=== PATIENT | male | born 1940 | race American Indian/Alaskan Native ===

== ENCOUNTER 2017-12-26 19:03 | Inpatient (IN) | payer MEDICARE, OTHER ==
[2017-12-26] MEDS ORDERED: Sodium Chloride 0.9% 1,000 ML IV STA ×2 (19:18→19:54)
--- NOTE | 2017-12-26 19:32 | ED PDOC ---
Arrival/HPI - General Chief Complaint: GI Problem Time Seen by Provider: 12/26/17 19:09 Historian: Patient - History of Present Illness Narrative History of Present Illness (Text): 12/26/17 19:27 A 77 year old male, whose past medical history includes hypertension, presents to the emergency department for a complaint of rectal bleeding and hematemesis. The patient states that he was diagnosed with a blood clot and was placed on Eliquis. He notes that he has taken it for 30 days, but did not like how it made him feel and made his food taste different. He was recently placed on Xarelto and had his first episode of rectal bleeding yesterday evening and another today at 1 pm. He also experienced 2 episodes of hematemesis today. The patient currently complains of lower abdominal discomfort. The patient denies fevers, chills, headache, dizziness, chest pain, shortness of breath, dyspnea on exertion, cough, abdominal pain, nausea, vomiting, diarrhea, back pain, neck pain, urinary/bowel changes, or any other complaint. PMD: Dr. Schwartz Time/Duration: Other (Yesterday) Symptom Onset: Sudden Symptom Course: Unchanged Activities at Onset: Rest, Light Context: Home Past Medical History - Provider Review Nursing Documentation Reviewed: Yes - Cardiac Hx Cardiac Disorders: Yes Hx Hypertension: Yes Hx Pacemaker: No - Neurological Hx Paralysis: No - Hematological/Oncological Hx Blood Transfusions: No Hx Blood Transfusion Reaction: No - Musculoskeletal/Rheumatological Hx Musculoskeletal Disorders: No - Psychiatric Hx Emotional Abuse: No Hx Physical Abuse: No Hx Substance Use: No - Anesthesia Hx Anesthesia Reactions: No Hx Malignant Hyperthermia: No - Suicidal Assessment Feels Threatened In Home Enviroment: No Family/Social History - Physician Review Nursing Documentation Reviewed: Yes Family/Social History: No Known Family HX Smoking Status: Never Smoked Hx Alcohol Use: Yes (OCCASIONAL) Hx Substance Use: No Allergies/Home Meds Allergies/Adverse Reactions: Allergies shellfish derived Allergy (Verified 12/26/17 18:51) SWELLING Home Medications: Home Meds Medication Instructions Recorded Confirmed Valsartan/Hydrochlorothiazide 320 mg PO QAM 05/12/13 12/26/17 [Valsartan and Hydrochlorothiazide 25 mg-320 M] Verapamil [Verapamil HCl] 240 mg PO QAM 05/12/13 12/26/17 Omeprazole Magnesium [Prilosec Otc] 20 mg PO DAILY 12/26/17 12/26/17 Rivaroxaban [Xarelto] 10 mg PO DAILY 12/26/17 12/26/17 Review of Systems - Physician Review All systems were reviewed & negative as marked: Yes - Review of Systems Constitutional: absent: Fevers, Night Sweats Respiratory: absent: SOB, Cough Cardiovascular: absent: Chest Pain, GREGORIO Gastrointestinal: Hematochezia, Hematemesis. absent: Abdominal Pain, Stool Changes, Diarrhea, Nausea, Vomiting Musculoskeletal: absent: Back Pain, Neck Pain Neurological: absent: Headache, Dizziness Physical Exam Vital Signs Reviewed: Yes Vital Signs Temp Pulse Resp BP Pulse Ox 12/26/17 21:52 97.9 F 102 H 20 84/52 L 12/26/17 21:19 97.9 F 101 H 18 82/36 L 12/26/17 21:02 97.9 F 102 H 20 71/46 L 99 12/26/17 20:45 110 H 19 94/49 L 99 12/26/17 20:22 105 H 20 105/39 L 98 12/26/17 18:49 99.2 F 91 H 20 88/40 L 92 L Temperature: Afebrile Blood Pressure: Hypertensive Pulse: Tachycardic Respiratory Rate: Normal Appearance: Positive for: Well-Appearing, Non-Toxic, Comfortable Pain Distress: None Mental Status: Positive for: Alert and Oriented X 3 - Systems Exam Head: Present: Atraumatic, Normocephalic Pupils: Present: PERRL Extroacular Muscles: Present: EOMI Conjunctiva: Present: Normal Mouth: Present: Moist Mucous Membranes Neck: Present: Normal Range of Motion Respiratory/Chest: Present: Clear to Auscultation, Good Air Exchange. No: Respiratory Distress, Accessory Muscle Use Cardiovascular: Present: Regular Rate and Rhythm, Normal S1, S2. No: Murmurs Abdomen: Present: Tenderness (Tenderness to the bilateral lower quadrants) Back: Present: Normal Inspection Upper Extremity: Present: Normal Inspection. No: Cyanosis, Edema Lower Extremity: Present: Normal Inspection. No: Edema Neurological: Present: GCS=15, CN II-XII Intact, Speech Normal Skin: Present: Warm, Dry, Normal Color. No: Rashes Psychiatric: Present: Alert, Oriented x 3, Normal Insight, Normal Concentration Medical Decision Making ED Course and Treatment: 12/26/17 19:34 Impression: A 77 year old male presents to the emergency department for complaints of hematemesis, hematochezia, and lower abdominal pain. Plan: -- EKG -- Chest X-ray -- Labs -- Urinalysis -- Reassess and disposition Progress Notes: EKG: Ordered, reviewed, and independently interpreted the EKG. Rate : 113 BPM Rhythm : Sinus Tachycardia Interpretation : Non- specific T wave changes CXR Impression: As read by me, no cardiomegaly, no infiltrates 12/26/17 19:54 Case discussed in detail with Dr. Reese and medical insurance coding specialist. Patient will be admitted. - Lab Interpretations Lab Results: 12/26/17 19:03 12/26/17 19:03 Lab Results 12/26/17 19:03: Blood Type O POSITIVE, Antibody Screen Negative, Crossmatch See Detail, BBK History Checked No verified bt 12/26/17 19:03: Sodium 141, Potassium 5.2 H, Chloride 106, Carbon Dioxide 22, Anion Gap 19, BUN 58 H, Creatinine 1.7 H, Est GFR ( Amer) 48, Est GFR ( Non-Af Amer) 39, Random Glucose 126 H, Calcium 8.4, Total Bilirubin 0.4, AST 17 , ALT 11, Alkaline Phosphatase 43, Lactate Dehydrogenase 374, Total Creatine Kinase 39, Troponin I 0.02, NT-Pro-B Natriuret Pep 3310 H, Total Protein 5.3 L, Albumin 2.8 L, Globulin 2.5, Albumin/Globulin Ratio 1.1, Lipase 30 12/26/17 19:03: PT 29.7 H, INR 2.56 H, APTT 35.1 12/26/17 19:03: WBC 8.8, RBC 2.59 L, Hgb 6.6 L*, Hct 20.3 L*, MCV 78.4 L, MCH 25.5, MCHC 32.5, RDW 16.8 H, Plt Count 226, MPV 9.5, Gran % 78.3 H, Lymph % ( Auto) 15.0 L, [place] % (Auto) 6.5 H, Eos % (Auto) 0.0 L, Baso % (Auto) 0.2, Gran # 6.90 H, Lymph # (Auto) 1.3, [place] # (Auto) 0.6, Eos # (Auto) 0.0, Baso # (Auto ) 0.02 I have reviewed the lab results: Yes - RAD Interpretation Radiology Orders: 12/26/17 19:10 CHEST PORTABLE [RAD] Stat - EKG Interpretation Interpreted by ED Physician: Yes Type: 12 lead EKG - Medication Orders Current Medication Orders: Pantoprazole Sodium (Protonix 40mg Ivpb) 40 mg in 100 mls @ 20 mls/hr IVPB .Q5H GRICELDA Sodium Chloride (Sodium Chloride 0.9%) 1,000 mls @ 200 mls/hr IV .Q5H GRICELDA Last Admin: 12/26/17 21:30 Dose: 200 mls/hr eMAR Start Stop Document 12/26/17 21:30 JET (Rec: 12/26/17 21:30 [email or web address] [id number]) Intravenous Solution Start Date 12/26/17 Start Time 21:30 Ondansetron HCl (Zofran Inj) 4 mg IVP Q4H PRN PRN Reason: Nausea/Vomiting Discontinued Medications Sodium Chloride (Sodium Chloride 0.9%) 1,000 mls @ 999 mls/hr IV .Q1H1M STA Stop: 12/26/17 20:18 Last Admin: 12/26/17 19:18 Dose: 999 mls/hr eMAR Start Stop Document 12/26/17 19:18 JET (Rec: 12/26/17 19:56 JET [id number]) Intravenous Solution Start Date 12/26/17 Start Time 19:18 End Date 12/26/17 End time 20:18 Total Infusion Time 60 Sodium Chloride (Sodium Chloride 0.9%) 1,000 mls @ 999 mls/hr IV .Q1H1M STA Stop: 12/26/17 20:40 Last Admin: 12/26/17 19:56 Dose: 999 mls/hr eMAR Start Stop Document 12/26/17 19:56 JET (Rec: 12/26/17 19:56 JET [id number]) Intravenous Solution Start Date 12/26/17 Start Time 19:56 End Date 12/26/17 End time 20:56 Total Infusion Time 60 Ondansetron HCl (Zofran Inj) 8 mg IVP STAT STA Stop: 12/26/17 19:44 Last Admin: 12/26/17 19:50 Dose: 8 mg IVP Administration Document 12/26/17 19:50 JET (Rec: 12/26/17 19:50 JET [id number]) Charges for Administration # of IVP Administrations 1 Pantoprazole Sodium (Protonix Inj) 40 mg IVP STAT STA Stop: 12/26/17 19:44 Last Admin: 12/26/17 19:51 Dose: 40 mg IVP Administration Document 12/26/17 19:51 JET (Rec: 12/26/17 19:51 JET [id number]) Charges for Administration # of IVP Administrations 1 - Scribe Statement The provider has reviewed the documentation as recorded by the Scribe Marilyn Maya Provider Scribe Attestation: All medical record entries made by the Scribe were at my direction and personally dictated by me. I have reviewed the chart and agree that the record accurately reflects my personal performance of the history, physical exam, medical decision making, and the department course for this patient. I have also personally directed, reviewed, and agree with the discharge instructions and disposition. Disposition/Present on Arrival - Present on Arrival Any Indicators Present on Arrival: No History of DVT/PE: No History of Uncontrolled Diabetes: No Urinary Catheter: No History of Decub. Ulcer: No History Surgical Site Infection Following: None - Disposition Have Diagnosis and Disposition been Completed?: Yes Diagnosis: Acute upper GI bleeding, Acute lower GI hemorrhage Disposition: HOSPITALIZED Disposition Time: 19:49 Patient Plan: Discharge Patient Problems: Current Active Problems Problem Status Onset Acute upper GI bleeding Acute Acute lower GI hemorrhage Acute Condition: GOOD
[2017-12-26 19:51] LABS: ALB/GLOB RATIO 1.1 (1.1-1.8); ALBUMIN 2.8 g/dL (3.0-4.8); CALCIUM 8.4 mg/dL (8.4-10.5)
[2017-12-26 19:53] LABS: BASO # 0.02 K/mm3 (0.0-2.0); BASO % 0.2 % (0.0-3.0); GRAN # 6.9 (1.4-6.5); GRAN % 78.3 % (50.0-68.0); LYMPH # 1.3 (1.2-3.4); MEAN CELL VOLUME 78.4 fl (80.0-105.0); MEAN CORPUSCULAR HEMOGLOBIN 25.5 pg (25.0-35.0); MEAN CORPUSCULAR HGB CONC 32.5 g/dl (31.0-37.0); MEAN PLATELET VOLUME 9.5 fl (7.0-11.0); MONO # 0.6 (0.1-0.6); MONO % 6.5 % (1.0-6.0); RBC 2.59 10^6/uL (3.5-6.1); RED CELL DISTRIBUTION WIDTH 16.8 % (11.5-14.5); WHITE BLOOD COUNT 8.8 10^3/ul (4.5-11.0)
[2017-12-26 19:58] LABS: HEMOGLOBIN 6.6 g/dL (14.0-18.0)
[2017-12-26 20:00] LABS: INR 2.56 (0.93-1.08); PARTIAL THROMBOPLASTIN TIME 35.1 Seconds (25.1-36.5); PROTHROMBIN TIME 29.7 SECONDS (9.4-12.5)
[2017-12-26 20:03] LABS: TROPONIN I 0.02 ng/mL
[2017-12-26] MEDS ORDERED: Iohexol 240 (50 ml) ONE (20:35)
--- NOTE | 2017-12-26 21:05 | CP.PCM.HP ---
<Luis Malhotra - Last Filed: 12/26/17 23:06> History of Present Illness - History of Present Illness History of Present Illness: 77 year old male with a past medical history of hypertension, duodenitis, erosive gastritis (diagnosed in 2012), divericulosis, abdominal aortic aneurysm repair in 2011, left lower extremity DVT also in 2011, who presents with two days of melena, multiple episodes of coffee ground hematemesis, and bright red blood per rectum today after starting Xarelto two days ago. Patient reports he was taking Eliquis for a month (or longer) but experienced abdominal discomfort , loss of appetite, and associated weight loss. His PMD, Dr. Schwartz, started him on Xarelto instead (two days prior) in light of these adverse events. In the past two days the patient reports passing dark stool, loss of appetite, coughing up blood, and as of today, palpitations, passing large volume of brightred blood per rectum that he is unable to quantify. His told him he should call 911 after she saw him vomiting a dark substance, presumably blood, and almost fainting. He does admit to drinking alcohol, but denies any history of drinking greater than 8 drinks per week or having any prior history of alcohol abuse. 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 Past Surgical History: abdominal aortic aneurysm angioplasty, upper and lower endoscopies Allergies: Shell-fish and its derivatives Medications: Valsartan-HCTZ 320-25; Xarelto 10 mg (for past two days), Omeprazole 20 mg, Verapamil 240 mg Social: 50 pack year of smoking, drinks alcohol socially, denies illicit drug use Present on Admission - Present on Admission Any Indicators Present on Admission: Yes History of DVT/PE: Yes Review of Systems - Constitutional Constitutional: Anorexia, Headache, Malaise - Cardiovascular Cardiovascular: Dyspnea on Exertion, Lightheadedness, Palpitations - Respiratory Respiratory: Cough - Gastrointestinal Gastrointestinal: Abdominal Pain (lower), Coffee Ground Emesis, Dyspepsia, Hematemesis - Neurological Neurological: Weakness - Hematologic/Lymphatic Hematologic: Easy Bleeding Past Patient History - Past Social History Smoking Status: Never Smoked - CARDIAC Hx Cardiac Disorders: Yes Hx Hypertension: Yes Hx Pacemaker: No - NEUROLOGICAL Hx Paralysis: No - HEMATOLOGICAL/ONCOLOGICAL Hx Blood Transfusions: No Hx Blood Transfusion Reaction: No - MUSCULOSKELETAL/RHEUMATOLOGICAL Hx Musculoskeletal Disorders: No - PSYCHIATRIC Hx Emotional Abuse: No Hx Physical Abuse: No Hx Substance Use: No - SURGICAL HISTORY Hx Surgeries: Yes - ANESTHESIA Hx Anesthesia Reactions: No Hx Malignant Hyperthermia: No Meds Allergies/Adverse Reactions: Allergies Allergy/AdvReac Type Severity Reaction Status Date / Time shellfish derived Allergy SWELLING Verified 12/26/17 18:51 Physical Exam - Constitutional Appears: Toxic - Head Exam Head Exam: ATRAUMATIC, NORMOCEPHALIC - Eye Exam Eye Exam: Conjunctival injection - ENT Exam ENT Exam: Mucous Membranes Dry - Neck Exam Neck exam: Positive for: Normal Inspection - Respiratory Exam Respiratory Exam: Clear to Auscultation Bilateral - Cardiovascular Exam Cardiovascular Exam: Tachycardia, Systolic Murmur - GI/Abdominal Exam GI & Abdominal Exam: absent: Distended, Firm Additional comments: 2 foot midline incision from previous abdominal surgery - Rectal Exam Additional comments: patient refused - Extremities Exam Extremities exam: Positive for: normal inspection. Negative for: calf tenderness - Back Exam Back exam: NORMAL INSPECTION. absent: CVA tenderness (L), CVA tenderness (R) - Neurological Exam Neurological exam: Alert, Oriented x3 - Psychiatric Exam Psychiatric exam: Agitated - Skin Skin Exam: Pallor Results - Vital Signs Recent Vital Signs: Last Vital Signs Temp 99.2 F 12/26/17 18:49 Pulse 91 H 12/26/17 18:49 Resp 20 12/26/17 18:49 BP 88/40 L 12/26/17 18:49 Pulse Ox 92 L 12/26/17 18:49 - Labs Result Diagrams: 12/26/17 19:03 12/26/17 19:03 Labs: Laboratory Results - last 24 hr 12/26/17 20:29 Blood Type Confirm O POSITIVE Assessment & Plan - Assessment and Plan (Free Text) Assessment: 77 year old male with a past medical history of duodenitis, erosive gastritis, history of abdominal aortic aneursym repair, DVT, on Xarelto who presented to [facility] [place] with 2 days of hematemesis, bright red blood per rectum, and symptomatic anemia. Patient was found to hypotensive and tachycardic in the ED with a hemoglobin of 6.6, hematocrit of 20.3, and an INR of 2.56. He was given 2 L of normal saline, started on 200 mls/hr of NS, Protonix ggt, with two , large bore peripheral venous catheters placed . The patient was immediately transferred to ICU. A total of 4 units of blood were prepared with 2 being administered. GI, Dr. Ibrahim was consulted. Plan: 1) Acute GI bleed with hemodynamic instability - NPO - 2 units of PRBCs - Protonix ggt - Prothrombin complex concentrate to be administered - Continue IV crystalloids: 200 mls/ hr of NS - VS q15 minutes - CBC q4h - Troponin q6h x2; initial was negative - PT/PTT ordered for 05:00 12/27/17 - GI consulted Dr. Ibrahim - Surgery Consulted, Dr. Lopez - CT Abdomen and Pelvis ordered - GI bleeding scan Case reviewed and discussed with attending physician, Dr. Reese - Date & Time Date: 12/26/17 Time: 23:02 <Alicia Reese - Last Filed: 12/27/17 04:38> Results - Vital Signs Recent Vital Signs: Last Vital Signs Temp 98 F 12/26/17 23:24 Pulse 116 H 12/27/17 03:40 Resp 19 12/27/17 03:40 BP 110/68 12/27/17 03:30 Pulse Ox 96 12/27/17 03:30 - Labs Result Diagrams: 12/27/17 03:10 12/26/17 19:03 Labs: Laboratory Results - last 24 hr 12/26/17 12/27/17 12/27/17 20:29 03:10 03:10 WBC 14.6 H D RBC 2.56 L Hgb 7.0 L Hct 20.7 L* MCV 80.9 MCH 27.3 MCHC 33.8 RDW 16.3 H Plt Count 134 MPV 9.1 Gran % 85.0 H Lymph % (Auto) 6.6 L [place] % (Auto) 8.4 H Eos % (Auto) 0.0 L Baso % (Auto) 0.0 Gran # 12.42 H Lymph # (Auto) 1.0 L [place] # (Auto) 1.2 H Eos # (Auto) 0.0 Baso # (Auto) 0.00 PT INR APTT Troponin I 0.06 D Blood Type Confirm O POSITIVE 12/27/17 03:10 WBC RBC Hgb Hct MCV MCH MCHC RDW Plt Count MPV Gran % Lymph % (Auto) [place] % (Auto) Eos % (Auto) Baso % (Auto) Gran # Lymph # (Auto) [place] # (Auto) Eos # (Auto) Baso # (Auto) PT 18.6 H INR 1.62 H APTT 35.2 Troponin I Blood Type Confirm Attending/Attestation - Attestation I have personally seen and examined this patient.: Yes I have fully participated in the care of the patient.: Yes I have reviewed all pertinent clinical information: Yes Notes (Text): 12/27/17 04:36 Patient was seen when he was in bed # 3 in the ER. Agree with history,physical examination, assessment and plan. Discussed with , . [facility] 2200 Unit IV was given.
[2017-12-26] MEDS ORDERED: Sodium Chloride 0.9% 1,000 ML IV SCH (21:30)
[2017-12-26] MEDS ORDERED: Hum Prothrombin CPLX(PCC)4FACT 1 Unit Inj IV ONE (22:31)
[2017-12-26] MEDS: Pantoprazole 40mg/100mL NS 40 MG/100 ML BAG IVPB SCH (22:55)
--- NOTE | 2017-12-26 23:45 | CP.PCM.CON ---
History of Present Illness - History of Present Illness History of Present Illness: Surgery: Dr. Lopez Pt is a 77M with PMHx significant for HTN, gastritis/duodenitis, diverticulosis & LLE DVT on AC who presented to [facility] [place] with complaints of black stools & coffee ground emesis. Pt states that he was started on Eliquis a month ago however, had some adverse reactions to the medication & was switched to Xarelto by his PMD 2 days ago. Pt reports having dark, black stools for the past 2 days with loss of appetite. This morning he also started having coffee ground emesis & weakness/palpitations & therefore called 911 & was brought to the ER. Surgery called to evaluate. Currently, pt is resting comfortably in bed. States he is feeling about the same. He denies abdominal pain & denies having any more episodes of bloody emesis. However, he does admit to 2 large melanotic BMs since being in the hospital. Denies F/C, chest pain or SOB. Pt states he has been scoped in the past few years but can't recall exactly when. Denies having a similar episode in the past. PMHx: as per HPI PSHx: AAA repair, Midline laparotomy incision (pt unsure of exact sx) SocialHx: 50 pack year smoking hx, admits social EtOH, denies drugs ALL: shellfish Review of Systems - Review of Systems All systems: reviewed and no additional remarkable complaints except (as per HPI ) Past Patient History - Past Social History Smoking Status: Former Smoker - CARDIAC Hx Cardiac Disorders: Yes Hx Hypertension: Yes Hx Pacemaker: No - NEUROLOGICAL Hx Paralysis: No - HEMATOLOGICAL/ONCOLOGICAL Hx Blood Transfusions: No Hx Blood Transfusion Reaction: No - MUSCULOSKELETAL/RHEUMATOLOGICAL Hx Musculoskeletal Disorders: No - PSYCHIATRIC Hx Emotional Abuse: No Hx Physical Abuse: No Hx Substance Use: No - SURGICAL HISTORY Hx Surgeries: Yes - ANESTHESIA Hx Anesthesia Reactions: No Hx Malignant Hyperthermia: No Meds Allergies/Adverse Reactions: Allergies Allergy/AdvReac Type Severity Reaction Status Date / Time shellfish derived Allergy SWELLING Verified 12/26/17 18:51 - Medications Medications: Current Medications Pantoprazole Sodium (Protonix 40mg Ivpb) 40 mg in 100 mls @ 20 mls/hr IVPB .Q5H GRICELDA Last Admin: 12/26/17 22:55 Dose: 20 mls/hr Sodium Chloride (Sodium Chloride 0.9%) 1,000 mls @ 200 mls/hr IV .Q5H RGICELDA Last Admin: 12/26/17 21:30 Dose: 200 mls/hr Ondansetron HCl (Zofran Inj) 4 mg IVP Q4H PRN PRN Reason: Nausea/Vomiting Physical Exam - Constitutional Appears: No Acute Distress - Head Exam Head Exam: ATRAUMATIC, NORMOCEPHALIC - ENT Exam ENT Exam: Mucous Membranes Moist - Respiratory Exam Respiratory Exam: NORMAL BREATHING PATTERN - Cardiovascular Exam Cardiovascular Exam: Tachycardia - GI/Abdominal Exam GI & Abdominal Exam: Soft. absent: Distended, Guarding, Tenderness - Rectal Exam Additional comments: Pt refused rectal exam, however noted to have melanotic stool - Neurological Exam Neurological exam: Alert, Oriented x3 - Skin Skin Exam: Dry, Warm Results - Vital Signs Recent Vital Signs: Last Vital Signs Temp 98 F 12/26/17 23:24 Pulse 105 H 12/26/17 23:24 Resp 20 12/26/17 23:24 BP 92/38 L 12/26/17 23:24 Pulse Ox 99 12/26/17 22:15 - Labs Result Diagrams: 12/26/17 19:03 12/26/17 19:03 Labs: Laboratory Results - last 24 hr 12/26/17 20:29 Blood Type Confirm O POSITIVE Assessment & Plan - Assessment and Plan (Free Text) Assessment: 77M with GI bleed Plan: - Keep NPO with IVF - Monitor H/H q4H with PRBC transfusions PRN; 2 units ordered - Recommend transfusion of platelets & FFP as well - if pt begins to vomit; rec NGT insertion - IV Protonix - f/u GI recs - No plan for surgical intervention at this time - d/w Dr. John Lehman, PGY-3
[2017-12-27] MEDS ORDERED: Phytonadione 10 MG in Sodium Chloride 0.9% 50 ML IV ONE (00:09)
[2017-12-27] MEDS ORDERED: Sodium Chloride 0.9% 2,000 ML IV STA (01:56)
[2017-12-27] MEDS: Pantoprazole 40mg/100mL NS 40 MG/100 ML BAG IVPB SCH ×2 (02:42→10:56)
[2017-12-27 03:32] LABS: GRAN # 12.42 (1.4-6.5); LYMPH % 6.6 % (22.0-35.0); MEAN CELL VOLUME 80.9 fl (80.0-105.0); MEAN CORPUSCULAR HEMOGLOBIN 27.3 pg (25.0-35.0); MEAN CORPUSCULAR HGB CONC 33.8 g/dl (31.0-37.0); MEAN PLATELET VOLUME 9.1 fl (7.0-11.0); MONO # 1.2 (0.1-0.6); MONO % 8.4 % (1.0-6.0); RBC 2.56 10^6/uL (3.5-6.1); RED CELL DISTRIBUTION WIDTH 16.3 % (11.5-14.5); WHITE BLOOD COUNT 14.6 10^3/ul (4.5-11.0)
[2017-12-27 03:33] LABS: PROTHROMBIN TIME 18.6 SECONDS (9.4-12.5)
[2017-12-27 03:34] LABS: INR 1.62 (0.93-1.08); PARTIAL THROMBOPLASTIN TIME 35.2 Seconds (25.1-36.5)
[2017-12-27 05:52] LABS: BASO # 0.01 K/mm3 (0.0-2.0); BASO % 0.1 % (0.0-3.0); GRAN # 12.67 (1.4-6.5); GRAN % 81.2 % (50.0-68.0); LYMPH # 1.7 (1.2-3.4); LYMPH % 10.8 % (22.0-35.0); MEAN CELL VOLUME 79.8 fl (80.0-105.0); MEAN CORPUSCULAR HEMOGLOBIN 27.5 pg (25.0-35.0); MEAN CORPUSCULAR HGB CONC 34.4 g/dl (31.0-37.0); MEAN PLATELET VOLUME 8.7 fl (7.0-11.0); MONO # 1.2 (0.1-0.6); MONO % 7.9 % (1.0-6.0); RBC 1.93 10^6/uL (3.5-6.1); RED CELL DISTRIBUTION WIDTH 16.2 % (11.5-14.5); WHITE BLOOD COUNT 15.6 10^3/ul (4.5-11.0)
[2017-12-27 06:02] LABS: HEMOGLOBIN 5.3 g/dL (14.0-18.0)
[2017-12-27 06:04] LABS: INR 1.49 (0.93-1.08); PROTHROMBIN TIME 17.3 SECONDS (9.4-12.5)
[2017-12-27 06:17] LABS: TROPONIN I 0.08 ng/mL
[2017-12-27 06:44] LABS: ALBUMIN 2.1 g/dL (3.0-4.8); CALCIUM 7.3 mg/dL (8.4-10.5)
--- NOTE | 2017-12-27 08:28 | RAD ---
HISTORY: Vomiting Blood COMPARISON: 05/13/2013 FINDINGS: LUNGS: Interstitial lung disease, chronic approximately stable. No active pulmonary disease. PLEURA: No significant pleural effusion identified, no pneumothorax apparent. CARDIOVASCULAR: No radiographic findings to suggest acute or significant cardiovascular disease. OSSEOUS STRUCTURES: No significant abnormalities. VISUALIZED UPPER ABDOMEN: Normal. OTHER FINDINGS: None. IMPRESSION: No active disease. No change compared to the prior study.
[2017-12-27 08:44] LABS: BASO # 0.01 K/mm3 (0.0-2.0); BASO % 0.1 % (0.0-3.0); GRAN # 12.05 (1.4-6.5); HEMOGLOBIN 8.1 g/dL (14.0-18.0); LYMPH # 1.6 (1.2-3.4); LYMPH % 11.3 % (22.0-35.0); MEAN CELL VOLUME 82.5 fl (80.0-105.0); MEAN CORPUSCULAR HEMOGLOBIN 28.9 pg (25.0-35.0); MEAN CORPUSCULAR HGB CONC 35.1 g/dl (31.0-37.0); MEAN PLATELET VOLUME 10.1 fl (7.0-11.0); MONO # 0.7 (0.1-0.6); MONO % 4.6 % (1.0-6.0); RBC 2.8 10^6/uL (3.5-6.1); RED CELL DISTRIBUTION WIDTH 15.5 % (11.5-14.5); WHITE BLOOD COUNT 14.3 10^3/ul (4.5-11.0)
[2017-12-27 08:56] LABS: INR 1.4 (0.93-1.08); PARTIAL THROMBOPLASTIN TIME 35.4 Seconds (25.1-36.5); PROTHROMBIN TIME 16.2 SECONDS (9.4-12.5)
[2017-12-27] MEDS ORDERED: Sodium Chloride 0.9% 1,000 ML IV SCH (09:19)
[2017-12-27 10:00] LABS: ARTERIAL BLOOD GAS HCO3 21.7 mmol/L (21-28); ARTERIAL BLOOD GAS O2 SAT 99.7 % (95-98); ARTERIAL BLOOD GAS PCO2 32 mm/Hg (35-45); ARTERIAL BLOOD GAS PH 7.44 (7.35-7.45); ARTERIAL BLOOD GAS TCO2 22.7 mmol.L (22-28)
--- NOTE | 2017-12-27 10:06 | CP.PCM.CON ---
<Mayda Parker - Last Filed: 12/27/17 11:02> History of Present Illness - History of Present Illness History of Present Illness: PGY-[address] Ibrahim's service 77 year old male with PMH of hypertension, duodenitis, erosive gastritis ( diagnosed in 2012), divericulosis, abdominal aortic aneurysm repair in 2011, left lower extremity DVT (2011), who presents with GI bleed. Patient states that over the past 2 days he had multiple episodes of coffee ground hematemesis. He also reports melena, and bright red blood per rectum starting yesetrday. Patient states that he started Xarelto a few days ago. Patient endorses he was taking Eliquis but experienced abdominal discomfort, loss of appetite, and associated weight loss. He was switched to Xarelto instead recently due to these adverse events. He does admit to drinking alcohol, but denies any history of drinking greater than 8 drinks per week or having any prior history of alcohol abuse. Patient states that he takes Aleeve almost daily for the past 5 years. 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 PSH: abdominal aortic aneurysm angioplasty, upper and lower endoscopies Allergies: Shell-fish and its derivatives Medications: Valsartan-HCTZ 320-25; Xarelto 10 mg (for past two days), Omeprazole 20 mg, Verapamil 240 mg Social history: 50 pack year of smoking, drinks alcohol socially, denies illicit drug use 's cell phone number [phone] Review of Systems - Review of Systems All systems: reviewed and no additional remarkable complaints except Past Patient History - Past Social History Smoking Status: Former Smoker - CARDIAC Hx Cardiac Disorders: Yes Hx Hypertension: Yes Hx Pacemaker: No - PULMONARY Hx Respiratory Disorders: No - NEUROLOGICAL Hx Paralysis: No - HEENT Hx HEENT Problems: No - RENAL Hx Chronic Kidney Disease: No - ENDOCRINE/METABOLIC Hx Endocrine Disorders: No - HEMATOLOGICAL/ONCOLOGICAL Hx Blood Transfusions: No Hx Blood Transfusion Reaction: No - INTEGUMENTARY Hx Dermatological Problems: No - MUSCULOSKELETAL/RHEUMATOLOGICAL Hx Musculoskeletal Disorders: No - GASTROINTESTINAL Hx Gastrointestinal Disorders: Yes Other/Comment: gastritis - GENITOURINARY/GYNECOLOGICAL Hx Genitourinary Disorders: No - PSYCHIATRIC Hx Emotional Abuse: No Hx Physical Abuse: No Hx Substance Use: No - SURGICAL HISTORY Hx Surgeries: Yes - ANESTHESIA Hx Anesthesia Reactions: No Hx Malignant Hyperthermia: No Meds Allergies/Adverse Reactions: Allergies Allergy/AdvReac Type Severity Reaction Status Date / Time shellfish derived Allergy SWELLING Verified 12/26/17 18:51 - Medications Medications: Current Medications Pantoprazole Sodium (Protonix 40mg Ivpb) 40 mg in 100 mls @ 20 mls/hr IVPB .Q5H [facility] Last Admin: 12/27/17 02:42 Dose: 20 mls/hr Magnesium 2 gm/50 ml NS (Magnesium Sulfate 2 Gm/50 Ml Ns) 2 gm in 50 mls @ 50 mls/hr IVPB ONCE ONE Stop: 12/27/17 10:45 Ondansetron HCl (Zofran Inj) 4 mg IVP Q4H PRN PRN Reason: Nausea/Vomiting Physical Exam - Head Exam Head Exam: ATRAUMATIC, NORMAL INSPECTION, NORMOCEPHALIC - Eye Exam Eye Exam: Normal appearance - ENT Exam ENT Exam: Mucous Membranes Dry - Respiratory Exam Respiratory Exam: Clear to Auscultation Bilateral, NORMAL BREATHING PATTERN. absent: Rales, Rhonchi, Wheezes, Respiratory Distress Additional comments: on non rebreather - Cardiovascular Exam Cardiovascular Exam: REGULAR RHYTHM, +S1, +S2. absent: Bradycardia, Tachycardia , Diastolic murmur, Irregular Rhythm, Systolic Murmur - GI/Abdominal Exam GI & Abdominal Exam: Normal Bowel Sounds, Soft. absent: Distended, Firm, Guarding, Tenderness - Extremities Exam Extremities exam: Positive for: normal inspection. Negative for: pedal edema, tenderness - Neurological Exam Neurological exam: Alert, Oriented x3 - Skin Skin Exam: Dry, Intact, Warm - Additional Findings Additional findings: bright red blood per rectum Results - Vital Signs Recent Vital Signs: Last Vital Signs Temp 98 F 12/26/17 23:24 Pulse 63 12/27/17 07:53 Resp 16 12/27/17 07:55 BP 129/73 12/27/17 07:30 Pulse Ox 96 12/27/17 03:30 - Labs Result Diagrams: 12/27/17 08:35 12/27/17 05:40 Labs: Laboratory Results - last 24 hr 12/26/17 12/27/17 12/27/17 20:29 03:10 03:10 WBC 14.6 H D RBC 2.56 L Hgb 7.0 L Hct 20.7 L* MCV 80.9 MCH 27.3 MCHC 33.8 RDW 16.3 H Plt Count 134 MPV 9.1 Gran % 85.0 H Lymph % (Auto) 6.6 L Wise % (Auto) 8.4 H Eos % (Auto) 0.0 L Baso % (Auto) 0.0 Gran # 12.42 H Lymph # (Auto) 1.0 L Wise # (Auto) 1.2 H Eos # (Auto) 0.0 Baso # (Auto) 0.00 PT INR APTT Sodium Potassium Chloride Carbon Dioxide Anion Gap BUN Creatinine Est GFR ( Amer) Est GFR (Non-Af Amer) Random Glucose Calcium Phosphorus Magnesium Total Bilirubin AST ALT Alkaline Phosphatase Troponin I 0.06 D Total Protein Albumin Globulin Albumin/Globulin Ratio Blood Type Confirm O POSITIVE 12/27/17 12/27/17 12/27/17 03:10 05:30 05:40 WBC RBC Hgb Hct MCV MCH MCHC RDW Plt Count MPV Gran % Lymph % (Auto) Wise % (Auto) Eos % (Auto) Baso % (Auto) Gran # Lymph # (Auto) Wise # (Auto) Eos # (Auto) Baso # (Auto) PT 18.6 H INR 1.62 H APTT 35.2 Sodium 143 Potassium 4.7 Chloride 113 H Carbon Dioxide 20 L Anion Gap 15 BUN 72 H Creatinine 1.7 H Est GFR ( Amer) 48 Est GFR (Non-Af Amer) 39 Random Glucose 114 H Calcium 7.3 L Phosphorus 3.4 Magnesium 1.5 L Total Bilirubin 0.5 AST 17 ALT 23 Alkaline Phosphatase 34 L D Troponin I 0.08 D Total Protein 4.1 L Albumin 2.1 L Globulin 2.0 Albumin/Globulin Ratio 1.0 L Blood Type Confirm 12/27/17 12/27/17 12/27/17 05:40 05:40 08:35 WBC 15.6 H 14.3 H RBC 1.93 L 2.80 L Hgb 5.3 L* 8.1 L D Hct 15.4 L* 23.1 L MCV 79.8 L 82.5 MCH 27.5 28.9 MCHC 34.4 35.1 RDW 16.2 H 15.5 H Plt Count 116 L 90 L MPV 8.7 10.1 Gran % 81.2 H 84.0 H Lymph % (Auto) 10.8 L 11.3 L Wise % (Auto) 7.9 H 4.6 Eos % (Auto) 0.0 L 0.0 L Baso % (Auto) 0.1 0.1 Gran # 12.67 H 12.05 H Lymph # (Auto) 1.7 1.6 Wise # (Auto) 1.2 H 0.7 H Eos # (Auto) 0.0 0.0 Baso # (Auto) 0.01 0.01 PT 17.3 H INR 1.49 H APTT 34.0 Sodium Potassium Chloride Carbon Dioxide Anion Gap BUN Creatinine Est GFR ( Amer) Est GFR (Non-Af Amer) Random Glucose Calcium Phosphorus Magnesium Total Bilirubin AST ALT Alkaline Phosphatase Troponin I Total Protein Albumin Globulin Albumin/Globulin Ratio Blood Type Confirm 12/27/17 08:35 WBC RBC Hgb Hct MCV MCH MCHC RDW Plt Count MPV Gran % Lymph % (Auto) Wise % (Auto) Eos % (Auto) Baso % (Auto) Gran # Lymph # (Auto) Wise # (Auto) Eos # (Auto) Baso # (Auto) PT 16.2 H INR 1.40 H APTT 35.4 Sodium Potassium Chloride Carbon Dioxide Anion Gap BUN Creatinine Est GFR ( Amer) Est GFR (Non-Af Amer) Random Glucose Calcium Phosphorus Magnesium Total Bilirubin AST ALT Alkaline Phosphatase Troponin I Total Protein Albumin Globulin Albumin/Globulin Ratio Blood Type Confirm Assessment & Plan - Assessment and Plan (Free Text) Assessment: 77 year old male with PMH of hypertension, duodenitis, erosive gastritis, divericulosis, abdominal aortic aneurysm repair in 2011, left lower extremity DVT (2011), who presents with GI bleed s/p 3 u pRBC and 2 units FFP. Plan: s/p 5 units pRBC, 2 units FFP endoscopy today hgb 8.1 after transfusion, continue to monitor H&H, transfuse as needed continue protonix drip consider bleeding scan NPO case seen and discussed with Dr. Ibrahim <Jarred Ibrahim V - Last Filed: 12/27/17 23:33> Meds - Medications Medications: Current Medications Pantoprazole Sodium (Protonix 40mg Ivpb) 40 mg in 100 mls @ 20 mls/hr IVPB .Q5H [facility] Last Admin: 12/27/17 10:56 Dose: 20 mls/hr Midazolam 100 mg/100ml in NS (Midazolam 100 Mg/100ml In Ns) 100 mg in 100 mls @ 1 mls/hr IV .Q24H PRN; Protocol; 1 MG/HR PRN Reason: Agitation Last Admin: 12/27/17 19:11 Dose: 1 mg/hr, 1 mls/hr Propofol (Diprivan) 1,000 mg in 100 mls @ 2.557 mls/hr IV .Q24H PRN; Protocol; 5 MCG/KG/MIN PRN Reason: TITRATE PER MD ORDER Last Admin: 12/27/17 20:09 Dose: 10 mcg/kg/min, 5.114 mls/hr Ondansetron HCl (Zofran Inj) 4 mg IVP Q4H PRN PRN Reason: Nausea/Vomiting Results - Vital Signs Recent Vital Signs: Last Vital Signs Temp 98.6 F 12/27/17 22:30 Pulse 98 H 12/27/17 22:30 Resp 23 12/27/17 18:55 BP 141/74 12/27/17 22:30 Pulse Ox 64 L 12/27/17 22:30 - Labs Result Diagrams: 12/27/17 19:26 12/27/17 17:20 Labs: Laboratory Results - last 24 hr 12/27/17 12/27/17 12/27/17 03:10 03:10 03:10 WBC 14.6 H D RBC 2.56 L Hgb 7.0 L Hct 20.7 L* MCV 80.9 MCH 27.3 MCHC 33.8 RDW 16.3 H Plt Count 134 MPV 9.1 Gran % 85.0 H Lymph % (Auto) 6.6 L Wise % (Auto) 8.4 H Eos % (Auto) 0.0 L Baso % (Auto) 0.0 Gran # 12.42 H Lymph # (Auto) 1.0 L Wise # (Auto) 1.2 H Eos # (Auto) 0.0 Baso # (Auto) 0.00 PT 18.6 H INR 1.62 H APTT 35.2 pCO2 pO2 HCO3 ABG pH ABG Total CO2 ABG O2 Saturation ABG Base Excess ABG Potassium Glucose Lactate FiO2 Sodium Potassium Chloride Carbon Dioxide Anion Gap BUN Creatinine Est GFR ( Amer) Est GFR (Non-Af Amer) Random Glucose Calcium Phosphorus Magnesium Total Bilirubin AST ALT Alkaline Phosphatase Troponin I 0.06 D Total Protein Albumin Globulin Albumin/Globulin Ratio Arterial Blood Potassium 12/27/17 12/27/17 12/27/17 05:30 05:40 05:40 WBC RBC Hgb Hct MCV MCH MCHC RDW Plt Count MPV Gran % Lymph % (Auto) Wise % (Auto) Eos % (Auto) Baso % (Auto) Gran # Lymph # (Auto) Wise # (Auto) Eos # (Auto) Baso # (Auto) PT 17.3 H INR 1.49 H APTT 34.0 pCO2 pO2 HCO3 ABG pH ABG Total CO2 ABG O2 Saturation ABG Base Excess ABG Potassium Glucose Lactate FiO2 Sodium 143 Potassium 4.7 Chloride 113 H Carbon Dioxide 20 L Anion Gap 15 BUN 72 H Creatinine 1.7 H Est GFR ( Amer) 48 Est GFR (Non-Af Amer) 39 Random Glucose 114 H Calcium 7.3 L Phosphorus 3.4 Magnesium 1.5 L Total Bilirubin 0.5 AST 17 ALT 23 Alkaline Phosphatase 34 L D Troponin I 0.08 D Total Protein 4.1 L Albumin 2.1 L Globulin 2.0 Albumin/Globulin Ratio 1.0 L Arterial Blood Potassium 12/27/17 12/27/17 12/27/17 05:40 08:35 08:35 WBC 15.6 H 14.3 H RBC 1.93 L 2.80 L Hgb 5.3 L* 8.1 L D Hct 15.4 L* 23.1 L MCV 79.8 L 82.5 MCH 27.5 28.9 MCHC 34.4 35.1 RDW 16.2 H 15.5 H Plt Count 116 L 90 L MPV 8.7 10.1 Gran % 81.2 H 84.0 H Lymph % (Auto) 10.8 L 11.3 L Wise % (Auto) 7.9 H 4.6 Eos % (Auto) 0.0 L 0.0 L Baso % (Auto) 0.1 0.1 Gran # 12.67 H 12.05 H Lymph # (Auto) 1.7 1.6 Wise # (Auto) 1.2 H 0.7 H Eos # (Auto) 0.0 0.0 Baso # (Auto) 0.01 0.01 PT 16.2 H INR 1.40 H APTT 35.4 pCO2 pO2 HCO3 ABG pH ABG Total CO2 ABG O2 Saturation ABG Base Excess ABG Potassium Glucose Lactate FiO2 Sodium Potassium Chloride Carbon Dioxide Anion Gap BUN Creatinine Est GFR ( Amer) Est GFR (Non-Af Amer) Random Glucose Calcium Phosphorus Magnesium Total Bilirubin AST ALT Alkaline Phosphatase Troponin I Total Protein Albumin Globulin Albumin/Globulin Ratio Arterial Blood Potassium 12/27/17 12/27/17 12/27/17 09:50 13:41 17:20 WBC 15.6 H 13.9 H RBC 2.33 L 1.98 L Hgb 6.7 L* 5.8 L* Hct 18.9 L* 16.5 L* MCV 81.1 83.3 MCH 28.8 29.3 MCHC 35.4 35.2 RDW 15.6 H 15.8 H Plt Count 85 L 135 MPV 9.8 9.2 Gran % 78.6 H Lymph % (Auto) 13.8 L Wise % (Auto) 7.5 H Eos % (Auto) 0.0 L Baso % (Auto) 0.1 Gran # 12.28 H Lymph # (Auto) 2.2 Wise # (Auto) 1.2 H Eos # (Auto) 0.0 Baso # (Auto) 0.02 PT INR APTT pCO2 32 L pO2 322.0 H HCO3 21.7 ABG pH 7.44 ABG Total CO2 22.7 ABG O2 Saturation 99.7 H ABG Base Excess -1.6 ABG Potassium 4.1 Glucose 125 H Lactate 0.6 L FiO2 100.0 Sodium 140.0 Potassium Chloride 118.0 H Carbon Dioxide Anion Gap BUN Creatinine Est GFR ( Amer) Est GFR (Non-Af Amer) Random Glucose Calcium Phosphorus Magnesium Total Bilirubin AST ALT Alkaline Phosphatase Troponin I Total Protein Albumin Globulin Albumin/Globulin Ratio Arterial Blood Potassium 4.1 12/27/17 12/27/17 12/27/17 17:20 17:20 19:26 WBC RBC Hgb Hct MCV MCH MCHC RDW Plt Count MPV Gran % Lymph % (Auto) Wise % (Auto) Eos % (Auto) Baso % (Auto) Gran # Lymph # (Auto) Wise # (Auto) Eos # (Auto) Baso # (Auto) PT 13.7 H 13.5 H INR 1.20 H 1.18 H APTT 24.0 L 28.7 pCO2 pO2 HCO3 ABG pH ABG Total CO2 ABG O2 Saturation ABG Base Excess ABG Potassium Glucose Lactate FiO2 Sodium 144 Potassium 4.3 Chloride 115 H Carbon Dioxide 23 Anion Gap 10 BUN 74 H Creatinine 2.0 H Est GFR ( Amer) 40 Est GFR (Non-Af Amer) 33 Random Glucose 139 H Calcium 6.7 L* Phosphorus Magnesium Total Bilirubin 0.3 AST 15 L ALT 23 Alkaline Phosphatase 31 L Troponin I Total Protein 3.8 L Albumin 1.9 L Globulin 1.9 Albumin/Globulin Ratio 1.0 L Arterial Blood Potassium 12/27/17 12/27/17 12/27/17 19:26 19:26 20:05 WBC 10.3 D RBC 2.23 L Hgb 6.5 L* Hct 18.8 L* MCV 84.3 MCH 29.1 MCHC 34.6 RDW 15.6 H Plt Count 109 L MPV 9.7 Gran % 82.5 H Lymph % (Auto) 10.1 L Wise % (Auto) 7.4 H Eos % (Auto) 0.0 L Baso % (Auto) 0.0 Gran # 8.53 H Lymph # (Auto) 1.0 L Wise # (Auto) 0.8 H Eos # (Auto) 0.0 Baso # (Auto) 0.00 PT INR APTT pCO2 47 H pO2 52.0 L HCO3 20.6 L ABG pH 7.25 L ABG Total CO2 22.0 ABG O2 Saturation 93.4 L ABG Base Excess -6.7 L ABG Potassium 3.4 L Glucose 114 H Lactate 0.7 FiO2 60.0 Sodium 145.0 Potassium Chloride 121.0 H Carbon Dioxide Anion Gap BUN Creatinine Est GFR ( Amer) Est GFR (Non-Af Amer) Random Glucose Calcium Phosphorus 5.1 H Magnesium 1.8 Total Bilirubin AST ALT Alkaline Phosphatase Troponin I 0.05 D Total Protein Albumin Globulin Albumin/Globulin Ratio Arterial Blood Potassium 3.4 L Attending/Attestation - Attestation I have personally seen and examined this patient.: Yes I have fully participated in the care of the patient.: Yes I have reviewed all pertinent clinical information: Yes Notes (Text): This is an addendum to GI consult report dictated by the Fire Protection Inspector.The patient was seen and examined earlier. Medical records, lab studies, imagings were reviewed. Last 24 hours events reviewed. Agreed with the above treatment plan as outlined in Fire Protection Inspector 's notes the with the addition of the following 12/27/17 23:26
[2017-12-27] MEDS: Magnesium 2 gm/50 ml NS 2 GM/50 ML BAG IVPB ONE ×2 (10:55→18:54)
--- NOTE | 2017-12-27 11:10 | CP.CCUPN ---
<Chuck Haley - Last Filed: 12/27/17 11:07> CCU Subjective - Physician Review Subjective (Free Text): ICU Progress Note Pt seen and examined at bedside. Patient transfused with pRBC and FFP overnight , vitals signs are currently stable. Pt is awake and alert, but refusing to answer questions. ROS unobtainable due to patient compliance. CCU Objective - Vital Signs / Intake & Output Vital Signs (Last 4 hours): Vital Signs Pulse Resp BP 12/27/17 10:54 126/64 12/27/17 07:55 16 12/27/17 07:54 16 12/27/17 07:53 63 19 12/27/17 07:52 17 12/27/17 07:50 91 H 34 H 12/27/17 07:49 95 H 10 L 12/27/17 07:48 97 H 31 H 12/27/17 07:47 92 H 18 12/27/17 07:46 115 H 18 12/27/17 07:45 95 H 20 12/27/17 07:44 97 H 17 12/27/17 07:43 87 68 H 12/27/17 07:42 109 H 20 12/27/17 07:41 104 H 15 12/27/17 07:40 106 H 20 12/27/17 07:39 99 H 21 12/27/17 07:38 102 H 12/27/17 07:37 99 H 28 H 12/27/17 07:36 95 H 17 12/27/17 07:35 97 H 17 12/27/17 07:34 97 H 15 12/27/17 07:33 97 H 20 12/27/17 07:32 97 H 16 12/27/17 07:31 97 H 23 12/27/17 07:30 129/73 12/27/17 07:29 96 H 18 12/27/17 07:28 97 H 16 12/27/17 07:27 98 H 17 12/27/17 07:26 98 H 17 12/27/17 07:25 100 H 17 12/27/17 07:24 98 H 18 12/27/17 07:23 100 H 20 12/27/17 07:22 104 H 19 12/27/17 07:21 104 H 21 12/27/17 07:20 84 65 H 06/01/18 07:19 101 H 35 H 12/27/17 07:18 96 H 31 H 12/27/17 07:17 99 H 28 H 12/27/17 07:16 96 H 33 H 12/27/17 07:15 91 H 19 12/27/17 07:14 102 H 17 12/27/17 07:13 96 H 29 H 12/27/17 07:12 99 H 25 H 12/27/17 07:11 100 H 28 H 12/27/17 07:10 100 H 23 12/27/17 07:09 97 H 33 H 12/27/17 07:08 92 H 44 H Intake and Output (Last 8hrs): Intake & Output 12/26/17 12/27/17 12/27/17 22:59 06:59 14:59 Intake Total 0 4730 Balance 0 4730 Weight 85.23 kg Intake: IV 4405 0.9 ns 1800 ffp 800 prbc 1625 protonix 180 Blood Product 0 325 Red Blood Cells Cpd As1 0 325 Lr Unit [id number] Other: Voiding Method Urinal # Bowel Movements 11 - Physical Exam Head: Positive for: Atraumatic, Normocephalic Pupils: Positive for: PERRL Extroacular Muscles: Positive for: EOMI Conjunctiva: Positive for: Normal Mouth: Positive for: Moist Mucous Membranes Neck: Positive for: Normal Range of Motion Respiratory/Chest: Positive for: Clear to Auscultation, Good Air Exchange. Negative for: Respiratory Distress, Accessory Muscle Use Cardiovascular: Positive for: Regular Rate and Rhythm, Normal S1, S2. Negative for: Murmurs Abdomen: Positive for: Tenderness (Tenderness to the bilateral lower quadrants) . Negative for: Distention, Rebound, Guarding Rectal: Positive for: Gross Blood, Melena Back: Positive for: Normal Inspection Upper Extremity: Positive for: Normal Inspection. Negative for: Cyanosis, Edema Lower Extremity: Positive for: Normal Inspection. Negative for: Edema Neurological: Positive for: GCS=15, CN II-XII Intact, Speech Normal Skin: Positive for: Warm, Dry, Normal Color. Negative for: Rashes Psychiatric: Positive for: Alert, Oriented x 3, Normal Insight, Normal Concentration - Medications Active Medications: Active Medications Generic Name Dose Route Start Last Admin Trade Name Freq PRN Reason Stop Dose Admin Pantoprazole Sodium 40 mg in 100 mls @ 20 mls/hr 12/26/17 20:30 12/27/17 10: 56 Protonix 40mg Ivpb IVPB 20 mls/hr .Q5H GRICELDA Administration Ondansetron HCl 4 mg 12/26/17 21:15 Zofran Inj IVP Q4H PRN Nausea/Vomiting - Patient Studies Lab Studies: Lab Studies 12/27/17 12/27/17 12/27/17 Range/Units 09:50 08:35 08:35 WBC 14.3 H (4.5-11.0) 10^3/ul RBC 2.80 L (3.5-6.1) 10^6/uL Hgb 8.1 L D (14.0-18.0) g/dL Hct 23.1 L (42.0-52.0) % MCV 82.5 (80.0-105.0) fl MCH 28.9 (25.0-35.0) pg MCHC 35.1 (31.0-37.0) g/dl RDW 15.5 H (11.5-14.5) % Plt Count 90 L (120.0-450.0) 10^3/uL MPV 10.1 (7.0-11.0) fl Gran % 84.0 H (50.0-68.0) % Lymph % (Auto) 11.3 L (22.0-35.0) % [place] % (Auto) 4.6 (1.0-6.0) % Eos % (Auto) 0.0 L (1.5-5.0) % Baso % (Auto) 0.1 (0.0-3.0) % Gran # 12.05 H (1.4-6.5) Lymph # (Auto) 1.6 (1.2-3.4) [place] # (Auto) 0.7 H (0.1-0.6) Eos # (Auto) 0.0 (0.0-0.7) Baso # (Auto) 0.01 (0.0-2.0) K/mm3 PT 16.2 H (9.4-12.5) SECONDS INR 1.40 H (0.93-1.08) APTT 35.4 (25.1-36.5) Seconds pCO2 32 L (35-45) mm/Hg pO2 322.0 H (80-100) mm/Hg HCO3 21.7 (21-28) mmol/L ABG pH 7.44 (7.35-7.45) ABG Total CO2 22.7 (22-28) mmol.L ABG O2 Saturation 99.7 H (95-98) % ABG Base Excess -1.6 (-2.0-3.0) mmol/L ABG Potassium 4.1 (3.6-5.2) mmol/L Glucose 125 H (75-110) mg/dl Lactate 0.6 L (0.7-2.1) mmol/L FiO2 100.0 % Sodium 140.0 (132-148) mmol/L Potassium (3.6-5.0) mmol/L Chloride 118.0 H (98-107) mmol/L Carbon Dioxide (21-33) mmol/L Anion Gap (10-20) BUN (7-21) mg/dL Creatinine (0.8-1.5) mg/dl Est GFR ( Amer) Est GFR (Non-Af Amer) Random Glucose (70-110) mg/dL Calcium (8.4-10.5) mg/dL Phosphorus (2.5-4.5) mg/dL Magnesium (1.7-2.2) mg/dL Total Bilirubin (0.2-1.3) mg/dL AST (17-59) U/L ALT (7-56) U/L Alkaline Phosphatase (38-126) U/L Troponin I ng/mL Total Protein (5.8-8.3) g/dL Albumin (3.0-4.8) g/dL Globulin gm/dL Albumin/Globulin Ratio (1.1-1.8) Arterial Blood Potassium 4.1 (3.6-5.2) mmol/L Blood Type Confirm 12/27/17 12/27/17 12/27/17 Range/Units 05:40 05:40 05:40 WBC 15.6 H (4.5-11.0) 10^3/ul RBC 1.93 L (3.5-6.1) 10^6/uL Hgb 5.3 L* (14.0-18.0) g/dL Hct 15.4 L* (42.0-52.0) % MCV 79.8 L (80.0-105.0) fl MCH 27.5 (25.0-35.0) pg MCHC 34.4 (31.0-37.0) g/dl RDW 16.2 H (11.5-14.5) % Plt Count 116 L (120.0-450.0) 10^3/uL MPV 8.7 (7.0-11.0) fl Gran % 81.2 H (50.0-68.0) % Lymph % (Auto) 10.8 L (22.0-35.0) % [place] % (Auto) 7.9 H (1.0-6.0) % Eos % (Auto) 0.0 L (1.5-5.0) % Baso % (Auto) 0.1 (0.0-3.0) % Gran # 12.67 H (1.4-6.5) Lymph # (Auto) 1.7 (1.2-3.4) [place] # (Auto) 1.2 H (0.1-0.6) Eos # (Auto) 0.0 (0.0-0.7) Baso # (Auto) 0.01 (0.0-2.0) K/mm3 PT 17.3 H (9.4-12.5) SECONDS INR 1.49 H (0.93-1.08) APTT 34.0 (25.1-36.5) Seconds pCO2 (35-45) mm/Hg pO2 (80-100) mm/Hg HCO3 (21-28) mmol/L ABG pH (7.35-7.45) ABG Total CO2 (22-28) mmol.L ABG O2 Saturation (95-98) % ABG Base Excess (-2.0-3.0) mmol/L ABG Potassium (3.6-5.2) mmol/L Glucose (75-110) mg/dl Lactate (0.7-2.1) mmol/L FiO2 % Sodium 143 (132-148) mmol/L Potassium 4.7 (3.6-5.0) mmol/L Chloride 113 H (98-107) mmol/L Carbon Dioxide 20 L (21-33) mmol/L Anion Gap 15 (10-20) BUN 72 H (7-21) mg/dL Creatinine 1.7 H (0.8-1.5) mg/dl Est GFR ( Amer) 48 Est GFR (Non-Af Amer) 39 Random Glucose 114 H (70-110) mg/dL Calcium 7.3 L (8.4-10.5) mg/dL Phosphorus (2.5-4.5) mg/dL Magnesium (1.7-2.2) mg/dL Total Bilirubin 0.5 (0.2-1.3) mg/dL AST 17 (17-59) U/L ALT 23 (7-56) U/L Alkaline Phosphatase 34 L D (38-126) U/L Troponin I 0.08 D ng/mL Total Protein 4.1 L (5.8-8.3) g/dL Albumin 2.1 L (3.0-4.8) g/dL Globulin 2.0 gm/dL Albumin/Globulin Ratio 1.0 L (1.1-1.8) Arterial Blood Potassium (3.6-5.2) mmol/L Blood Type Confirm 12/27/17 12/27/17 12/27/17 Range/Units 05:30 03:10 03:10 WBC (4.5-11.0) 10^3/ul RBC (3.5-6.1) 10^6/uL Hgb (14.0-18.0) g/dL Hct (42.0-52.0) % MCV (80.0-105.0) fl MCH (25.0-35.0) pg MCHC (31.0-37.0) g/dl RDW (11.5-14.5) % Plt Count (120.0-450.0) 10^3/uL MPV (7.0-11.0) fl Gran % (50.0-68.0) % Lymph % (Auto) (22.0-35.0) % [place] % (Auto) (1.0-6.0) % Eos % (Auto) (1.5-5.0) % Baso % (Auto) (0.0-3.0) % Gran # (1.4-6.5) Lymph # (Auto) (1.2-3.4) [place] # (Auto) (0.1-0.6) Eos # (Auto) (0.0-0.7) Baso # (Auto) (0.0-2.0) K/mm3 PT 18.6 H (9.4-12.5) SECONDS INR 1.62 H (0.93-1.08) APTT 35.2 (25.1-36.5) Seconds pCO2 (35-45) mm/Hg pO2 (80-100) mm/Hg HCO3 (21-28) mmol/L ABG pH (7.35-7.45) ABG Total CO2 (22-28) mmol.L ABG O2 Saturation (95-98) % ABG Base Excess (-2.0-3.0) mmol/L ABG Potassium (3.6-5.2) mmol/L Glucose (75-110) mg/dl Lactate (0.7-2.1) mmol/L FiO2 % Sodium (132-148) mmol/L Potassium (3.6-5.0) mmol/L Chloride (98-107) mmol/L Carbon Dioxide (21-33) mmol/L Anion Gap (10-20) BUN (7-21) mg/dL Creatinine (0.8-1.5) mg/dl Est GFR ( Amer) Est GFR (Non-Af Amer) Random Glucose (70-110) mg/dL Calcium (8.4-10.5) mg/dL Phosphorus 3.4 (2.5-4.5) mg/dL Magnesium 1.5 L (1.7-2.2) mg/dL Total Bilirubin (0.2-1.3) mg/dL AST (17-59) U/L ALT (7-56) U/L Alkaline Phosphatase (38-126) U/L Troponin I 0.06 D ng/mL Total Protein (5.8-8.3) g/dL Albumin (3.0-4.8) g/dL Globulin gm/dL Albumin/Globulin Ratio (1.1-1.8) Arterial Blood Potassium (3.6-5.2) mmol/L Blood Type Confirm 12/27/17 12/26/17 Range/Units 03:10 20:29 WBC 14.6 H D (4.5-11.0) 10^3/ul RBC 2.56 L (3.5-6.1) 10^6/uL Hgb 7.0 L (14.0-18.0) g/dL Hct 20.7 L* (42.0-52.0) % MCV 80.9 (80.0-105.0) fl MCH 27.3 (25.0-35.0) pg MCHC 33.8 (31.0-37.0) g/dl RDW 16.3 H (11.5-14.5) % Plt Count 134 (120.0-450.0) 10^3/uL MPV 9.1 (7.0-11.0) fl Gran % 85.0 H (50.0-68.0) % Lymph % (Auto) 6.6 L (22.0-35.0) % [place] % (Auto) 8.4 H (1.0-6.0) % Eos % (Auto) 0.0 L (1.5-5.0) % Baso % (Auto) 0.0 (0.0-3.0) % Gran # 12.42 H (1.4-6.5) Lymph # (Auto) 1.0 L (1.2-3.4) [place] # (Auto) 1.2 H (0.1-0.6) Eos # (Auto) 0.0 (0.0-0.7) Baso # (Auto) 0.00 (0.0-2.0) K/mm3 PT (9.4-12.5) SECONDS INR (0.93-1.08) APTT (25.1-36.5) Seconds pCO2 (35-45) mm/Hg pO2 (80-100) mm/Hg HCO3 (21-28) mmol/L ABG pH (7.35-7.45) ABG Total CO2 (22-28) mmol.L ABG O2 Saturation (95-98) % ABG Base Excess (-2.0-3.0) mmol/L ABG Potassium (3.6-5.2) mmol/L Glucose (75-110) mg/dl Lactate (0.7-2.1) mmol/L FiO2 % Sodium (132-148) mmol/L Potassium (3.6-5.0) mmol/L Chloride (98-107) mmol/L Carbon Dioxide (21-33) mmol/L Anion Gap (10-20) BUN (7-21) mg/dL Creatinine (0.8-1.5) mg/dl Est GFR ( Amer) Est GFR (Non-Af Amer) Random Glucose (70-110) mg/dL Calcium (8.4-10.5) mg/dL Phosphorus (2.5-4.5) mg/dL Magnesium (1.7-2.2) mg/dL Total Bilirubin (0.2-1.3) mg/dL AST (17-59) U/L ALT (7-56) U/L Alkaline Phosphatase (38-126) U/L Troponin I ng/mL Total Protein (5.8-8.3) g/dL Albumin (3.0-4.8) g/dL Globulin gm/dL Albumin/Globulin Ratio (1.1-1.8) Arterial Blood Potassium (3.6-5.2) mmol/L Blood Type Confirm O POSITIVE Laboratory Results - last 24 hr 12/26/17 12/27/17 12/27/17 20:29 03:10 03:10 WBC 14.6 H D RBC 2.56 L Hgb 7.0 L Hct 20.7 L* MCV 80.9 MCH 27.3 MCHC 33.8 RDW 16.3 H Plt Count 134 MPV 9.1 Gran % 85.0 H Lymph % (Auto) 6.6 L [place] % (Auto) 8.4 H Eos % (Auto) 0.0 L Baso % (Auto) 0.0 Gran # 12.42 H Lymph # (Auto) 1.0 L [place] # (Auto) 1.2 H Eos # (Auto) 0.0 Baso # (Auto) 0.00 PT INR APTT pCO2 pO2 HCO3 ABG pH ABG Total CO2 ABG O2 Saturation ABG Base Excess ABG Potassium Glucose Lactate FiO2 Sodium Potassium Chloride Carbon Dioxide Anion Gap BUN Creatinine Est GFR ( Amer) Est GFR (Non-Af Amer) Random Glucose Calcium Phosphorus Magnesium Total Bilirubin AST ALT Alkaline Phosphatase Troponin I 0.06 D Total Protein Albumin Globulin Albumin/Globulin Ratio Arterial Blood Potassium Blood Type Confirm O POSITIVE 12/27/17 12/27/17 12/27/17 03:10 05:30 05:40 WBC RBC Hgb Hct MCV MCH MCHC RDW Plt Count MPV Gran % Lymph % (Auto) [place] % (Auto) Eos % (Auto) Baso % (Auto) Gran # Lymph # (Auto) [place] # (Auto) Eos # (Auto) Baso # (Auto) PT 18.6 H INR 1.62 H APTT 35.2 pCO2 pO2 HCO3 ABG pH ABG Total CO2 ABG O2 Saturation ABG Base Excess ABG Potassium Glucose Lactate FiO2 Sodium 143 Potassium 4.7 Chloride 113 H Carbon Dioxide 20 L Anion Gap 15 BUN 72 H Creatinine 1.7 H Est GFR ( Amer) 48 Est GFR (Non-Af Amer) 39 Random Glucose 114 H Calcium 7.3 L Phosphorus 3.4 Magnesium 1.5 L Total Bilirubin 0.5 AST 17 ALT 23 Alkaline Phosphatase 34 L D Troponin I 0.08 D Total Protein 4.1 L Albumin 2.1 L Globulin 2.0 Albumin/Globulin Ratio 1.0 L Arterial Blood Potassium Blood Type Confirm 12/27/17 12/27/17 12/27/17 05:40 05:40 08:35 WBC 15.6 H 14.3 H RBC 1.93 L 2.80 L Hgb 5.3 L* 8.1 L D Hct 15.4 L* 23.1 L MCV 79.8 L 82.5 MCH 27.5 28.9 MCHC 34.4 35.1 RDW 16.2 H 15.5 H Plt Count 116 L 90 L MPV 8.7 10.1 Gran % 81.2 H 84.0 H Lymph % (Auto) 10.8 L 11.3 L [place] % (Auto) 7.9 H 4.6 Eos % (Auto) 0.0 L 0.0 L Baso % (Auto) 0.1 0.1 Gran # 12.67 H 12.05 H Lymph # (Auto) 1.7 1.6 [place] # (Auto) 1.2 H 0.7 H Eos # (Auto) 0.0 0.0 Baso # (Auto) 0.01 0.01 PT 17.3 H INR 1.49 H APTT 34.0 pCO2 pO2 HCO3 ABG pH ABG Total CO2 ABG O2 Saturation ABG Base Excess ABG Potassium Glucose Lactate FiO2 Sodium Potassium Chloride Carbon Dioxide Anion Gap BUN Creatinine Est GFR ( Amer) Est GFR (Non-Af Amer) Random Glucose Calcium Phosphorus Magnesium Total Bilirubin AST ALT Alkaline Phosphatase Troponin I Total Protein Albumin Globulin Albumin/Globulin Ratio Arterial Blood Potassium Blood Type Confirm 12/27/17 12/27/17 08:35 09:50 WBC RBC Hgb Hct MCV MCH MCHC RDW Plt Count MPV Gran % Lymph % (Auto) [place] % (Auto) Eos % (Auto) Baso % (Auto) Gran # Lymph # (Auto) [place] # (Auto) Eos # (Auto) Baso # (Auto) PT 16.2 H INR 1.40 H APTT 35.4 pCO2 32 L pO2 322.0 H HCO3 21.7 ABG pH 7.44 ABG Total CO2 22.7 ABG O2 Saturation 99.7 H ABG Base Excess -1.6 ABG Potassium 4.1 Glucose 125 H Lactate 0.6 L FiO2 100.0 Sodium 140.0 Potassium Chloride 118.0 H Carbon Dioxide Anion Gap BUN Creatinine Est GFR ( Amer) Est GFR (Non-Af Amer) Random Glucose Calcium Phosphorus Magnesium Total Bilirubin AST ALT Alkaline Phosphatase Troponin I Total Protein Albumin Globulin Albumin/Globulin Ratio Arterial Blood Potassium 4.1 Blood Type Confirm EKG/Cardiology Studies: Cardiology / EKG Studies 12/26/17 19:05 EKG [ELECTROCARDIOGRAM] Stat Comment: Reason For Exam: MEDICAL CLEARENCE Critical Care Progress Note - Nutrition Nutrition: Nutrition Category Date Time Status NPO Diet [DIET] Diets 12/26/17 Breakfast Ordered Assessment/Plan - Assessment and Plan (Free Text) Assessment: Pt is a 77 yo M with PMH of HTN, duodenitis, errosive gastritis, diverticulosis , left LE DVT on AC presented to [facility] due to melena and hematochezia. Pt admitted to ICU due to hemorrhagic shock 2/2 GI bleed, likely upper. Endoscopy is pending. Plan: Neuro: - AAOx3 - Maintain normothermia CV: - EKG showed sinus tachycardia - Troponin indeterminate, likely due to demand ischemia - Lasix 20 mg IVP x1 given due to pulmonary congestion 2/2 blood transfusion - Maintain MAP > 65 Pulm: - CXR negative - Maintain O2 > 90% - O2 via NC 3L GI: - Endoscopy today, f/u results - Hgb 8.1 after 6 pRBC, 4 FFP, 1 platelets given overall - Kcentra given overnight due to Xarelto use - Protonix gtt - CBC q4h - NPO - Zofran prn - GI consulted - Surgery consulted Renal: - Hypomagnesmic, repleted IVPB - Hypocalcemic, repleted IVPB - Monitor electrolytes and replete as needed - Maintain euvolemia Heme: - Monitor H/H q4h - Hold AC due to GI bleed Endo: - Maintain euglycemia Pt seen and discussed in detail with Dr. Vasquez. Theodore Haley, PGY1 <Yohan Vasquez - Last Filed: 12/27/17 15:36> CCU Objective - Vital Signs / Intake & Output Intake and Output (Last 8hrs): Intake & Output 12/27/17 12/27/17 12/27/17 06:59 14:59 22:59 Intake Total 4730 Balance 4730 Intake: IV 4405 0.9 ns 1800 ffp 800 prbc 1625 protonix 180 Blood Product 325 Red Blood Cells Cpd As1 325 Lr Unit [id number] Other: # Bowel Movements 11 - Medications Active Medications: Active Medications Generic Name Dose Route Start Last Admin Trade Name Freq PRN Reason Stop Dose Admin Pantoprazole Sodium 40 mg in 100 mls @ 20 mls/hr 12/26/17 20:30 12/27/17 10: 56 Protonix 40mg Ivpb IVPB 20 mls/hr .Q5H GRICELDA Administration Ondansetron HCl 4 mg 12/26/17 21:15 Zofran Inj IVP Q4H PRN Nausea/Vomiting - Patient Studies Lab Studies: Lab Studies 12/27/17 12/27/17 12/27/17 Range/Units 13:41 09:50 08:35 WBC 15.6 H (4.5-11.0) 10^3/ul RBC 2.33 L (3.5-6.1) 10^6/uL Hgb 6.7 L* (14.0-18.0) g/dL Hct 18.9 L* (42.0-52.0) % MCV 81.1 (80.0-105.0) fl MCH 28.8 (25.0-35.0) pg MCHC 35.4 (31.0-37.0) g/dl RDW 15.6 H (11.5-14.5) % Plt Count 85 L (120.0-450.0) 10^3/uL MPV 9.8 (7.0-11.0) fl Gran % 78.6 H (50.0-68.0) % Lymph % (Auto) 13.8 L (22.0-35.0) % [place] % (Auto) 7.5 H (1.0-6.0) % Eos % (Auto) 0.0 L (1.5-5.0) % Baso % (Auto) 0.1 (0.0-3.0) % Gran # 12.28 H (1.4-6.5) Lymph # (Auto) 2.2 (1.2-3.4) [place] # (Auto) 1.2 H (0.1-0.6) Eos # (Auto) 0.0 (0.0-0.7) Baso # (Auto) 0.02 (0.0-2.0) K/mm3 PT 16.2 H (9.4-12.5) SECONDS INR 1.40 H (0.93-1.08) APTT 35.4 (25.1-36.5) Seconds pCO2 32 L (35-45) mm/Hg pO2 322.0 H (80-100) mm/Hg HCO3 21.7 (21-28) mmol/L ABG pH 7.44 (7.35-7.45) ABG Total CO2 22.7 (22-28) mmol.L ABG O2 Saturation 99.7 H (95-98) % ABG Base Excess -1.6 (-2.0-3.0) mmol/L ABG Potassium 4.1 (3.6-5.2) mmol/L Glucose 125 H (75-110) mg/dl Lactate 0.6 L (0.7-2.1) mmol/L FiO2 100.0 % Sodium 140.0 (132-148) mmol/L Potassium (3.6-5.0) mmol/L Chloride 118.0 H (98-107) mmol/L Carbon Dioxide (21-33) mmol/L Anion Gap (10-20) BUN (7-21) mg/dL Creatinine (0.8-1.5) mg/dl Est GFR ( Amer) Est GFR (Non-Af Amer) Random Glucose (70-110) mg/dL Calcium (8.4-10.5) mg/dL Phosphorus (2.5-4.5) mg/dL Magnesium (1.7-2.2) mg/dL Total Bilirubin (0.2-1.3) mg/dL AST (17-59) U/L ALT (7-56) U/L Alkaline Phosphatase (38-126) U/L Troponin I ng/mL Total Protein (5.8-8.3) g/dL Albumin (3.0-4.8) g/dL Globulin gm/dL Albumin/Globulin Ratio (1.1-1.8) Arterial Blood Potassium 4.1 (3.6-5.2) mmol/L Blood Type Confirm 12/27/17 12/27/17 12/27/17 Range/Units 08:35 05:40 05:40 WBC 14.3 H 15.6 H (4.5-11.0) 10^3/ul RBC 2.80 L 1.93 L (3.5-6.1) 10^6/uL Hgb 8.1 L D 5.3 L* (14.0-18.0) g/dL Hct 23.1 L 15.4 L* (42.0-52.0) % MCV 82.5 79.8 L (80.0-105.0) fl MCH 28.9 27.5 (25.0-35.0) pg MCHC 35.1 34.4 (31.0-37.0) g/dl RDW 15.5 H 16.2 H (11.5-14.5) % Plt Count 90 L 116 L (120.0-450.0) 10^3/uL MPV 10.1 8.7 (7.0-11.0) fl Gran % 84.0 H 81.2 H (50.0-68.0) % Lymph % (Auto) 11.3 L 10.8 L (22.0-35.0) % [place] % (Auto) 4.6 7.9 H (1.0-6.0) % Eos % (Auto) 0.0 L 0.0 L (1.5-5.0) % Baso % (Auto) 0.1 0.1 (0.0-3.0) % Gran # 12.05 H 12.67 H (1.4-6.5) Lymph # (Auto) 1.6 1.7 (1.2-3.4) [place] # (Auto) 0.7 H 1.2 H (0.1-0.6) Eos # (Auto) 0.0 0.0 (0.0-0.7) Baso # (Auto) 0.01 0.01 (0.0-2.0) K/mm3 PT 17.3 H (9.4-12.5) SECONDS INR 1.49 H (0.93-1.08) APTT 34.0 (25.1-36.5) Seconds pCO2 (35-45) mm/Hg pO2 (80-100) mm/Hg HCO3 (21-28) mmol/L ABG pH (7.35-7.45) ABG Total CO2 (22-28) mmol.L ABG O2 Saturation (95-98) % ABG Base Excess (-2.0-3.0) mmol/L ABG Potassium (3.6-5.2) mmol/L Glucose (75-110) mg/dl Lactate (0.7-2.1) mmol/L FiO2 % Sodium (132-148) mmol/L Potassium (3.6-5.0) mmol/L Chloride (98-107) mmol/L Carbon Dioxide (21-33) mmol/L Anion Gap (10-20) BUN (7-21) mg/dL Creatinine (0.8-1.5) mg/dl Est GFR ( Amer) Est GFR (Non-Af Amer) Random Glucose (70-110) mg/dL Calcium (8.4-10.5) mg/dL Phosphorus (2.5-4.5) mg/dL Magnesium (1.7-2.2) mg/dL Total Bilirubin (0.2-1.3) mg/dL AST (17-59) U/L ALT (7-56) U/L Alkaline Phosphatase (38-126) U/L Troponin I ng/mL Total Protein (5.8-8.3) g/dL Albumin (3.0-4.8) g/dL Globulin gm/dL Albumin/Globulin Ratio (1.1-1.8) Arterial Blood Potassium (3.6-5.2) mmol/L Blood Type Confirm 12/27/17 12/27/17 12/27/17 Range/Units 05:40 05:30 03:10 WBC (4.5-11.0) 10^3/ul RBC (3.5-6.1) 10^6/uL Hgb (14.0-18.0) g/dL Hct (42.0-52.0) % MCV (80.0-105.0) fl MCH (25.0-35.0) pg MCHC (31.0-37.0) g/dl RDW (11.5-14.5) % Plt Count (120.0-450.0) 10^3/uL MPV (7.0-11.0) fl Gran % (50.0-68.0) % Lymph % (Auto) (22.0-35.0) % [place] % (Auto) (1.0-6.0) % Eos % (Auto) (1.5-5.0) % Baso % (Auto) (0.0-3.0) % Gran # (1.4-6.5) Lymph # (Auto) (1.2-3.4) [place] # (Auto) (0.1-0.6) Eos # (Auto) (0.0-0.7) Baso # (Auto) (0.0-2.0) K/mm3 PT 18.6 H (9.4-12.5) SECONDS INR 1.62 H (0.93-1.08) APTT 35.2 (25.1-36.5) Seconds pCO2 (35-45) mm/Hg pO2 (80-100) mm/Hg HCO3 (21-28) mmol/L ABG pH (7.35-7.45) ABG Total CO2 (22-28) mmol.L ABG O2 Saturation (95-98) % ABG Base Excess (-2.0-3.0) mmol/L ABG Potassium (3.6-5.2) mmol/L Glucose (75-110) mg/dl Lactate (0.7-2.1) mmol/L FiO2 % Sodium 143 (132-148) mmol/L Potassium 4.7 (3.6-5.0) mmol/L Chloride 113 H (98-107) mmol/L Carbon Dioxide 20 L (21-33) mmol/L Anion Gap 15 (10-20) BUN 72 H (7-21) mg/dL Creatinine 1.7 H (0.8-1.5) mg/dl Est GFR ( Amer) 48 Est GFR (Non-Af Amer) 39 Random Glucose 114 H (70-110) mg/dL Calcium 7.3 L (8.4-10.5) mg/dL Phosphorus 3.4 (2.5-4.5) mg/dL Magnesium 1.5 L (1.7-2.2) mg/dL Total Bilirubin 0.5 (0.2-1.3) mg/dL AST 17 (17-59) U/L ALT 23 (7-56) U/L Alkaline Phosphatase 34 L D (38-126) U/L Troponin I 0.08 D ng/mL Total Protein 4.1 L (5.8-8.3) g/dL Albumin 2.1 L (3.0-4.8) g/dL Globulin 2.0 gm/dL Albumin/Globulin Ratio 1.0 L (1.1-1.8) Arterial Blood Potassium (3.6-5.2) mmol/L Blood Type Confirm 12/27/17 12/27/17 12/26/17 Range/Units 03:10 03:10 20:29 WBC 14.6 H D (4.5-11.0) 10^3/ul RBC 2.56 L (3.5-6.1) 10^6/uL Hgb 7.0 L (14.0-18.0) g/dL Hct 20.7 L* (42.0-52.0) % MCV 80.9 (80.0-105.0) fl MCH 27.3 (25.0-35.0) pg MCHC 33.8 (31.0-37.0) g/dl RDW 16.3 H (11.5-14.5) % Plt Count 134 (120.0-450.0) 10^3/uL MPV 9.1 (7.0-11.0) fl Gran % 85.0 H (50.0-68.0) % Lymph % (Auto) 6.6 L (22.0-35.0) % [place] % (Auto) 8.4 H (1.0-6.0) % Eos % (Auto) 0.0 L (1.5-5.0) % Baso % (Auto) 0.0 (0.0-3.0) % Gran # 12.42 H (1.4-6.5) Lymph # (Auto) 1.0 L (1.2-3.4) [place] # (Auto) 1.2 H (0.1-0.6) Eos # (Auto) 0.0 (0.0-0.7) Baso # (Auto) 0.00 (0.0-2.0) K/mm3 PT (9.4-12.5) SECONDS INR (0.93-1.08) APTT (25.1-36.5) Seconds pCO2 (35-45) mm/Hg pO2 (80-100) mm/Hg HCO3 (21-28) mmol/L ABG pH (7.35-7.45) ABG Total CO2 (22-28) mmol.L ABG O2 Saturation (95-98) % ABG Base Excess (-2.0-3.0) mmol/L ABG Potassium (3.6-5.2) mmol/L Glucose (75-110) mg/dl Lactate (0.7-2.1) mmol/L FiO2 % Sodium (132-148) mmol/L Potassium (3.6-5.0) mmol/L Chloride (98-107) mmol/L Carbon Dioxide (21-33) mmol/L Anion Gap (10-20) BUN (7-21) mg/dL Creatinine (0.8-1.5) mg/dl Est GFR ( Amer) Est GFR (Non-Af Amer) Random Glucose (70-110) mg/dL Calcium (8.4-10.5) mg/dL Phosphorus (2.5-4.5) mg/dL Magnesium (1.7-2.2) mg/dL Total Bilirubin (0.2-1.3) mg/dL AST (17-59) U/L ALT (7-56) U/L Alkaline Phosphatase (38-126) U/L Troponin I 0.06 D ng/mL Total Protein (5.8-8.3) g/dL Albumin (3.0-4.8) g/dL Globulin gm/dL Albumin/Globulin Ratio (1.1-1.8) Arterial Blood Potassium (3.6-5.2) mmol/L Blood Type Confirm O POSITIVE Laboratory Results - last 24 hr 12/26/17 12/27/17 12/27/17 20:29 03:10 03:10 WBC 14.6 H D RBC 2.56 L Hgb 7.0 L Hct 20.7 L* MCV 80.9 MCH 27.3 MCHC 33.8 RDW 16.3 H Plt Count 134 MPV 9.1 Gran % 85.0 H Lymph % (Auto) 6.6 L [place] % (Auto) 8.4 H Eos % (Auto) 0.0 L Baso % (Auto) 0.0 Gran # 12.42 H Lymph # (Auto) 1.0 L [place] # (Auto) 1.2 H Eos # (Auto) 0.0 Baso # (Auto) 0.00 PT INR APTT pCO2 pO2 HCO3 ABG pH ABG Total CO2 ABG O2 Saturation ABG Base Excess ABG Potassium Glucose Lactate FiO2 Sodium Potassium Chloride Carbon Dioxide Anion Gap BUN Creatinine Est GFR ( Amer) Est GFR (Non-Af Amer) Random Glucose Calcium Phosphorus Magnesium Total Bilirubin AST ALT Alkaline Phosphatase Troponin I 0.06 D Total Protein Albumin Globulin Albumin/Globulin Ratio Arterial Blood Potassium Blood Type Confirm O POSITIVE 12/27/17 12/27/17 12/27/17 03:10 05:30 05:40 WBC RBC Hgb Hct MCV MCH MCHC RDW Plt Count MPV Gran % Lymph % (Auto) [place] % (Auto) Eos % (Auto) Baso % (Auto) Gran # Lymph # (Auto) [place] # (Auto) Eos # (Auto) Baso # (Auto) PT 18.6 H INR 1.62 H APTT 35.2 pCO2 pO2 HCO3 ABG pH ABG Total CO2 ABG O2 Saturation ABG Base Excess ABG Potassium Glucose Lactate FiO2 Sodium 143 Potassium 4.7 Chloride 113 H Carbon Dioxide 20 L Anion Gap 15 BUN 72 H Creatinine 1.7 H Est GFR ( Amer) 48 Est GFR (Non-Af Amer) 39 Random Glucose 114 H Calcium 7.3 L Phosphorus 3.4 Magnesium 1.5 L Total Bilirubin 0.5 AST 17 ALT 23 Alkaline Phosphatase 34 L D Troponin I 0.08 D Total Protein 4.1 L Albumin 2.1 L Globulin 2.0 Albumin/Globulin Ratio 1.0 L Arterial Blood Potassium Blood Type Confirm 12/27/17 12/27/1712/27/18 05:40 05:40 08:35 WBC 15.6 H 14.3 H RBC 1.93 L 2.80 L Hgb 5.3 L* 8.1 L D Hct 15.4 L* 23.1 L MCV 79.8 L 82.5 MCH 27.5 28.9 MCHC 34.4 35.1 RDW 16.2 H 15.5 H Plt Count 116 L 90 L MPV 8.7 10.1 Gran % 81.2 H 84.0 H Lymph % (Auto) 10.8 L 11.3 L [place] % (Auto) 7.9 H 4.6 Eos % (Auto) 0.0 L 0.0 L Baso % (Auto) 0.1 0.1 Gran # 12.67 H 12.05 H Lymph # (Auto) 1.7 1.6 [place] # (Auto) 1.2 H 0.7 H Eos # (Auto) 0.0 0.0 Baso # (Auto) 0.01 0.01 PT 17.3 H INR 1.49 H APTT 34.0 pCO2 pO2 HCO3 ABG pH ABG Total CO2 ABG O2 Saturation ABG Base Excess ABG Potassium Glucose Lactate FiO2 Sodium Potassium Chloride Carbon Dioxide Anion Gap BUN Creatinine Est GFR ( Amer) Est GFR (Non-Af Amer) Random Glucose Calcium Phosphorus Magnesium Total Bilirubin AST ALT Alkaline Phosphatase Troponin I Total Protein Albumin Globulin Albumin/Globulin Ratio Arterial Blood Potassium Blood Type Confirm 12/27/17 12/27/17 12/27/17 08:35 09:50 13:41 WBC 15.6 H RBC 2.33 L Hgb 6.7 L* Hct 18.9 L* MCV 81.1 MCH 28.8 MCHC 35.4 RDW 15.6 H Plt Count 85 L MPV 9.8 Gran % 78.6 H Lymph % (Auto) 13.8 L [place] % (Auto) 7.5 H Eos % (Auto) 0.0 L Baso % (Auto) 0.1 Gran # 12.28 H Lymph # (Auto) 2.2 [place] # (Auto) 1.2 H Eos # (Auto) 0.0 Baso # (Auto) 0.02 PT 16.2 H INR 1.40 H APTT 35.4 pCO2 32 L pO2 322.0 H HCO3 21.7 ABG pH 7.44 ABG Total CO2 22.7 ABG O2 Saturation 99.7 H ABG Base Excess -1.6 ABG Potassium 4.1 Glucose 125 H Lactate 0.6 L FiO2 100.0 Sodium 140.0 Potassium Chloride 118.0 H Carbon Dioxide Anion Gap BUN Creatinine Est GFR ( Amer) Est GFR (Non-Af Amer) Random Glucose Calcium Phosphorus Magnesium Total Bilirubin AST ALT Alkaline Phosphatase Troponin I Total Protein Albumin Globulin Albumin/Globulin Ratio Arterial Blood Potassium 4.1 Blood Type Confirm EKG/Cardiology Studies: Cardiology / EKG Studies 12/26/17 19:05 EKG [ELECTROCARDIOGRAM] Stat Comment: Reason For Exam: MEDICAL CLEARENCE Critical Care Progress Note - Nutrition Nutrition: Nutrition Category Date Time Status NPO Diet [DIET] Diets 12/26/17 Breakfast Ordered Attending/Attestation - Attestation I have personally seen and examined this patient.: Yes I have fully participated in the care of the patient.: Yes I have reviewed all pertinent clinical information: Yes Notes (Text): 12/27/17 15:27 77 yo male with massive GI bleed of upper and low sources. Tachycardic but maintain BP relatively well. Intubated for endoscopy, 3 large bore PIV, Fluid resuscitation initiated, but patient became congested and required some lasix with maintaining steady renal function, low lactic acid level. Meanwhile 4F-PCC was given, 8 units overall PRBC given, 1 bag of plats given (10 unit), 7 FFP were given. ph 7.44, warming blanket is on, haley is in-->0.5 cc/kg hr. EGD showed active bleed in the stomach-->unable to control by GI-->Drs. Lopez and Sy were involved from the beginning of case and presently patient will likely go for IR/embolization attempt. Surgery/Dr. Lopez is on stand by. Protective lung ventilation, HOB>35, oral hygiene, avoid hypercholremia, maintain MAP>65, serial CBC, protonix drip, npo. Maintain euglycemia, mechanical dvt prophylaxis ccm time 40 min
--- NOTE | 2017-12-27 11:57 | CP.PCM.PN ---
<Carl Mejia - Last Filed: 12/27/17 14:41> Subjective - Date & Time of Evaluation Date of Evaluation: 12/27/17 Time of Evaluation: 06:00 - Subjective Subjective: Patient seen and evaluated bedside in the ICU. Patient says he does not feel well. Other than that unable to obtain full ROS because patient refuses to answer questions. Objective - Vital Signs/Intake and Output Vital Signs (last 24 hours): Temp Pulse Resp BP Pulse Ox 98 F 63 16 126/64 96 12/26/17 23:24 12/27/17 07:53 12/27/17 07:55 12/27/17 10:54 12/27/17 03:30 Intake and Output: 12/27/17 12/27/17 06:59 18:59 Intake Total 4730 Balance 4730 - Medications Medications: Current Medications Pantoprazole Sodium (Protonix 40mg Ivpb) 40 mg in 100 mls @ 20 mls/hr IVPB .Q5H [facility] Last Admin: 12/27/17 10:56 Dose: 20 mls/hr Ondansetron HCl (Zofran Inj) 4 mg IVP Q4H PRN PRN Reason: Nausea/Vomiting - Labs Labs: 12/27/17 08:35 12/27/17 05:40 PT 16.2 SECONDS (9.4-12.5) H 12/27/17 08:35 INR 1.40 (0.93-1.08) H 12/27/17 08:35 APTT 35.4 Seconds (25.1-36.5) 12/27/17 08:35 - Constitutional Appears: In Acute Distress - Head Exam Head Exam: ATRAUMATIC, NORMAL INSPECTION, NORMOCEPHALIC - Eye Exam Eye Exam: Normal appearance - ENT Exam ENT Exam: Mucous Membranes Moist - Respiratory Exam Respiratory Exam: Rales, NORMAL BREATHING PATTERN - Cardiovascular Exam Cardiovascular Exam: Tachycardia - GI/Abdominal Exam GI & Abdominal Exam: Soft, Tenderness - Rectal Exam Additional comments: BRBPR - Extremities Exam Extremities Exam: absent: Pedal Edema, Tenderness - Neurological Exam Neurological Exam: Alert, Awake, Oriented x3 Assessment and Plan - Assessment and Plan (Free Text) Assessment: 77 year old male with a past medical history of duodenitis, erosive gastritis, history of abdominal aortic aneursym repair, DVT, on Xarelto who presented to [facility] with 2 days of hematemesis, bright red blood per rectum, and symptomatic anemia. Patient was found to hypotensive and tachycardic in the ED with a hemoglobin of 6.6, hematocrit of 20.3, and an INR of 2.56. Patient was transfused blood will undergo endoscopy. Plan: 1) Acute GI bleed with hemodynamic instability - Hgb: 6.7 - NPO - 6 units of PRBCs - 4 FFP - Protonix ggt - Prothrombin complex concentrate administered - VS q15 minutes - CBC q4h - Troponin .02, .06, .08 - PT/PTT monitoring - INR 1.40 - GI consulted Dr. Ibrahim, follow recs - Bleeding scan showing bleeding in transverse colon - EGD pending - Surgery Consulted, Dr. Lopez, no surgery at this time <Abdirahman Lugo - Last Filed: 12/27/17 16:17> Objective - Vital Signs/Intake and Output Vital Signs (last 24 hours): Temp Pulse Resp BP Pulse Ox 98 F 100 H 16 126/64 96 12/26/17 23:24 12/27/17 14:00 12/27/17 07:55 12/27/17 10:54 12/27/17 14:19 Intake and Output: 12/27/17 12/27/17 06:59 18:59 Intake Total 4730 Balance 4730 - Medications Medications: Current Medications Pantoprazole Sodium (Protonix 40mg Ivpb) 40 mg in 100 mls @ 20 mls/hr IVPB .Q5H [facility] Last Admin: 12/27/17 10:56 Dose: 20 mls/hr Ondansetron HCl (Zofran Inj) 4 mg IVP Q4H PRN PRN Reason: Nausea/Vomiting - Labs Labs: 12/27/17 13:41 12/27/17 05:40 PT 16.2 SECONDS (9.4-12.5) H 12/27/17 08:35 INR 1.40 (0.93-1.08) H 12/27/17 08:35 APTT 35.4 Seconds (25.1-36.5) 12/27/17 08:35 Attending/Attestation - Attestation I have personally seen and examined this patient.: Yes I have fully participated in the care of the patient.: Yes I have reviewed all pertinent clinical information, including history, physical exam and plan: Yes Notes (Text): 12/27/17 16:13 Patient was seen and examined with medical legal investigator. 77 year old male with PMH of hypertension, duodenitis, erosive gastritis ( diagnosed in 2012), divericulosis, abdominal aortic aneurysm repair in 2011, left lower extremity DVT on Xarelto massive GI bleed of upper and low sources.Patient is SP PCC4 ,FFP and PRBC transfusion , Patient is intubated for EGD,.Bleeding scan is also positive from transverse Colon. EGD showed active bleed in the stomach-->unable to control by GI-->Drs. Lopez and Sy were involved from the beginning of case and presently patient will likely go for IR/embolization attempt. 12/27/17 16:17
--- NOTE | 2017-12-27 13:43 | NM ---
PROCEDURE: Nuclear medicine gastrointestinal bleeding scan. HISTORY: bleeding COMPARISON: 10/23/2017 CT chest abdomen and pelvis TECHNIQUE: 4 cc of patient blood was withdrawn and mixed with 21 mCi of technetium ultra tagged. Images of the abdomen and pelvis were obtained in the anterior and posterior projection at 1 min intervals over a period of 45 min. FINDINGS: Abnormal uptake identified in the transverse colon with both antegrade transit and retrograde reflux. Physiologic activity was seen in the heart, liver, spleen and blood vessels. IMPRESSION: Positive examination for acute gastrointestinal hemorrhage originating from the transverse colon
[2017-12-27 13:45] LABS: BASO # 0.02 K/mm3 (0.0-2.0); BASO % 0.1 % (0.0-3.0); GRAN # 12.28 (1.4-6.5); GRAN % 78.6 % (50.0-68.0); LYMPH # 2.2 (1.2-3.4); LYMPH % 13.8 % (22.0-35.0); MEAN CELL VOLUME 81.1 fl (80.0-105.0); MEAN CORPUSCULAR HEMOGLOBIN 28.8 pg (25.0-35.0); MEAN CORPUSCULAR HGB CONC 35.4 g/dl (31.0-37.0); MEAN PLATELET VOLUME 9.8 fl (7.0-11.0); MONO # 1.2 (0.1-0.6); MONO % 7.5 % (1.0-6.0); RBC 2.33 10^6/uL (3.5-6.1); RED CELL DISTRIBUTION WIDTH 15.6 % (11.5-14.5); WHITE BLOOD COUNT 15.6 10^3/ul (4.5-11.0)
[2017-12-27 13:47] LABS: HEMOGLOBIN 6.7 g/dL (14.0-18.0)
[2017-12-27] MEDS ORDERED: Succinylcholine 200 mg/10 ml Inj IV ONE (14:17)
[2017-12-27] MEDS ORDERED: Etomidate 20 mg/10ml Inj IV ONE (14:17)
[2017-12-27] MEDS ORDERED: Lidocaine 2% Jelly (30 ml) ONE (14:24)
[2017-12-27] MEDS ORDERED: Midazolam 2 MG/2 ML VIAL ONE ×4 (15:09→17:00)
[2017-12-27 15:42] VITALS: BMI 26.4
--- NOTE | 2017-12-27 16:04 | CON ---
DATE: 12/27/2017 REASON FOR CONSULT: GI bleed and recent use of DOACs including Eliquis and last 3 days, use of Xarelto. HISTORY OF PRESENT ILLNESS: The patient is a 77-year-old male with past medical history significant for hypertension, duodenitis, erosive gastritis diagnosed in 2012, diverticulosis, abdominal aortic aneurysm repair in 2011. He also has a history of left lower extremity DVT in 2011. Now, presented to the emergency room with complaints of GI bleed. The patient has been having multiple episodes of coffee-ground emesis as well as melena for several days. He was initially on Eliquis for his DVT, but recently switched to Xarelto, subsequent to which when he developed his melanotic stools. He does admit to alcohol abuse, but denies drinking over 8 drinks per week. He denies any recent NSAID use and has no prior history of bleeding. Has been on Eliquis for at least 5-6 years. 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 PAST MEDICAL HISTORY: As above. Hypertension, abdominal aortic aneurysm in 2012, left leg DVT. MEDICATIONS: Currently include valsartan, omeprazole and verapamil. ALLERGIES: KNOWN ALLERGIES TO SHELLFISH AND ITS DERIVATIVES, BUT NO OTHER MEDICATION ALLERGIES. SOCIAL HISTORY: Positive for smoking for over 50 years. Drinks socially. Denies illicit drug use. FAMILY HISTORY: Otherwise, noncontributory. REVIEW OF SYSTEMS: As per the HPI. PHYSICAL EXAMINATION: VITAL SIGNS: Reveal a temperature of 98, pulse of 91, respiratory rate of 16 and a blood pressure of 126/64. On admission, the patient was hypertensive, but those symptoms have now resolved. GENERAL: The patient is an elderly male, lying in bed, somnolent, but arousable to verbal command. HEENT: Head and neck normocephalic, atraumatic. Eyes: Pupils equal, round and reactive to light and accommodation. Extraocular muscles are intact. There is pallor. No icterus is noted. NECK: Supple with no adenopathy. No JVD. No thyromegaly. LUNGS: Decreased breath sounds bilaterally secondary to poor effort. CARDIOVASCULAR: S1 and S2 are heard. ABDOMEN: Positive bowel sounds. Soft, nontender and nondistended. No organomegaly is palpated. EXTREMITIES: There is no edema. No clubbing. No cyanosis. LABORATORY DATA: His labs currently reveal a white count of 14.3, hemoglobin 8.1 post 5 units of PRBC, hematocrit of 23.4 and MCV of 82.5 and a platelet count of 90,000. Coag studies reveal a PT/INR of 16.2 and 1.4. His INR on admission was 2.5, but he has had a dose of vitamin K since admission. Chemistries reveal a BUN and creatinine of 72 and 1.7. Electrolytes are otherwise within normal limits except for a chloride of 113. Iron studies are pending. He also had a bleeding scan, but the patient has active melena that has been noted since admission. ASSESSMENT: Elderly male with gastrointestinal bleed, which is likely multifactorial in addition to the patient being on direct oral anticoagulants. He has also been abusing alcohol on an ongoing basis and he also has history of erosive gastritis in the past. Currently having active melena and has required multiple packed red blood cells transfusions as well as fresh frozen plasma. He also had reversal of Xarelto last night, but his bleeding has not subsided. He needs a GI intervention including an endoscopy and possible direct cauterization of the bleeding vessel. In the meantime, the patient will be continued with supportive transfusions. Overall prognosis is poor unless there is a visualized blood vessel that can be cauterized. Thank you for the consult. We will follow. Florian Miranda MD
[2017-12-27] MEDS ORDERED: Lidocaine 2% Inj (20ml) ONE (16:10)
[2017-12-27] MEDS ORDERED: Iodixanol 320 MG/ML 200 ML BOTTLE IV ONE (16:13)
[2017-12-27] MEDS ORDERED: Nitroglycerin 50mg in D5W 50 MG/250 ML BOTTLE IV ONE (16:13)
[2017-12-27] MEDS ORDERED: Iodixanol 320 MG/ML 100 ML BOTTLE IV ONE (16:13)
[2017-12-27] MEDS ORDERED: Heparin 2,000 ML IV ONE (16:13)
[2017-12-27] MEDS ORDERED: Phenylephrine 10 mg/ml Inj ONE (16:15)
[2017-12-27] MEDS ORDERED: Rocuronium 10 mg/ml (5 ml) ONE (17:18)
[2017-12-27 17:33] LABS: MEAN CELL VOLUME 83.3 fl (80.0-105.0); MEAN CORPUSCULAR HEMOGLOBIN 29.3 pg (25.0-35.0); MEAN CORPUSCULAR HGB CONC 35.2 g/dl (31.0-37.0); MEAN PLATELET VOLUME 9.2 fl (7.0-11.0); RBC 1.98 10^6/uL (3.5-6.1); RED CELL DISTRIBUTION WIDTH 15.8 % (11.5-14.5); WHITE BLOOD COUNT 13.9 10^3/ul (4.5-11.0)
[2017-12-27 17:37] LABS: HEMOGLOBIN 5.8 g/dL (14.0-18.0)
[2017-12-27 17:48] LABS: ALBUMIN 1.9 g/dL (3.0-4.8); CALCIUM 6.7 mg/dL (8.4-10.5)
[2017-12-27 17:50] LABS: INR 1.2 (0.93-1.08); PROTHROMBIN TIME 13.7 SECONDS (9.4-12.5)
[2017-12-27] MEDS ORDERED: Magnesium 2 gm/50 ml NS 2 GM/50 ML BAG IVPB ONE (18:30)
--- NOTE | 2017-12-27 18:38 | PCM.PROC ---
Procedures Attestation:: I certify that I have explained the specified Operation(s) or Procedure(s), risks, benefits and reasonable alternatives to the Patient and/or other person responsible. The opportunity was given to ask questions and all questions answered - Central Line Placement Right Internal Jugular Aseptic technique was employed throughout the procedure: Hand Hygiene done prior to procedure, Full sterile barriers (mask, hair cover, sterile gown, sterile gloves), Full body sterile drape, Chloraprep Antiseptic: 30 second prep for IJ or SC sites CVP Time Out Performed: Yes Pt. Placed on Pulse Ox Monitor: Yes Central Line Prep: Chlorhexidine-Alcohol Combination Local Anesthesia Used: Lidocaine 1% Amount of Anesthesia Used (mls): 2 Ultrasound Used for Placement: Yes Central Line Lumen Inserted: single Post Procedure: Sutured in Place, Good Blood Return, All Ports Aspirated, Flushed, Capped, Sterile Dressing Applied Secured by: Suture Post procedure dressing: Clear vapor permeable, Chlorhexidine disc (Biopatch) Post Procedure X-Ray: Yes Patient Tolerated Procedure: Well, No Complications Additional Comments: 5 fr Cordis catheter was placed in the right IJ
[2017-12-27] MEDS ORDERED: Midazolam 2 MG/2 ML VIAL IVP ONE (18:58)
--- NOTE | 2017-12-27 19:04 | CARD ---
APPROVED REPORT EKG Measurement Heart [id number] <Conclusion> Sinus tachycardia Nonspecific T wave abnormality Abnormal ECG
[2017-12-27] MEDS: Midazolam 100 mg/100ml in NS 100 MG/100 ML SOL IV PRN (19:11)
[2017-12-27] MEDS ORDERED: Propofol 10 mg/ml 500 MG/50 ML VIAL IV PRN (19:38)
[2017-12-27 19:48] LABS: GRAN # 8.53 (1.4-6.5); GRAN % 82.5 % (50.0-68.0); LYMPH % 10.1 % (22.0-35.0); MEAN CELL VOLUME 84.3 fl (80.0-105.0); MEAN CORPUSCULAR HEMOGLOBIN 29.1 pg (25.0-35.0); MEAN CORPUSCULAR HGB CONC 34.6 g/dl (31.0-37.0); MEAN PLATELET VOLUME 9.7 fl (7.0-11.0); MONO # 0.8 (0.1-0.6); MONO % 7.4 % (1.0-6.0); RBC 2.23 10^6/uL (3.5-6.1); RED CELL DISTRIBUTION WIDTH 15.6 % (11.5-14.5); WHITE BLOOD COUNT 10.3 10^3/ul (4.5-11.0)
[2017-12-27 19:50] LABS: HEMOGLOBIN 6.5 g/dL (14.0-18.0)
[2017-12-27 19:55] LABS: INR 1.18 (0.93-1.08); PARTIAL THROMBOPLASTIN TIME 28.7 Seconds (25.1-36.5); PROTHROMBIN TIME 13.5 SECONDS (9.4-12.5)
[2017-12-27 20:01] LABS: TROPONIN I 0.05 ng/mL
[2017-12-27 20:07] LABS: ARTERIAL BLOOD GAS HCO3 20.6 mmol/L (21-28); ARTERIAL BLOOD GAS O2 SAT 93.4 % (95-98); ARTERIAL BLOOD GAS PCO2 47 mm/Hg (35-45); ARTERIAL BLOOD GAS PH 7.25 (7.35-7.45)
[2017-12-27] MEDS: Propofol 10 mg/ml 1,000 MG/100 ML VIAL IV PRN (20:09)
--- NOTE | 2017-12-27 20:28 | VASCULAR ---
PROCEDURE: 1. Celiac and SMA arteriogram 2. Selective left gastric artery embolization HISTORY: Massive upper GI bleed. Adherent clot noted in the fundus of the stomach. A.m.. Left gastric embolization. Poor surgical candidate PHYSICIAN(S): Andrew Dan M.D. TECHNIQUE: The relative risks and indications of the procedure were explained to the patient's and consent obtained. The patient was placed supine on the arteriogram table and the right groin prepped and draped in the usual sterile fashion. Conscious sedation and monitoring were provided throughout the procedure by a nurse. Via a right common femoral artery approach, a 5 Brazilian sheath was placed in the right groin. Through the sheath and over a guidewire, a C2 catheter was placed in the proximal SMA and a DSA SMA arteriogram performed. With some difficulty, the origin the celiac axis was engaged with C2 catheter. A DSA celiac axis arteriogram was performed. Using coaxial technique, 3 Brazilian micro catheter was advanced into the eft gastric artery and its position confirmed with injection of contrast. The left gastric artery was embolized to stasis with 700-900 micron particles The patient was transferred back to the ICU. FINDINGS: There is diffuse atherosclerotic disease of the abdominal aorta. The SMA is patent. History placed right hepatic off the proximal SMA. No obvious extravasation is appreciated. The exam is limited by motion. The left gastric artery arises from the left hepatic. No obvious extravasation is appreciated. Empiric embolization of left gastric artery was performed. IMPRESSION: 1.Sub selective embolization of the left gastric artery. 2. No obvious bleeding site was identified on the celiac and SMA injections. 3. The angiogram is limited by motion.
--- NOTE | 2017-12-27 22:35 | PN ---
DATE: 12/27/2017 SUBJECTIVE: This patient had the bleeding scan done, which was reviewed, showed active bleeding from the transverse colon. However, the patient did have a history of vomiting coffee-ground material in the ER, and also as per the patient, patient did have some vomiting. The patient has a history of taking nonsteroidal antiinflammatory drugs. The decision was made to do an upper GI endoscopy. The patient was intubated and the procedure was performed in the OR. The patient did receive multiple blood products to keep the count up. The upper GI endoscopy showed a large amount of blood in the stomach, mainly in the fundus and the upper body area. Antrum and the duodenum appears clear except small amount of blood. It appears the blood trickling from the upper stomach area. The scope was withdrawn, then lavage tube was used to lavage out the clot. A large amount of clots were removed, but there are significant thick clots which were blocking the lavage tube, could not completely clean it out. Repeat endoscopy showed more clearance, showing the esophagus is clear and cardia also appeared clear, but the view of the fundus and the upper body was limited. The case was discussed with Dr. Andrew Dan, who was also in the room, and also with Dr. Lopez, surgeon, who was also in the room. The decision was made to proceed with the IR intervention especially for the possible bleeding in the fundus and the upper body area. Postprocedure, we are also trying to reach out to the patient's and left messages to give the update. We will continue to follow up. Jarred Ibrahim MD
[2017-12-28] MEDS: Pantoprazole 40mg/100mL NS 40 MG/100 ML BAG IVPB SCH ×6 (00:09→22:30)
[2017-12-28 00:10] LABS: BASO # 0.01 K/mm3 (0.0-2.0); BASO % 0.1 % (0.0-3.0); GRAN # 8.55 (1.4-6.5); GRAN % 81.8 % (50.0-68.0); LYMPH # 1.3 (1.2-3.4); LYMPH % 12.1 % (22.0-35.0); MEAN CELL VOLUME 82.9 fl (80.0-105.0); MEAN CORPUSCULAR HEMOGLOBIN 29.3 pg (25.0-35.0); MEAN CORPUSCULAR HGB CONC 35.3 g/dl (31.0-37.0); MEAN PLATELET VOLUME 9.1 fl (7.0-11.0); MONO # 0.6 (0.1-0.6); RBC 2.05 10^6/uL (3.5-6.1); RED CELL DISTRIBUTION WIDTH 15.4 % (11.5-14.5); WHITE BLOOD COUNT 10.5 10^3/ul (4.5-11.0)
[2017-12-28 00:50] LABS: ARTERIAL BLOOD GAS HCO3 21.4 mmol/L (21-28); ARTERIAL BLOOD GAS PCO2 37 mm/Hg (35-45); ARTERIAL BLOOD GAS PH 7.37 (7.35-7.45); ARTERIAL BLOOD GAS TCO2 22.5 mmol.L (22-28)
[2017-12-28 06:01] LABS: GRAN # 8.28 (1.4-6.5); GRAN % 85.1 % (50.0-68.0); HEMOGLOBIN 7.8 g/dL (14.0-18.0); LYMPH # 0.7 (1.2-3.4); LYMPH % 7.1 % (22.0-35.0); MEAN CELL VOLUME 83.8 fl (80.0-105.0); MEAN CORPUSCULAR HEMOGLOBIN 29.4 pg (25.0-35.0); MEAN CORPUSCULAR HGB CONC 35.1 g/dl (31.0-37.0); MEAN PLATELET VOLUME 9.7 fl (7.0-11.0); MONO # 0.8 (0.1-0.6); MONO % 7.8 % (1.0-6.0); RBC 2.65 10^6/uL (3.5-6.1); RED CELL DISTRIBUTION WIDTH 15.2 % (11.5-14.5); WHITE BLOOD COUNT 9.7 10^3/ul (4.5-11.0)
[2017-12-28 06:08] LABS: ALB/GLOB RATIO 1.1 (1.1-1.8); ALBUMIN 2.5 g/dL (3.0-4.8); CALCIUM 7.1 mg/dL (8.4-10.5)
[2017-12-28 06:12] LABS: INR 1.08 (0.93-1.08); PARTIAL THROMBOPLASTIN TIME 27.2 Seconds (25.1-36.5); PROTHROMBIN TIME 12.4 SECONDS (9.4-12.5)
[2017-12-28] MEDS: Propofol 10 mg/ml 1,000 MG/100 ML VIAL IV PRN ×4 (06:12→18:10)
[2017-12-28 07:38] LABS: ARTERIAL BLOOD GAS HCO3 25.4 mmol/L (21-28); ARTERIAL BLOOD GAS O2 SAT 97.6 % (95-98); ARTERIAL BLOOD GAS PCO2 47 mm/Hg (35-45); ARTERIAL BLOOD GAS PH 7.34 (7.35-7.45); ARTERIAL BLOOD GAS TCO2 26.8 mmol.L (22-28)
--- NOTE | 2017-12-28 07:45 | CP.PCM.PN ---
Subjective - Date & Time of Evaluation Date of Evaluation: 12/28/17 Time of Evaluation: 07:45 - Subjective Subjective: General Surgery Note for Dr. Lopez Patient seen and examine at bedside in the ICU. Patient had 3 bouts of melena overnight. Patient is intubated and sedated. He is s/p IR angiography with embolization of left gastric artery POD #1. ROS unobtainable due to clinical condition. Objective - Vital Signs/Intake and Output Vital Signs (last 24 hours): Temp Pulse Resp BP Pulse Ox 99.5 F 106 H 39 H 142/71 94 L 12/28/17 06:28 12/28/17 06:28 12/28/17 06:28 12/28/17 06:00 12/28/17 06:28 Intake and Output: 12/28/17 12/28/17 06:59 18:59 Intake Total 6320 Output Total 5000 Balance 1320 - Medications Medications: Current Medications Pantoprazole Sodium (Protonix 40mg Ivpb) 40 mg in 100 mls @ 20 mls/hr IVPB .Q5H [facility] Last Admin: 12/28/17 05:35 Dose: 20 mls/hr Midazolam 100 mg/100ml in NS (Midazolam 100 Mg/100ml In Ns) 100 mg in 100 mls @ 1 mls/hr IV .Q24H PRN; Protocol; 1 MG/HR PRN Reason: Agitation Last Titration: 12/28/17 02:14 Dose: 3 mg/hr, 3 mls/hr Propofol (Diprivan) 1,000 mg in 100 mls @ 2.557 mls/hr IV .Q24H PRN; Protocol; 5 MCG/KG/MIN PRN Reason: TITRATE PER MD ORDER Last Admin: 12/28/17 06:12 Dose: 40 mcg/kg/min, 20.455 mls/hr Ondansetron HCl (Zofran Inj) 4 mg IVP Q4H PRN PRN Reason: Nausea/Vomiting - Labs Labs: 12/28/17 05:00 12/28/17 05:00 PT 12.4 SECONDS (9.4-12.5) 12/28/17 05:00 INR 1.08 (0.93-1.08) 12/28/17 05:00 APTT 27.2 Seconds (25.1-36.5) 12/28/17 05:00 - Constitutional Appears: No Acute Distress - Head Exam Head Exam: ATRAUMATIC, NORMOCEPHALIC - Eye Exam Eye Exam: Normal appearance - ENT Exam ENT Exam: Mucous Membranes Moist - Respiratory Exam Additional comments: intubated and on mechanical ventilation 560/5/18/70% - Cardiovascular Exam Cardiovascular Exam: Tachycardia - GI/Abdominal Exam GI & Abdominal Exam: Soft, Normal Bowel Sounds. absent: Tenderness - Extremities Exam Extremities Exam: Normal Capillary Refill. absent: Pedal Edema - Neurological Exam Neurological Exam: Altered - Psychiatric Exam Psychiatric exam: Flat Affect - Skin Skin Exam: Dry, Warm Assessment and Plan - Assessment and Plan (Free Text) Assessment: 77M with Upper GI bleed, s/p IR angiography with embolization of Left Gastric Artery POD#1 who is now intubated and on mechanical ventilation Plan: - NPO - IV fluids - Monitor H/H, Transfuse PRN - Continue Sedation - Titrate FiO2 and Attempt to Wean from vent - Protonix - Strict I's & O's - Monitor bowel function for anymore melena/hematochezia - No plan for surgical intervention at this time - Further recommendations as per Dr. John Villalba PGY1
--- NOTE | 2017-12-28 10:49 | RAD ---
HISTORY: Intubated COMPARISON: Comparison chest 12/26/2017 FINDINGS: In situ ETT, the tip of which appears to lie approximately 8.4 cm above alycia LUNGS: Significant centrilobular panlobular emphysematous changes upper lobe predominance again noted. . Scarring and fibrosis. . Left hemidiaphragm is not well delineated on this study possibly due to patient positioning however possibility of atelectasis and or infiltrate with effusion not excluded. PLEURA: As above. No pneumothorax apparent. CARDIOVASCULAR: Cardiomegaly. OSSEOUS STRUCTURES: No significant abnormalities. VISUALIZED UPPER ABDOMEN: Normal. OTHER FINDINGS: None. IMPRESSION: In situ ETT as above. Significant centrilobular panlobular emphysematous changes upper lobe predominance again noted. . Scarring and fibrosis. . Left hemidiaphragm is not well delineated on this study possibly due to patient positioning however possibility of atelectasis and or infiltrate with effusion not excluded.
--- NOTE | 2017-12-28 11:05 | CP.PCM.PN ---
<Carl Mejia - Last Filed: 12/28/17 11:02> Subjective - Date & Time of Evaluation Date of Evaluation: 12/28/17 Time of Evaluation: 06:00 - Subjective Subjective: Patient seen and evaluated in the ICU. No acute issues overnight. Patient intubated and sedated, unable to obtain full ROS. Objective - Vital Signs/Intake and Output Vital Signs (last 24 hours): Temp Pulse Resp BP Pulse Ox 99.9 F H 102 H 21 116/64 96 12/28/17 09:23 12/28/17 09:23 12/28/17 09:23 12/28/17 09:00 12/28/17 09:23 Intake and Output: 12/28/17 12/28/17 06:59 18:59 Intake Total 6320 100 Output Total 5000 Balance 1320 100 - Medications Medications: Current Medications Pantoprazole Sodium (Protonix 40mg Ivpb) 40 mg in 100 mls @ 20 mls/hr IVPB .Q5H GRICELDA Last Admin: 12/28/17 05:35 Dose: 20 mls/hr Midazolam 100 mg/100ml in NS (Midazolam 100 Mg/100ml In Ns) 100 mg in 100 mls @ 1 mls/hr IV .Q24H PRN; Protocol; 1 MG/HR PRN Reason: Agitation Last Titration: 12/28/17 02:14 Dose: 3 mg/hr, 3 mls/hr Propofol (Diprivan) 1,000 mg in 100 mls @ 2.557 mls/hr IV .Q24H PRN; Protocol; 5 MCG/KG/MIN PRN Reason: TITRATE PER MD ORDER Last Admin: 12/28/17 08:25 Dose: 40 mcg/kg/min, 20.455 mls/hr Ondansetron HCl (Zofran Inj) 4 mg IVP Q4H PRN PRN Reason: Nausea/Vomiting - Labs Labs: 12/28/17 05:00 12/28/17 05:00 PT 12.4 SECONDS (9.4-12.5) 12/28/17 05:00 INR 1.08 (0.93-1.08) 12/28/17 05:00 APTT 27.2 Seconds (25.1-36.5) 12/28/17 05:00 - Constitutional Appears: Non-toxic, No Acute Distress - Head Exam Head Exam: ATRAUMATIC, NORMAL INSPECTION, NORMOCEPHALIC - Eye Exam Eye Exam: PERRL - ENT Exam ENT Exam: Mucous Membranes Moist - Respiratory Exam Additional comments: vent - Cardiovascular Exam Cardiovascular Exam: Tachycardia, +S1, +S2 - GI/Abdominal Exam GI & Abdominal Exam: Soft - Extremities Exam Extremities Exam: absent: Pedal Edema - Neurological Exam Neurological Exam: absent: Alert, Awake, Oriented x3 Assessment and Plan - Assessment and Plan (Free Text) Assessment: 77 year old male with a past medical history of duodenitis, erosive gastritis, history of abdominal aortic aneursym repair, DVT, on Xarelto who [place] [facility] [place] 2 days of hematemesis, bright red blood per rectum, and symptomatic anemia. Patient was found to hypotensive and tachycardic in the ED with a hemoglobin of 6.6, hematocrit of 20.3, and an INR of 2.56. Patient was transfused 13 units PRBC, 8FFP and went gastric artery embolism by IR. Plan: 1) Acute GI bleed status post Gastric Artery embolization - intubated, vented - propofol and midazolam drip - Hgb: 7.8 - NPO - 13 units of PRBCs - 8 FFP - Protonix ggt - VS q15 minutes - CBC q6h - PT/PTT monitoring - INR 1.08 - GI consulted Dr. Ibrahim, follow recs - Bleeding scan showed bleeding in transverse colon - EGD showed blood in stomach/antrum - Surgery Consulted, Dr. Lopez, follow recs - patient underwent gastric artery embolization by IR yesterday 2) History of DVT/ Cancer - currently holding anticoagulation - will resume once stable and cleared by Heme 3) EKTA - likely secondary to GI bleed - continue to monitor - hold nephrotoxic drugs Prophylaxis GI: Protonix GTT DVT: SCD <Alberto Orourke - Last Filed: 12/28/17 12:01> Objective - Vital Signs/Intake and Output Vital Signs (last 24 hours): Temp Pulse Resp BP Pulse Ox 99.9 F H 102 H 21 116/64 96 12/28/17 09:23 12/28/17 09:23 12/28/17 09:23 12/28/17 09:00 12/28/17 09:23 Intake and Output: 12/28/17 12/28/17 06:59 18:59 Intake Total 6320 100 Output Total 5000 Balance 1320 100 - Medications Medications: Current Medications Pantoprazole Sodium (Protonix 40mg Ivpb) 40 mg in 100 mls @ 20 mls/hr IVPB .Q5H GRICELDA Last Admin: 12/28/17 11:19 Dose: 20 mls/hr Midazolam 100 mg/100ml in NS (Midazolam 100 Mg/100ml In Ns) 100 mg in 100 mls @ 1 mls/hr IV .Q24H PRN; Protocol; 1 MG/HR PRN Reason: Agitation Last Titration: 12/28/17 02:14 Dose: 3 mg/hr, 3 mls/hr Propofol (Diprivan) 1,000 mg in 100 mls @ 2.557 mls/hr IV .Q24H PRN; Protocol; 5 MCG/KG/MIN PRN Reason: TITRATE PER MD ORDER Last Admin: 12/28/17 08:25 Dose: 40 mcg/kg/min, 20.455 mls/hr Ondansetron HCl (Zofran Inj) 4 mg IVP Q4H PRN PRN Reason: Nausea/Vomiting - Labs Labs: 12/28/17 10:41 12/28/17 05:00 PT 12.4 SECONDS (9.4-12.5) 12/28/17 05:00 INR 1.08 (0.93-1.08) 12/28/17 05:00 APTT 27.2 Seconds (25.1-36.5) 12/28/17 05:00 Attending/Attestation - Attestation I have personally seen and examined this patient.: Yes I have fully participated in the care of the patient.: Yes I have reviewed all pertinent clinical information, including history, physical exam and plan: Yes Notes (Text): 12/28/17 11:57 77 year old male with past medical history of hypertension, duodenitis, erosive gastritis, abdominal aortic aneurysm repair (2011), LLE DVT on xarelto who presented with GIB. He is s/p multiple PRBC / FFP transfusions. He was seen by GI and is s/p EGD as above. Bleeding scan was positive from transverse colon. He was seen by IR and is s/p embolization of left gastric artery. H/H is stable. Will continue to monitor. His xarelto is on hold for now secondary to above. Monitor renal function and H/H closely. Alberto Orourke MD Hospitalist.
[2017-12-28 11:40] LABS: HEMOGLOBIN 7.8 g/dL (14.0-18.0); MEAN CELL VOLUME 84.4 fl (80.0-105.0); MEAN CORPUSCULAR HGB CONC 34.4 g/dl (31.0-37.0); MEAN PLATELET VOLUME 9.7 fl (7.0-11.0); RBC 2.69 10^6/uL (3.5-6.1); RED CELL DISTRIBUTION WIDTH 15.4 % (11.5-14.5); WHITE BLOOD COUNT 10.6 10^3/ul (4.5-11.0)
--- NOTE | 2017-12-28 13:52 | PN ---
DATE: 12/28/2017 SOFTWARE QUALITY TEST ENGINEER NOTE SUBJECTIVE: The patient is sedated on the ventilator with a FiO2 of 70%. The patient has had multiple, approximately 13 units of packed red blood cells and other blood products for GI bleed. At this time, he is hemodynamically stable, not on any pressors and he is on Diprivan as well as Versed for sedation. The patient has no active GI bleeding now and latest hemoglobin is 7.8. He is on Protonix drip as well. PHYSICAL EXAMINATION: VITAL SIGNS: Note that his temperature is 99.5, his pulse is 106, respirations are 25 and BP is 142/71. SKIN: Warm and dry. HEENT: Head is atraumatic, normocephalic. Eyes reactive to light. Ears, nose and throat seemed to be within normal limits. NECK: Supple. No JVD. No thyroid enlargement or lymph nodes. HEART: Has regular rate and rhythm. Normal S1, S2, but tachycardic. LUNGS: Reveal rare rhonchi at the bases. ABDOMEN: Soft. Decreased bowel sounds. GENITALIA: Deferred. RECTAL: Deferred. MUSCULOSKELETAL: No joint deformities. EXTREMITIES: Reveal positive upper and lower extremity edema. NEUROLOGICAL: He is sedated on the ventilator. DATA: As far as his laboratories are concerned, his white count is 9.7, hemoglobin is 7.8, hematocrit 22.2 with platelets of of 147,000. Arterial blood gas reveals a pH of 7.34, pCO2 of 47, pO2 of 69. As far as sodium, it is 146; potassium 3.8; chloride 113; CO2 of 25; BUN of 76 with a creatinine of 2.1 and a glucose of 114. IMPRESSION: As far as my impression, this patient has upper and lower gastrointestinal bleed. Bleeding scan was positive for gastric as well as transverse colon bleeding. The patient is status post embolization of the left gastric artery. He has anemia as well as respiratory failure, requiring ventilator support; hypertension; acute renal failure as well as deep venous thrombosis. PLAN: As far as plan, we will continue with ventilator support and decrease the FiO2 as tolerated. The patient will continue with the Diprivan, Versed and Protonix drip. He is being followed by Surgery and GI and we will continue Lasix p.r.n. for appropriate diuresis and Zofran p.r.n. We will follow the patient closely with chest x-ray and arterial blood gases as well as following his hemoglobin closely as well. We will continue to treat along with the other consultants and the primary care doctor. Hansel Pulido MD
[2017-12-28 17:43] LABS: HEMOGLOBIN 7.9 g/dL (14.0-18.0); MEAN CELL VOLUME 85.1 fl (80.0-105.0); MEAN CORPUSCULAR HEMOGLOBIN 29.4 pg (25.0-35.0); MEAN CORPUSCULAR HGB CONC 34.5 g/dl (31.0-37.0); MEAN PLATELET VOLUME 9.9 fl (7.0-11.0); RBC 2.69 10^6/uL (3.5-6.1); RED CELL DISTRIBUTION WIDTH 15.6 % (11.5-14.5); WHITE BLOOD COUNT 11.5 10^3/ul (4.5-11.0)
[2017-12-28 19:17] LABS: ALBUMIN 2.4 g/dL (3.0-4.8); CALCIUM 7.2 mg/dL (8.4-10.5)
[2017-12-29] MEDS: Propofol 10 mg/ml 1,000 MG/100 ML VIAL IV PRN ×2 (00:05→13:42)
[2017-12-29] MEDS: Pantoprazole 40mg/100mL NS 40 MG/100 ML BAG IVPB SCH ×4 (03:30→21:23)
[2017-12-29 03:35] LABS: HEMOGLOBIN 7.8 g/dL (14.0-18.0); MEAN CELL VOLUME 86.6 fl (80.0-105.0); MEAN CORPUSCULAR HEMOGLOBIN 29.9 pg (25.0-35.0); MEAN CORPUSCULAR HGB CONC 34.5 g/dl (31.0-37.0); MEAN PLATELET VOLUME 10.1 fl (7.0-11.0); RBC 2.61 10^6/uL (3.5-6.1); RED CELL DISTRIBUTION WIDTH 15.8 % (11.5-14.5); WHITE BLOOD COUNT 11.6 10^3/ul (4.5-11.0)
[2017-12-29] MEDS: Midazolam 100 mg/100ml in NS 100 MG/100 ML SOL IV PRN (04:28)
[2017-12-29 05:27] LABS: ARTERIAL BLOOD GAS HCO3 24.9 mmol/L (21-28); ARTERIAL BLOOD GAS HEMOGLOBIN 5.3 g/dL (11.7-17.4); ARTERIAL BLOOD GAS O2 CAPACITY 7.4 mL/dl (16-24); ARTERIAL BLOOD GAS O2 CONTENT 6.8 ML/dl (15-23); ARTERIAL BLOOD GAS O2 SAT 92.2 % (95-98); ARTERIAL BLOOD GAS PCO2 43 mm/Hg (35-45); ARTERIAL BLOOD GAS PH 7.37 (7.35-7.45); ARTERIAL BLOOD GAS TCO2 26.2 mmol.L (22-28)
[2017-12-29 06:20] LABS: VENOUS BLOOD GAS BASE EXCESS -1.4 mmol/L (0.0-2.0); VENOUS BLOOD GAS PO2 28 mm/Hg (30-55); VENOUS BLOOD PH 7.32 (7.32-7.43)
[2017-12-29 07:03] LABS: HEMOGLOBIN 7.9 g/dL (14.0-18.0); MEAN CELL VOLUME 87.4 fl (80.0-105.0); MEAN CORPUSCULAR HEMOGLOBIN 29.4 pg (25.0-35.0); MEAN CORPUSCULAR HGB CONC 33.6 g/dl (31.0-37.0); RBC 2.69 10^6/uL (3.5-6.1); RED CELL DISTRIBUTION WIDTH 16.1 % (11.5-14.5); WHITE BLOOD COUNT 11.3 10^3/ul (4.5-11.0)
[2017-12-29] MEDS: Piperacillin/Tazobact 2.25gm 2.25 GM/100 ML BAG IVPB SCH ×2 (07:13→12:42)
[2017-12-29 07:15] LABS: ALBUMIN 2.6 g/dL (3.0-4.8); CALCIUM 7.7 mg/dL (8.4-10.5)
[2017-12-29] MEDS ORDERED: Piperacillin/Tazobact 2.25gm 2.25 GM/100 ML BAG IVPB SCH (07:15)
[2017-12-29] MEDS ORDERED: Piperacillin/Tazobact 3.375 gm 100 ML IVPB SCH (07:15)
[2017-12-29] MEDS ORDERED: Vancomycin 1gm in NS 250ml 1 GM/250 ML BAG IVPB SCH (07:15)
[2017-12-29 07:27] LABS: INR 1.04 (0.93-1.08); PARTIAL THROMBOPLASTIN TIME 23.8 Seconds (25.1-36.5)
[2017-12-29] MEDS ORDERED: Sodium Chloride 0.45% 1,000 ML IV SCH (07:45)
--- NOTE | 2017-12-29 07:58 | CP.PCM.PN ---
Subjective - Date & Time of Evaluation Date of Evaluation: 12/29/17 Time of Evaluation: 07:55 - Subjective Subjective: General surgrey progress note for Dr. Db Manrique, PGY-1 Pt S & E at bedside at 0710 Pt intubated, sedated, arousable to noxious stimuli. Pt on PRVC 70%, PEEP 5, RR 16, TV 560. ABG done pO2 was 49% on 70%. Pt saturating 77-84% on 70-100%. POD#2 s/p IR angiography w/embolization of Left gastric artery. ROS unobtainable due to intubation/sedation. Objective - Vital Signs/Intake and Output Vital Signs (last 24 hours): Temp Pulse Resp BP Pulse Ox 101.7 F H 118 H 19 120/60 90 L 12/29/17 06:20 12/29/17 06:20 12/28/17 20:47 12/29/17 07:18 12/29/17 06:20 Intake and Output: 12/29/17 12/29/17 06:59 18:59 Intake Total 584 Output Total 1700 Balance -1116 - Medications Medications: Current Medications Pantoprazole Sodium (Protonix 40mg Ivpb) 40 mg in 100 mls @ 20 mls/hr IVPB .Q5H GRICELDA Last Admin: 12/29/17 03:30 Dose: 20 mls/hr Midazolam 100 mg/100ml in NS (Midazolam 100 Mg/100ml In Ns) 100 mg in 100 mls @ 1 mls/hr IV .Q24H PRN; Protocol; 1 MG/HR PRN Reason: Agitation Last Admin: 12/29/17 04:28 Dose: 2 mg/hr, 2 mls/hr Propofol (Diprivan) 1,000 mg in 100 mls @ 2.557 mls/hr IV .Q24H PRN; Protocol; 5 MCG/KG/MIN PRN Reason: TITRATE PER MD ORDER Last Admin: 12/29/17 00:05 Dose: 30 mcg/kg/min, 15.341 mls/hr Acetaminophen (Ofirmev) 1,000 mg in 100 mls @ 400 mls/hr IVPB Q6H PRN PRN Reason: Temperature Stop: 12/30/17 16:35 Last Admin: 12/29/17 05:56 Dose: 400 mls/hr Vancomycin HCl (Vancomycin 1gm) 1 gm in 250 mls @ 167 mls/hr IVPB DAILY GRICELDA PRN Reason: Protocol Piperacillin Sod/Tazobactam Sod (Zosyn 2.25 Gm In 0.9% 100 Ml) 2.25 gm in 100 mls @ 100 mls/hr IVPB Q6H GRICELDA PRN Reason: Protocol Stop: 12/29/17 14:14 Last Admin: 12/29/17 07:13 Dose: 100 mls/hr Sodium Chloride (Sodium Chloride 0.45%) 1,000 mls @ 75 mls/hr IV .[id number] GRIECLDA Ondansetron HCl (Zofran Inj) 4 mg IVP Q4H PRN PRN Reason: Nausea/Vomiting - Labs Labs: 12/29/17 06:30 12/29/17 06:30 PT 12.0 SECONDS (9.4-12.5) 12/29/17 06:30 INR 1.04 (0.93-1.08) 12/29/17 06:30 APTT 23.8 Seconds (25.1-36.5) L 12/29/17 06:30 - Constitutional Appears: Non-toxic, No Acute Distress - Head Exam Head Exam: ATRAUMATIC, NORMAL INSPECTION - Eye Exam Eye Exam: EOMI, Normal appearance - ENT Exam ENT Exam: Mucous Membranes Dry (ET tube in place) - Respiratory Exam Respiratory Exam: absent: Clear to Ausculation Bilateral (coarse breath sounds over left lung david, on mechanical vent) - Cardiovascular Exam Cardiovascular Exam: Tachycardia - GI/Abdominal Exam GI & Abdominal Exam: Soft. absent: Distended, Firm, Guarding - Extremities Exam Extremities Exam: Pedal Edema (bilateral) Additional comments: Right groin with pressure dressing in place, no hematoma palpable - Neurological Exam Neurological Exam: absent: Alert, Awake, Oriented x3 Additional comments: intubated, sedated - Psychiatric Exam Additional comments: unable to assess due to intubation/sedation - Skin Skin Exam: Dry, Intact, Normal Color, Warm Assessment and Plan - Assessment and Plan (Free Text) Assessment: 77M with Upper GI bleed, s/p IR angiography with embolization of Left Gastric Artery POD#2 who is now intubated and on mechanical ventilation, tachycardic overnight with new hypoxia, likely due to PE Plan: NPO IVF Monitor H/H- transfuse PRN Titrate FiO2 wean from vent when meets criteria Protonix Strict I/O's Monitor bowel function for bleeding Recommend possible IVC filter Unable to anticoagulate due to recent GI bleed Started empiric Abx for possible pulmonary infiltrates No plans for surgical intervention at this time Further mgmt as per primary & ICU teams Further recs as per Dr. Lopez Will DW attending Hilaria, PGY-1
[2017-12-29] MEDS: Vancomycin 1gm in NS 250ml 1 GM/250 ML BAG IVPB SCH (09:05)
[2017-12-29 09:11] LABS: URINE BILIRUBIN NEGATIVE (NEGATIVE); URINE BLOOD NEGATIVE (NEGATIVE); URINE GLUCOSE (UA) NEGATIVE (NEGATIVE); URINE LEUKOCYTE ESTERASE NEGATIVE Leu/uL (NEGATIVE); URINE PROTEIN TRACE mg/dL (<30 mg/dL); URINE UROBILINOGEN 0.2 E.U./dL (<1 E.U./dL)
[2017-12-29 09:14] LABS: URINE APPEARANCE CLEAR (CLEAR); URINE COLOR YELLOW (YELLOW)
[2017-12-29 09:27] LABS: URINE AMORPHOUS SEDIMENT TRACE; URINE BACTERIA NEG (NEG); URINE EPITHELIAL CELLS 0 - 2 /hpf (0-5); URINE RBC 0 - 2 /hpf (0-2)
--- NOTE | 2017-12-29 09:42 | RAD ---
HISTORY: desaturation COMPARISON: No prior. FINDINGS: In situ ETT, tip which lies approximately 4.4 cm above alycia LUNGS: Patchy somewhat confluent opacity seen throughout left lung with an area of patchy infiltrate in the right mid to lower lung zone. Findings may represent pulmonary pneumonia or asymmetric pulmonary edema. Clinical correlation recommended. PLEURA: No significant pleural effusion identified, no pneumothorax apparent. CARDIOVASCULAR: Normal. OSSEOUS STRUCTURES: No significant abnormalities. VISUALIZED UPPER ABDOMEN: Normal. OTHER FINDINGS: None. IMPRESSION: ETT as above. Patchy somewhat confluent opacity seen throughout left lung with an area of patchy infiltrate in the right mid to lower lung zone. Findings may represent pulmonary pneumonia or asymmetric pulmonary edema. Clinical correlation recommended.
--- NOTE | 2017-12-29 09:43 | RAD ---
HISTORY: Intubated COMPARISON: Comparison chest 12/28/2017 FINDINGS: In situ ETT the tip of which lies approximately 8.0 cm above alycia. LUNGS: Significant centrilobular emphysematous changes upper lobe predominance again noted. Scarring and fibrosis. More confluent opacity left lower lobe could represent diffuse infiltrate with left effusion. Questionable right basilar atelectasis and/or developing PLEURA: As above. No pneumothorax apparent. CARDIOVASCULAR: Cardiomegaly. OSSEOUS STRUCTURES: No significant abnormalities. VISUALIZED UPPER ABDOMEN: Normal. OTHER FINDINGS: None. IMPRESSION: In situ ETT as above. Significant centrilobular emphysematous changes upper lobe predominance again noted. Scarring and fibrosis. More confluent opacity left lower lobe could represent diffuse infiltrate with left effusion. Questionable right basilar atelectasis or developing infiltrate
--- NOTE | 2017-12-29 12:14 | PN ---
DATE: 12/29/2017 DIRECTOR OF FINANCIAL AID NOTE SUBJECTIVE: The patient is ventilator dependent and on Diprivan for sedation. The patient had an episode of hypoxia on the ventilator, this morning needed to be bagged aggressively, possible mucus plugging. FIO2 was increased to 100%. At this time, O2 sats are good in the 95-97% range. The patient also continues to have vigorous diuresis, but blood pressure decreased slightly this morning. We are watching the mean arterial blood pressure and if necessary, will start Levophed. There is no active bleeding at this time. PHYSICAL EXAMINATION: VITAL SIGNS: Physical exam note that his temperature is 101.7, his pulse is 118, BP is 120/60 and his respirations are 18. The patient's O2 saturation at this time is 100% noted. HEENT: Head is atraumatic, normocephalic. Eyes reactive to light. Ear, nose and throat seemed to be within normal limits. NECK: Supple. No JVD. No thyroid enlargement. No lymph nodes. HEART: Has regular rate and rhythm. Normal S1, S2, but tachycardic. His lungs reveal bilateral rhonchi. ABDOMEN: Soft. Decreased bowel sounds. GENITALIA AND RECTAL: Deferred. MUSCULOSKELETAL: No joint deformities. EXTREMITIES: Reveal 1+ lower extremity edema. NEUROLOGICAL: The patient is sedated on the ventilator. LABORATORY DATA: As far as his laboratories are concerned, his white count is 11.3, hemoglobin is 7.9, hematocrit 23.5 with platelets of 151,000. The patient's PT is 12, INR is 1.04 and PTT is 23.8. His arterial blood gas reveals a pH of 7.37, pCO2 of 43 and pO2 of 49. The sodium is 151 with potassium of 3.6, chloride 117, CO2 of 25 with a BUN of 86, creatinine of 2.3 and a glucose of 102. Chest x-ray unofficial reveals bilateral infiltrates. IMPRESSION: As far as my impression, the patient has upper and lower gastrointestinal bleeding in the gastric region as well as the transverse colon. The patient is post embolization in the left gastric artery. He has anemia as well as respiratory failure. Noted that the patient has bilateral infiltrates, possible pneumonia. The patient had an episode of hypoxia this morning, rule out mucus plugging, but the patient does have a history of deep venous thrombosis and has a past history of lung cancer, so the chance of hypercoagulopathy and pulmonary embolus must be considered. The patient is hypernatremic as well as having acute renal failure as well. PLAN: As far as our plan, we will continue with ventilator support and decrease the FIO2 as needed. We will continue with aggressive pulmonary toilet. The patient is getting Lasix b.i.d. and with episodes of hypotension, we will monitor closely and if we have to, we will start the Levophed. We will continue Diprivan as well as the Versed and the Protonix drip. We will follow his hemoglobin closely and transfuse as needed. We will follow with Surgery and GI. Hansel Pulido MD
--- NOTE | 2017-12-29 16:03 | CP.PCM.PN ---
<Kirby Schuler Darion - Last Filed: 12/29/17 16:44> Subjective - Date & Time of Evaluation Date of Evaluation: 12/29/17 Time of Evaluation: 09:00 - Subjective Subjective: Medicine progress note: Dr. Orourke Patient seen and examined at bedside. Patient spiked fever overnight, otherwise no acute events overnight. Patient sedated and intubated, history limited. Objective - Vital Signs/Intake and Output Vital Signs (last 24 hours): Temp Pulse Resp BP Pulse Ox 101 F H 118 H 19 120/60 90 L 12/29/17 08:00 12/29/17 06:20 12/28/17 20:47 12/29/17 07:18 12/29/17 06:20 Intake and Output: 12/29/17 12/29/17 06:59 18:59 Intake Total 584 106 Output Total 1700 Balance -1116 106 - Medications Medications: Current Medications Albuterol/Ipratropium (Duoneb 3 Mg/0.5 Mg (3 Ml) Ud) 3 ml IH TIDRESP [facility] Pantoprazole Sodium (Protonix 40mg Ivpb) 40 mg in 100 mls @ 20 mls/hr IVPB .Q5H [facility] Last Admin: 12/29/17 15:51 Dose: 20 mls/hr Midazolam 100 mg/100ml in NS (Midazolam 100 Mg/100ml In Ns) 100 mg in 100 mls @ 1 mls/hr IV .Q24H PRN; Protocol; 1 MG/HR PRN Reason: Agitation Last Titration: 12/29/17 07:30 Dose: 2 mg/hr, 2 mls/hr Propofol (Diprivan) 1,000 mg in 100 mls @ 2.557 mls/hr IV .Q24H PRN; Protocol; 5 MCG/KG/MIN PRN Reason: TITRATE PER MD ORDER Last Admin: 12/29/17 13:42 Dose: 30 mcg/kg/min, 15.341 mls/hr Acetaminophen (Ofirmev) 1,000 mg in 100 mls @ 400 mls/hr IVPB Q6H PRN PRN Reason: Temperature Stop: 12/30/17 16:35 Last Admin: 12/29/17 15:50 Dose: 400 mls/hr Vancomycin HCl (Vancomycin 1gm) 1 gm in 250 mls @ 167 mls/hr IVPB DAILY [facility] PRN Reason: Protocol Last Admin: 12/29/17 09:05 Dose: 167 mls/hr Sodium Chloride (Sodium Chloride 0.45%) 1,000 mls @ 75 mls/hr IV .[id number] [facility] Last Admin: 12/29/17 12:40 Dose: Not Given Ondansetron HCl (Zofran Inj) 4 mg IVP Q4H PRN PRN Reason: Nausea/Vomiting - Labs Labs: 12/29/17 06:30 12/29/17 06:30 PT 12.0 SECONDS (9.4-12.5) 12/29/17 06:30 INR 1.04 (0.93-1.08) 12/29/17 06:30 APTT 23.8 Seconds (25.1-36.5) L 12/29/17 06:30 - Constitutional Appears: Chronically Ill - Head Exam Head Exam: ATRAUMATIC, NORMAL INSPECTION, NORMOCEPHALIC - Eye Exam Eye Exam: EOMI, Normal appearance, PERRL Pupil Exam: NORMAL ACCOMODATION, PERRL - ENT Exam ENT Exam: Mucous Membranes Moist, Normal Exam - Neck Exam Neck Exam: Full ROM, Normal Inspection. absent: Lymphadenopathy - Respiratory Exam Respiratory Exam: Rales (More on R side than L). absent: NORMAL BREATHING PATTERN (Ventilator) Additional comments: Intubated - Cardiovascular Exam Cardiovascular Exam: REGULAR RHYTHM, +S1, +S2. absent: Murmur - GI/Abdominal Exam GI & Abdominal Exam: Soft, Normal Bowel Sounds. absent: Tenderness - Extremities Exam Extremities Exam: Normal Capillary Refill, Normal Inspection. absent: Joint Swelling, Pedal Edema - Back Exam Back Exam: NORMAL INSPECTION - Neurological Exam Neurological Exam: CN II-XII Intact. absent: Alert, Awake, Oriented x3 ( Patient sedated and intubated) - Psychiatric Exam Psychiatric exam: absent: Normal Affect (unobtainable), Normal Mood ( unobtainable) - Skin Skin Exam: Dry, Intact, Normal Color, Warm Additional comments: tenting of skin Assessment and Plan - Assessment and Plan (Free Text) Assessment: 77 year old male with a past medical history of duodenitis, erosive gastritis, history of abdominal aortic aneursym repair, DVT on Xarelto presenting on 12/26 with acute GI bleed - bleeding scan showed transverse colon bleed and patient was found to be hypotensive and tachycardic in the ED with a hemoglobin of 6.6, hematocrit of 20.3, and an INR of 2.56. EGD performed showed blood in stomach/ antrum. Patient's Hgb today 12/29 is 7.9 (stable with yesterday); INR 1.04. However, patient has been getting hypoxemic (O2 upper 70s earlier this AM). In light of patient's recent halt of anticoagulation, this is worrisome for PE. However, given recent multiple transfusions, this could also be a picture of TRALI, and supporting this is that increasing the vent settings for FiO2 have been favorable. In any case, cannot heparinize patient 2/2 recent GIB and cannot obtain CTA Chest 2/2 EKTA. RE: EKTA, cannot give fluid 2/2 fluid overload caused by recent transfusions; the same holds for patient's hypernatremia, thus not giving 1/2 NS nor free water (2/2 patient's intubation). Finally, patient spiked a fever overnight of 101; need to rule out infectious etiologies vs reaction to blood. Patient technically has two SIRS criteria ( tachycardia) as well as borderline SIRS WBC count (11.3). Plan: SIRS Criteria (Tachycardia and Fever) - Septic workup pending - ID Consult: Dr. Vyas - Macrina/Jocelyne (Vanc needs to be renally dosed) Hypoxemia, likely 2/2 TRALI VS PE - Cannot obtain CTA Chest 2/2 patient's EKTA; cannot heparinize 2/2 GiB - Steroids in case of TRALI; DO NOT DIURESE Acute GI bleed status post Gastric Artery embolization (12/27) and 13 U PRBC, 8U FFP - Intubated, with propofol and midazolam drip - NPO, VS q15m, H/H q12h, PT/PTT monitoring - Protonix ggt - GI consult: Dr. Ibrahim, follow recs - Surgery Consulted, Dr. Lopez, follow recs EKTA, likely secondary to GI bleed - Hold nephrotoxic drugs; Monitor - Nephro Consult: Dr. Santos Hypernatremia likely 2/2 Dehydration - Monitor History DVT - Will resume anticoagulation once stable and cleared by Heme History HTN - Hold Valsartan History Squamous Cell CA - No acute intervention History Abdominal Aortic Aneurysm s/p Repair - Hold Verapamil Prophylaxis - GI: Protonix GTT - DVT: SCD <Alberto Orourke A - Last Filed: 12/29/17 17:07> Objective - Vital Signs/Intake and Output Vital Signs (last 24 hours): Temp Pulse Resp BP Pulse Ox 101 F H 118 H 19 120/60 90 L 12/29/17 08:00 12/29/17 06:20 12/28/17 20:47 12/29/17 07:18 12/29/17 06:20 Intake and Output: 12/29/17 12/29/17 06:59 18:59 Intake Total 584 106 Output Total 1700 Balance -1116 106 - Medications Medications: Current Medications Albuterol/Ipratropium (Duoneb 3 Mg/0.5 Mg (3 Ml) Ud) 3 ml IH TIDRESP [facility] Pantoprazole Sodium (Protonix 40mg Ivpb) 40 mg in 100 mls @ 20 mls/hr IVPB .Q5H [facility] Last Admin: 12/29/17 15:51 Dose: 20 mls/hr Midazolam 100 mg/100ml in NS (Midazolam 100 Mg/100ml In Ns) 100 mg in 100 mls @ 1 mls/hr IV .Q24H PRN; Protocol; 1 MG/HR PRN Reason: Agitation Last Titration: 12/29/17 07:30 Dose: 2 mg/hr, 2 mls/hr Propofol (Diprivan) 1,000 mg in 100 mls @ 2.557 mls/hr IV .Q24H PRN; Protocol; 5 MCG/KG/MIN PRN Reason: TITRATE PER MD ORDER Last Admin: 12/29/17 13:42 Dose: 30 mcg/kg/min, 15.341 mls/hr Acetaminophen (Ofirmev) 1,000 mg in 100 mls @ 400 mls/hr IVPB Q6H PRN PRN Reason: Temperature Stop: 12/30/17 16:35 Last Admin: 12/29/17 15:50 Dose: 400 mls/hr Vancomycin HCl (Vancomycin 1gm) 1 gm in 250 mls @ 167 mls/hr IVPB DAILY [facility] PRN Reason: Protocol Last Admin: 12/29/17 09:05 Dose: 167 mls/hr Sodium Chloride (Sodium Chloride 0.45%) 1,000 mls @ 75 mls/hr IV .[id number] [facility] Last Admin: 12/29/17 12:40 Dose: Not Given Ondansetron HCl (Zofran Inj) 4 mg IVP Q4H PRN PRN Reason: Nausea/Vomiting - Labs Labs: 12/29/17 06:30 12/29/17 06:30 PT 12.0 SECONDS (9.4-12.5) 12/29/17 06:30 INR 1.04 (0.93-1.08) 12/29/17 06:30 APTT 23.8 Seconds (25.1-36.5) L 12/29/17 06:30 Attending/Attestation - Attestation I have personally seen and examined this patient.: Yes I have fully participated in the care of the patient.: Yes I have reviewed all pertinent clinical information, including history, physical exam and plan: Yes Notes (Text): 12/29/17 16:58 77 year old male with past medical history of hypertension, duodenitis, erosive gastritis, abdominal aortic aneurysm repair (2011), LLE DVT on xarelto who presented with GIB. He is s/p multiple PRBC / FFP transfusions. He was seen by GI and is s/p EGD as above. Bleeding scan was positive from transverse colon. He was seen by IR and is s/p embolization of left gastric artery. H/H is stable. Will continue to monitor. His xarelto is on hold for now secondary to above. This morning patient was tachycardic, febrile and hypoxic. CXR shows infiltrates vs pulmonary edema. He received lasix and is started on antibiotics. Probnp, procalcitonin, and echocardiogram are ordered. He also has worsening renal function and hypernatremia today. Nephrology evaluation is requested. Case was discussed with pmd, Dr. Schwartz and GI, Dr. Ibrahim today. Alberto Orourke MD Hospitalist.
--- NOTE | 2017-12-29 18:32 | CP.PCM.CON ---
History of Present Illness - History of Present Illness History of Present Illness: Infectious Disease Consultation: December 29, 2017 77 year old male with PMH of hypertension, duodenitis, erosive gastritis ( diagnosed in 2012), divericulosis, abdominal aortic aneurysm repair in 2011, left lower extremity DVT (2011), who presents with GI bleed. Patient states that over the past 2 days he had multiple episodes of coffee ground hematemesis. He also reports melena, and bright red blood per rectum starting yesetrday. Patient states that he started Xarelto a few days ago. Patient endorses he was taking Eliquis but experienced abdominal discomfort, loss of appetite, and associated weight loss. He was switched to Xarelto instead recently due to these adverse events. He does admit to drinking alcohol, but denies any history of drinking greater than 8 drinks per week or having any prior history of alcohol abuse. Patient states that he takes Aleeve almost daily for the past 5 years. Currently in ICU for monitoring. TLC placed. Had several melena episodes during hospitalization. S/P IR angiography with embolization of left gastric artery POD#2. Intubated and Ventilated. On Vancomycin and Zosyn for antibiotic treatment. Patient with history of frequent hospitalizations. History obtained from the chart as the patient has been intubated and ventilated since I was consulted. PMHx: HTN, Abdominal aortic aneurysm angioplasty 2011, left leg DVT, left upper lobe squamous cell carcinoma PSHx: Abdominal aortic aneurysm angioplasty, endoscopy Allergies: Shellfish and derivates Social Hx: 50 pack year tobacco history, social EtOH, no illicit drugs Active Medications Albuterol/Ipratropium (Duoneb 3 Mg/0.5 Mg (3 Ml) Ud) 3 ml IH TIDRESP [facility] Pantoprazole Sodium (Protonix 40mg Ivpb) 40 mg in 100 mls @ 20 mls/hr IVPB .Q5H [facility] Last Admin: 12/29/17 15:51 Dose: 20 mls/hr Midazolam 100 mg/100ml in NS (Midazolam 100 Mg/100ml In Ns) 100 mg in 100 mls @ 1 mls/hr IV .Q24H PRN; Protocol; 1 MG/HR PRN Reason: Agitation Last Titration: 12/29/17 07:30 Dose: 2 mg/hr, 2 mls/hr Propofol (Diprivan) 1,000 mg in 100 mls @ 2.557 mls/hr IV .Q24H PRN; Protocol; 5 MCG/KG/MIN PRN Reason: TITRATE PER MD ORDER Last Admin: 12/29/17 13:42 Dose: 30 mcg/kg/min, 15.341 mls/hr Acetaminophen (Ofirmev) 1,000 mg in 100 mls @ 400 mls/hr IVPB Q6H PRN PRN Reason: Temperature Stop: 12/30/17 16:35 Last Admin: 12/29/17 15:50 Dose: 400 mls/hr Vancomycin HCl (Vancomycin 1gm) 1 gm in 250 mls @ 167 mls/hr IVPB DAILY [facility] PRN Reason: Protocol Last Admin: 12/29/17 09:05 Dose: 167 mls/hr Sodium Chloride (Sodium Chloride 0.45%) 1,000 mls @ 75 mls/hr IV .[id number] [facility] Last Admin: 12/29/17 12:40 Dose: Not Given Ondansetron HCl (Zofran Inj) 4 mg IVP Q4H PRN PRN Reason: Nausea/Vomiting Family Hx: none given ROS: Unable to obtain at this time. Past Patient History - Past Social History Smoking Status: Former Smoker - CARDIAC Hx Cardiac Disorders: Yes Hx Hypertension: Yes Hx Pacemaker: No - PULMONARY Hx Respiratory Disorders: No - NEUROLOGICAL Hx Paralysis: No - HEENT Hx HEENT Problems: No - RENAL Hx Chronic Kidney Disease: No - ENDOCRINE/METABOLIC Hx Endocrine Disorders: No - HEMATOLOGICAL/ONCOLOGICAL Hx Blood Transfusions: No Hx Blood Transfusion Reaction: No - INTEGUMENTARY Hx Dermatological Problems: No - MUSCULOSKELETAL/RHEUMATOLOGICAL Hx Musculoskeletal Disorders: No - GASTROINTESTINAL Hx Gastrointestinal Disorders: Yes Other/Comment: gastritis - GENITOURINARY/GYNECOLOGICAL Hx Genitourinary Disorders: No - PSYCHIATRIC Hx Emotional Abuse: No Hx Physical Abuse: No Hx Substance Use: No - SURGICAL HISTORY Hx Surgeries: Yes - ANESTHESIA Hx Anesthesia Reactions: No Hx Malignant Hyperthermia: No Meds Allergies/Adverse Reactions: Allergies Allergy/AdvReac Type Severity Reaction Status Date / Time shellfish derived Allergy SWELLING Verified 12/26/17 18:51 - Medications Medications: Current Medications Albuterol/Ipratropium (Duoneb 3 Mg/0.5 Mg (3 Ml) Ud) 3 ml IH TIDRESP [facility] Pantoprazole Sodium (Protonix 40mg Ivpb) 40 mg in 100 mls @ 20 mls/hr IVPB .Q5H [facility] Last Admin: 12/29/17 15:51 Dose: 20 mls/hr Midazolam 100 mg/100ml in NS (Midazolam 100 Mg/100ml In Ns) 100 mg in 100 mls @ 1 mls/hr IV .Q24H PRN; Protocol; 1 MG/HR PRN Reason: Agitation Last Titration: 12/29/17 07:30 Dose: 2 mg/hr, 2 mls/hr Propofol (Diprivan) 1,000 mg in 100 mls @ 2.557 mls/hr IV .Q24H PRN; Protocol; 5 MCG/KG/MIN PRN Reason: TITRATE PER MD ORDER Last Admin: 12/29/17 13:42 Dose: 30 mcg/kg/min, 15.341 mls/hr Acetaminophen (Ofirmev) 1,000 mg in 100 mls @ 400 mls/hr IVPB Q6H PRN PRN Reason: Temperature Stop: 12/30/17 16:35 Last Admin: 12/29/17 15:50 Dose: 400 mls/hr Vancomycin HCl (Vancomycin 1gm) 1 gm in 250 mls @ 167 mls/hr IVPB DAILY GR[facility]EL[facility] PRN Reason: Protocol Last Admin: 12/29/17 09:05 Dose: 167 mls/hr Sodium Chloride (Sodium Chloride 0.45%) 1,000 mls @ 75 mls/hr IV .[id number] [facility] Last Admin: 12/29/17 12:40 Dose: Not Given Ondansetron HCl (Zofran Inj) 4 mg IVP Q4H PRN PRN Reason: Nausea/Vomiting Physical Exam - Constitutional Appears: Chronically Ill Additional comments: Intubated and Ventilated - Head Exam Additional comments: Intubated and Ventilated. - Eye Exam Eye Exam: EOMI, PERRL Pupil Exam: NORMAL ACCOMODATION, PERRL - ENT Exam ENT Exam: Mucous Membranes Moist, Normal External Ear Exam, TM's Normal Bilaterally - Neck Exam Neck exam: Positive for: Full Rom, Normal Inspection - Respiratory Exam Respiratory Exam: absent: Rales, Rhonchi, Wheezes Additional comments: Intubated and Ventilated. - Cardiovascular Exam Cardiovascular Exam: REGULAR RHYTHM, RRR, +S1, +S2 - GI/Abdominal Exam GI & Abdominal Exam: Distended, Soft. absent: Tenderness Additional comments: pulsating in abdomen. - Extremities Exam Extremities exam: Positive for: pedal pulses present. Negative for: joint swelling, pedal edema - Neurological Exam Neurological exam: Alert, CN II-XII Intact Additional comments: intubated and ventilated. - Psychiatric Exam Psychiatric exam: Normal Affect, Normal Mood - Skin Skin Exam: Intact, Normal Color, Warm Additional comments: tenting of skin. Results - Vital Signs Recent Vital Signs: Last Vital Signs Temp 101 F H 12/29/17 08:00 Pulse 118 H 12/29/17 06:20 Resp 19 12/28/17 20:47 BP 120/60 12/29/17 07:18 Pulse Ox 90 L 12/29/17 06:20 - Labs Result Diagrams: 12/29/17 06:30 12/29/17 06:30 Labs: Laboratory Results - last 24 hr 12/28/17 12/29/17 12/29/17 18:28 00:40 05:15 WBC 11.6 H RBC 2.61 L Hgb 7.8 L Hct 22.6 L MCV 86.6 MCH 29.9 MCHC 34.5 RDW 15.8 H Plt Count 147 MPV 10.1 PT INR APTT pCO2 43 pO2 49.0 L HCO3 24.9 ABG pH 7.37 ABG Total CO2 26.2 ABG O2 Saturation 92.2 L ABG O2 Content 6.8 L ABG Base Excess -0.3 ABG Hemoglobin 5.3 L ABG Carboxyhemoglobin 1.8 H POC ABG HHb (Measured) 7.6 H ABG Methemoglobin 0.4 ABG O2 Capacity 7.4 L VBG pH VBG pCO2 VBG HCO3 VBG Total CO2 VBG O2 Sat (Calc) VBG Base Excess VBG Potassium Hgb O2 Saturation 90.3 L Glucose Lactate FiO2 70.0 Sodium 147 Potassium 3.7 Chloride 113 H Carbon Dioxide 26 Anion Gap 12 BUN 80 H Creatinine 2.2 H Est GFR ( Amer) 35 Est GFR (Non-Af Amer) 29 Random Glucose 108 Calcium 7.2 L Phosphorus Magnesium Total Bilirubin 0.1 L AST 17 D ALT 21 Alkaline Phosphatase 43 NT-Pro-B Natriuret Pep Total Protein 4.8 L Albumin 2.4 L Globulin 2.3 Albumin/Globulin Ratio 1.0 L Procalcitonin Venous Blood Potassium Urine Color Urine Appearance Urine pH Ur Specific [place] Urine Protein Urine Glucose (UA) Urine Ketones Urine Blood Urine Nitrate Urine Bilirubin Urine Urobilinogen Ur Leukocyte Esterase Urine RBC Urine WBC Ur Epithelial Cells Amorphous Sediment Urine Bacteria 12/29/17 12/29/17 12/29/17 05:30 05:30 06:30 WBC RBC Hgb Hct MCV MCH MCHC RDW Plt Count MPV PT INR APTT pCO2 pO2 28 L HCO3 ABG pH ABG Total CO2 ABG O2 Saturation ABG O2 Content ABG Base Excess ABG Hemoglobin ABG Carboxyhemoglobin POC ABG HHb (Measured) ABG Methemoglobin ABG O2 Capacity VBG pH 7.32 VBG pCO2 49.0 VBG HCO3 25.2 VBG Total CO2 26.7 VBG O2 Sat (Calc) 64.8 VBG Base Excess -1.4 L VBG Potassium 3.6 Hgb O2 Saturation Glucose 105 Lactate 1.4 FiO2 21.0 Sodium 147.0 151 H Potassium 3.6 Chloride 120.0 H 117 H Carbon Dioxide 25 Anion Gap 12 BUN 86 H Creatinine 2.3 H Est GFR ( Amer) 34 Est GFR (Non-Af Amer) 28 Random Glucose 102 Calcium 7.7 L Phosphorus 4.0 Magnesium 1.9 Total Bilirubin 0.2 AST 18 ALT 22 Alkaline Phosphatase 49 NT-Pro-B Natriuret Pep Total Protein 5.1 L Albumin 2.6 L Globulin 2.5 Albumin/Globulin Ratio 1.0 L Procalcitonin 1.52 H Venous Blood Potassium 3.6 Urine Color Urine Appearance Urine pH Ur Specific [place] Urine Protein Urine Glucose (UA) Urine Ketones Urine Blood Urine Nitrate Urine Bilirubin Urine Urobilinogen Ur Leukocyte Esterase Urine RBC Urine WBC Ur Epithelial Cells Amorphous Sediment Urine Bacteria 12/29/17 12/29/17 12/29/17 06:30 06:30 06:30 WBC 11.3 H RBC 2.69 L Hgb 7.9 L Hct 23.5 L MCV 87.4 MCH 29.4 MCHC 33.6 RDW 16.1 H Plt Count 151 MPV 10.0 PT 12.0 INR 1.04 APTT 23.8 L pCO2 pO2 HCO3 ABG pH ABG Total CO2 ABG O2 Saturation ABG O2 Content ABG Base Excess ABG Hemoglobin ABG Carboxyhemoglobin POC ABG HHb (Measured) ABG Methemoglobin ABG O2 Capacity VBG pH VBG pCO2 VBG HCO3 VBG Total CO2 VBG O2 Sat (Calc) VBG Base Excess VBG Potassium Hgb O2 Saturation Glucose Lactate FiO2 Sodium Potassium Chloride Carbon Dioxide Anion Gap BUN Creatinine Est GFR ( Amer) Est GFR (Non-Af Amer) Random Glucose Calcium Phosphorus Magnesium Total Bilirubin AST ALT Alkaline Phosphatase NT-Pro-B Natriuret Pep 7590 H Total Protein Albumin Globulin Albumin/Globulin Ratio Procalcitonin Venous Blood Potassium Urine Color Urine Appearance Urine pH Ur Specific [place] Urine Protein Urine Glucose (UA) Urine Ketones Urine Blood Urine Nitrate Urine Bilirubin Urine Urobilinogen Ur Leukocyte Esterase Urine RBC Urine WBC Ur Epithelial Cells Amorphous Sediment Urine Bacteria 12/29/17 08:45 WBC RBC Hgb Hct MCV MCH MCHC RDW Plt Count MPV PT INR APTT pCO2 pO2 HCO3 ABG pH ABG Total CO2 ABG O2 Saturation ABG O2 Content ABG Base Excess ABG Hemoglobin ABG Carboxyhemoglobin POC ABG HHb (Measured) ABG Methemoglobin ABG O2 Capacity VBG pH VBG pCO2 VBG HCO3 VBG Total CO2 VBG O2 Sat (Calc) VBG Base Excess VBG Potassium Hgb O2 Saturation Glucose Lactate FiO2 Sodium Potassium Chloride Carbon Dioxide Anion Gap BUN Creatinine Est GFR ( Amer) Est GFR (Non-Af Amer) Random Glucose Calcium Phosphorus Magnesium Total Bilirubin AST ALT Alkaline Phosphatase NT-Pro-B Natriuret Pep Total Protein Albumin Globulin Albumin/Globulin Ratio Procalcitonin Venous Blood Potassium Urine Color Yellow Urine Appearance Clear Urine pH 6.0 Ur Specific [place] 1.010 Urine Protein Trace H Urine Glucose (UA) Negative Urine Ketones Negative Urine Blood Negative Urine Nitrate Negative Urine Bilirubin Negative Urine Urobilinogen 0.2 Ur Leukocyte Esterase Negative Urine RBC 0 - 2 Urine WBC 1 - 3 Ur Epithelial Cells 0 - 2 Amorphous Sediment Trace Urine Bacteria Neg Assessment & Plan - Assessment and Plan (Free Text) Assessment: 77 yo AA male known to me from prior hospitalizations presenting with acute GI bleed. The patient has been anemic and hypoxic. The patient has been having persistent fevers with mild leukocytosis. Supportive care. Start Vancomycin and Meropenem for treatment. Sepsis workup. Hypoxemia. Patient being evaluted for TRALI and PE at this time. The patient has left gastric artery embolization on 12/27/2017. The patient was given 13 U PRBCs and 8 U FFP. Patient with EKTA. Thank you for allowing me to participate in the care of the patient, we will follow with you.
[2017-12-29] MEDS: Albuterol-Ipratrop 3 mg / 0.5 (3 ml) UD IH SCH (20:15)
[2017-12-29 20:26] LABS: HEMOGLOBIN 7.3 g/dL (14.0-18.0)
[2017-12-29] MEDS: Meropenem 500 MG in Sodium Chloride 0.9% 50 ML IVPB SCH (21:16)
--- NOTE | 2017-12-29 21:37 | CP.PCM.PN ---
Objective - Vital Signs/Intake and Output Vital Signs (last 24 hours): Temp Pulse Resp BP Pulse Ox 100.0 F H 110 H 19 111/62 100 12/29/17 20:20 12/29/17 20:20 12/28/17 20:47 12/29/17 20:00 12/29/17 20:20 Intake and Output: 12/29/17 12/30/17 18:59 06:59 Intake Total 984 Output Total 2550 Balance -1566 - Medications Medications: Current Medications Albuterol/Ipratropium (Duoneb 3 Mg/0.5 Mg (3 Ml) Ud) 3 ml IH TIDRESP [facility] Pantoprazole Sodium (Protonix 40mg Ivpb) 40 mg in 100 mls @ 20 mls/hr IVPB .Q5H [facility] Last Admin: 12/29/17 21:23 Dose: 20 mls/hr Midazolam 100 mg/100ml in NS (Midazolam 100 Mg/100ml In Ns) 100 mg in 100 mls @ 1 mls/hr IV .Q24H PRN; Protocol; 1 MG/HR PRN Reason: Agitation Last Titration: 12/29/17 07:30 Dose: 2 mg/hr, 2 mls/hr Propofol (Diprivan) 1,000 mg in 100 mls @ 2.557 mls/hr IV .Q24H PRN; Protocol; 5 MCG/KG/MIN PRN Reason: TITRATE PER MD ORDER Last Admin: 12/29/17 13:42 Dose: 30 mcg/kg/min, 15.341 mls/hr Acetaminophen (Ofirmev) 1,000 mg in 100 mls @ 400 mls/hr IVPB Q6H PRN PRN Reason: Temperature Stop: 12/30/17 16:35 Last Admin: 12/29/17 15:50 Dose: 400 mls/hr Vancomycin HCl (Vancomycin 1gm) 1 gm in 250 mls @ 167 mls/hr IVPB DAILY [facility] PRN Reason: Protocol Last Admin: 12/29/17 09:05 Dose: 167 mls/hr Sodium Chloride (Sodium Chloride 0.45%) 1,000 mls @ 75 mls/hr IV .[id number] [facility] Last Admin: 12/29/17 12:40 Dose: Not Given Meropenem 500 mg/ Sodium (Chloride) 50 mls @ 100 mls/hr IVPB Q12 [facility] PRN Reason: Protocol Last Admin: 12/29/17 21:16 Dose: 100 mls/hr Ondansetron HCl (Zofran Inj) 4 mg IVP Q4H PRN PRN Reason: Nausea/Vomiting - Labs Labs: 12/29/17 19:35 12/29/17 06:30 PT 12.0 SECONDS (9.4-12.5) 12/29/17 06:30 INR 1.04 (0.93-1.08) 12/29/17 06:30 APTT 23.8 Seconds (25.1-36.5) L 12/29/17 06:30
--- NOTE | 2017-12-29 21:37 | CP.PCM.CON ---
History of Present Illness - History of Present Illness History of Present Illness: History taken from medical record and discussion with staff as patient is intubated: 77 year old male with a past medical history of hypertension, duodenitis, erosive gastritis (diagnosed in 2012), divericulosis, abdominal aortic aneurysm repair in 2011, left lower extremity DVT also in 2011, presented on 12/25/17 with GI bleed; nephrology being consulted for acute renal failure; Patient reported two days of melena, multiple episodes of coffee ground hematemesis, and bright red blood per rectum after starting Xarelto two days prior to presentation; he had previously been on eliquis but switched due to reported loss of appetite, weight loss and abdominal discomfort; During admission, patient continued to have ongoing melena and required multiple units prbc transfusion; patient was also given reversal agent for xarelto and transfused platelets and FFP; bleeding scan was done which showed ongoing bleeding in area of transverse colon; EGD was performed 2 days ago with finding of blood and large clots; decision was then made to undergo angiographic embolization which was done on 12/27; 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; Patient remains intubated but on very high FIO2 requirement, increased to 100% this morning; he has been spiking fever and has been started on empiric antibiotics with vanco and meropenem; Review of Systems - Review of Systems Systems not reviewed;Unavailable: Intubated Review of Systems: Unable to obtain as patient intubated/sedated; Past Patient History - Past Medical History & Family History Pertinent Family History: Unable to obtain as patient intubated/sedated - Past Social History Smoking Status: Former Smoker - CARDIAC Hx Cardiac Disorders: Yes Hx Hypertension: Yes Hx Pacemaker: No - PULMONARY Hx Respiratory Disorders: No 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) - NEUROLOGICAL Hx Paralysis: No - HEENT Hx HEENT Problems: No - RENAL Hx Chronic Kidney Disease: No - ENDOCRINE/METABOLIC Hx Endocrine Disorders: No - HEMATOLOGICAL/ONCOLOGICAL Hx Blood Transfusions: No Hx Blood Transfusion Reaction: No Hx Cancer: Yes (R lung sq cell CA) - INTEGUMENTARY Hx Dermatological Problems: No - MUSCULOSKELETAL/RHEUMATOLOGICAL Hx Musculoskeletal Disorders: No - GASTROINTESTINAL Hx Gastrointestinal Disorders: Yes Other/Comment: gastritis - GENITOURINARY/GYNECOLOGICAL Hx Genitourinary Disorders: No - PSYCHIATRIC Hx Emotional Abuse: No Hx Physical Abuse: No Hx Substance Use: No - SURGICAL HISTORY Hx Surgeries: Yes - ANESTHESIA Hx Anesthesia Reactions: No Hx Malignant Hyperthermia: No Meds Allergies/Adverse Reactions: Allergies Allergy/AdvReac Type Severity Reaction Status Date / Time shellfish derived Allergy SWELLING Verified 12/26/17 18:51 - Medications Medications: Current Medications Albuterol/Ipratropium (Duoneb 3 Mg/0.5 Mg (3 Ml) Ud) 3 ml IH TIDRESP GRICELDA Pantoprazole Sodium (Protonix 40mg Ivpb) 40 mg in 100 mls @ 20 mls/hr IVPB .Q5H GRICELDA Last Admin: 12/29/17 21:23 Dose: 20 mls/hr Midazolam 100 mg/100ml in NS (Midazolam 100 Mg/100ml In Ns) 100 mg in 100 mls @ 1 mls/hr IV .Q24H PRN; Protocol; 1 MG/HR PRN Reason: Agitation Last Titration: 12/29/17 07:30 Dose: 2 mg/hr, 2 mls/hr Propofol (Diprivan) 1,000 mg in 100 mls @ 2.557 mls/hr IV .Q24H PRN; Protocol; 5 MCG/KG/MIN PRN Reason: TITRATE PER MD ORDER Last Admin: 12/29/17 13:42 Dose: 30 mcg/kg/min, 15.341 mls/hr Acetaminophen (Ofirmev) 1,000 mg in 100 mls @ 400 mls/hr IVPB Q6H PRN PRN Reason: Temperature Stop: 12/30/17 16:35 Last Admin: 12/29/17 15:50 Dose: 400 mls/hr Vancomycin HCl (Vancomycin 1gm) 1 gm in 250 mls @ 167 mls/hr IVPB DAILY GRICELDA PRN Reason: Protocol Last Admin: 12/29/17 09:05 Dose: 167 mls/hr Sodium Chloride (Sodium Chloride 0.45%) 1,000 mls @ 75 mls/hr IV .[id number] [facility] Last Admin: 12/29/17 12:40 Dose: Not Given Meropenem 500 mg/ Sodium (Chloride) 50 mls @ 100 mls/hr IVPB Q12 GRICELDA PRN Reason: Protocol Last Admin: 12/29/17 21:16 Dose: 100 mls/hr Dextrose (Dextrose 5% In Water 1000 Ml) 1,000 mls @ 75 mls/hr IV .[id number] [facility] Ondansetron HCl (Zofran Inj) 4 mg IVP Q4H PRN PRN Reason: Nausea/Vomiting Physical Exam - Constitutional Appears: Non-toxic, No Acute Distress - Eye Exam Eye Exam: absent: Scleral icterus - ENT Exam ENT Exam: Mucous Membranes Moist - Respiratory Exam Respiratory Exam: Clear to Auscultation Bilateral. absent: Respiratory Distress - Cardiovascular Exam Cardiovascular Exam: Tachycardia, REGULAR RHYTHM, +S1, +S2 - GI/Abdominal Exam GI & Abdominal Exam: Soft. absent: Distended, Tenderness - Exam Exam: absent: Bladder Distension - Extremities Exam Additional comments: no leg edema; - Neurological Exam Additional comments: sedated but arousable to verbal stimuli; - Skin Skin Exam: Normal Color, Warm Results - Vital Signs Recent Vital Signs: Last Vital Signs Temp 100.0 F H 12/29/17 20:20 Pulse 110 H 12/29/17 20:20 Resp 19 12/28/17 20:47 BP 111/62 12/29/17 20:00 Pulse Ox 100 12/29/17 20:20 - Labs Result Diagrams: 12/30/17 06:00 12/29/17 06:30 Labs: Laboratory Results - last 24 hr 12/29/17 12/29/17 12/29/17 00:40 05:15 05:30 WBC 11.6 H RBC 2.61 L Hgb 7.8 L Hct 22.6 L MCV 86.6 MCH 29.9 MCHC 34.5 RDW 15.8 H Plt Count 147 MPV 10.1 PT INR APTT pCO2 43 pO2 49.0 L HCO3 24.9 ABG pH 7.37 ABG Total CO2 26.2 ABG O2 Saturation 92.2 L ABG O2 Content 6.8 L ABG Base Excess -0.3 ABG Hemoglobin 5.3 L ABG Carboxyhemoglobin 1.8 H POC ABG HHb (Measured) 7.6 H ABG Methemoglobin 0.4 ABG O2 Capacity 7.4 L VBG pH VBG pCO2 VBG HCO3 VBG Total CO2 VBG O2 Sat (Calc) VBG Base Excess VBG Potassium Hgb O2 Saturation 90.3 L Sodium Chloride Glucose Lactate FiO2 70.0 Potassium Carbon Dioxide Anion Gap BUN Creatinine Est GFR ( Amer) Est GFR (Non-Af Amer) Random Glucose Calcium Phosphorus Magnesium Total Bilirubin AST ALT Alkaline Phosphatase NT-Pro-B Natriuret Pep Total Protein Albumin Globulin Albumin/Globulin Ratio Procalcitonin 1.52 H Venous Blood Potassium Urine Color Urine Appearance Urine pH Ur Specific Halliday Urine Protein Urine Glucose (UA) Urine Ketones Urine Blood Urine Nitrate Urine Bilirubin Urine Urobilinogen Ur Leukocyte Esterase Urine RBC Urine WBC Ur Epithelial Cells Amorphous Sediment Urine Bacteria 12/29/17 12/29/17 12/29/17 05:30 06:30 06:30 WBC 11.3 H RBC 2.69 L Hgb 7.9 L Hct 23.5 L MCV 87.4 MCH 29.4 MCHC 33.6 RDW 16.1 H Plt Count 151 MPV 10.0 PT INR APTT pCO2 pO2 28 L HCO3 ABG pH ABG Total CO2 ABG O2 Saturation ABG O2 Content ABG Base Excess ABG Hemoglobin ABG Carboxyhemoglobin POC ABG HHb (Measured) ABG Methemoglobin ABG O2 Capacity VBG pH 7.32 VBG pCO2 49.0 VBG HCO3 25.2 VBG Total CO2 26.7 VBG O2 Sat (Calc) 64.8 VBG Base Excess -1.4 L VBG Potassium 3.6 Hgb O2 Saturation Sodium 147.0 151 H Chloride 120.0 H 117 H Glucose 105 Lactate 1.4 FiO2 21.0 Potassium 3.6 Carbon Dioxide 25 Anion Gap 12 BUN 86 H Creatinine 2.3 H Est GFR ( Amer) 34 Est GFR (Non-Af Amer) 28 Random Glucose 102 Calcium 7.7 L Phosphorus 4.0 Magnesium 1.9 Total Bilirubin 0.2 AST 18 ALT 22 Alkaline Phosphatase 49 NT-Pro-B Natriuret Pep Total Protein 5.1 L Albumin 2.6 L Globulin 2.5 Albumin/Globulin Ratio 1.0 L Procalcitonin Venous Blood Potassium 3.6 Urine Color Urine Appearance Urine pH Ur Specific Halliday Urine Protein Urine Glucose (UA) Urine Ketones Urine Blood Urine Nitrate Urine Bilirubin Urine Urobilinogen Ur Leukocyte Esterase Urine RBC Urine WBC Ur Epithelial Cells Amorphous Sediment Urine Bacteria 12/29/17 12/29/17 12/29/17 06:30 06:30 08:45 WBC RBC Hgb Hct MCV MCH MCHC RDW Plt Count MPV PT 12.0 INR 1.04 APTT 23.8 L pCO2 pO2 HCO3 ABG pH ABG Total CO2 ABG O2 Saturation ABG O2 Content ABG Base Excess ABG Hemoglobin ABG Carboxyhemoglobin POC ABG HHb (Measured) ABG Methemoglobin ABG O2 Capacity VBG pH VBG pCO2 VBG HCO3 VBG Total CO2 VBG O2 Sat (Calc) VBG Base Excess VBG Potassium Hgb O2 Saturation Sodium Chloride Glucose Lactate FiO2 Potassium Carbon Dioxide Anion Gap BUN Creatinine Est GFR ( Amer) Est GFR (Non-Af Amer) Random Glucose Calcium Phosphorus Magnesium Total Bilirubin AST ALT Alkaline Phosphatase NT-Pro-B Natriuret Pep 7590 H Total Protein Albumin Globulin Albumin/Globulin Ratio Procalcitonin Venous Blood Potassium Urine Color Yellow Urine Appearance Clear Urine pH 6.0 Ur Specific Halliday 1.010 Urine Protein Trace H Urine Glucose (UA) Negative Urine Ketones Negative Urine Blood Negative Urine Nitrate Negative Urine Bilirubin Negative Urine Urobilinogen 0.2 Ur Leukocyte Esterase Negative Urine RBC 0 - 2 Urine WBC 1 - 3 Ur Epithelial Cells 0 - 2 Amorphous Sediment Trace Urine Bacteria Neg 12/29/17 19:35 WBC RBC Hgb 7.3 L Hct 22.4 L MCV MCH MCHC RDW Plt Count MPV PT INR APTT pCO2 pO2 HCO3 ABG pH ABG Total CO2 ABG O2 Saturation ABG O2 Content ABG Base Excess ABG Hemoglobin ABG Carboxyhemoglobin POC ABG HHb (Measured) ABG Methemoglobin ABG O2 Capacity VBG pH VBG pCO2 VBG HCO3 VBG Total CO2 VBG O2 Sat (Calc) VBG Base Excess VBG Potassium Hgb O2 Saturation Sodium Chloride Glucose Lactate FiO2 Potassium Carbon Dioxide Anion Gap BUN Creatinine Est GFR ( Amer) Est GFR (Non-Af Amer) Random Glucose Calcium Phosphorus Magnesium Total Bilirubin AST ALT Alkaline Phosphatase NT-Pro-B Natriuret Pep Total Protein Albumin Globulin Albumin/Globulin Ratio Procalcitonin Venous Blood Potassium Urine Color Urine Appearance Urine pH Ur Specific Halliday Urine Protein Urine Glucose (UA) Urine Ketones Urine Blood Urine Nitrate Urine Bilirubin Urine Urobilinogen Ur Leukocyte Esterase Urine RBC Urine WBC Ur Epithelial Cells Amorphous Sediment Urine Bacteria - Imaging and Cardiology Chest x-ray Status: Image reviewed by me Additional comment: bilateral opacifications Assessment & Plan (1) Acute kidney failure Assessment and Plan: EKTA; non-oliguric renal failure, initially consistent with pre-renal etiology in the setting of hemorrhagic shock (currently stabilized), subsequently with exposure to IV contrast; relatively stable electrolyte and volume status; getting IV diuresis in the setting of acute hypoxemic respiratory failure, but may be in polyuric phase of ATN recovery; -keep MAP > 65; need to replenish with NS if BP drops; -continue to avoid further nephrotoxic insults Status: Acute (2) Hypernatremia Assessment and Plan: Around 4 L free water deficit in the setting of polyuria; will start D5W to at least match ongoing losses; -D5W at 75 cc/hr; Status: Acute (3) SIRS (systemic inflammatory response syndrome) Assessment and Plan: Started empirically on vanco and meropenem due continuous fevers; -dose antibiotics for CrCl < 30 ml/min; -checking random vanco level in am before re-dosing; Status: Acute (4) Acute hypoxemic respiratory failure Status: Acute
--- NOTE | 2017-12-30 02:10 | PN ---
DATE: 12/29/2017 SUBJECTIVE: This patient was seen and evaluated earlier today. Patient's earlier events noticed. I have discussed in detail with Dr. Orourke and also with Dr. Butch Schwartz, and ID staff at length. Patient did have an episode of hypoxia on vent earlier and had probably secondary mucus plug. Patient also was suspected to have volume overload, had a Lasix given, has a transient drop in blood pressure. Patient appears to be much more stable. PHYSICAL EXAMINATION: GENERAL: On examination, patient remains on vent. VITAL SIGNS: T-max is 100.1, blood pressure 120/70, O2 saturation 90. HEENT: Atraumatic, anicteric. NECK: Supple. HEART: S1, S2 heard. ABDOMEN: Soft. Bowel sounds present. EXTREMITIES: 1+edema present. NEUROLOGIC: Sedated on vent. LABORATORY DATA: Hemoglobin 7.9, stable; hematocrit 23.5; WBC count 11.3; platelets 151. Chemistry showed BUN 86, creatinine 2.3, sodium 151. BNP is 7590. The chest x-ray reviewed, patchy opacity seen bilaterally, pneumonia versus pulmonary edema. IMPRESSION: 1. This 77-year-old patient admitted with massive gastrointestinal bleeding, coagulopathic, was on Xarelto, status post treatment with Kcentra. Patient did have multiple blood products given, received totally 13 units of packed red blood cells and 8 units of fresh frozen plasma and 4 units of platelets. Patient's hemoglobin remains stable now. Patient did have very small amount of melena that could be old melena. 2. He is status post esophagogastroduodenoscopy, found to have a large amount of clotted blood noticed in the upper body fundus area which could not be completely cleaned out with the lavage system. Status post left gastric embolization by IR and 3 years, patient had positive bleeding scan showing some activity in the transverse colon. Possibly, this could be a transit blood, but difficult to rule out definitely colonic bleeding as the patient was also coagulopathic at the moment. Gastrointestinal bleeding appears to be controlled, stable. 3. Sepsis. Consider pneumonia with bilateral patchy infiltrate. 4. Elevated BNP, rule out pulmonary edema. Patient did have a good diuresis after the Lasix. Had a transient drop in blood pressure. Other comorbidities include, 1. History of lung cancer. 2. Deep vein thrombosis, now off the anticoagulation. 3. Acute kidney injury. ICU time of 1 hour spent in coordinating the care,reviewing the radiology report, discussion with the other organizational development consultant. Thank you very much for allowing us to participate in the care of the patient. Jarred Ibrahim MD
[2017-12-30] MEDS: Pantoprazole 40mg/100mL NS 40 MG/100 ML BAG IVPB SCH ×4 (02:30→19:45)
[2017-12-30 05:42] LABS: ARTERIAL BLOOD GAS HCO3 26.3 mmol/L (21-28); ARTERIAL BLOOD GAS HEMOGLOBIN 10.1 g/dL (11.7-17.4); ARTERIAL BLOOD GAS O2 CONTENT 13.9 ML/dl (15-23); ARTERIAL BLOOD GAS PCO2 51 mm/Hg (35-45); ARTERIAL BLOOD GAS PH 7.32 (7.35-7.45); ARTERIAL BLOOD GAS TCO2 27.9 mmol.L (22-28)
[2017-12-30 06:53] LABS: BASO # 0.01 K/mm3 (0.0-2.0); BASO % 0.1 % (0.0-3.0); GRAN # 7.94 (1.4-6.5); GRAN % 87.2 % (50.0-68.0); LYMPH # 0.6 (1.2-3.4); LYMPH % 6.1 % (22.0-35.0); MEAN CELL VOLUME 89.1 fl (80.0-105.0); MEAN CORPUSCULAR HEMOGLOBIN 28.6 pg (25.0-35.0); MEAN CORPUSCULAR HGB CONC 32.1 g/dl (31.0-37.0); MEAN PLATELET VOLUME 10.1 fl (7.0-11.0); MONO # 0.6 (0.1-0.6); MONO % 6.6 % (1.0-6.0); RBC 2.38 10^6/uL (3.5-6.1); RED CELL DISTRIBUTION WIDTH 16.2 % (11.5-14.5); WHITE BLOOD COUNT 9.1 10^3/ul (4.5-11.0)
[2017-12-30 07:43] LABS: HEMOGLOBIN 6.8 g/dL (14.0-18.0)
[2017-12-30] MEDS: Albuterol-Ipratrop 3 mg / 0.5 (3 ml) UD IH SCH ×3 (07:50→20:29)
[2017-12-30 08:10] LABS: ALBUMIN 2.3 g/dL (3.0-4.8); CALCIUM 7.6 mg/dL (8.4-10.5)
--- NOTE | 2017-12-30 08:45 | CON ---
DATE: 12/27/2017 This is an addendum to the consultation and progress report reported earlier. This patient had multiple units of transfusion given. Initially, her systolic blood pressure was holding up, got a bleeding scan done which showed active bleeding in the transverse colon area. But in view of the history of hematemesis, history of NSAID use, it is reasonable to do an upper GI endoscopy. I also discussed with Dr. Andrew Dan, interventional radiologist. The plan is to do upper GI endoscopy. The patient is requested for also platelet transfusions and more blood products. Discussed with also in detail with the top trimmer. Jarred Ibrahim MD
--- NOTE | 2017-12-30 09:11 | PN ---
DATE: 12/28/2017 SUBJECTIVE: This patient was seen and evaluated earlier. The patient's and also son were at bedside at the time of examination. Discussed with the Marine Pipe Welder at length, and also with the assistant professor surgical technology. The patient did receive multiple blood products. Hemodynamically remains stable. PHYSICAL EXAMINATION: VITAL SIGNS: On examination, fever is 100.4, blood pressure 136/76, respirations 20, O2 saturations 96%. HEENT: Atraumatic, anicteric. NECK: Supple. HEART: S1 and S2 heard. LUNGS: Bilateral air entry present. Slightly reduced at the base. ABDOMEN: Soft. EXTREMITIES: No cyanosis. No clubbing. Bilateral edema present. NEUROLOGICAL: The patient is sedated, on vent. LABORATORY DATA: Hemoglobin 7.9, hematocrit 22.9, WBC is 11.5, platelets 144. INR 1.08. BUN 80, creatinine 2.2. IMPRESSION: 1. Status post massive gastrointestinal bleeding, coagulopathy, patient on Xarelto, it is being corrected. The patient did show positive bleeding from the transverse colon; however, endoscopy revealed a possible active bleeding from the upper body and fundus area. The large amount of clot in that area precluded the good evaluation in spite of the lavage system used. Subsequently, the patient is being evaluated, patient is being also followed up by the Surgery. The patient did have an angiogram done which showed no active bleeding. However, in view of the endoscopic findings, the decision was done to add an embolization of the left gastric vessel. Overnight, the patient's hemoglobin has been remained stable. The patient did receive a dose of Lasix for diuresis. The concern is the patient did receive totally 13 units of transfusion and 8 units of fresh frozen plasma and 4 units of platelets. The patient did not receive any transfusion today, had some melena probably from the old blood. The patient is on Protonix drip. Would recommend close followup of the hemoglobin and hematocrit. The patient has an acute kidney injury, now on top of probable chronic kidney disease, would recommend cutting down the Protonix to 4 mg/hour chronic kidney disease. 2. The patient does have history of deep venous thrombosis; now because of the active bleeding, is being reversed, coagulation has been reversed. We will discuss with the team regarding medical team and also elementary school teacher's aide, and Vascular regarding role of filter in this patient. 3. The patient did have history of nonsteroidal antiinflammatory drug use in the past. 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 We will continue to closely monitor his hemoglobin and hematocrit. The patient would probably need a colonoscopy and also repeat endoscopic evaluation before any anticoagulation therapy is being considered. Role of filter in this patient will be discussed with the team. Thank you very much for allowing us to participate in the care of the patient. We will continue to closely follow up his care and suggest further management based on the clinical course. Jarred Ibrahim MD
[2017-12-30] MEDS: Meropenem 500 MG in Sodium Chloride 0.9% 50 ML IVPB SCH ×2 (09:14→21:19)
[2017-12-30] MEDS: Vancomycin 1gm in NS 250ml 1 GM/250 ML BAG IVPB SCH (09:21)
[2017-12-30] MEDS: Propofol 10 mg/ml 1,000 MG/100 ML VIAL IV PRN ×3 (09:35→21:41)
--- NOTE | 2017-12-30 09:56 | US ---
PROCEDURE: 1. Duplex ultrasound of the abdominal aorta. HISTORY: Abdominal aortic aneurysm. PHYSICIAN(S): Andrew Dan MD. FINDINGS: The exam is limited. The mid abdominal aorta is ectatic, measuring up to 3.9 cm in greatest transverse dimension. No obvious abdominal aortic aneurysm is present. The distal abdominal aorta is normal in caliber. The visualized common iliac arteries are normal in caliber IMPRESSION: 1. Limited study. 2. No obvious abdominal aortic aneurysm. 3. The mid abdominal aorta is ectatic, measuring up to 3.9 cm in greatest transverse dimension
--- NOTE | 2017-12-30 09:57 | RAD ---
HISTORY: intubated COMPARISON: 12/29/2017 FINDINGS: LUNGS: There is improvement in the pattern of pulmonary edema. There is moderate vascular and interstitial congestion. The endotracheal tube is in satisfactory position PLEURA: No significant pleural effusion identified, no pneumothorax apparent. CARDIOVASCULAR: Normal. OSSEOUS STRUCTURES: No significant abnormalities. VISUALIZED UPPER ABDOMEN: Normal. OTHER FINDINGS: None. IMPRESSION: There is improvement in the pattern of pulmonary edema. There is moderate vascular and interstitial congestion. The endotracheal tube is in satisfactory position
--- NOTE | 2017-12-30 10:35 | CP.PCM.PN ---
<Gisel Valera - Last Filed: 12/30/17 11:06> Subjective - Date & Time of Evaluation Date of Evaluation: 12/30/17 Time of Evaluation: 07:00 - Subjective Subjective: GI Progress Note for Miky Ruiz PGY2 Patient seen and examined at bedside. Overnight, patient had a large liquid dark BM. Patient is intubated and sedated. ROS could not be obtained. Objective - Vital Signs/Intake and Output Vital Signs (last 24 hours): Temp Pulse Resp BP Pulse Ox 99.3 F 89 19 91/53 L 100 12/30/17 06:10 12/30/17 06:10 12/28/17 20:47 12/30/17 06:00 12/30/17 06:10 Intake and Output: 12/30/17 12/30/17 06:59 18:59 Intake Total 1332 2 Output Total 1300 Balance 32 2 - Medications Medications: Current Medications Albuterol/Ipratropium (Duoneb 3 Mg/0.5 Mg (3 Ml) Ud) 3 ml IH TIDRESP [facility] Last Admin: 12/30/17 07:50 Dose: 3 ml Pantoprazole Sodium (Protonix 40mg Ivpb) 40 mg in 100 mls @ 20 mls/hr IVPB .Q5H [facility] Last Admin: 12/30/17 08:35 Dose: 20 mls/hr Midazolam 100 mg/100ml in NS (Midazolam 100 Mg/100ml In Ns) 100 mg in 100 mls @ 1 mls/hr IV .Q24H PRN; Protocol; 1 MG/HR PRN Reason: Agitation Last Titration: 12/29/17 07:30 Dose: 2 mg/hr, 2 mls/hr Propofol (Diprivan) 1,000 mg in 100 mls @ 2.557 mls/hr IV .Q24H PRN; Protocol; 5 MCG/KG/MIN PRN Reason: TITRATE PER MD ORDER Last Titration: 12/30/17 09:45 Dose: 25 mcg/kg/min, 12.785 mls/hr Acetaminophen (Ofirmev) 1,000 mg in 100 mls @ 400 mls/hr IVPB Q6H PRN PRN Reason: Temperature Stop: 12/30/17 16:35 Last Admin: 12/29/17 15:50 Dose: 400 mls/hr Vancomycin HCl (Vancomycin 1gm) 1 gm in 250 mls @ 167 mls/hr IVPB DAILY [facility] PRN Reason: Protocol Last Admin: 12/30/17 09:21 Dose: 167 mls/hr Sodium Chloride (Sodium Chloride 0.45%) 1,000 mls @ 75 mls/hr IV .[id number] [facility] Last Admin: 12/29/17 12:40 Dose: Not Given Meropenem 500 mg/ Sodium (Chloride) 50 mls @ 100 mls/hr IVPB Q12 [facility] PRN Reason: Protocol Last Admin: 12/30/17 09:14 Dose: 100 mls/hr Dextrose (Dextrose 5% In Water 1000 Ml) 1,000 mls @ 75 mls/hr IV .[id number] [facility] Last Admin: 12/29/17 22:01 Dose: 75 mls/hr Ondansetron HCl (Zofran Inj) 4 mg IVP Q4H PRN PRN Reason: Nausea/Vomiting - Labs Labs: 12/30/17 06:00 12/30/17 06:00 PT 12.0 SECONDS (9.4-12.5) 12/29/17 06:30 INR 1.04 (0.93-1.08) 12/29/17 06:30 APTT 23.8 Seconds (25.1-36.5) L 12/29/17 06:30 - Constitutional Appears: Chronically Ill - Head Exam Head Exam: ATRAUMATIC, NORMAL INSPECTION, NORMOCEPHALIC - ENT Exam ENT Exam: Mucous Membranes Moist - Respiratory Exam Respiratory Exam: Rhonchi, NORMAL BREATHING PATTERN. absent: Rales, Wheezes - Cardiovascular Exam Cardiovascular Exam: Irregular Rhythm, +S1, +S2. absent: Gallop, Rubs, Murmur - GI/Abdominal Exam GI & Abdominal Exam: Soft, Normal Bowel Sounds. absent: Rigid, Tenderness, Mass , Rebound - Extremities Exam Extremities Exam: Pedal Edema - Skin Skin Exam: Dry, Warm Assessment and Plan - Assessment and Plan (Free Text) Assessment: This is a 77yo AA male with past medical history of lung ca, DVT and EKTA who was admitted for 1. Massive GI bleed was on Xeralto s/p Kcentra and had multiple transfusions ( 13U PRBC, 8U FFP, 4U platelets) - EGD showed clotted blood in gastric antrum. Gastric embolization done by IR - Bleeding scan positive in transverse colon which can be from transit 2. Sepsis - secondary to pneumonia v. pulmonary edema 3. Hypernatremia Plan: Hgb mildly dropped overnight from 7.3 to 6.8. Patient is on D5W. Recommend to transfuse 2U and re-check the hemoglobin. If hgb does not appropriately increase , we will consider repeating an EGD. Aorta US did not show any evidence of aneurysm. IV antibiotics as per ID. Will continue Protonix drip. Patient is NPO. Case seen, discussed and reviewed with Dr. Ibrahim. Miky Valera PGY2 <Jarred Ibrahim V - Last Filed: 12/30/17 21:57> Objective - Vital Signs/Intake and Output Vital Signs (last 24 hours): Temp Pulse Resp BP Pulse Ox 100.8 F H 112 H 19 140/78 95 12/30/17 21:30 12/30/17 21:30 12/30/17 18:00 12/30/17 21:30 12/30/17 21:30 Intake and Output: 12/30/17 12/31/17 18:59 06:59 Intake Total 2126 100 Output Total 850 Balance 1276 100 - Medications Medications: Current Medications Albuterol/Ipratropium (Duoneb 3 Mg/0.5 Mg (3 Ml) Ud) 3 ml IH TIDRESP [facility] Last Admin: 12/30/17 20:29 Dose: 3 ml Pantoprazole Sodium (Protonix 40mg Ivpb) 40 mg in 100 mls @ 20 mls/hr IVPB .Q5H [facility] Last Admin: 12/30/17 19:45 Dose: 20 mls/hr Midazolam 100 mg/100ml in NS (Midazolam 100 Mg/100ml In Ns) 100 mg in 100 mls @ 1 mls/hr IV .Q24H PRN; Protocol; 1 MG/HR PRN Reason: Agitation Last Admin: 12/30/17 18:47 Dose: 2 mg/hr, 2 mls/hr Propofol (Diprivan) 1,000 mg in 100 mls @ 2.557 mls/hr IV .Q24H PRN; Protocol; 5 MCG/KG/MIN PRN Reason: TITRATE PER MD ORDER Last Admin: 12/30/17 21:41 Dose: 30 mcg/kg/min, 15.341 mls/hr Vancomycin HCl (Vancomycin 1gm) 1 gm in 250 mls @ 167 mls/hr IVPB DAILY [facility] PRN Reason: Protocol Last Admin: 12/30/17 09:21 Dose: 167 mls/hr Sodium Chloride (Sodium Chloride 0.45%) 1,000 mls @ 75 mls/hr IV .[id number] [facility] Last Admin: 12/29/17 12:40 Dose: Not Given Meropenem 500 mg/ Sodium (Chloride) 50 mls @ 100 mls/hr IVPB Q12 [facility] PRN Reason: Protocol Last Admin: 12/30/17 21:19 Dose: 100 mls/hr Dextrose (Dextrose 5% In Water 1000 Ml) 1,000 mls @ 75 mls/hr IV .[id number] [facility] Last Admin: 12/30/17 18:08 Dose: 75 mls/hr Acetaminophen (Ofirmev) 1,000 mg in 100 mls @ 400 mls/hr IVPB Q6H PRN PRN Reason: Temperature Stop: 01/01/18 18:57 Last Admin: 12/30/17 19:00 Dose: 400 mls/hr Ondansetron HCl (Zofran Inj) 4 mg IVP Q4H PRN PRN Reason: Nausea/Vomiting - Labs Labs: 12/30/17 21:05 12/30/17 21:05 PT 12.0 SECONDS (9.4-12.5) 12/29/17 06:30 INR 1.04 (0.93-1.08) 12/29/17 06:30 APTT 23.8 Seconds (25.1-36.5) L 12/29/17 06:30 Attending/Attestation - Attestation I have personally seen and examined this patient.: Yes I have fully participated in the care of the patient.: Yes I have reviewed all pertinent clinical information, including history, physical exam and plan: Yes Notes (Text): This is an addendum to GI progress report dictated by the Mobility Developer.The patient was seen and examined earlier. Medical records, lab studies, imagings were reviewed. Last 24 hours events reviewed. Agreed with the above treatment plan as outlined in Mobility Developer 's notes the with the addition of the following patient's was at bedside at the time of examination Small amounts of melena Slight drop in hemoglobin On examination patient remains on vent systolic blood pressure around 90-100 Abdomen soft On vent Plan for 2 units packed Rbc Close follow-up of hemoglobin and consider repeat EGD if no significant decrease in hemoglobin Continue PPI Sepsis bilateral lung infiltrates Continue antibiotics 12/30/17 21:52
--- NOTE | 2017-12-30 13:28 | CP.PCM.PN ---
<Victor Hugo Chapa - Last Filed: 12/30/17 13:35> Subjective - Date & Time of Evaluation Date of Evaluation: 12/30/17 Time of Evaluation: 07:30 - Subjective Subjective: Patient seen and examined at bedside. Patient intubated; ROS limited. 98% O2 on PRVC FiO2 560. Objective - Vital Signs/Intake and Output Vital Signs (last 24 hours): Temp Pulse Resp BP Pulse Ox 99.9 F H 98 H 20 102/71 100 12/30/17 12:16 12/30/17 12:16 12/30/17 12:16 12/30/17 12:16 12/30/17 06:10 Intake and Output: 12/30/17 12/30/17 06:59 18:59 Intake Total 1332 2 Output Total 1300 Balance 32 2 - Medications Medications: Current Medications Albuterol/Ipratropium (Duoneb 3 Mg/0.5 Mg (3 Ml) Ud) 3 ml IH TIDRESP [facility] Last Admin: 12/30/17 07:50 Dose: 3 ml Pantoprazole Sodium (Protonix 40mg Ivpb) 40 mg in 100 mls @ 20 mls/hr IVPB .Q5H [facility] Last Admin: 12/30/17 08:35 Dose: 20 mls/hr Midazolam 100 mg/100ml in NS (Midazolam 100 Mg/100ml In Ns) 100 mg in 100 mls @ 1 mls/hr IV .Q24H PRN; Protocol; 1 MG/HR PRN Reason: Agitation Last Titration: 12/29/17 07:30 Dose: 2 mg/hr, 2 mls/hr Propofol (Diprivan) 1,000 mg in 100 mls @ 2.557 mls/hr IV .Q24H PRN; Protocol; 5 MCG/KG/MIN PRN Reason: TITRATE PER MD ORDER Last Titration: 12/30/17 09:45 Dose: 25 mcg/kg/min, 12.785 mls/hr Acetaminophen (Ofirmev) 1,000 mg in 100 mls @ 400 mls/hr IVPB Q6H PRN PRN Reason: Temperature Stop: 12/30/17 16:35 Last Admin: 12/29/17 15:50 Dose: 400 mls/hr Vancomycin HCl (Vancomycin 1gm) 1 gm in 250 mls @ 167 mls/hr IVPB DAILY [facility] PRN Reason: Protocol Last Admin: 12/30/17 09:21 Dose: 167 mls/hr Sodium Chloride (Sodium Chloride 0.45%) 1,000 mls @ 75 mls/hr IV .[id number] [facility] Last Admin: 12/29/17 12:40 Dose: Not Given Meropenem 500 mg/ Sodium (Chloride) 50 mls @ 100 mls/hr IVPB Q12 [facility] PRN Reason: Protocol Last Admin: 12/30/17 09:14 Dose: 100 mls/hr Dextrose (Dextrose 5% In Water 1000 Ml) 1,000 mls @ 75 mls/hr IV .[id number] [facility] Last Admin: 12/29/17 22:01 Dose: 75 mls/hr Potassium Chloride (Potassium Chloride 20 Meq/100 Ml) 20 meq in 100 mls @ 50 mls/hr IVPB Q2H [facility] Stop: 12/30/17 14:44 Last Admin: 12/30/17 12:12 Dose: 50 mls/hr Ondansetron HCl (Zofran Inj) 4 mg IVP Q4H PRN PRN Reason: Nausea/Vomiting - Labs Labs: 12/30/17 06:00 12/30/17 06:00 PT 12.0 SECONDS (9.4-12.5) 12/29/17 06:30 INR 1.04 (0.93-1.08) 12/29/17 06:30 APTT 23.8 Seconds (25.1-36.5) L 12/29/17 06:30 - Constitutional Appears: Other (intubated) - Head Exam Head Exam: ATRAUMATIC, NORMAL INSPECTION, NORMOCEPHALIC - Eye Exam Eye Exam: Normal appearance - ENT Exam ENT Exam: absent: Normal Exam (intubated) - Neck Exam Neck Exam: Normal Inspection - Respiratory Exam Respiratory Exam: Rhonchi. absent: Clear to Ausculation Bilateral - Cardiovascular Exam Cardiovascular Exam: Tachycardia, REGULAR RHYTHM, +S1, +S2 - GI/Abdominal Exam GI & Abdominal Exam: Soft. absent: Bruit, Distended, Normal Bowel Sounds - Neurological Exam Neurological Exam: absent: Alert, Awake (sedated), CN II-XII Intact - Skin Skin Exam: Normal Color, Warm Assessment and Plan - Assessment and Plan (Free Text) Assessment: 77 year old male with a past medical history of duodenitis, erosive gastritis, history of abdominal aortic aneursym repair, DVT on Xarelto presenting on 12/26 with acute GI bleed currently intubated on PRVC. SIRS Criteria (Tachycardia and Fever) - ID Consult: Dr. Vyas - Continue with Merrem and Vanc as per ID Hypoxemia, likely 2/2 TRALI VS PE - Cannot obtain CTA Chest 2/2 patient's EKTA; cannot heparinize 2/2 GiB; will consider IVF placement - Continue with Steroid therapy Acute GI bleed status post Xarelto therapy - Intubated, with propofol and midazolam drip - NPO, monitor H&H, PT/PTT - Continue with Protonix ggt - GI consult: Dr. Ibrahim; will see how patient is after receiving 2 unis PRBCs , if still no stable will scope patient - Surgery Consulted, Dr. Lopez, follow recs EKTA, likely secondary to GI bleed - Hold nephrotoxic drugs; Monitor - Nephro Consulted: Dr. Santos has started D5 Hypernatremia likely 2/2 Dehydration -Continue to monitor -Nephrology consulted, will follow with recommendations History DVT - Will resume anticoagulation once stable and cleared by Heme History HTN - Continue to hold Valsartan History Squamous Cell CA - No acute intervention History Abdominal Aortic Aneurysm s/p Repair - Continue to hold Verapamil Prophylaxis - GI: Protonix GTT - DVT: SCD <Alberto Orourke - Last Filed: 12/30/17 14:09> Objective - Vital Signs/Intake and Output Vital Signs (last 24 hours): Temp Pulse Resp BP Pulse Ox 99.7 F H 93 H 20 102/62 100 12/30/17 13:01 12/30/17 13:01 12/30/17 13:01 12/30/17 13:01 12/30/17 06:10 Intake and Output: 12/30/17 12/30/17 06:59 18:59 Intake Total 1332 2 Output Total 1300 Balance 32 2 - Medications Medications: Current Medications Albuterol/Ipratropium (Duoneb 3 Mg/0.5 Mg (3 Ml) Ud) 3 ml IH TIDRESP [facility] Last Admin: 12/30/17 13:59 Dose: 3 ml Pantoprazole Sodium (Protonix 40mg Ivpb) 40 mg in 100 mls @ 20 mls/hr IVPB .Q5H [facility] Last Admin: 12/30/17 08:35 Dose: 20 mls/hr Midazolam 100 mg/100ml in NS (Midazolam 100 Mg/100ml In Ns) 100 mg in 100 mls @ 1 mls/hr IV .Q24H PRN; Protocol; 1 MG/HR PRN Reason: Agitation Last Titration: 12/29/17 07:30 Dose: 2 mg/hr, 2 mls/hr Propofol (Diprivan) 1,000 mg in 100 mls @ 2.557 mls/hr IV .Q24H PRN; Protocol; 5 MCG/KG/MIN PRN Reason: TITRATE PER MD ORDER Last Titration: 12/30/17 09:45 Dose: 25 mcg/kg/min, 12.785 mls/hr Acetaminophen (Ofirmev) 1,000 mg in 100 mls @ 400 mls/hr IVPB Q6H PRN PRN Reason: Temperature Stop: 12/30/17 16:35 Last Admin: 12/29/17 15:50 Dose: 400 mls/hr Vancomycin HCl (Vancomycin 1gm) 1 gm in 250 mls @ 167 mls/hr IVPB DAILY [facility] PRN Reason: Protocol Last Admin: 12/30/17 09:21 Dose: 167 mls/hr Sodium Chloride (Sodium Chloride 0.45%) 1,000 mls @ 75 mls/hr IV .[id number] [facility] Last Admin: 12/29/17 12:40 Dose: Not Given Meropenem 500 mg/ Sodium (Chloride) 50 mls @ 100 mls/hr IVPB Q12 [facility] PRN Reason: Protocol Last Admin: 12/30/17 09:14 Dose: 100 mls/hr Dextrose (Dextrose 5% In Water 1000 Ml) 1,000 mls @ 75 mls/hr IV .[id number] [facility] Last Admin: 12/29/17 22:01 Dose: 75 mls/hr Potassium Chloride (Potassium Chloride 20 Meq/100 Ml) 20 meq in 100 mls @ 50 mls/hr IVPB Q2H [facility] Stop: 12/30/17 14:44 Last Admin: 12/30/17 12:12 Dose: 50 mls/hr Ondansetron HCl (Zofran Inj) 4 mg IVP Q4H PRN PRN Reason: Nausea/Vomiting - Labs Labs: 12/30/17 06:00 12/30/17 06:00 PT 12.0 SECONDS (9.4-12.5) 12/29/17 06:30 INR 1.04 (0.93-1.08) 12/29/17 06:30 APTT 23.8 Seconds (25.1-36.5) L 12/29/17 06:30 Attending/Attestation - Attestation I have personally seen and examined this patient.: Yes I have fully participated in the care of the patient.: Yes I have reviewed all pertinent clinical information, including history, physical exam and plan: Yes Notes (Text): 12/30/17 14:04 77 year old male with past medical history of hypertension, duodenitis, erosive gastritis, abdominal aortic aneurysm repair (2011), LLE DVT on xarelto who presented with GIB. He is s/p multiple PRBC / FFP transfusions. He was seen by GI and is s/p EGD as above. Bleeding scan was positive from transverse colon. He was seen by IR and is s/p embolization of left gastric artery. Hemoglobin decreased today to 6.8. Will transfuse 2 units per GI. Consider repeat EGD/colonoscopy per GI worsening anemia or bleeding recurs. Will need to monitor respiratory status between blood transfusions if lasix needs to be administered to avoid fluid overload. Will continue to monitor closely. His xarelto is on hold for now secondary to above. Patient is on antibiotics as well for possible pneumonia. Procalcitonin and pbnp were elevated. Echocardiogram is pending. Continue to monitor renal function and hypernatremia closely; will follow up with renal recommendations. Alberto Orourke MD Hospitalist.
--- NOTE | 2017-12-30 14:07 | CP.CCUPN ---
<Kirby Schuler - Last Filed: 12/30/17 14:04> CCU Subjective - Physician Review Events Since Last Encounter (Free Text): 12/30/17 11:00A Patient seen and examined at bedside; history limited 2/2 intubation. CCU Objective - Vital Signs / Intake & Output Vital Signs (Last 4 hours): Vital Signs Temp Pulse Resp BP 12/30/17 13:01 99.7 F H 93 H 20 102/62 12/30/17 12:16 99.9 F H 98 H 20 102/71 12/30/17 11:56 99.7 F H 103 H 19 109/72 Intake and Output (Last 8hrs): Intake & Output 12/29/17 12/30/17 12/30/17 22:59 06:59 14:59 Intake Total 978 1232 2 Output Total 2550 1300 Balance -1572 -68 2 Intake: IV 978 1232 2 Left Forearm 450 785 Right Antecubital 188 207 Right Forearm 240 240 Blood Product 0 Apheresis Rbc Cp2d As3 Lr 0 1st Unit [id number] Output: Urine 2550 1300 Urethral (Cadet) 2550 1300 Other: # Bowel Movements 2 1 - Physical Exam Head: Positive for: Atraumatic, Normocephalic Pupils: Positive for: PERRL Extroacular Muscles: Positive for: EOMI Conjunctiva: Positive for: Normal Mouth: Positive for: Moist Mucous Membranes Neck: Positive for: Normal Range of Motion Respiratory/Chest: Positive for: Clear to Auscultation, Good Air Exchange. Negative for: Respiratory Distress, Accessory Muscle Use Cardiovascular: Positive for: Regular Rate and Rhythm, Normal S1, S2. Negative for: Murmurs Abdomen: Positive for: Tenderness (Tenderness to the bilateral lower quadrants) . Negative for: Distention, Rebound, Guarding Rectal: Positive for: Gross Blood, Melena Back: Positive for: Normal Inspection Upper Extremity: Positive for: Normal Inspection. Negative for: Cyanosis, Edema Lower Extremity: Positive for: Normal Inspection. Negative for: Edema Neurological: Positive for: GCS=15, CN II-XII Intact, Speech Normal Skin: Positive for: Warm, Dry, Normal Color. Negative for: Rashes Psychiatric: Positive for: Alert, Oriented x 3, Normal Insight, Normal Concentration - Medications Active Medications: Active Medications Generic Name Dose Route Start Last Admin Trade Name Freq PRN Reason Stop Dose Admin Albuterol/Ipratropium 3 ml 12/29/17 20:00 12/30/17 13:59 Duoneb 3 Mg/0.5 Mg (3 Ml) Ud IH 3 ml TIDRESP GRICELDA Administration Pantoprazole Sodium 40 mg in 100 mls @ 20 mls/hr 12/26/17 20:30 12/30/17 08: 35 Protonix 40mg Ivpb IVPB 20 mls/hr .Q5H GRICELDA Administration Midazolam 100 mg/100ml in NS 100 mg in 100 mls @ 1 mls/hr 12/27/17 18:41 10/13 07:30 Midazolam 100 Mg/100ml In Ns IV 2 mg/hr .Q24H PRN 2 mls/hr Agitation Titration Protocol 1 MG/HR Propofol 1,000 mg in 100 mls @ 2.557 mls/hr 12/27/17 19:59 12/30/17 09:45 Diprivan IV 25 mcg/kg/min .Q24H PRN 12.785 mls/hr TITRATE PER MD ORDER Titration Protocol 5 MCG/KG/MIN Acetaminophen 1,000 mg in 100 mls @ 400 mls/hr 12/28/17 16:34 12/29/17 15:50 Ofirmev IVPB 12/30/17 16:35 400 mls/hr Q6H PRN Administration Temperature Vancomycin HCl 1 gm in 250 mls @ 167 mls/hr 12/29/17 10:00 12/30/17 09:21 Vancomycin 1gm IVPB 167 mls/hr DAILY GRICELDA Administration Protocol Sodium Chloride 1,000 mls @ 75 mls/hr 12/29/17 07:45 12/29/17 12:40 Sodium Chloride 0.45% IV Not Given .[id number] GRICELDA Meropenem 500 mg/ Sodium 50 mls @ 100 mls/hr 12/29/17 22:00 12/30/17 09:14 Chloride IVPB 100 mls/hr Q12 GRICELDA Administration Protocol Dextrose 1,000 mls @ 75 mls/hr 12/29/17 21:45 12/29/17 22:01 Dextrose 5% In Water 1000 Ml IV 75 mls/hr .[id number] GRICELDA Administration Potassium Chloride 20 meq in 100 mls @ 50 mls/hr 12/30/17 10:45 12/30/17 12: 12 Potassium Chloride 20 Meq/100 Ml IVPB 12/30/17 14:44 50 mls/hr Q2H GRICELDA Administration Ondansetron HCl 4 mg 12/26/17 21:15 Zofran Inj IVP Q4H PRN Nausea/Vomiting - Patient Studies Lab Studies: Microbiology Studies 12/29/17 06:05 Blood Culture - Preliminary Blood NO GROWTH AFTER 24 HOURS 12/29/17 05:30 Blood Culture - Preliminary Blood NO GROWTH AFTER 24 HOURS 12/29/17 08:45 Gram Stain - Final Trachasp Lab Studies 12/30/17 12/30/17 12/30/17 Range/Units 10:15 06:00 06:00 WBC 9.1 (4.5-11.0) 10^3/ul RBC 2.38 L (3.5-6.1) 10^6/uL Hgb 6.8 L* (14.0-18.0) g/dL Hct 21.2 L (42.0-52.0) % MCV 89.1 (80.0-105.0) fl MCH 28.6 (25.0-35.0) pg MCHC 32.1 (31.0-37.0) g/dl RDW 16.2 H (11.5-14.5) % Plt Count 125 (120.0-450.0) 10^3/uL MPV 10.1 (7.0-11.0) fl Gran % 87.2 H (50.0-68.0) % Lymph % (Auto) 6.1 L (22.0-35.0) % [place] % (Auto) 6.6 H (1.0-6.0) % Eos % (Auto) 0.0 L (1.5-5.0) % Baso % (Auto) 0.1 (0.0-3.0) % Gran # 7.94 H (1.4-6.5) Lymph # (Auto) 0.6 L (1.2-3.4) [place] # (Auto) 0.6 (0.1-0.6) Eos # (Auto) 0.0 (0.0-0.7) Baso # (Auto) 0.01 (0.0-2.0) K/mm3 pCO2 (35-45) mm/Hg pO2 (80-100) mm/Hg HCO3 (21-28) mmol/L ABG pH (7.35-7.45) ABG Total CO2 (22-28) mmol.L ABG O2 Saturation (95-98) % ABG O2 Content (15-23) ML/dl ABG Base Excess (-2.0-3.0) mmol/L ABG Hemoglobin (11.7-17.4) g/dL ABG Carboxyhemoglobin (0.5-1.5) % POC ABG HHb (Measured) (0-5) % ABG Methemoglobin (0.0-3.0) % ABG O2 Capacity (16-24) mL/dl Hgb O2 Saturation (95.0-98.0) % FiO2 % Sodium (132-148) mmol/L Potassium (3.6-5.0) mmol/L Chloride (98-107) mmol/L Carbon Dioxide (21-33) mmol/L Anion Gap (10-20) BUN (7-21) mg/dL Creatinine (0.8-1.5) mg/dl Est GFR ( Amer) Est GFR (Non-Af Amer) Random Glucose (70-110) mg/dL Calcium (8.4-10.5) mg/dL Phosphorus (2.5-4.5) mg/dL Magnesium (1.7-2.2) mg/dL Total Bilirubin (0.2-1.3) mg/dL AST (17-59) U/L ALT (7-56) U/L Alkaline Phosphatase (38-126) U/L Total Protein (5.8-8.3) g/dL Albumin (3.0-4.8) g/dL Globulin gm/dL Albumin/Globulin Ratio (1.1-1.8) Random Vancomycin 6.4 L (20-40) ug/mL Blood Type O POSITIVE Antibody Screen Negative Crossmatch See Detail BBK History Checked Patient has bt 12/30/17 12/30/17 12/29/17 Range/Units 06:00 05:00 19:35 WBC (4.5-11.0) 10^3/ul RBC (3.5-6.1) 10^6/uL Hgb 7.3 L (14.0-18.0) g/dL Hct 22.4 L (42.0-52.0) % MCV (80.0-105.0) fl MCH (25.0-35.0) pg MCHC (31.0-37.0) g/dl RDW (11.5-14.5) % Plt Count (120.0-450.0) 10^3/uL MPV (7.0-11.0) fl Gran % (50.0-68.0) % Lymph % (Auto) (22.0-35.0) % [place] % (Auto) (1.0-6.0) % Eos % (Auto) (1.5-5.0) % Baso % (Auto) (0.0-3.0) % Gran # (1.4-6.5) Lymph # (Auto) (1.2-3.4) [place] # (Auto) (0.1-0.6) Eos # (Auto) (0.0-0.7) Baso # (Auto) (0.0-2.0) K/mm3 pCO2 51 H (35-45) mm/Hg pO2 135.0 H (80-100) mm/Hg HCO3 26.3 (21-28) mmol/L ABG pH 7.32 L (7.35-7.45) ABG Total CO2 27.9 (22-28) mmol.L ABG O2 Saturation 99.0 H (95-98) % ABG O2 Content 13.9 L (15-23) ML/dl ABG Base Excess -0.2 (-2.0-3.0) mmol/L ABG Hemoglobin 10.1 L (11.7-17.4) g/dL ABG Carboxyhemoglobin 1.6 H (0.5-1.5) % POC ABG HHb (Measured) 1.0 (0-5) % ABG Methemoglobin 1.2 (0.0-3.0) % ABG O2 Capacity 14.0 L (16-24) mL/dl Hgb O2 Saturation 96.3 (95.0-98.0) % FiO2 70.0 % Sodium 153 H (132-148) mmol/L Potassium 3.3 L (3.6-5.0) mmol/L Chloride 118 H (98-107) mmol/L Carbon Dioxide 27 (21-33) mmol/L Anion Gap 11 (10-20) BUN 71 H (7-21) mg/dL Creatinine 2.3 H (0.8-1.5) mg/dl Est GFR ( Amer) 34 Est GFR (Non-Af Amer) 28 Random Glucose 119 H (70-110) mg/dL Calcium 7.6 L (8.4-10.5) mg/dL Phosphorus 4.1 (2.5-4.5) mg/dL Magnesium 2.0 (1.7-2.2) mg/dL Total Bilirubin 0.2 (0.2-1.3) mg/dL AST 15 L (17-59) U/L ALT 20 (7-56) U/L Alkaline Phosphatase 46 (38-126) U/L Total Protein 4.8 L (5.8-8.3) g/dL Albumin 2.3 L (3.0-4.8) g/dL Globulin 2.4 gm/dL Albumin/Globulin Ratio 1.0 L (1.1-1.8) Random Vancomycin (20-40) ug/mL Blood Type Antibody Screen Crossmatch BBK History Checked Laboratory Results - last 24 hr 12/29/17 12/30/17 12/30/17 19:35 05:00 06:00 WBC RBC Hgb 7.3 L Hct 22.4 L MCV MCH MCHC RDW Plt Count MPV Gran % Lymph % (Auto) [place] % (Auto) Eos % (Auto) Baso % (Auto) Gran # Lymph # (Auto) [place] # (Auto) Eos # (Auto) Baso # (Auto) pCO2 51 H pO2 135.0 H HCO3 26.3 ABG pH 7.32 L ABG Total CO2 27.9 ABG O2 Saturation 99.0 H ABG O2 Content 13.9 L ABG Base Excess -0.2 ABG Hemoglobin 10.1 L ABG Carboxyhemoglobin 1.6 H POC ABG HHb (Measured) 1.0 ABG Methemoglobin 1.2 ABG O2 Capacity 14.0 L Hgb O2 Saturation 96.3 FiO2 70.0 Sodium 153 H Potassium 3.3 L Chloride 118 H Carbon Dioxide 27 Anion Gap 11 BUN 71 H Creatinine 2.3 H Est GFR ( Amer) 34 Est GFR (Non-Af Amer) 28 Random Glucose 119 H Calcium 7.6 L Phosphorus 4.1 Magnesium 2.0 Total Bilirubin 0.2 AST 15 L ALT 20 Alkaline Phosphatase 46 Total Protein 4.8 L Albumin 2.3 L Globulin 2.4 Albumin/Globulin Ratio 1.0 L Random Vancomycin Blood Type Antibody Screen Crossmatch BBK History Checked 12/30/17 12/30/17 12/30/17 06:00 06:00 10:15 WBC 9.1 RBC 2.38 L Hgb 6.8 L* Hct 21.2 L MCV 89.1 MCH 28.6 MCHC 32.1 RDW 16.2 H Plt Count 125 MPV 10.1 Gran % 87.2 H Lymph % (Auto) 6.1 L [place] % (Auto) 6.6 H Eos % (Auto) 0.0 L Baso % (Auto) 0.1 Gran # 7.94 H Lymph # (Auto) 0.6 L [place] # (Auto) 0.6 Eos # (Auto) 0.0 Baso # (Auto) 0.01 pCO2 pO2 HCO3 ABG pH ABG Total CO2 ABG O2 Saturation ABG O2 Content ABG Base Excess ABG Hemoglobin ABG Carboxyhemoglobin POC ABG HHb (Measured) ABG Methemoglobin ABG O2 Capacity Hgb O2 Saturation FiO2 Sodium Potassium Chloride Carbon Dioxide Anion Gap BUN Creatinine Est GFR ( Amer) Est GFR (Non-Af Amer) Random Glucose Calcium Phosphorus Magnesium Total Bilirubin AST ALT Alkaline Phosphatase Total Protein Albumin Globulin Albumin/Globulin Ratio Random Vancomycin 6.4 L Blood Type O POSITIVE Antibody Screen Negative Crossmatch See Detail BBK History Checked Patient has bt Critical Care Progress Note - Nutrition Nutrition: Nutrition Category Date Time Status NPO Diet [DIET] Diets 12/26/17 Breakfast Ordered Assessment/Plan - Assessment and Plan (Free Text) Assessment: Pt is a 77 yo M with pertinent history of duodenitis, errosive gastritis, diverticulosis, left LE DVT on AC presented to [facility] due to melena and hematochezia. Pt admitted to ICU due to hemorrhagic shock 2/2 GI bleed, likely upper. Patient was intubated for endoscopy, which revealed blood in antrum. Bleeding scan revealed transverse colon bleed and patient was found to be hypotensive and tachycardic in the ED with a hemoglobin of 6.6, hematocrit of 20.3, and an INR of 2.56. Patient's Hgb today 12/29 is 6.8 (down from yesterday ). In addition, patient has been getting hypoxemic (O2 upper 70s yesterday). In light of patient's recent halt of anticoagulation, PE was on the differential, however, given recent multiple transfusions, this could also be a picture of TRALI, and supporting this is that increasing the vent settings for FiO2 have been favorable. In any case, cannot heparinize patient 2/2 recent GIB and cannot obtain CTA Chest 2/2 EKTA. RE: EKTA, cannot give fluid 2/2 fluid overload caused by recent transfusions; the same holds for patient's hypernatremia, thus not giving 1/2 NS nor free water (2/2 patient's intubation). Finally, patient spiked a fever two days ago of 101; differentials included infectious etiologies vs reaction to blood. Patient technically had two SIRS criteria (tachycardia, fever) as well as borderline SIRS WBC count (11.3). Septic workup revealed negative blood cultures, however, and there is no source of infection at this time; Procal is elevated at 1.59. Chronic medical problems: HTN, Squamous Cell CA of Lung Plan: Neuro: - Midazolam + Diprivan for sedation - Maintain normothermia CV: - Hx HTN: Hold Valsartan, pt hypo tensive to normotensive right now - Hx DVT: Hold anticoagulation 2/2 GIB - Hx AAA s/p Repair: Hold Verapamil 2/2 blood pressure - Hold Lasix for now, patient on Dextrose; hold 1/2 NS - Maintain MAP > 65 Pulm: - CXR, ABG for tomorrow - Maintain O2 > 90% - Keep intubated for now GI: - Acute GI Bleed s/p Gastric Artery Embolization: Protonix gtt; Zofran PRN; 2U blood today; H/H q12h; CBC/CMP ordered for 4PM - GI consulted - Surgery consulted Renal: - EKTA 2/2 GIB: Hold Nephrotoxic drugs; D5; Nephro Consult: Dr. Santos - Hypernatremia: D5 - Monitor electrolytes and replete as needed - Maintain euvolemia Heme: - Administer another 2 U blood - Monitor H/H q12H - Hold AC due to GI bleed Endo: - Maintain euglycemia Prophylaxis: Protonix gtt, SCD Consults: Surgery, GI, ID, Nephro Drips: Protonix gtt Diet: NPO/intubated <Harpreet Greenwood - Last Filed: 12/30/17 14:51> CCU Objective - Vital Signs / Intake & Output Vital Signs (Last 4 hours): Vital Signs Temp Pulse Resp BP Pulse Ox 12/30/17 14:00 99.7 F H 86 110/65 100 12/30/17 13:30 99.5 F 87 105/61 100 12/30/17 13:01 99.7 F H 93 H 20 102/62 12/30/17 13:00 99.7 F H 95 H 102/62 98 12/30/17 12:30 99.9 F H 99 H 95/61 L 97 12/30/17 12:16 99.9 F H 98 H 20 102/71 12/30/17 12:00 99.7 F H 105 H 102/71 99 12/30/17 11:57 99.7 F H 105 H 109/72 98 12/30/17 11:56 99.7 F H 103 H 19 109/72 12/30/17 11:30 99.7 F H 108 H 122/68 98 12/30/17 11:00 99.5 F 108 H 112/59 L 98 Intake and Output (Last 8hrs): Intake & Output 12/29/17 12/30/17 12/30/17 22:59 06:59 14:59 Intake Total 978 1232 2 Output Total 2550 1300 Balance -1572 -68 2 Intake: IV 978 1232 2 Left Forearm 450 785 Right Antecubital 188 207 Right Forearm 240 240 Blood Product 0 Apheresis Rbc Cp2d As3 Lr 0 1st Unit [id number] Output: Urine 2550 1300 Urethral (Cadet) 2550 1300 Other: # Bowel Movements 2 1 - Medications Active Medications: Active Medications Generic Name Dose Route Start Last Admin Trade Name Freq PRN Reason Stop Dose Admin Albuterol/Ipratropium 3 ml 12/29/17 20:00 12/30/17 13:59 Duoneb 3 Mg/0.5 Mg (3 Ml) Ud IH 3 ml TIDRESP GRICELDA Administration Pantoprazole Sodium 40 mg in 100 mls @ 20 mls/hr 12/26/17 20:30 12/30/17 14: 35 Protonix 40mg Ivpb IVPB 20 mls/hr .Q5H GRICELDA Administration Midazolam 100 mg/100ml in NS 100 mg in 100 mls @ 1 mls/hr 12/27/17 18:41 10/13 07:30 Midazolam 100 Mg/100ml In Ns IV 2 mg/hr .Q24H PRN 2 mls/hr Agitation Titration Protocol 1 MG/HR Propofol 1,000 mg in 100 mls @ 2.557 mls/hr 12/27/17 19:59 12/30/17 09:45 Diprivan IV 25 mcg/kg/min .Q24H PRN 12.785 mls/hr TITRATE PER MD ORDER Titration Protocol 5 MCG/KG/MIN Acetaminophen 1,000 mg in 100 mls @ 400 mls/hr 12/28/17 16:34 12/29/17 15:50 Ofirmev IVPB 12/30/17 16:35 400 mls/hr Q6H PRN Administration Temperature Vancomycin HCl 1 gm in 250 mls @ 167 mls/hr 12/29/17 10:00 12/30/17 09:21 Vancomycin 1gm IVPB 167 mls/hr DAILY GRICELDA Administration Protocol Sodium Chloride 1,000 mls @ 75 mls/hr 12/29/17 07:45 12/29/17 12:40 Sodium Chloride 0.45% IV Not Given .[id number] GRICELDA Meropenem 500 mg/ Sodium 50 mls @ 100 mls/hr 12/29/17 22:00 12/30/17 09:14 Chloride IVPB 100 mls/hr Q12 GRICELDA Administration Protocol Dextrose 1,000 mls @ 75 mls/hr 12/29/17 21:45 12/29/17 22:01 Dextrose 5% In Water 1000 Ml IV 75 mls/hr .[id number] GRICELDA Administration Potassium Chloride 20 meq in 100 mls @ 50 mls/hr 12/30/17 10:45 12/30/17 14: 38 Potassium Chloride 20 Meq/100 Ml IVPB 12/30/17 14:44 50 mls/hr Q2H GRICELDA Administration Ondansetron HCl 4 mg 12/26/17 21:15 Zofran Inj IVP Q4H PRN Nausea/Vomiting - Patient Studies Lab Studies: Microbiology Studies 12/29/17 06:05 Blood Culture - Preliminary Blood NO GROWTH AFTER 24 HOURS 12/29/17 05:30 Blood Culture - Preliminary Blood NO GROWTH AFTER 24 HOURS 12/29/17 08:45 Gram Stain - Final Trachasp Lab Studies 12/30/17 12/30/17 12/30/17 Range/Units 10:15 06:00 06:00 WBC 9.1 (4.5-11.0) 10^3/ul RBC 2.38 L (3.5-6.1) 10^6/uL Hgb 6.8 L* (14.0-18.0) g/dL Hct 21.2 L (42.0-52.0) % MCV 89.1 (80.0-105.0) fl MCH 28.6 (25.0-35.0) pg MCHC 32.1 (31.0-37.0) g/dl RDW 16.2 H (11.5-14.5) % Plt Count 125 (120.0-450.0) 10^3/uL MPV 10.1 (7.0-11.0) fl Gran % 87.2 H (50.0-68.0) % Lymph % (Auto) 6.1 L (22.0-35.0) % [place] % (Auto) 6.6 H (1.0-6.0) % Eos % (Auto) 0.0 L (1.5-5.0) % Baso % (Auto) 0.1 (0.0-3.0) % Gran # 7.94 H (1.4-6.5) Lymph # (Auto) 0.6 L (1.2-3.4) [place] # (Auto) 0.6 (0.1-0.6) Eos # (Auto) 0.0 (0.0-0.7) Baso # (Auto) 0.01 (0.0-2.0) K/mm3 pCO2 (35-45) mm/Hg pO2 (80-100) mm/Hg HCO3 (21-28) mmol/L ABG pH (7.35-7.45) ABG Total CO2 (22-28) mmol.L ABG O2 Saturation (95-98) % ABG O2 Content (15-23) ML/dl ABG Base Excess (-2.0-3.0) mmol/L ABG Hemoglobin (11.7-17.4) g/dL ABG Carboxyhemoglobin (0.5-1.5) % POC ABG HHb (Measured) (0-5) % ABG Methemoglobin (0.0-3.0) % ABG O2 Capacity (16-24) mL/dl Hgb O2 Saturation (95.0-98.0) % FiO2 % Sodium (132-148) mmol/L Potassium (3.6-5.0) mmol/L Chloride (98-107) mmol/L Carbon Dioxide (21-33) mmol/L Anion Gap (10-20) BUN (7-21) mg/dL Creatinine (0.8-1.5) mg/dl Est GFR ( Amer) Est GFR (Non-Af Amer) Random Glucose (70-110) mg/dL Calcium (8.4-10.5) mg/dL Phosphorus (2.5-4.5) mg/dL Magnesium (1.7-2.2) mg/dL Total Bilirubin (0.2-1.3) mg/dL AST (17-59) U/L ALT (7-56) U/L Alkaline Phosphatase (38-126) U/L Total Protein (5.8-8.3) g/dL Albumin (3.0-4.8) g/dL Globulin gm/dL Albumin/Globulin Ratio (1.1-1.8) Random Vancomycin 6.4 L (20-40) ug/mL Blood Type O POSITIVE Antibody Screen Negative Crossmatch See Detail BBK History Checked Patient has bt 12/30/17 12/30/17 12/29/17 Range/Units 06:00 05:00 19:35 WBC (4.5-11.0) 10^3/ul RBC (3.5-6.1) 10^6/uL Hgb 7.3 L (14.0-18.0) g/dL Hct 22.4 L (42.0-52.0) % MCV (80.0-105.0) fl MCH (25.0-35.0) pg MCHC (31.0-37.0) g/dl RDW (11.5-14.5) % Plt Count (120.0-450.0) 10^3/uL MPV (7.0-11.0) fl Gran % (50.0-68.0) % Lymph % (Auto) (22.0-35.0) % [place] % (Auto) (1.0-6.0) % Eos % (Auto) (1.5-5.0) % Baso % (Auto) (0.0-3.0) % Gran # (1.4-6.5) Lymph # (Auto) (1.2-3.4) [place] # (Auto) (0.1-0.6) Eos # (Auto) (0.0-0.7) Baso # (Auto) (0.0-2.0) K/mm3 pCO2 51 H (35-45) mm/Hg pO2 135.0 H (80-100) mm/Hg HCO3 26.3 (21-28) mmol/L ABG pH 7.32 L (7.35-7.45) ABG Total CO2 27.9 (22-28) mmol.L ABG O2 Saturation 99.0 H (95-98) % ABG O2 Content 13.9 L (15-23) ML/dl ABG Base Excess -0.2 (-2.0-3.0) mmol/L ABG Hemoglobin 10.1 L (11.7-17.4) g/dL ABG Carboxyhemoglobin 1.6 H (0.5-1.5) % POC ABG HHb (Measured) 1.0 (0-5) % ABG Methemoglobin 1.2 (0.0-3.0) % ABG O2 Capacity 14.0 L (16-24) mL/dl Hgb O2 Saturation 96.3 (95.0-98.0) % FiO2 70.0 % Sodium 153 H (132-148) mmol/L Potassium 3.3 L (3.6-5.0) mmol/L Chloride 118 H (98-107) mmol/L Carbon Dioxide 27 (21-33) mmol/L Anion Gap 11 (10-20) BUN 71 H (7-21) mg/dL Creatinine 2.3 H (0.8-1.5) mg/dl Est GFR ( Amer) 34 Est GFR (Non-Af Amer) 28 Random Glucose 119 H (70-110) mg/dL Calcium 7.6 L (8.4-10.5) mg/dL Phosphorus 4.1 (2.5-4.5) mg/dL Magnesium 2.0 (1.7-2.2) mg/dL Total Bilirubin 0.2 (0.2-1.3) mg/dL AST 15 L (17-59) U/L ALT 20 (7-56) U/L Alkaline Phosphatase 46 (38-126) U/L Total Protein 4.8 L (5.8-8.3) g/dL Albumin 2.3 L (3.0-4.8) g/dL Globulin 2.4 gm/dL Albumin/Globulin Ratio 1.0 L (1.1-1.8) Random Vancomycin (20-40) ug/mL Blood Type Antibody Screen Crossmatch BBK History Checked Laboratory Results - last 24 hr 12/29/17 12/30/17 12/30/17 19:35 05:00 06:00 WBC RBC Hgb 7.3 L Hct 22.4 L MCV MCH MCHC RDW Plt Count MPV Gran % Lymph % (Auto) [place] % (Auto) Eos % (Auto) Baso % (Auto) Gran # Lymph # (Auto) [place] # (Auto) Eos # (Auto) Baso # (Auto) pCO2 51 H pO2 135.0 H HCO3 26.3 ABG pH 7.32 L ABG Total CO2 27.9 ABG O2 Saturation 99.0 H ABG O2 Content 13.9 L ABG Base Excess -0.2 ABG Hemoglobin 10.1 L ABG Carboxyhemoglobin 1.6 H POC ABG HHb (Measured) 1.0 ABG Methemoglobin 1.2 ABG O2 Capacity 14.0 L Hgb O2 Saturation 96.3 FiO2 70.0 Sodium 153 H Potassium 3.3 L Chloride 118 H Carbon Dioxide 27 Anion Gap 11 BUN 71 H Creatinine 2.3 H Est GFR ( Amer) 34 Est GFR (Non-Af Amer) 28 Random Glucose 119 H Calcium 7.6 L Phosphorus 4.1 Magnesium 2.0 Total Bilirubin 0.2 AST 15 L ALT 20 Alkaline Phosphatase 46 Total Protein 4.8 L Albumin 2.3 L Globulin 2.4 Albumin/Globulin Ratio 1.0 L Random Vancomycin Blood Type Antibody Screen Crossmatch BBK History Checked 12/30/17 12/30/17 12/30/17 06:00 06:00 10:15 WBC 9.1 RBC 2.38 L Hgb 6.8 L* Hct 21.2 L MCV 89.1 MCH 28.6 MCHC 32.1 RDW 16.2 H Plt Count 125 MPV 10.1 Gran % 87.2 H Lymph % (Auto) 6.1 L [place] % (Auto) 6.6 H Eos % (Auto) 0.0 L Baso % (Auto) 0.1 Gran # 7.94 H Lymph # (Auto) 0.6 L [place] # (Auto) 0.6 Eos # (Auto) 0.0 Baso # (Auto) 0.01 pCO2 pO2 HCO3 ABG pH ABG Total CO2 ABG O2 Saturation ABG O2 Content ABG Base Excess ABG Hemoglobin ABG Carboxyhemoglobin POC ABG HHb (Measured) ABG Methemoglobin ABG O2 Capacity Hgb O2 Saturation FiO2 Sodium Potassium Chloride Carbon Dioxide Anion Gap BUN Creatinine Est GFR ( Amer) Est GFR (Non-Af Amer) Random Glucose Calcium Phosphorus Magnesium Total Bilirubin AST ALT Alkaline Phosphatase Total Protein Albumin Globulin Albumin/Globulin Ratio Random Vancomycin 6.4 L Blood Type O POSITIVE Antibody Screen Negative Crossmatch See Detail BBK History Checked Patient has bt Critical Care Progress Note - Nutrition Nutrition: Nutrition Category Date Time Status NPO Diet [DIET] Diets 12/26/17 Breakfast Ordered Assessment/Plan - Assessment and Plan (Free Text) Assessment: Patient seen and examined on rounds with resident, agree with note with following additions/exceptions: Patient is 77yo male with PMhx duodenitis, errosive gastritis, diverticulosis, left LE DVT on AC presented to [facility] due to melena and hematochezia. Pt had cortis put in for hemorrhagic shock, s/p 13u PRBC transfusion. Currently afebrile, HD stable, off vasopressor support, intubated on FiO2 50%. CXR today with improved opacities, likely signifying pulm edema improvement. GI and SUrgery and following. No immediate plans for EGD/Conoloscopy as per GI. GIB Anemia Melena Hemorrhagic Shock Pulm Edema, r/o TACO, r/o TRALI Hypernatremia Recommend: - cont with vent support, low tidal vol ventilation, daily sedation vacation - follow up cultures, Abx as per ID - HOLD BP meds - HOLD A/C - PPI drip - follow up GI - transfuse 2u PRBC - HH Q6hr - FS control - follow up Surgery - D5W - follow up renal - GI ppx - DVT ppx, SCDs - Monitor in ICU
--- NOTE | 2017-12-30 14:33 | CP.PCM.PN ---
Subjective - Date & Time of Evaluation Date of Evaluation: 12/30/17 Time of Evaluation: 06:45 - Subjective Subjective: Surgery: Dr. Lopez Pt seen and examined. Continues to be intubated & sedated in the ICU. No acute overnight events. Pt has not had any more episodes of blood per rectum & H/H is relatively stable. His BP has also improved without the need for pressors. No fevers recorded overnight. Objective - Vital Signs/Intake and Output Vital Signs (last 24 hours): Temp Pulse Resp BP Pulse Ox 99.7 F H 86 20 110/65 100 12/30/17 14:00 12/30/17 14:00 12/30/17 13:01 12/30/17 14:00 12/30/17 14:00 Intake and Output: 12/30/17 12/30/17 06:59 18:59 Intake Total 1332 2 Output Total 1300 Balance 32 2 - Medications Medications: Current Medications Albuterol/Ipratropium (Duoneb 3 Mg/0.5 Mg (3 Ml) Ud) 3 ml IH TIDRESP [facility] Last Admin: 12/30/17 13:59 Dose: 3 ml Pantoprazole Sodium (Protonix 40mg Ivpb) 40 mg in 100 mls @ 20 mls/hr IVPB .Q5H [facility] Last Admin: 12/30/17 08:35 Dose: 20 mls/hr Midazolam 100 mg/100ml in NS (Midazolam 100 Mg/100ml In Ns) 100 mg in 100 mls @ 1 mls/hr IV .Q24H PRN; Protocol; 1 MG/HR PRN Reason: Agitation Last Titration: 12/29/17 07:30 Dose: 2 mg/hr, 2 mls/hr Propofol (Diprivan) 1,000 mg in 100 mls @ 2.557 mls/hr IV .Q24H PRN; Protocol; 5 MCG/KG/MIN PRN Reason: TITRATE PER MD ORDER Last Titration: 12/30/17 09:45 Dose: 25 mcg/kg/min, 12.785 mls/hr Acetaminophen (Ofirmev) 1,000 mg in 100 mls @ 400 mls/hr IVPB Q6H PRN PRN Reason: Temperature Stop: 12/30/17 16:35 Last Admin: 12/29/17 15:50 Dose: 400 mls/hr Vancomycin HCl (Vancomycin 1gm) 1 gm in 250 mls @ 167 mls/hr IVPB DAILY [facility] PRN Reason: Protocol Last Admin: 12/30/17 09:21 Dose: 167 mls/hr Sodium Chloride (Sodium Chloride 0.45%) 1,000 mls @ 75 mls/hr IV .[id number] [facility] Last Admin: 12/29/17 12:40 Dose: Not Given Meropenem 500 mg/ Sodium (Chloride) 50 mls @ 100 mls/hr IVPB Q12 [facility] PRN Reason: Protocol Last Admin: 12/30/17 09:14 Dose: 100 mls/hr Dextrose (Dextrose 5% In Water 1000 Ml) 1,000 mls @ 75 mls/hr IV .[id number] [facility] Last Admin: 12/29/17 22:01 Dose: 75 mls/hr Potassium Chloride (Potassium Chloride 20 Meq/100 Ml) 20 meq in 100 mls @ 50 mls/hr IVPB Q2H [facility] Stop: 12/30/17 14:44 Last Admin: 12/30/17 12:12 Dose: 50 mls/hr Ondansetron HCl (Zofran Inj) 4 mg IVP Q4H PRN PRN Reason: Nausea/Vomiting - Labs Labs: 12/30/17 06:00 12/30/17 06:00 PT 12.0 SECONDS (9.4-12.5) 12/29/17 06:30 INR 1.04 (0.93-1.08) 12/29/17 06:30 APTT 23.8 Seconds (25.1-36.5) L 12/29/17 06:30 - Constitutional Appears: No Acute Distress - Head Exam Head Exam: ATRAUMATIC, NORMOCEPHALIC - Respiratory Exam Additional comments: mechanically ventilated; decreased BS b/l lung bases - Cardiovascular Exam Cardiovascular Exam: RRR - GI/Abdominal Exam GI & Abdominal Exam: Soft. absent: Distended - Skin Skin Exam: Dry, Warm Assessment and Plan - Assessment and Plan (Free Text) Assessment: 77M with GI bleed; s/p EGD & L gastric artery angioembolization by IR Plan: - H/H relatively stable around 7; however down to 6.8 this morning so 2 units PRBCs transfused. Cont to monitor - pt will likely need repeat EGD/colonoscopy to r/o other source for GI bleeding - no surgical intervention planned at this time, will cont to follow - d/w Dr. Jonh Lehman, PGY-3
[2017-12-30] MEDS ORDERED: Acetaminophen IV IVPB PRN ×2 (18:23→18:37)
--- NOTE | 2017-12-30 18:32 | CP.PCM.PN ---
Subjective - Date & Time of Evaluation Date of Evaluation: 12/30/17 Time of Evaluation: 17:00 - Subjective Subjective: Infectious Disease Follow Up: December 30, 2017 77 year old male with PMH of hypertension, duodenitis, erosive gastritis ( diagnosed in 2012), divericulosis, abdominal aortic aneurysm repair in 2011, left lower extremity DVT (2011), who presents with GI bleed. Patient states that over the past 2 days he had multiple episodes of coffee ground hematemesis. He also reports melena, and bright red blood per rectum starting yesetrday. Patient states that he started Xarelto a few days ago. Patient endorses he was taking Eliquis but experienced abdominal discomfort, loss of appetite, and associated weight loss. He was switched to Xarelto instead recently due to these adverse events. He does admit to drinking alcohol, but denies any history of drinking greater than 8 drinks per week or having any prior history of alcohol abuse. Patient states that he takes Aleeve almost daily for the past 5 years. Currently in ICU for monitoring. TLC placed. Had several melena episodes during hospitalization. S/P IR angiography with embolization of left gastric artery POD#3. Intubated and Ventilated. On Vancomycin and Meropenem for antibiotic treatment. Patient with history of frequent hospitalizations. History obtained from the chart as the patient has been intubated and ventilated since I was consulted. Poor overall prognosis. He is still requiring high O2 requirements and moved up to 100% O2 at this time. Objective - Vital Signs/Intake and Output Vital Signs (last 24 hours): Temp Pulse Resp BP Pulse Ox 100.6 F H 113 H 19 104/68 96 12/30/17 18:00 12/30/17 18:00 12/30/17 18:00 12/30/17 18:00 12/30/17 15:30 Intake and Output: 12/30/17 12/30/17 06:59 18:59 Intake Total 1332 742 Output Total 1300 Balance 32 742 - Medications Medications: Current Medications Albuterol/Ipratropium (Duoneb 3 Mg/0.5 Mg (3 Ml) Ud) 3 ml IH TIDRESP [facility] Last Admin: 12/30/17 13:59 Dose: 3 ml Pantoprazole Sodium (Protonix 40mg Ivpb) 40 mg in 100 mls @ 20 mls/hr IVPB .Q5H [facility] Last Admin: 12/30/17 14:35 Dose: 20 mls/hr Midazolam 100 mg/100ml in NS (Midazolam 100 Mg/100ml In Ns) 100 mg in 100 mls @ 1 mls/hr IV .Q24H PRN; Protocol; 1 MG/HR PRN Reason: Agitation Last Titration: 12/29/17 07:30 Dose: 2 mg/hr, 2 mls/hr Propofol (Diprivan) 1,000 mg in 100 mls @ 2.557 mls/hr IV .Q24H PRN; Protocol; 5 MCG/KG/MIN PRN Reason: TITRATE PER MD ORDER Last Admin: 12/30/17 16:00 Dose: 30 mcg/kg/min, 15.341 mls/hr Vancomycin HCl (Vancomycin 1gm) 1 gm in 250 mls @ 167 mls/hr IVPB DAILY [facility] PRN Reason: Protocol Last Admin: 12/30/17 09:21 Dose: 167 mls/hr Sodium Chloride (Sodium Chloride 0.45%) 1,000 mls @ 75 mls/hr IV .[id number] [facility] Last Admin: 12/29/17 12:40 Dose: Not Given Meropenem 500 mg/ Sodium (Chloride) 50 mls @ 100 mls/hr IVPB Q12 [facility] PRN Reason: Protocol Last Admin: 12/30/17 09:14 Dose: 100 mls/hr Dextrose (Dextrose 5% In Water 1000 Ml) 1,000 mls @ 75 mls/hr IV .[id number] [facility] Last Admin: 12/30/17 18:08 Dose: 75 mls/hr Ondansetron HCl (Zofran Inj) 4 mg IVP Q4H PRN PRN Reason: Nausea/Vomiting - Labs Labs: 12/30/17 06:00 12/30/17 06:00 PT 12.0 SECONDS (9.4-12.5) 12/29/17 06:30 INR 1.04 (0.93-1.08) 12/29/17 06:30 APTT 23.8 Seconds (25.1-36.5) L 12/29/17 06:30 - Constitutional Appears: Chronically Ill - Head Exam Additional comments: Intubated and Ventilated. - Eye Exam Eye Exam: EOMI, PERRL Pupil Exam: NORMAL ACCOMODATION, PERRL - ENT Exam ENT Exam: Mucous Membranes Moist, Normal External Ear Exam, TM's Normal Bilaterally Additional comments: Intubated and Ventilated. - Neck Exam Neck Exam: Full ROM, Normal Inspection - Respiratory Exam Respiratory Exam: Decreased Breath Sounds. absent: Rales, Rhonchi, Wheezes Additional comments: Intubated and Ventilated. - Cardiovascular Exam Cardiovascular Exam: Tachycardia, +S1, +S2 - GI/Abdominal Exam GI & Abdominal Exam: Soft, Pulsatile Mass. absent: Tenderness - Extremities Exam Extremities Exam: absent: Joint Swelling, Pedal Edema - Neurological Exam Additional comments: Intubated and Ventilated. - Skin Skin Exam: Intact, Normal Color, Warm Assessment and Plan - Assessment and Plan (Free Text) Assessment: 77 yo AA male known to me from prior hospitalizations presenting with acute GI bleed. The patient has been anemic and hypoxic. The patient has been having persistent fevers with mild leukocytosis. Supportive care. Start Vancomycin and Meropenem for treatment. Sepsis workup. Hypoxemia. Patient being evaluted for TRALI and PE at this time. The patient has left gastric artery embolization on 12/27/2017. The patient was given 13 U PRBCs and 8 U FFP. Patient with EKTA. Patient still requiring high O2 levels to saturate. On 100% O2 currently. Very poor prognosis. Fevers did downtrend overall to a high of 100.7 F. Extremely poor prognosis. Thank you for allowing me to participate in the care of the patient, we will follow with you.
[2017-12-30] MEDS: Midazolam 100 mg/100ml in NS 100 MG/100 ML SOL IV PRN (18:47)
--- NOTE | 2017-12-30 19:39 | CP.PCM.PN ---
Subjective - Date & Time of Evaluation Date of Evaluation: 12/30/17 Time of Evaluation: 12:00 - Subjective Subjective: Patient still intubated; no more melena reported but getting prbc transfusion due to hgb drop; decreasing FIO2 requirement; Objective - Vital Signs/Intake and Output Vital Signs (last 24 hours): Temp Pulse Resp BP Pulse Ox 100.6 F H 113 H 19 104/68 96 12/30/17 18:00 12/30/17 18:00 12/30/17 18:00 12/30/17 18:00 12/30/17 15:30 Intake and Output: 12/30/17 12/31/17 18:59 06:59 Intake Total 836 Balance 836 - Medications Medications: Current Medications Albuterol/Ipratropium (Duoneb 3 Mg/0.5 Mg (3 Ml) Ud) 3 ml IH TIDRESP [facility] Last Admin: 12/30/17 13:59 Dose: 3 ml Pantoprazole Sodium (Protonix 40mg Ivpb) 40 mg in 100 mls @ 20 mls/hr IVPB .Q5H [facility] Last Admin: 12/30/17 14:35 Dose: 20 mls/hr Midazolam 100 mg/100ml in NS (Midazolam 100 Mg/100ml In Ns) 100 mg in 100 mls @ 1 mls/hr IV .Q24H PRN; Protocol; 1 MG/HR PRN Reason: Agitation Last Admin: 12/30/17 18:47 Dose: 2 mg/hr, 2 mls/hr Propofol (Diprivan) 1,000 mg in 100 mls @ 2.557 mls/hr IV .Q24H PRN; Protocol; 5 MCG/KG/MIN PRN Reason: TITRATE PER MD ORDER Last Admin: 12/30/17 16:00 Dose: 30 mcg/kg/min, 15.341 mls/hr Vancomycin HCl (Vancomycin 1gm) 1 gm in 250 mls @ 167 mls/hr IVPB DAILY [facility] PRN Reason: Protocol Last Admin: 12/30/17 09:21 Dose: 167 mls/hr Sodium Chloride (Sodium Chloride 0.45%) 1,000 mls @ 75 mls/hr IV .[id number] [facility] Last Admin: 12/29/17 12:40 Dose: Not Given Meropenem 500 mg/ Sodium (Chloride) 50 mls @ 100 mls/hr IVPB Q12 [facility] PRN Reason: Protocol Last Admin: 12/30/17 09:14 Dose: 100 mls/hr Dextrose (Dextrose 5% In Water 1000 Ml) 1,000 mls @ 75 mls/hr IV .[id number] [facility] Last Admin: 12/30/17 18:08 Dose: 75 mls/hr Acetaminophen (Ofirmev) 1,000 mg in 100 mls @ 400 mls/hr IVPB Q6H PRN PRN Reason: Temperature Stop: 01/01/18 18:57 Last Admin: 12/30/17 19:00 Dose: 400 mls/hr Ondansetron HCl (Zofran Inj) 4 mg IVP Q4H PRN PRN Reason: Nausea/Vomiting - Labs Labs: 12/30/17 06:00 12/30/17 06:00 PT 12.0 SECONDS (9.4-12.5) 12/29/17 06:30 INR 1.04 (0.93-1.08) 12/29/17 06:30 APTT 23.8 Seconds (25.1-36.5) L 12/29/17 06:30 - Constitutional Appears: Non-toxic, No Acute Distress - Eye Exam Eye Exam: absent: Scleral icterus - ENT Exam ENT Exam: Mucous Membranes Moist - Respiratory Exam Respiratory Exam: Clear to Ausculation Bilateral. absent: Respiratory Distress - Cardiovascular Exam Cardiovascular Exam: +S1, +S2. absent: Gallop, Murmur - GI/Abdominal Exam GI & Abdominal Exam: Soft. absent: Distended, Tenderness - Exam Exam: absent: Bladder Distension - Extremities Exam Additional comments: no significant leg edema; - Neurological Exam Additional comments: sedated, arousable to tactile stimuli; - Psychiatric Exam Psychiatric exam: absent: Agitated - Skin Skin Exam: Warm. absent: Cyanosis Assessment and Plan (1) Acute kidney failure Assessment & Plan: Stable, non-oliguric renal failure; polyuric yesterday after getting IV lasix; mildly hypotensive, agree with prbc transfusion; -maintain MAP > 65 -continue to avoid nephrotoxic agents Status: Acute (2) Hypernatremia Assessment & Plan: Persistent in the setting of diuresis and polyuria yesterday; started on D5W at 75 cc/hr yesterday, continue same; Status: Acute (3) SIRS (systemic inflammatory response syndrome) Assessment & Plan: Started empirically on meropenem and vanco; should continue to dose antibiotics for CrCl < 30 ml/min; obtain vanco trough tomorrow before 3rd dose; Status: Acute (4) Acute hypoxemic respiratory failure Assessment & Plan: Much improved FIO2 requirement (down to 50% today) although again getting blood products; would avoid further diuresis (will worsen hypernatremia) unless FIO2 requirement again increases; Status: Acute
[2017-12-30 21:18] LABS: HEMOGLOBIN 8.1 g/dL (14.0-18.0); MEAN CELL VOLUME 87.7 fl (80.0-105.0); MEAN CORPUSCULAR HEMOGLOBIN 28.5 pg (25.0-35.0); MEAN CORPUSCULAR HGB CONC 32.5 g/dl (31.0-37.0); MEAN PLATELET VOLUME 9.9 fl (7.0-11.0); RBC 2.84 10^6/uL (3.5-6.1); WHITE BLOOD COUNT 10.5 10^3/ul (4.5-11.0)
[2017-12-30 21:28] LABS: ALBUMIN 2.4 g/dL (3.0-4.8); CALCIUM 7.9 mg/dL (8.4-10.5)
[2017-12-31 01:21] LABS: HEMOGLOBIN 7.9 g/dL (14.0-18.0); MEAN CELL VOLUME 87.7 fl (80.0-105.0); MEAN CORPUSCULAR HEMOGLOBIN 28.5 pg (25.0-35.0); MEAN CORPUSCULAR HGB CONC 32.5 g/dl (31.0-37.0); MEAN PLATELET VOLUME 10.2 fl (7.0-11.0); RBC 2.77 10^6/uL (3.5-6.1); RED CELL DISTRIBUTION WIDTH 16.1 % (11.5-14.5)
[2017-12-31] MEDS: Albuterol-Ipratrop 3 mg / 0.5 (3 ml) UD IH PRN (01:30)
[2017-12-31] MEDS: Pantoprazole 40mg/100mL NS 40 MG/100 ML BAG IVPB SCH ×4 (01:44→21:04)
[2017-12-31] MEDS: Propofol 10 mg/ml 1,000 MG/100 ML VIAL IV PRN ×4 (03:09→20:47)
[2017-12-31 05:10] LABS: ARTERIAL BLOOD GAS HCO3 27.3 mmol/L (21-28); ARTERIAL BLOOD GAS HEMOGLOBIN 8.1 g/dL (11.7-17.4); ARTERIAL BLOOD GAS O2 CAPACITY 11.2 mL/dl (16-24); ARTERIAL BLOOD GAS O2 CONTENT 11.1 ML/dl (15-23); ARTERIAL BLOOD GAS O2 SAT 99.2 % (95-98); ARTERIAL BLOOD GAS PCO2 43 mm/Hg (35-45); ARTERIAL BLOOD GAS PH 7.41 (7.35-7.45); ARTERIAL BLOOD GAS TCO2 28.6 mmol.L (22-28)
[2017-12-31 07:01] LABS: BASO # 0.03 K/mm3 (0.0-2.0); BASO % 0.3 % (0.0-3.0); EOS % 0.3 % (1.5-5.0); GRAN # 8.35 (1.4-6.5); GRAN % 82.7 % (50.0-68.0); LYMPH # 0.5 (1.2-3.4); LYMPH % 5.4 % (22.0-35.0); MEAN CORPUSCULAR HGB CONC 32.9 g/dl (31.0-37.0); MEAN PLATELET VOLUME 10.7 fl (7.0-11.0); MONO # 1.1 (0.1-0.6); MONO % 11.3 % (1.0-6.0); RBC 2.76 10^6/uL (3.5-6.1); RED CELL DISTRIBUTION WIDTH 16.4 % (11.5-14.5); WHITE BLOOD COUNT 10.1 10^3/ul (4.5-11.0)
[2017-12-31] MEDS: Albuterol-Ipratrop 3 mg / 0.5 (3 ml) UD IH SCH ×3 (07:28→20:50)
--- NOTE | 2017-12-31 07:31 | CP.PCM.PN ---
Subjective - Date & Time of Evaluation Date of Evaluation: 12/31/17 Time of Evaluation: 07:30 - Subjective Subjective: General Surgery Note for Dr. Lopez Patient seen and examined at bedside. No acute event overnight. Patient is still intubated and on mechanical ventilation. He continues to be sedated with propofol and versed. Nursing denies any episodes of melena or hematochezia. Hgb has been stable since transfusion of 2 units yesterday. Objective - Vital Signs/Intake and Output Vital Signs (last 24 hours): Temp Pulse Resp BP Pulse Ox 98.4 F 73 19 115/68 99 12/31/17 07:00 12/31/17 07:00 12/30/17 18:00 12/31/17 07:00 12/31/17 07:00 Intake and Output: 12/31/17 12/31/17 06:59 18:59 Intake Total 2344 Output Total 700 Balance 1644 - Medications Medications: Current Medications Albuterol/Ipratropium (Duoneb 3 Mg/0.5 Mg (3 Ml) Ud) 3 ml IH TIDRESP [facility] Last Admin: 12/31/17 07:28 Dose: 3 ml Albuterol/Ipratropium (Duoneb 3 Mg/0.5 Mg (3 Ml) Ud) 3 ml IH Q2H PRN PRN Reason: Shortness of Breath Last Admin: 12/31/17 01:30 Dose: 3 ml Pantoprazole Sodium (Protonix 40mg Ivpb) 40 mg in 100 mls @ 20 mls/hr IVPB .Q5H [facility] Last Admin: 12/31/17 01:44 Dose: 20 mls/hr Midazolam 100 mg/100ml in NS (Midazolam 100 Mg/100ml In Ns) 100 mg in 100 mls @ 1 mls/hr IV .Q24H PRN; Protocol; 1 MG/HR PRN Reason: Agitation Last Admin: 12/30/17 18:47 Dose: 2 mg/hr, 2 mls/hr Propofol (Diprivan) 1,000 mg in 100 mls @ 2.557 mls/hr IV .Q24H PRN; Protocol; 5 MCG/KG/MIN PRN Reason: TITRATE PER MD ORDER Last Admin: 12/31/17 06:47 Dose: 30 mcg/kg/min, 15.341 mls/hr Vancomycin HCl (Vancomycin 1gm) 1 gm in 250 mls @ 167 mls/hr IVPB DAILY [facility] PRN Reason: Protocol Last Admin: 12/30/17 09:21 Dose: 167 mls/hr Sodium Chloride (Sodium Chloride 0.45%) 1,000 mls @ 75 mls/hr IV .[id number] [facility] Last Admin: 12/29/17 12:40 Dose: Not Given Meropenem 500 mg/ Sodium (Chloride) 50 mls @ 100 mls/hr IVPB Q12 [facility] PRN Reason: Protocol Last Admin: 12/30/17 21:19 Dose: 100 mls/hr Dextrose (Dextrose 5% In Water 1000 Ml) 1,000 mls @ 75 mls/hr IV .[id number] [facility] Last Admin: 12/31/17 02:03 Dose: 75 mls/hr Acetaminophen (Ofirmev) 1,000 mg in 100 mls @ 400 mls/hr IVPB Q6H PRN PRN Reason: Temperature Stop: 01/01/18 18:57 Last Admin: 12/31/17 00:13 Dose: 400 mls/hr Ondansetron HCl (Zofran Inj) 4 mg IVP Q4H PRN PRN Reason: Nausea/Vomiting - Labs Labs: 12/31/17 06:46 12/30/17 21:05 PT 12.0 SECONDS (9.4-12.5) 12/29/17 06:30 INR 1.04 (0.93-1.08) 12/29/17 06:30 APTT 23.8 Seconds (25.1-36.5) L 12/29/17 06:30 - Constitutional Appears: No Acute Distress, Other (intubated and sedated) - Head Exam Head Exam: ATRAUMATIC, NORMOCEPHALIC - Eye Exam Eye Exam: Normal appearance - ENT Exam ENT Exam: Mucous Membranes Moist Additional comments: et tube in place - Neck Exam Additional comments: cordis catheter in place - Respiratory Exam Respiratory Exam: Decreased Breath Sounds Additional comments: mechanical vent support - Cardiovascular Exam Cardiovascular Exam: REGULAR RHYTHM - GI/Abdominal Exam GI & Abdominal Exam: Soft, Normal Bowel Sounds - Extremities Exam Extremities Exam: Normal Capillary Refill - Neurological Exam Neurological Exam: Altered - Psychiatric Exam Psychiatric exam: Flat Affect - Skin Skin Exam: Dry, Warm Assessment and Plan - Assessment and Plan (Free Text) Assessment: 77M with GI bleed; s/p EGD & L gastric artery angioembolization by IR Plan: - Hgb stable at 8.0, Monitor and Transfuse ass needed - Recommend EGD/colonoscopy - Strict I's & O's - Attempt to wean from vent - Medical management as per ICU - Will continue to follow - Discussed with Dr. John Villalba PGY1
--- NOTE | 2017-12-31 07:34 | CP.PCM.PN ---
<Victor Hugo Chapa - Last Filed: 12/31/17 13:48> Subjective - Date & Time of Evaluation Date of Evaluation: 12/31/17 Time of Evaluation: 07:31 - Subjective Subjective: Patient seen and examined at bedside. Sedation vacation just started. Currently RT attempting to place patient on CPAP. ROS limited as patient is still sedated. As per overnight nurse, no bloody bowel movements overnight no acute events. Objective - Vital Signs/Intake and Output Vital Signs (last 24 hours): Temp Pulse Resp BP Pulse Ox 98.4 F 73 19 115/68 99 12/31/17 07:00 12/31/17 07:00 12/30/17 18:00 12/31/17 07:00 12/31/17 07:00 Intake and Output: 12/31/17 12/31/17 06:59 18:59 Intake Total 2344 Output Total 700 Balance 1644 - Medications Medications: Current Medications Albuterol/Ipratropium (Duoneb 3 Mg/0.5 Mg (3 Ml) Ud) 3 ml IH TIDRESP [facility] Last Admin: 12/31/17 07:28 Dose: 3 ml Albuterol/Ipratropium (Duoneb 3 Mg/0.5 Mg (3 Ml) Ud) 3 ml IH Q2H PRN PRN Reason: Shortness of Breath Last Admin: 12/31/17 01:30 Dose: 3 ml Pantoprazole Sodium (Protonix 40mg Ivpb) 40 mg in 100 mls @ 20 mls/hr IVPB .Q5H GRICELDA Last Admin: 12/31/17 01:44 Dose: 20 mls/hr Midazolam 100 mg/100ml in NS (Midazolam 100 Mg/100ml In Ns) 100 mg in 100 mls @ 1 mls/hr IV .Q24H PRN; Protocol; 1 MG/HR PRN Reason: Agitation Last Admin: 12/30/17 18:47 Dose: 2 mg/hr, 2 mls/hr Propofol (Diprivan) 1,000 mg in 100 mls @ 2.557 mls/hr IV .Q24H PRN; Protocol; 5 MCG/KG/MIN PRN Reason: TITRATE PER MD ORDER Last Admin: 12/31/17 06:47 Dose: 30 mcg/kg/min, 15.341 mls/hr Vancomycin HCl (Vancomycin 1gm) 1 gm in 250 mls @ 167 mls/hr IVPB DAILY GRICELDA PRN Reason: Protocol Last Admin: 12/30/17 09:21 Dose: 167 mls/hr Sodium Chloride (Sodium Chloride 0.45%) 1,000 mls @ 75 mls/hr IV .[id number] [facility] Last Admin: 12/29/17 12:40 Dose: Not Given Meropenem 500 mg/ Sodium (Chloride) 50 mls @ 100 mls/hr IVPB Q12 [facility] PRN Reason: Protocol Last Admin: 12/30/17 21:19 Dose: 100 mls/hr Dextrose (Dextrose 5% In Water 1000 Ml) 1,000 mls @ 75 mls/hr IV .[id number] [facility] Last Admin: 12/31/17 02:03 Dose: 75 mls/hr Acetaminophen (Ofirmev) 1,000 mg in 100 mls @ 400 mls/hr IVPB Q6H PRN PRN Reason: Temperature Stop: 01/01/18 18:57 Last Admin: 12/31/17 00:13 Dose: 400 mls/hr Ondansetron HCl (Zofran Inj) 4 mg IVP Q4H PRN PRN Reason: Nausea/Vomiting - Labs Labs: 12/31/17 06:46 12/30/17 21:05 PT 12.0 SECONDS (9.4-12.5) 12/29/17 06:30 INR 1.04 (0.93-1.08) 12/29/17 06:30 APTT 23.8 Seconds (25.1-36.5) L 12/29/17 06:30 - Head Exam Head Exam: ATRAUMATIC, NORMAL INSPECTION, NORMOCEPHALIC - ENT Exam ENT Exam: Mucous Membranes Dry - Respiratory Exam Respiratory Exam: NORMAL BREATHING PATTERN. absent: Wheezes, Respiratory Distress - Cardiovascular Exam Cardiovascular Exam: REGULAR RHYTHM, +S1, +S2 - GI/Abdominal Exam GI & Abdominal Exam: Soft, Diminished Bowel Sounds. absent: Normal Bowel Sounds - Extremities Exam Extremities Exam: Normal Inspection - Neurological Exam Neurological Exam: absent: Alert, Awake, Oriented x3 Additional comments: sedated - Skin Skin Exam: Normal Color, Warm Assessment and Plan - Assessment and Plan (Free Text) Assessment: 77 year old male with a past medical history of duodenitis, erosive gastritis, history of abdominal aortic aneursym repair, DVT on Xarelto presenting on 12/26 with acute GI bleed initially intubated for airway protection, then passed sedation vacation however currently intubated on [facility] for EGD procedure. SIRS Criteria (Tachycardia and Fever) - ID Consult: Dr. Vyas - Continue with Merrem as per ID Hypoxemia, likely 2/2 TRALI VS PE - Cannot obtain CTA Chest 2/2 patient's EKTA; cannot heparinize 2/2 GiB; will consider IVF placement - Continue with Steroid therapy; consider tapering steroids Acute GI bleed status post Xarelto therapy - Intubated,current sedation vacation - NPO, monitor H&H, PT/PTT - Continue with Protonix ggt - H&H stable after 2 transfusions on 12/30 - Surgery Consulted, Dr. Lopez, follow recs - EGD to be done today; results pending EKTA, likely secondary to GI bleed - Hold nephrotoxic drugs; Monitor - Nephro Consulted: continue with D5W Hypernatremia likely 2/2 Dehydration -Hypernatremia persists, however is downtrending, continue to monitor -Nephrology consulted, will follow with recommendations History DVT - Will resume anticoagulation once stable and cleared by Heme History HTN - Continue to hold Valsartan History Squamous Cell CA - No acute intervention History Abdominal Aortic Aneurysm s/p Repair - Continue to hold Verapamil Prophylaxis - GI: Protonix GTT - DVT: SCD <Alberto Orourke A - Last Filed: 12/31/17 16:10> Objective - Vital Signs/Intake and Output Vital Signs (last 24 hours): Temp Pulse Resp BP Pulse Ox 99 F 103 H 21 115/68 98 12/31/17 12:00 12/31/17 10:00 12/31/17 10:32 12/31/17 07:00 12/31/17 10:32 Intake and Output: 12/31/17 12/31/17 06:59 18:59 Intake Total 2344 85 Output Total 700 Balance 1644 85 - Medications Medications: Current Medications Albuterol/Ipratropium (Duoneb 3 Mg/0.5 Mg (3 Ml) Ud) 3 ml IH TIDRESP [facility] Last Admin: 12/31/17 13:29 Dose: 3 ml Albuterol/Ipratropium (Duoneb 3 Mg/0.5 Mg (3 Ml) Ud) 3 ml IH Q2H PRN PRN Reason: Shortness of Breath Last Admin: 12/31/17 01:30 Dose: 3 ml Pantoprazole Sodium (Protonix 40mg Ivpb) 40 mg in 100 mls @ 20 mls/hr IVPB .Q5H [facility]IC[facility] Last Admin: 12/31/17 10:45 Dose: 20 mls/hr Midazolam 100 mg/100ml in NS (Midazolam 100 Mg/100ml In Ns) 100 mg in 100 mls @ 1 mls/hr IV .Q24H PRN; Protocol; 1 MG/HR PRN Reason: Agitation Last Titration: 12/31/17 09:45 Dose: 2 mg/hr, 2 mls/hr Propofol (Diprivan) 1,000 mg in 100 mls @ 2.557 mls/hr IV .Q24H PRN; Protocol; 5 MCG/KG/MIN PRN Reason: TITRATE PER MD ORDER Last Titration: 12/31/17 13:59 Dose: 40 mcg/kg/min, 20.455 mls/hr Vancomycin HCl (Vancomycin 1gm) 1 gm in 250 mls @ 167 mls/hr IVPB DAILY GR[facility] PRN Reason: Protocol Last Admin: 12/30/17 09:21 Dose: 167 mls/hr Sodium Chloride (Sodium Chloride 0.45%) 1,000 mls @ 75 mls/hr IV .[id number] [facility] Last Admin: 12/29/17 12:40 Dose: Not Given Meropenem 500 mg/ Sodium (Chloride) 50 mls @ 100 mls/hr IVPB Q12 [facility] PRN Reason: Protocol Last Admin: 12/31/17 09:22 Dose: 100 mls/hr Acetaminophen (Ofirmev) 1,000 mg in 100 mls @ 400 mls/hr IVPB Q6H PRN PRN Reason: Temperature Stop: 01/01/18 18:57 Last Admin: 12/31/17 00:13 Dose: 400 mls/hr Potassium Chloride 40 meq/ (Dextrose) 1,020 mls @ 100 mls/hr IV .[id number] [facility] Last Admin: 12/31/17 10:03 Dose: 100 mls/hr Ondansetron HCl (Zofran Inj) 4 mg IVP Q4H PRN PRN Reason: Nausea/Vomiting - Labs Labs: 12/31/17 06:46 12/31/17 07:12 PT 12.0 SECONDS (9.4-12.5) 12/29/17 06:30 INR 1.04 (0.93-1.08) 12/29/17 06:30 APTT 23.8 Seconds (25.1-36.5) L 12/29/17 06:30 Attending/Attestation - Attestation I have personally seen and examined this patient.: Yes I have fully participated in the care of the patient.: Yes I have reviewed all pertinent clinical information, including history, physical exam and plan: Yes Notes (Text): 12/31/17 16:06 77 year old male with past medical history of hypertension, duodenitis, erosive gastritis, abdominal aortic aneurysm repair (2011), LLE DVT on xarelto who presented with GIB. He is s/p multiple PRBC / FFP transfusions. He was seen by GI and is s/p EGD last week as above. Bleeding scan was positive from transverse colon. He was seen by IR and is s/p embolization of left gastric artery. Hemoglobin improved today after 2 units of prbc transfusion. Plan is for possible EGD today and colonoscopy tomorrow as per GI. His xarelto is on hold for now secondary to above. Patient is on antibiotics as well for possible pneumonia. Procalcitonin and pbnp were elevated. Echocardiogram was reviewed. He is not on steroids. Continue to monitor renal function and hypernatremia closely which is slowly improving. Will follow up with nephrology recommendations. is at bedside and updated on patient status. Alberto Orourke MD Hospitalist.
[2017-12-31 07:51] LABS: ALB/GLOB RATIO 0.9 (1.1-1.8); ALBUMIN 2.3 g/dL (3.0-4.8); CALCIUM 7.8 mg/dL (8.4-10.5)
--- NOTE | 2017-12-31 08:06 | RAD ---
HISTORY: pulm edema COMPARISON: 12/30/2017 FINDINGS: LUNGS: The patient is rotated to the right. There is moderate bilateral vascular congestion. Endotracheal tube is in satisfactory position. Findings are unchanged PLEURA: No significant pleural effusion identified, no pneumothorax apparent. CARDIOVASCULAR: Mild cardiomegaly OSSEOUS STRUCTURES: No significant abnormalities. VISUALIZED UPPER ABDOMEN: Normal. OTHER FINDINGS: None. IMPRESSION: The patient is rotated to the right. There is moderate bilateral vascular congestion. Endotracheal tube is in satisfactory position. Findings are unchanged
--- NOTE | 2017-12-31 08:55 | PN ---
DATE: 12/30/2017 SUBJECTIVE: Yannick Aleman seen in the ICU, intubated. PHYSICAL EXAMINATION: VITAL SIGNS: Temperature of 99.9, pulse presently is 98. LABORATORY DATA: Hemoglobin went down slightly to 6.8 from 7.3. ASSESSMENT AND PLAN: He receives a total of 30 units of packed cells. Chest x-ray is remarkable for pulmonary edema. Patient being transfused as we speak. IR doing the embolization of the left gastric artery, did a lower angiogram which did not show a bleeding site. Disturbing part is that the bleeding scan clearly showed a colonic issue. If bleeding persist, we will ask GI reevaluation. Harrison Lopez MD
[2017-12-31] MEDS: Meropenem 500 MG in Sodium Chloride 0.9% 50 ML IVPB SCH ×2 (09:22→21:05)
[2017-12-31] MEDS: Midazolam 100 mg/100ml in NS 100 MG/100 ML SOL IV PRN (09:30)
--- NOTE | 2017-12-31 10:30 | CARD ---
APPROVED REPORT EXAM: Two-dimensional and M-mode echocardiogram with Doppler and color Doppler. Other Information Quality : AverageRhythm : INDICATION LV Function:SystolicDiastolic 2D DIMENSIONS Left Atrium (2D)4.9 (1.6-4.0cm)IVSd1.3 (0.7-1.1cm) LVDd3.7 (3.9-5.9cm)PWd1.3 (0.7-1.1cm) LVDs2.4 (2.5-4.0cm)FS (%) 36.0 % LVEF (%)67.0 (>50%) M-Mode DIMENSIONS Aortic Root3.90 (2.2-3.7cm)Aortic Cusp Exc.1.70 (1.5-2.0cm) Aortic Valve AoV Peak Binvcomy204.0cm/s Mitral Valve MV E Kiqbpczp474.0cm/sMV A Juaylaos327.0cm/sE/A ratio0.8 TDI E/Lateral E'0.0E/Medial E'0.0 Tricuspid Valve TR Peak [id number]/sRAP [id number] Peak Gr.37mmHg [id number] LEFT VENTRICLE The left ventricle is normal size. There is mild to moderate concentric left ventricular hypertrophy. The left ventricular function is normal. The left ventricular ejection fraction is within the normal range. There is normal LV segmental wall motion. RIGHT VENTRICLE The right ventricle is normal size. ATRIA The left atrium is mildly dilated. The right atrium size is normal. The interatrial septum is intact with no evidence for an atrial septal defect. AORTIC VALVE The aortic valve is mildly to moderately calcified. MITRAL VALVE The mitral valve is moderately thickened but opens well. Mitral annular calcification is moderate to severe. Mitral regurgitation is trace. TRICUSPID VALVE The tricuspid valve is normal in structure. There is mild tricuspid regurgitation. There is mild-moderate pulmonary hypertension. PULMONIC VALVE The pulmonic valve is not well visualized. GREAT VESSELS The aortic root is normal in size. PERICARDIAL EFFUSION There is no pericardial effusion. <Conclusion> The left ventricle is normal size. There is mild to moderate concentric left ventricular hypertrophy. The left ventricular function is normal. The left ventricular ejection fraction is within the normal range. The aortic valve is mildly to moderately calcified. Aortic sclerosis vs. mild . There is mild tricuspid regurgitation. There is mild-moderate pulmonary hypertension.
--- NOTE | 2017-12-31 10:33 | CP.CCUPN ---
<Kirby Schuler - Last Filed: 12/31/17 12:07> CCU Subjective - Physician Review Events Since Last Encounter (Free Text): 12/31/17 08:00A Patient seen and examined at bedside. History limited 2/2 intubation status. Patient is s/p two units of PRBC yesterday, tolerated well. CCU Objective - Vital Signs / Intake & Output Vital Signs (Last 4 hours): Vital Signs Temp Pulse BP Pulse Ox 12/31/17 07:00 98.4 F 73 115/68 99 12/31/17 06:30 98.4 F 81 135/81 100 Intake and Output (Last 8hrs): Intake & Output 12/30/17 12/31/17 12/31/17 22:59 06:59 14:59 Intake Total 1927 2244 46 Output Total 850 700 Balance 1077 1544 46 Intake: IV 1582 2244 46 D5W 500 1400 Right Forearm 350 abx 100 ofirmev 100 potassium 200 propofol 180 protonix 240 240 versed 24 Oral 0 Blood Product 325 Red Blood Cells Cpd As1 325 Lr Unit [id number] Other 20 Red Blood Cells Cpd As1 20 Lr Unit [id number] Output: Urine 850 700 Urethral (Cadet) 850 700 Other: # Bowel Movements 0 - Physical Exam Head: Positive for: Atraumatic, Normocephalic Pupils: Positive for: PERRL Extroacular Muscles: Positive for: EOMI Conjunctiva: Positive for: Normal Mouth: Positive for: Moist Mucous Membranes Neck: Positive for: Normal Range of Motion Respiratory/Chest: Positive for: Clear to Auscultation, Good Air Exchange. Negative for: Respiratory Distress, Accessory Muscle Use Cardiovascular: Positive for: Regular Rate and Rhythm, Normal S1, S2. Negative for: Murmurs Abdomen: Positive for: Tenderness (Tenderness to the bilateral lower quadrants) . Negative for: Distention, Rebound, Guarding Rectal: Positive for: Gross Blood, Melena Back: Positive for: Normal Inspection Upper Extremity: Positive for: Normal Inspection. Negative for: Cyanosis, Edema Lower Extremity: Positive for: Normal Inspection. Negative for: Edema Neurological: Positive for: GCS=15, CN II-XII Intact, Speech Normal Skin: Positive for: Warm, Dry, Normal Color. Negative for: Rashes Psychiatric: Positive for: Alert, Oriented x 3, Normal Insight, Normal Concentration - Medications Active Medications: Active Medications Generic Name Dose Route Start Last Admin Trade Name Freq PRN Reason Stop Dose Admin Albuterol/Ipratropium 3 ml 12/29/17 20:00 12/31/17 07:28 Duoneb 3 Mg/0.5 Mg (3 Ml) Ud IH 3 ml TIDRESP GRICELDA Administration Albuterol/Ipratropium 3 ml 12/31/17 01:25 12/31/17 01:30 Duoneb 3 Mg/0.5 Mg (3 Ml) Ud IH 3 ml Q2H PRN Administration Shortness of Breath Pantoprazole Sodium 40 mg in 100 mls @ 20 mls/hr 12/26/17 20:30 12/31/17 01: 44 Protonix 40mg Ivpb IVPB 20 mls/hr .Q5H GRICELDA Administration Midazolam 100 mg/100ml in NS 100 mg in 100 mls @ 1 mls/hr 12/27/17 18:41 12/13 09:00 Midazolam 100 Mg/100ml In Ns IV Infused .Q24H PRN Titration Agitation Protocol 1 MG/HR Propofol 1,000 mg in 100 mls @ 2.557 mls/hr 12/27/17 19:59 12/31/17 09:52 Diprivan IV 25 mcg/kg/min .Q24H PRN 12.785 mls/hr TITRATE PER MD ORDER Titration Protocol 5 MCG/KG/MIN Vancomycin HCl 1 gm in 250 mls @ 167 mls/hr 12/29/17 10:00 12/30/17 09:21 Vancomycin 1gm IVPB 167 mls/hr DAILY GRICELDA Administration Protocol Sodium Chloride 1,000 mls @ 75 mls/hr 12/29/17 07:45 12/29/17 12:40 Sodium Chloride 0.45% IV Not Given .[id number] GRICELDA Meropenem 500 mg/ Sodium 50 mls @ 100 mls/hr 12/29/17 22:00 12/31/17 09:22 Chloride IVPB 100 mls/hr Q12 GRICELDA Administration Protocol Acetaminophen 1,000 mg in 100 mls @ 400 mls/hr 12/30/17 18:56 12/31/17 00:13 Ofirmev IVPB 01/01/18 18:57 400 mls/hr Q6H PRN Administration Temperature Potassium Chloride 40 meq/ 1,020 mls @ 100 mls/hr 12/31/17 09:42 12/31/17 10: 03 Dextrose IV 100 mls/hr .[id number] GRICELDA Administration Ondansetron HCl 4 mg 12/26/17 21:15 Zofran Inj IVP Q4H PRN Nausea/Vomiting - Patient Studies Lab Studies: Microbiology Studies 12/29/17 08:45 Gram Stain - Final Trachasp Sputum Culture - Final Serratia Marcescens 12/29/17 06:05 Blood Culture - Preliminary Blood NO GROWTH AFTER 48 HOURS 12/29/17 05:30 Blood Culture - Preliminary Blood NO GROWTH AFTER 48 HOURS 12/29/17 08:45 Urine Culture - Final Urine,Cadet No Growth (<1,000 CFU/ML) Lab Studies 12/31/17 12/31/17 12/31/17 Range/Units 07:12 06:50 06:46 WBC 10.1 (4.5-11.0) 10^3/ul RBC 2.76 L (3.5-6.1) 10^6/uL Hgb 8.0 L (14.0-18.0) g/dL Hct 24.3 L (42.0-52.0) % MCV 88.0 (80.0-105.0) fl MCH 29.0 (25.0-35.0) pg MCHC 32.9 (31.0-37.0) g/dl RDW 16.4 H (11.5-14.5) % Plt Count 149 (120.0-450.0) 10^3/uL MPV 10.7 (7.0-11.0) fl Gran % 82.7 H (50.0-68.0) % Lymph % (Auto) 5.4 L (22.0-35.0) % [place] % (Auto) 11.3 H (1.0-6.0) % Eos % (Auto) 0.3 L (1.5-5.0) % Baso % (Auto) 0.3 (0.0-3.0) % Gran # 8.35 H (1.4-6.5) Lymph # (Auto) 0.5 L (1.2-3.4) [place] # (Auto) 1.1 H (0.1-0.6) Eos # (Auto) 0.0 (0.0-0.7) Baso # (Auto) 0.03 (0.0-2.0) K/mm3 pCO2 (35-45) mm/Hg pO2 (80-100) mm/Hg HCO3 (21-28) mmol/L ABG pH (7.35-7.45) ABG Total CO2 (22-28) mmol.L ABG O2 Saturation (95-98) % ABG O2 Content (15-23) ML/dl ABG Base Excess (-2.0-3.0) mmol/L ABG Hemoglobin (11.7-17.4) g/dL ABG Carboxyhemoglobin (0.5-1.5) % POC ABG HHb (Measured) (0-5) % ABG Methemoglobin (0.0-3.0) % ABG O2 Capacity (16-24) mL/dl Hgb O2 Saturation (95.0-98.0) % FiO2 % Sodium 153 H (132-148) mmol/L Potassium 3.5 L (3.6-5.0) mmol/L Chloride 120 H (98-107) mmol/L Carbon Dioxide 27 (21-33) mmol/L Anion Gap 9 L (10-20) BUN 52 H (7-21) mg/dL Creatinine 1.9 H (0.8-1.5) mg/dl Est GFR ( Amer) 42 Est GFR (Non-Af Amer) 35 Random Glucose 109 (70-110) mg/dL Serum Osmolality (272-300) mosm/kg Calcium 7.8 L (8.4-10.5) mg/dL Total Bilirubin 0.2 (0.2-1.3) mg/dL AST 8 L D (17-59) U/L ALT 17 (7-56) U/L Alkaline Phosphatase 49 (38-126) U/L Total Protein 4.7 L (5.8-8.3) g/dL Albumin 2.3 L (3.0-4.8) g/dL Globulin 2.4 gm/dL Albumin/Globulin Ratio 0.9 L (1.1-1.8) Urine Osmolality (300-1000) mosm/kg Vancomycin Trough 8.8 (5.0-10.0) ug/mL Blood Type Antibody Screen Crossmatch BBK History Checked 12/31/17 12/31/17 12/31/17 Range/Units 05:00 01:40 01:35 WBC (4.5-11.0) 10^3/ul RBC (3.5-6.1) 10^6/uL Hgb (14.0-18.0) g/dL Hct (42.0-52.0) % MCV (80.0-105.0) fl MCH (25.0-35.0) pg MCHC (31.0-37.0) g/dl RDW (11.5-14.5) % Plt Count (120.0-450.0) 10^3/uL MPV (7.0-11.0) fl Gran % (50.0-68.0) % Lymph % (Auto) (22.0-35.0) % [place] % (Auto) (1.0-6.0) % Eos % (Auto) (1.5-5.0) % Baso % (Auto) (0.0-3.0) % Gran # (1.4-6.5) Lymph # (Auto) (1.2-3.4) [place] # (Auto) (0.1-0.6) Eos # (Auto) (0.0-0.7) Baso # (Auto) (0.0-2.0) K/mm3 pCO2 43 (35-45) mm/Hg pO2 86.0 (80-100) mm/Hg HCO3 27.3 (21-28) mmol/L ABG pH 7.41 (7.35-7.45) ABG Total CO2 28.6 H (22-28) mmol.L ABG O2 Saturation 99.2 H (95-98) % ABG O2 Content 11.1 L (15-23) ML/dl ABG Base Excess 2.4 (-2.0-3.0) mmol/L ABG Hemoglobin 8.1 L (11.7-17.4) g/dL ABG Carboxyhemoglobin 2.1 H (0.5-1.5) % POC ABG HHb (Measured) 0.8 (0-5) % ABG Methemoglobin 0.8 (0.0-3.0) % ABG O2 Capacity 11.2 L (16-24) mL/dl Hgb O2 Saturation 96.2 (95.0-98.0) % FiO2 50.0 % Sodium (132-148) mmol/L Potassium (3.6-5.0) mmol/L Chloride (98-107) mmol/L Carbon Dioxide (21-33) mmol/L Anion Gap (10-20) BUN (7-21) mg/dL Creatinine (0.8-1.5) mg/dl Est GFR ( Amer) Est GFR (Non-Af Amer) Random Glucose (70-110) mg/dL Serum Osmolality 332 H (272-300) mosm/kg Calcium (8.4-10.5) mg/dL Total Bilirubin (0.2-1.3) mg/dL AST (17-59) U/L ALT (7-56) U/L Alkaline Phosphatase (38-126) U/L Total Protein (5.8-8.3) g/dL Albumin (3.0-4.8) g/dL Globulin gm/dL Albumin/Globulin Ratio (1.1-1.8) Urine Osmolality 538 (300-1000) mosm/kg Vancomycin Trough (5.0-10.0) ug/mL Blood Type Antibody Screen Crossmatch BBK History Checked 12/31/17 12/30/17 12/30/17 Range/Units 01:10 21:05 21:05 WBC 10.0 10.5 (4.5-11.0) 10^3/ul RBC 2.77 L 2.84 L (3.5-6.1) 10^6/uL Hgb 7.9 L 8.1 L (14.0-18.0) g/dL Hct 24.3 L 24.9 L (42.0-52.0) % MCV 87.7 87.7 (80.0-105.0) fl MCH 28.5 28.5 (25.0-35.0) pg MCHC 32.5 32.5 (31.0-37.0) g/dl RDW 16.1 H 16.0 H (11.5-14.5) % Plt Count 122 123 (120.0-450.0) 10^3/uL MPV 10.2 9.9 (7.0-11.0) fl Gran % (50.0-68.0) % Lymph % (Auto) (22.0-35.0) % [place] % (Auto) (1.0-6.0) % Eos % (Auto) (1.5-5.0) % Baso % (Auto) (0.0-3.0) % Gran # (1.4-6.5) Lymph # (Auto) (1.2-3.4) [place] # (Auto) (0.1-0.6) Eos # (Auto) (0.0-0.7) Baso # (Auto) (0.0-2.0) K/mm3 pCO2 (35-45) mm/Hg pO2 (80-100) mm/Hg HCO3 (21-28) mmol/L ABG pH (7.35-7.45) ABG Total CO2 (22-28) mmol.L ABG O2 Saturation (95-98) % ABG O2 Content (15-23) ML/dl ABG Base Excess (-2.0-3.0) mmol/L ABG Hemoglobin (11.7-17.4) g/dL ABG Carboxyhemoglobin (0.5-1.5) % POC ABG HHb (Measured) (0-5) % ABG Methemoglobin (0.0-3.0) % ABG O2 Capacity (16-24) mL/dl Hgb O2 Saturation (95.0-98.0) % FiO2 % Sodium 155 H (132-148) mmol/L Potassium 3.6 (3.6-5.0) mmol/L Chloride 120 H (98-107) mmol/L Carbon Dioxide 27 (21-33) mmol/L Anion Gap 11 (10-20) BUN 59 H (7-21) mg/dL Creatinine 2.0 H (0.8-1.5) mg/dl Est GFR ( Amer) 40 Est GFR (Non-Af Amer) 33 Random Glucose 110 (70-110) mg/dL Serum Osmolality (272-300) mosm/kg Calcium 7.9 L (8.4-10.5) mg/dL Total Bilirubin 0.3 (0.2-1.3) mg/dL AST 13 L (17-59) U/L ALT 21 (7-56) U/L Alkaline Phosphatase 47 (38-126) U/L Total Protein 4.8 L (5.8-8.3) g/dL Albumin 2.4 L (3.0-4.8) g/dL Globulin 2.4 gm/dL Albumin/Globulin Ratio 1.0 L (1.1-1.8) Urine Osmolality (300-1000) mosm/kg Vancomycin Trough (5.0-10.0) ug/mL Blood Type Antibody Screen Crossmatch BBK History Checked 12/30/17 Range/Units 10:15 WBC (4.5-11.0) 10^3/ul RBC (3.5-6.1) 10^6/uL Hgb (14.0-18.0) g/dL Hct (42.0-52.0) % MCV (80.0-105.0) fl MCH (25.0-35.0) pg MCHC (31.0-37.0) g/dl RDW (11.5-14.5) % Plt Count (120.0-450.0) 10^3/uL MPV (7.0-11.0) fl Gran % (50.0-68.0) % Lymph % (Auto) (22.0-35.0) % [place] % (Auto) (1.0-6.0) % Eos % (Auto) (1.5-5.0) % Baso % (Auto) (0.0-3.0) % Gran # (1.4-6.5) Lymph # (Auto) (1.2-3.4) [place] # (Auto) (0.1-0.6) Eos # (Auto) (0.0-0.7) Baso # (Auto) (0.0-2.0) K/mm3 pCO2 (35-45) mm/Hg pO2 (80-100) mm/Hg HCO3 (21-28) mmol/L ABG pH (7.35-7.45) ABG Total CO2 (22-28) mmol.L ABG O2 Saturation (95-98) % ABG O2 Content (15-23) ML/dl ABG Base Excess (-2.0-3.0) mmol/L ABG Hemoglobin (11.7-17.4) g/dL ABG Carboxyhemoglobin (0.5-1.5) % POC ABG HHb (Measured) (0-5) % ABG Methemoglobin (0.0-3.0) % ABG O2 Capacity (16-24) mL/dl Hgb O2 Saturation (95.0-98.0) % FiO2 % Sodium (132-148) mmol/L Potassium (3.6-5.0) mmol/L Chloride (98-107) mmol/L Carbon Dioxide (21-33) mmol/L Anion Gap (10-20) BUN (7-21) mg/dL Creatinine (0.8-1.5) mg/dl Est GFR ( Amer) Est GFR (Non-Af Amer) Random Glucose (70-110) mg/dL Serum Osmolality (272-300) mosm/kg Calcium (8.4-10.5) mg/dL Total Bilirubin (0.2-1.3) mg/dL AST (17-59) U/L ALT (7-56) U/L Alkaline Phosphatase (38-126) U/L Total Protein (5.8-8.3) g/dL Albumin (3.0-4.8) g/dL Globulin gm/dL Albumin/Globulin Ratio (1.1-1.8) Urine Osmolality (300-1000) mosm/kg Vancomycin Trough (5.0-10.0) ug/mL Blood Type O POSITIVE Antibody Screen Negative Crossmatch See Detail BBK History Checked Patient has bt Laboratory Results - last 24 hr 12/30/17 12/30/17 12/30/17 10:15 21:05 21:05 WBC 10.5 RBC 2.84 L Hgb 8.1 L Hct 24.9 L MCV 87.7 MCH 28.5 MCHC 32.5 RDW 16.0 H Plt Count 123 MPV 9.9 Gran % Lymph % (Auto) [place] % (Auto) Eos % (Auto) Baso % (Auto) Gran # Lymph # (Auto) [place] # (Auto) Eos # (Auto) Baso # (Auto) pCO2 pO2 HCO3 ABG pH ABG Total CO2 ABG O2 Saturation ABG O2 Content ABG Base Excess ABG Hemoglobin ABG Carboxyhemoglobin POC ABG HHb (Measured) ABG Methemoglobin ABG O2 Capacity Hgb O2 Saturation FiO2 Sodium 155 H Potassium 3.6 Chloride 120 H Carbon Dioxide 27 Anion Gap 11 BUN 59 H Creatinine 2.0 H Est GFR ( Amer) 40 Est GFR (Non-Af Amer) 33 Random Glucose 110 Serum Osmolality Calcium 7.9 L Total Bilirubin 0.3 AST 13 L ALT 21 Alkaline Phosphatase 47 Total Protein 4.8 L Albumin 2.4 L Globulin 2.4 Albumin/Globulin Ratio 1.0 L Urine Osmolality Vancomycin Trough Blood Type O POSITIVE Antibody Screen Negative Crossmatch See Detail BBK History Checked Patient has bt 12/31/17 12/31/17 12/31/17 01:10 01:35 01:40 WBC 10.0 RBC 2.77 L Hgb 7.9 L Hct 24.3 L MCV 87.7 MCH 28.5 MCHC 32.5 RDW 16.1 H Plt Count 122 MPV 10.2 Gran % Lymph % (Auto) [place] % (Auto) Eos % (Auto) Baso % (Auto) Gran # Lymph # (Auto) [place] # (Auto) Eos # (Auto) Baso # (Auto) pCO2 pO2 HCO3 ABG pH ABG Total CO2 ABG O2 Saturation ABG O2 Content ABG Base Excess ABG Hemoglobin ABG Carboxyhemoglobin POC ABG HHb (Measured) ABG Methemoglobin ABG O2 Capacity Hgb O2 Saturation FiO2 Sodium Potassium Chloride Carbon Dioxide Anion Gap BUN Creatinine Est GFR ( Amer) Est GFR (Non-Af Amer) Random Glucose Serum Osmolality 332 H Calcium Total Bilirubin AST ALT Alkaline Phosphatase Total Protein Albumin Globulin Albumin/Globulin Ratio Urine Osmolality 538 Vancomycin Trough Blood Type Antibody Screen Crossmatch BBK History Checked 12/31/17 12/31/17 12/31/17 05:00 06:46 06:50 WBC 10.1 RBC 2.76 L Hgb 8.0 L Hct 24.3 L MCV 88.0 MCH 29.0 MCHC 32.9 RDW 16.4 H Plt Count 149 MPV 10.7 Gran % 82.7 H Lymph % (Auto) 5.4 L [place] % (Auto) 11.3 H Eos % (Auto) 0.3 L Baso % (Auto) 0.3 Gran # 8.35 H Lymph # (Auto) 0.5 L [place] # (Auto) 1.1 H Eos # (Auto) 0.0 Baso # (Auto) 0.03 pCO2 43 pO2 86.0 HCO3 27.3 ABG pH 7.41 ABG Total CO2 28.6 H ABG O2 Saturation 99.2 H ABG O2 Content 11.1 L ABG Base Excess 2.4 ABG Hemoglobin 8.1 L ABG Carboxyhemoglobin 2.1 H POC ABG HHb (Measured) 0.8 ABG Methemoglobin 0.8 ABG O2 Capacity 11.2 L Hgb O2 Saturation 96.2 FiO2 50.0 Sodium Potassium Chloride Carbon Dioxide Anion Gap BUN Creatinine Est GFR ( Amer) Est GFR (Non-Af Amer) Random Glucose Serum Osmolality Calcium Total Bilirubin AST ALT Alkaline Phosphatase Total Protein Albumin Globulin Albumin/Globulin Ratio Urine Osmolality Vancomycin Trough 8.8 Blood Type Antibody Screen Crossmatch BBK History Checked 12/31/17 07:12 WBC RBC Hgb Hct MCV MCH MCHC RDW Plt Count MPV Gran % Lymph % (Auto) [place] % (Auto) Eos % (Auto) Baso % (Auto) Gran # Lymph # (Auto) [place] # (Auto) Eos # (Auto) Baso # (Auto) pCO2 pO2 HCO3 ABG pH ABG Total CO2 ABG O2 Saturation ABG O2 Content ABG Base Excess ABG Hemoglobin ABG Carboxyhemoglobin POC ABG HHb (Measured) ABG Methemoglobin ABG O2 Capacity Hgb O2 Saturation FiO2 Sodium 153 H Potassium 3.5 L Chloride 120 H Carbon Dioxide 27 Anion Gap 9 L BUN 52 H Creatinine 1.9 H Est GFR ( Amer) 42 Est GFR (Non-Af Amer) 35 Random Glucose 109 Serum Osmolality Calcium 7.8 L Total Bilirubin 0.2 AST 8 L D ALT 17 Alkaline Phosphatase 49 Total Protein 4.7 L Albumin 2.3 L Globulin 2.4 Albumin/Globulin Ratio 0.9 L Urine Osmolality Vancomycin Trough Blood Type Antibody Screen Crossmatch BBK History Checked Critical Care Progress Note - Nutrition Nutrition: Nutrition Category Date Time Status NPO Diet [DIET] Diets 12/26/17 Breakfast Ordered Assessment/Plan - Assessment and Plan (Free Text) Assessment: Pt is a 77 yo M with pertinent history of duodenitis, errosive gastritis, diverticulosis, left LE DVT on AC admitted for UGIB. Patient was intubated for endoscopy, which revealed blood in antrum. Bleeding scan revealed transverse colon bleed and patient was found to be hypotensive and tachycardic in the ED with a Hgb of 6.6, hct of 20.3, and an INR of 2.56. Patient was given >13 U of PRBC's and platelets up til the weekend. Patient's Hgb today, 12/31, is 8.0, s/ p 2U blood yesterday, and is stable with yesterday. In addition, patient has been getting hypoxemic. In light of patient's recent halt of anticoagulation, PE was on the differential, however, given recent multiple transfusions, this could also have been a picture of TRALI, and supporting this is that increasing the vent settings for FiO2 have been favorable. In any case, we could not heparinize patient 2/2 recent GIB and cannot obtain CTA Chest 2/2 EKTA. Patient's sats are doing better now, 12/31, thus PE is less likely. RE: EKTA, cannot give fluid 2/2 fluid overload caused by recent transfusions; the same holds for patient's hypernatremia, thus not giving 1/2 NS and cannot give free water 2/2 patient's intubation. Finally, patient spiked a fever two days ago of 101; differentials included infectious etiologies vs reaction to blood. Patient technically had two SIRS criteria (tachycardia, fever) as well as borderline SIRS WBC count (11.3). Septic workup revealed negative blood cultures; but Procal is 1.59 and sputum culture is growing S. Marcescens. Chronic medical problems: HTN, Squamous Cell CA of Lung Plan: Neuro: - Midazolam + Diprivan for sedation - Maintain normothermia CV: - Hx HTN: Hold Valsartan, pt hypo tensive to normotensive right now - Hx DVT: Hold anticoagulation 2/2 GIB - Hx AAA s/p Repair: Hold Verapamil 2/2 blood pressure - Hold Lasix for now, patient on Dextrose; hold 1/2 NS - Maintain MAP > 65 Pulm: - CXR, ABG for tomorrow - Maintain O2 > 90% - Keep intubated for now for patient's procedure with Dr. Ibrahim GI: - Acute GI Bleed s/p Gastric Artery Embolization: Protonix gtt; Zofran PRN; H/H q12h; CBC ordered q12 - GI consulted: will do EGD today - Surgery consulted Renal: - EKTA 2/2 GIB - Hold Nephrotoxic drugs; D5; Nephro Consult: Dr. Mughni - Hypernatremia: D5 - Monitor electrolytes and replete as needed - Maintain euvolemia Heme: - Monitor H/H q12H - Hold AC due to GI bleed Endo: - Maintain euglycemia ID: - Sepsis, likely 2/2 URI/LRI - On Vanc/Merrem - in light of new CX, ABx per ID; Patient on low dose fluids in light of respiratory status and EKTA Prophylaxis: Protonix gtt, SCD Consults: Surgery, GI, ID, Nephro Drips: Protonix gtt, Propofol gtt Diet: NPO/intubated <Harpreet Greenwood - Last Filed: 12/31/17 14:57> CCU Objective - Vital Signs / Intake & Output Vital Signs (Last 4 hours): Vital Signs Temp 12/31/17 12:00 99 F Intake and Output (Last 8hrs): Intake & Output 12/30/17 12/31/17 12/31/17 22:59 06:59 14:59 Intake Total 1927 2244 85 Output Total 850 700 Balance 1077 1544 85 Intake: IV 1582 2244 85 D5W 500 1400 Right Forearm 350 abx 100 ofirmev 100 potassium 200 propofol 180 protonix 240 240 versed 24 Oral 0 Blood Product 325 Red Blood Cells Cpd As1 325 Lr Unit [id number] Other 20 Red Blood Cells Cpd As1 20 Lr Unit [id number] Output: Urine 850 700 Urethral (Cadet) 850 700 Other: # Bowel Movements 0 - Medications Active Medications: Active Medications Generic Name Dose Route Start Last Admin Trade Name Freq PRN Reason Stop Dose Admin Albuterol/Ipratropium 3 ml 12/29/17 20:00 12/31/17 13:29 Duoneb 3 Mg/0.5 Mg (3 Ml) Ud IH 3 ml TIDRESP GRICELDA Administration Albuterol/Ipratropium 3 ml 12/31/17 01:25 12/31/17 01:30 Duoneb 3 Mg/0.5 Mg (3 Ml) Ud IH 3 ml Q2H PRN Administration Shortness of Breath Pantoprazole Sodium 40 mg in 100 mls @ 20 mls/hr 12/26/17 20:30 12/31/17 10: 45 Protonix 40mg Ivpb IVPB 20 mls/hr .Q5H GRICELDA Administration Midazolam 100 mg/100ml in NS 100 mg in 100 mls @ 1 mls/hr 12/27/17 18:41 12/13 09:45 Midazolam 100 Mg/100ml In Ns IV 2 mg/hr .Q24H PRN 2 mls/hr Agitation Titration Protocol 1 MG/HR Propofol 1,000 mg in 100 mls @ 2.557 mls/hr 12/27/17 19:59 12/31/17 13:59 Diprivan IV 40 mcg/kg/min .Q24H PRN 20.455 mls/hr TITRATE PER MD ORDER Titration Protocol 5 MCG/KG/MIN Vancomycin HCl 1 gm in 250 mls @ 167 mls/hr 12/29/17 10:00 12/30/17 09:21 Vancomycin 1gm IVPB 167 mls/hr DAILY GRICELDA Administration Protocol Sodium Chloride 1,000 mls @ 75 mls/hr 12/29/17 07:45 12/29/17 12:40 Sodium Chloride 0.45% IV Not Given .[id number] GRICELDA Meropenem 500 mg/ Sodium 50 mls @ 100 mls/hr 12/29/17 22:00 12/31/17 09:22 Chloride IVPB 100 mls/hr Q12 GRICELDA Administration Protocol Acetaminophen 1,000 mg in 100 mls @ 400 mls/hr 12/30/17 18:56 12/31/17 00:13 Ofirmev IVPB 01/01/18 18:57 400 mls/hr Q6H PRN Administration Temperature Potassium Chloride 40 meq/ 1,020 mls @ 100 mls/hr 12/31/17 09:42 12/31/17 10: 03 Dextrose IV 100 mls/hr .[id number] GRICELDA Administration Ondansetron HCl 4 mg 12/26/17 21:15 Zofran Inj IVP Q4H PRN Nausea/Vomiting - Patient Studies Lab Studies: Microbiology Studies 12/29/17 08:45 Gram Stain - Final Trachasp Sputum Culture - Final Serratia Marcescens 12/29/17 06:05 Blood Culture - Preliminary Blood NO GROWTH AFTER 48 HOURS 12/29/17 05:30 Blood Culture - Preliminary Blood NO GROWTH AFTER 48 HOURS 12/29/17 08:45 Urine Culture - Final Urine,Cadet No Growth (<1,000 CFU/ML) Lab Studies 12/31/17 12/31/17 12/31/17 Range/Units 07:12 06:50 06:46 WBC 10.1 (4.5-11.0) 10^3/ul RBC 2.76 L (3.5-6.1) 10^6/uL Hgb 8.0 L (14.0-18.0) g/dL Hct 24.3 L (42.0-52.0) % MCV 88.0 (80.0-105.0) fl MCH 29.0 (25.0-35.0) pg MCHC 32.9 (31.0-37.0) g/dl RDW 16.4 H (11.5-14.5) % Plt Count 149 (120.0-450.0) 10^3/uL MPV 10.7 (7.0-11.0) fl Gran % 82.7 H (50.0-68.0) % Lymph % (Auto) 5.4 L (22.0-35.0) % [place] % (Auto) 11.3 H (1.0-6.0) % Eos % (Auto) 0.3 L (1.5-5.0) % Baso % (Auto) 0.3 (0.0-3.0) % Gran # 8.35 H (1.4-6.5) Lymph # (Auto) 0.5 L (1.2-3.4) [place] # (Auto) 1.1 H (0.1-0.6) Eos # (Auto) 0.0 (0.0-0.7) Baso # (Auto) 0.03 (0.0-2.0) K/mm3 pCO2 (35-45) mm/Hg pO2 (80-100) mm/Hg HCO3 (21-28) mmol/L ABG pH (7.35-7.45) ABG Total CO2 (22-28) mmol.L ABG O2 Saturation (95-98) % ABG O2 Content (15-23) ML/dl ABG Base Excess (-2.0-3.0) mmol/L ABG Hemoglobin (11.7-17.4) g/dL ABG Carboxyhemoglobin (0.5-1.5) % POC ABG HHb (Measured) (0-5) % ABG Methemoglobin (0.0-3.0) % ABG O2 Capacity (16-24) mL/dl Hgb O2 Saturation (95.0-98.0) % FiO2 % Sodium 153 H (132-148) mmol/L Potassium 3.5 L (3.6-5.0) mmol/L Chloride 120 H (98-107) mmol/L Carbon Dioxide 27 (21-33) mmol/L Anion Gap 9 L (10-20) BUN 52 H (7-21) mg/dL Creatinine 1.9 H (0.8-1.5) mg/dl Est GFR ( Amer) 42 Est GFR (Non-Af Amer) 35 Random Glucose 109 (70-110) mg/dL Serum Osmolality (272-300) mosm/kg Calcium 7.8 L (8.4-10.5) mg/dL Total Bilirubin 0.2 (0.2-1.3) mg/dL AST 8 L D (17-59) U/L ALT 17 (7-56) U/L Alkaline Phosphatase 49 (38-126) U/L Total Protein 4.7 L (5.8-8.3) g/dL Albumin 2.3 L (3.0-4.8) g/dL Globulin 2.4 gm/dL Albumin/Globulin Ratio 0.9 L (1.1-1.8) Urine Osmolality (300-1000) mosm/kg Vancomycin Trough 8.8 (5.0-10.0) ug/mL Blood Type Antibody Screen Crossmatch BBK History Checked 12/31/17 12/31/17 12/31/17 Range/Units 05:00 01:40 01:35 WBC (4.5-11.0) 10^3/ul RBC (3.5-6.1) 10^6/uL Hgb (14.0-18.0) g/dL Hct (42.0-52.0) % MCV (80.0-105.0) fl MCH (25.0-35.0) pg MCHC (31.0-37.0) g/dl RDW (11.5-14.5) % Plt Count (120.0-450.0) 10^3/uL MPV (7.0-11.0) fl Gran % (50.0-68.0) % Lymph % (Auto) (22.0-35.0) % [place] % (Auto) (1.0-6.0) % Eos % (Auto) (1.5-5.0) % Baso % (Auto) (0.0-3.0) % Gran # (1.4-6.5) Lymph # (Auto) (1.2-3.4) [place] # (Auto) (0.1-0.6) Eos # (Auto) (0.0-0.7) Baso # (Auto) (0.0-2.0) K/mm3 pCO2 43 (35-45) mm/Hg pO2 86.0 (80-100) mm/Hg HCO3 27.3 (21-28) mmol/L ABG pH 7.41 (7.35-7.45) ABG Total CO2 28.6 H (22-28) mmol.L ABG O2 Saturation 99.2 H (95-98) % ABG O2 Content 11.1 L (15-23) ML/dl ABG Base Excess 2.4 (-2.0-3.0) mmol/L ABG Hemoglobin 8.1 L (11.7-17.4) g/dL ABG Carboxyhemoglobin 2.1 H (0.5-1.5) % POC ABG HHb (Measured) 0.8 (0-5) % ABG Methemoglobin 0.8 (0.0-3.0) % ABG O2 Capacity 11.2 L (16-24) mL/dl Hgb O2 Saturation 96.2 (95.0-98.0) % FiO2 50.0 % Sodium (132-148) mmol/L Potassium (3.6-5.0) mmol/L Chloride (98-107) mmol/L Carbon Dioxide (21-33) mmol/L Anion Gap (10-20) BUN (7-21) mg/dL Creatinine (0.8-1.5) mg/dl Est GFR ( Amer) Est GFR (Non-Af Amer) Random Glucose (70-110) mg/dL Serum Osmolality 332 H (272-300) mosm/kg Calcium (8.4-10.5) mg/dL Total Bilirubin (0.2-1.3) mg/dL AST (17-59) U/L ALT (7-56) U/L Alkaline Phosphatase (38-126) U/L Total Protein (5.8-8.3) g/dL Albumin (3.0-4.8) g/dL Globulin gm/dL Albumin/Globulin Ratio (1.1-1.8) Urine Osmolality 538 (300-1000) mosm/kg Vancomycin Trough (5.0-10.0) ug/mL Blood Type Antibody Screen Crossmatch BBK History Checked 12/31/17 12/30/17 12/30/17 Range/Units 01:10 21:05 21:05 WBC 10.0 10.5 (4.5-11.0) 10^3/ul RBC 2.77 L 2.84 L (3.5-6.1) 10^6/uL Hgb 7.9 L 8.1 L (14.0-18.0) g/dL Hct 24.3 L 24.9 L (42.0-52.0) % MCV 87.7 87.7 (80.0-105.0) fl MCH 28.5 28.5 (25.0-35.0) pg MCHC 32.5 32.5 (31.0-37.0) g/dl RDW 16.1 H 16.0 H (11.5-14.5) % Plt Count 122 123 (120.0-450.0) 10^3/uL MPV 10.2 9.9 (7.0-11.0) fl Gran % (50.0-68.0) % Lymph % (Auto) (22.0-35.0) % [place] % (Auto) (1.0-6.0) % Eos % (Auto) (1.5-5.0) % Baso % (Auto) (0.0-3.0) % Gran # (1.4-6.5) Lymph # (Auto) (1.2-3.4) [place] # (Auto) (0.1-0.6) Eos # (Auto) (0.0-0.7) Baso # (Auto) (0.0-2.0) K/mm3 pCO2 (35-45) mm/Hg pO2 (80-100) mm/Hg HCO3 (21-28) mmol/L ABG pH (7.35-7.45) ABG Total CO2 (22-28) mmol.L ABG O2 Saturation (95-98) % ABG O2 Content (15-23) ML/dl ABG Base Excess (-2.0-3.0) mmol/L ABG Hemoglobin (11.7-17.4) g/dL ABG Carboxyhemoglobin (0.5-1.5) % POC ABG HHb (Measured) (0-5) % ABG Methemoglobin (0.0-3.0) % ABG O2 Capacity (16-24) mL/dl Hgb O2 Saturation (95.0-98.0) % FiO2 % Sodium 155 H (132-148) mmol/L Potassium 3.6 (3.6-5.0) mmol/L Chloride 120 H (98-107) mmol/L Carbon Dioxide 27 (21-33) mmol/L Anion Gap 11 (10-20) BUN 59 H (7-21) mg/dL Creatinine 2.0 H (0.8-1.5) mg/dl Est GFR ( Amer) 40 Est GFR (Non-Af Amer) 33 Random Glucose 110 (70-110) mg/dL Serum Osmolality (272-300) mosm/kg Calcium 7.9 L (8.4-10.5) mg/dL Total Bilirubin 0.3 (0.2-1.3) mg/dL AST 13 L (17-59) U/L ALT 21 (7-56) U/L Alkaline Phosphatase 47 (38-126) U/L Total Protein 4.8 L (5.8-8.3) g/dL Albumin 2.4 L (3.0-4.8) g/dL Globulin 2.4 gm/dL Albumin/Globulin Ratio 1.0 L (1.1-1.8) Urine Osmolality (300-1000) mosm/kg Vancomycin Trough (5.0-10.0) ug/mL Blood Type Antibody Screen Crossmatch BBK History Checked 12/30/17 Range/Units 10:15 WBC (4.5-11.0) 10^3/ul RBC (3.5-6.1) 10^6/uL Hgb (14.0-18.0) g/dL Hct (42.0-52.0) % MCV (80.0-105.0) fl MCH (25.0-35.0) pg MCHC (31.0-37.0) g/dl RDW (11.5-14.5) % Plt Count (120.0-450.0) 10^3/uL MPV (7.0-11.0) fl Gran % (50.0-68.0) % Lymph % (Auto) (22.0-35.0) % [place] % (Auto) (1.0-6.0) % Eos % (Auto) (1.5-5.0) % Baso % (Auto) (0.0-3.0) % Gran # (1.4-6.5) Lymph # (Auto) (1.2-3.4) [place] # (Auto) (0.1-0.6) Eos # (Auto) (0.0-0.7) Baso # (Auto) (0.0-2.0) K/mm3 pCO2 (35-45) mm/Hg pO2 (80-100) mm/Hg HCO3 (21-28) mmol/L ABG pH (7.35-7.45) ABG Total CO2 (22-28) mmol.L ABG O2 Saturation (95-98) % ABG O2 Content (15-23) ML/dl ABG Base Excess (-2.0-3.0) mmol/L ABG Hemoglobin (11.7-17.4) g/dL ABG Carboxyhemoglobin (0.5-1.5) % POC ABG HHb (Measured) (0-5) % ABG Methemoglobin (0.0-3.0) % ABG O2 Capacity (16-24) mL/dl Hgb O2 Saturation (95.0-98.0) % FiO2 % Sodium (132-148) mmol/L Potassium (3.6-5.0) mmol/L Chloride (98-107) mmol/L Carbon Dioxide (21-33) mmol/L Anion Gap (10-20) BUN (7-21) mg/dL Creatinine (0.8-1.5) mg/dl Est GFR ( Amer) Est GFR (Non-Af Amer) Random Glucose (70-110) mg/dL Serum Osmolality (272-300) mosm/kg Calcium (8.4-10.5) mg/dL Total Bilirubin (0.2-1.3) mg/dL AST (17-59) U/L ALT (7-56) U/L Alkaline Phosphatase (38-126) U/L Total Protein (5.8-8.3) g/dL Albumin (3.0-4.8) g/dL Globulin gm/dL Albumin/Globulin Ratio (1.1-1.8) Urine Osmolality (300-1000) mosm/kg Vancomycin Trough (5.0-10.0) ug/mL Blood Type O POSITIVE Antibody Screen Negative Crossmatch See Detail BBK History Checked Patient has bt Laboratory Results - last 24 hr 12/30/17 12/30/17 12/30/17 10:15 21:05 21:05 WBC 10.5 RBC 2.84 L Hgb 8.1 L Hct 24.9 L MCV 87.7 MCH 28.5 MCHC 32.5 RDW 16.0 H Plt Count 123 MPV 9.9 Gran % Lymph % (Auto) [place] % (Auto) Eos % (Auto) Baso % (Auto) Gran # Lymph # (Auto) [place] # (Auto) Eos # (Auto) Baso # (Auto) pCO2 pO2 HCO3 ABG pH ABG Total CO2 ABG O2 Saturation ABG O2 Content ABG Base Excess ABG Hemoglobin ABG Carboxyhemoglobin POC ABG HHb (Measured) ABG Methemoglobin ABG O2 Capacity Hgb O2 Saturation FiO2 Sodium 155 H Potassium 3.6 Chloride 120 H Carbon Dioxide 27 Anion Gap 11 BUN 59 H Creatinine 2.0 H Est GFR ( Amer) 40 Est GFR (Non-Af Amer) 33 Random Glucose 110 Serum Osmolality Calcium 7.9 L Total Bilirubin 0.3 AST 13 L ALT 21 Alkaline Phosphatase 47 Total Protein 4.8 L Albumin 2.4 L Globulin 2.4 Albumin/Globulin Ratio 1.0 L Urine Osmolality Vancomycin Trough Blood Type O POSITIVE Antibody Screen Negative Crossmatch See Detail BBK History Checked Patient has bt 12/31/17 12/31/17 12/31/17 01:10 01:35 01:40 WBC 10.0 RBC 2.77 L Hgb 7.9 L Hct 24.3 L MCV 87.7 MCH 28.5 MCHC 32.5 RDW 16.1 H Plt Count 122 MPV 10.2 Gran % Lymph % (Auto) [place] % (Auto) Eos % (Auto) Baso % (Auto) Gran # Lymph # (Auto) [place] # (Auto) Eos # (Auto) Baso # (Auto) pCO2 pO2 HCO3 ABG pH ABG Total CO2 ABG O2 Saturation ABG O2 Content ABG Base Excess ABG Hemoglobin ABG Carboxyhemoglobin POC ABG HHb (Measured) ABG Methemoglobin ABG O2 Capacity Hgb O2 Saturation FiO2 Sodium Potassium Chloride Carbon Dioxide Anion Gap BUN Creatinine Est GFR ( Amer) Est GFR (Non-Af Amer) Random Glucose Serum Osmolality 332 H Calcium Total Bilirubin AST ALT Alkaline Phosphatase Total Protein Albumin Globulin Albumin/Globulin Ratio Urine Osmolality 538 Vancomycin Trough Blood Type Antibody Screen Crossmatch BBK History Checked 12/31/17 12/31/17 12/31/17 05:00 06:46 06:50 WBC 10.1 RBC 2.76 L Hgb 8.0 L Hct 24.3 L MCV 88.0 MCH 29.0 MCHC 32.9 RDW 16.4 H Plt Count 149 MPV 10.7 Gran % 82.7 H Lymph % (Auto) 5.4 L [place] % (Auto) 11.3 H Eos % (Auto) 0.3 L Baso % (Auto) 0.3 Gran # 8.35 H Lymph # (Auto) 0.5 L [place] # (Auto) 1.1 H Eos # (Auto) 0.0 Baso # (Auto) 0.03 pCO2 43 pO2 86.0 HCO3 27.3 ABG pH 7.41 ABG Total CO2 28.6 H ABG O2 Saturation 99.2 H ABG O2 Content 11.1 L ABG Base Excess 2.4 ABG Hemoglobin 8.1 L ABG Carboxyhemoglobin 2.1 H POC ABG HHb (Measured) 0.8 ABG Methemoglobin 0.8 ABG O2 Capacity 11.2 L Hgb O2 Saturation 96.2 FiO2 50.0 Sodium Potassium Chloride Carbon Dioxide Anion Gap BUN Creatinine Est GFR ( Amer) Est GFR (Non-Af Amer) Random Glucose Serum Osmolality Calcium Total Bilirubin AST ALT Alkaline Phosphatase Total Protein Albumin Globulin Albumin/Globulin Ratio Urine Osmolality Vancomycin Trough 8.8 Blood Type Antibody Screen Crossmatch BBK History Checked 12/31/17 07:12 WBC RBC Hgb Hct MCV MCH MCHC RDW Plt Count MPV Gran % Lymph % (Auto) [place] % (Auto) Eos % (Auto) Baso % (Auto) Gran # Lymph # (Auto) [place] # (Auto) Eos # (Auto) Baso # (Auto) pCO2 pO2 HCO3 ABG pH ABG Total CO2 ABG O2 Saturation ABG O2 Content ABG Base Excess ABG Hemoglobin ABG Carboxyhemoglobin POC ABG HHb (Measured) ABG Methemoglobin ABG O2 Capacity Hgb O2 Saturation FiO2 Sodium 153 H Potassium 3.5 L Chloride 120 H Carbon Dioxide 27 Anion Gap 9 L BUN 52 H Creatinine 1.9 H Est GFR ( Amer) 42 Est GFR (Non-Af Amer) 35 Random Glucose 109 Serum Osmolality Calcium 7.8 L Total Bilirubin 0.2 AST 8 L D ALT 17 Alkaline Phosphatase 49 Total Protein 4.7 L Albumin 2.3 L Globulin 2.4 Albumin/Globulin Ratio 0.9 L Urine Osmolality Vancomycin Trough Blood Type Antibody Screen Crossmatch BBK History Checked Critical Care Progress Note - Nutrition Nutrition: Nutrition Category Date Time Status NPO Diet [DIET] Diets 12/26/17 Breakfast Ordered Assessment/Plan - Assessment and Plan (Free Text) Assessment: Patient seen and examined on rounds with resident, agree with note with following additions/exceptions: Patient is 77yo male with PMhx duodenitis, errosive gastritis, diverticulosis, left LE DVT on AC presented to [facility] due to melena and hematochezia. Pt had cortis put in for hemorrhagic shock, s/p 15u PRBC transfusion. Currently afebrile, HD stable, off vasopressor support, intubated on FiO2 40%. GI and Srrgery and following. Plan for EGD/Conoloscopy as per GI. EGD today, colonoscopy tomorrow. HH stable Patient tolerated CPAP trial today, keep intubated for EGD, then possible extubation GIB Anemia Melena Hemorrhagic Shock, resolved Pulm Edema, r/o TACO, r/o TRALI Hypernatremia Recommend: - cont with vent support, low tidal vol ventilation, daily sedation vacation - follow up cultures, Abx as per ID - HOLD BP meds - HOLD A/C - PPI drip - follow up GI - HH Q6hr - FS control - follow up Surgery - D5W @ 100cc/hr - follow up renal - GI ppx - DVT ppx, SCDs - Monitor in ICU critical care time 40 minutes
--- NOTE | 2017-12-31 11:04 | CP.PCM.PN ---
<Gisel Valera - Last Filed: 12/31/17 11:36> Subjective - Date & Time of Evaluation Date of Evaluation: 12/31/17 Time of Evaluation: 08:00 - Subjective Subjective: GI Progress Note for Miky Ruiz PGY2 Patient seen and examined at bedside. There were no acute overnight events as per nursing staff. Patient is s/p 2U PRBC. He is intubated and sedation was weaned down at the time of interview. Patient is awake, but not alert. ROS could not be obtained. Objective - Vital Signs/Intake and Output Vital Signs (last 24 hours): Temp Pulse Resp BP Pulse Ox 98.4 F 73 21 115/68 98 12/31/17 07:00 12/31/17 07:00 12/31/17 10:32 12/31/17 07:00 12/31/17 10:32 Intake and Output: 12/31/17 12/31/17 06:59 18:59 Intake Total 2344 59 Output Total 700 Balance 1644 59 - Medications Medications: Current Medications Albuterol/Ipratropium (Duoneb 3 Mg/0.5 Mg (3 Ml) Ud) 3 ml IH TIDRESP GRICELDA Last Admin: 12/31/17 07:28 Dose: 3 ml Albuterol/Ipratropium (Duoneb 3 Mg/0.5 Mg (3 Ml) Ud) 3 ml IH Q2H PRN PRN Reason: Shortness of Breath Last Admin: 12/31/17 01:30 Dose: 3 ml Pantoprazole Sodium (Protonix 40mg Ivpb) 40 mg in 100 mls @ 20 mls/hr IVPB .Q5H GRICELDA Last Admin: 12/31/17 10:45 Dose: 20 mls/hr Midazolam 100 mg/100ml in NS (Midazolam 100 Mg/100ml In Ns) 100 mg in 100 mls @ 1 mls/hr IV .Q24H PRN; Protocol; 1 MG/HR PRN Reason: Agitation Last Titration: 12/31/17 09:00 Dose: Infused Propofol (Diprivan) 1,000 mg in 100 mls @ 2.557 mls/hr IV .Q24H PRN; Protocol; 5 MCG/KG/MIN PRN Reason: TITRATE PER MD ORDER Last Titration: 12/31/17 10:45 Dose: 30 mcg/kg/min, 15.341 mls/hr Vancomycin HCl (Vancomycin 1gm) 1 gm in 250 mls @ 167 mls/hr IVPB DAILY GRICELDA PRN Reason: Protocol Last Admin: 12/30/17 09:21 Dose: 167 mls/hr Sodium Chloride (Sodium Chloride 0.45%) 1,000 mls @ 75 mls/hr IV .[id number] [facility] Last Admin: 12/29/17 12:40 Dose: Not Given Meropenem 500 mg/ Sodium (Chloride) 50 mls @ 100 mls/hr IVPB Q12 GRICELDA PRN Reason: Protocol Last Admin: 12/31/17 09:22 Dose: 100 mls/hr Acetaminophen (Ofirmev) 1,000 mg in 100 mls @ 400 mls/hr IVPB Q6H PRN PRN Reason: Temperature Stop: 01/01/18 18:57 Last Admin: 12/31/17 00:13 Dose: 400 mls/hr Potassium Chloride 40 meq/ (Dextrose) 1,020 mls @ 100 mls/hr IV .[id number] [facility] Last Admin: 12/31/17 10:03 Dose: 100 mls/hr Ondansetron HCl (Zofran Inj) 4 mg IVP Q4H PRN PRN Reason: Nausea/Vomiting - Labs Labs: 12/31/17 06:46 12/31/17 07:12 PT 12.0 SECONDS (9.4-12.5) 12/29/17 06:30 INR 1.04 (0.93-1.08) 12/29/17 06:30 APTT 23.8 Seconds (25.1-36.5) L 12/29/17 06:30 - Constitutional Appears: Chronically Ill - Head Exam Head Exam: ATRAUMATIC, NORMAL INSPECTION, NORMOCEPHALIC - Eye Exam Eye Exam: Normal appearance, PERRL - ENT Exam ENT Exam: Mucous Membranes Moist - Respiratory Exam Respiratory Exam: Rhonchi, NORMAL BREATHING PATTERN. absent: Rales, Wheezes - Cardiovascular Exam Cardiovascular Exam: REGULAR RHYTHM, +S1, +S2. absent: Gallop, Rubs, Murmur - GI/Abdominal Exam GI & Abdominal Exam: Soft, Tenderness (mild epigastric ), Normal Bowel Sounds. absent: Rigid, Mass, Rebound - Extremities Exam Extremities Exam: Pedal Edema - Neurological Exam Neurological Exam: Awake. absent: Alert - Skin Skin Exam: Dry, Warm Assessment and Plan - Assessment and Plan (Free Text) Assessment: This is a 77yo AA male with past medical history of lung ca, DVT and EKTA who was admitted for 1. Massive GI bleed was on Xeralto s/p Kcentra and had multiple transfusions ( 15U PRBC, 8U FFP, 4U platelets) - EGD showed clotted blood in gastric antrum. Gastric embolization done by IR - Bleeding scan positive in transverse colon which can be from transit 2. Sepsis - secondary to pneumonia v. pulmonary edema 3. Hypernatremia Plan: Hgb increased from 6.8 to 8.0 after 2U PRBC. No melena overnight. Recommend for patient to remain intubated for bedside EGD today. Recommend to place NG tube after EGD and prep patient for colonoscopy tomorrow. Continue to monitor H/H. ID is consulted for sepsis. Patient is on IV antibiotics. Continue Protonix drip and keep patient NPO. Case seen, discussed and reviewed with Dr. Ibrahim. Miky Valera PGY2 <Jarred Ibrahim V - Last Filed: 12/31/17 22:32> Objective - Vital Signs/Intake and Output Vital Signs (last 24 hours): Temp Pulse Resp BP Pulse Ox 98.8 F 65 21 102/64 92 L 12/31/17 19:30 12/31/17 19:30 12/31/17 10:32 12/31/17 19:30 12/31/17 19:30 Intake and Output: 12/31/17 01/01/18 18:59 06:59 Intake Total 2356 100 Output Total 700 Balance 1656 100 - Medications Medications: Current Medications Albuterol/Ipratropium (Duoneb 3 Mg/0.5 Mg (3 Ml) Ud) 3 ml IH TIDRESP GRICELDA Last Admin: 12/31/17 20:50 Dose: 3 ml Albuterol/Ipratropium (Duoneb 3 Mg/0.5 Mg (3 Ml) Ud) 3 ml IH Q2H PRN PRN Reason: Shortness of Breath Last Admin: 12/31/17 01:30 Dose: 3 ml Pantoprazole Sodium (Protonix 40mg Ivpb) 40 mg in 100 mls @ 20 mls/hr IVPB .Q5H GRICELDA Last Admin: 12/31/17 21:04 Dose: 20 mls/hr Midazolam 100 mg/100ml in NS (Midazolam 100 Mg/100ml In Ns) 100 mg in 100 mls @ 1 mls/hr IV .Q24H PRN; Protocol; 1 MG/HR PRN Reason: Agitation Last Titration: 12/31/17 09:45 Dose: 2 mg/hr, 2 mls/hr Propofol (Diprivan) 1,000 mg in 100 mls @ 2.557 mls/hr IV .Q24H PRN; Protocol; 5 MCG/KG/MIN PRN Reason: TITRATE PER MD ORDER Last Admin: 12/31/17 20:47 Dose: 45 mcg/kg/min, 23.012 mls/hr Vancomycin HCl (Vancomycin 1gm) 1 gm in 250 mls @ 167 mls/hr IVPB DAILY GRICELDA PRN Reason: Protocol Last Admin: 12/30/17 09:21 Dose: 167 mls/hr Sodium Chloride (Sodium Chloride 0.45%) 1,000 mls @ 75 mls/hr IV .[id number] [facility] Last Admin: 12/29/17 12:40 Dose: Not Given Meropenem 500 mg/ Sodium (Chloride) 50 mls @ 100 mls/hr IVPB Q12 GRICELDA PRN Reason: Protocol Last Admin: 12/31/17 21:05 Dose: 100 mls/hr Acetaminophen (Ofirmev) 1,000 mg in 100 mls @ 400 mls/hr IVPB Q6H PRN PRN Reason: Temperature Stop: 01/01/18 18:57 Last Admin: 12/31/17 00:13 Dose: 400 mls/hr Potassium Chloride 40 meq/ (Dextrose) 1,020 mls @ 100 mls/hr IV .[id number] [facility] Last Admin: 12/31/17 20:56 Dose: 100 mls/hr Ondansetron HCl (Zofran Inj) 4 mg IVP Q4H PRN PRN Reason: Nausea/Vomiting - Labs Labs: 12/31/17 18:45 12/31/17 18:45 PT 12.0 SECONDS (9.4-12.5) 12/29/17 06:30 INR 1.04 (0.93-1.08) 12/29/17 06:30 APTT 23.8 Seconds (25.1-36.5) L 12/29/17 06:30 Attending/Attestation - Attestation I have personally seen and examined this patient.: Yes I have fully participated in the care of the patient.: Yes I have reviewed all pertinent clinical information, including history, physical exam and plan: Yes Notes (Text): This is an addendum to GI progress report dictated by the Tone Regulator.The patient was seen and examined earlier. Medical records, lab studies, imagings were reviewed. Last 24 hours events reviewed. Agreed with the above treatment plan as outlined in Tone Regulator 's notes the with the addition of the following this patient underwent upper GI endoscopy today Multiple ulcers noticed in the fundus and body area covered by clot of blood. The clots were firmly adherent Continue high-dose PPI Would schedule the patient for colonoscopy tomorrow Discussed with business continuity analyst) and also surgical team 12/31/17 22:29
[2017-12-31] MEDS ORDERED: Peg-Electrolyte Oral Soln 4L (Golytely) PO ONE (15:48)
--- NOTE | 2017-12-31 15:54 | PN ---
DATE: 12/31/2017 SUBJECTIVE: Yannick Aleman is seen on rounds. I reviewed the patient with the resident, agree with her note. PHYSICAL EXAMINATION: Pretty much unchanged. He is more awake today. Afebrile. Had several bowel movements with some pain in . LABORATORY DATA: Hemoglobin is 8. The number is stable, but has received a total of 15 units of packed cells, 8 of FFP, 4 platelets, 2 recently. ASSESSMENT AND PLAN: So, he is still bleeding. Patient had an clot of the left gastric which stopped the bleeding and certainly corresponded to the gastric bleed. GI is now entertaining repeat endoscopy to look at the stomach and probably clip it if it is still bleeding. I would entertain a colonoscopy. The only reason I say this is that the bleeding scan done prior to the intervention clearly showed what looked like a colon source of bleeding. This does not appear to be stomach. We will discuss with Dr. Ibrahim, but I think this is procedure because there is a chance that there are two lesions in a 77-year-old man. Harrison Lopez MD
--- NOTE | 2017-12-31 17:46 | RAD ---
HISTORY: OGT insertion COMPARISON: December 31, 2017. FINDINGS: LUNGS: No active pulmonary disease. PLEURA: No significant pleural effusion identified, no pneumothorax apparent. CARDIOVASCULAR: Stable cardiomegaly, pulmonary vascular congestion. OSSEOUS STRUCTURES: No significant abnormalities. VISUALIZED UPPER ABDOMEN: Normal. OTHER FINDINGS: Recently placed nasogastric tube tip is at the gastroesophageal junction. The finding is marked on the study for review. Satisfactory position of endotracheal tube. IMPRESSION: Improperly placed nasogastric tube. The tip is at the gastroesophageal junction. Otherwise no interval change.
[2017-12-31 19:19] LABS: ALBUMIN 2.3 g/dL (3.0-4.8); CALCIUM 8.3 mg/dL (8.4-10.5)
--- NOTE | 2017-12-31 19:34 | CP.PCM.PN ---
Subjective - Date & Time of Evaluation Date of Evaluation: 12/31/17 Time of Evaluation: 18:00 - Subjective Subjective: Infectious Disease Follow Up: December 31, 2017 77 year old male with PMH of hypertension, duodenitis, erosive gastritis ( diagnosed in 2012), divericulosis, abdominal aortic aneurysm repair in 2011, left lower extremity DVT (2011), who presents with GI bleed. Patient states that over the past 2 days he had multiple episodes of coffee ground hematemesis. He also reports melena, and bright red blood per rectum starting yesetrday. Patient states that he started Xarelto a few days ago. Patient endorses he was taking Eliquis but experienced abdominal discomfort, loss of appetite, and associated weight loss. He was switched to Xarelto instead recently due to these adverse events. He does admit to drinking alcohol, but denies any history of drinking greater than 8 drinks per week or having any prior history of alcohol abuse. Patient states that he takes Aleeve almost daily for the past 5 years. Currently in ICU for monitoring. TLC placed. Had several melena episodes during hospitalization. S/P IR angiography with embolization of left gastric artery POD#4. Intubated and Ventilated. On Vancomycin and Meropenem for antibiotic treatment. Patient with history of frequent hospitalizations. History obtained from the chart as the patient has been intubated and ventilated since I was consulted. Poor overall prognosis. He is still requiring high O2 requirements and moved up to 100% O2 at this time. Objective - Vital Signs/Intake and Output Vital Signs (last 24 hours): Temp Pulse Resp BP Pulse Ox 98 F 100 H 21 138/76 98 12/31/17 15:00 12/31/17 15:00 12/31/17 10:32 12/31/17 15:00 12/31/17 15:00 Intake and Output: 12/31/17 01/01/18 18:59 06:59 Intake Total 125 Balance 125 - Medications Medications: Current Medications Albuterol/Ipratropium (Duoneb 3 Mg/0.5 Mg (3 Ml) Ud) 3 ml IH TIDRESP [facility] Last Admin: 12/31/17 13:29 Dose: 3 ml Albuterol/Ipratropium (Duoneb 3 Mg/0.5 Mg (3 Ml) Ud) 3 ml IH Q2H PRN PRN Reason: Shortness of Breath Last Admin: 12/31/17 01:30 Dose: 3 ml Pantoprazole Sodium (Protonix 40mg Ivpb) 40 mg in 100 mls @ 20 mls/hr IVPB .Q5H GRICELDA Last Admin: 12/31/17 15:30 Dose: 20 mls/hr Midazolam 100 mg/100ml in NS (Midazolam 100 Mg/100ml In Ns) 100 mg in 100 mls @ 1 mls/hr IV .Q24H PRN; Protocol; 1 MG/HR PRN Reason: Agitation Last Titration: 12/31/17 09:45 Dose: 2 mg/hr, 2 mls/hr Propofol (Diprivan) 1,000 mg in 100 mls @ 2.557 mls/hr IV .Q24H PRN; Protocol; 5 MCG/KG/MIN PRN Reason: TITRATE PER MD ORDER Last Admin: 12/31/17 14:55 Dose: 45 mcg/kg/min, 23.012 mls/hr Vancomycin HCl (Vancomycin 1gm) 1 gm in 250 mls @ 167 mls/hr IVPB DAILY GRICELDA PRN Reason: Protocol Last Admin: 12/30/17 09:21 Dose: 167 mls/hr Sodium Chloride (Sodium Chloride 0.45%) 1,000 mls @ 75 mls/hr IV .[id number] [facility] Last Admin: 12/29/17 12:40 Dose: Not Given Meropenem 500 mg/ Sodium (Chloride) 50 mls @ 100 mls/hr IVPB Q12 GRICELDA PRN Reason: Protocol Last Admin: 12/31/17 09:22 Dose: 100 mls/hr Acetaminophen (Ofirmev) 1,000 mg in 100 mls @ 400 mls/hr IVPB Q6H PRN PRN Reason: Temperature Stop: 01/01/18 18:57 Last Admin: 12/31/17 00:13 Dose: 400 mls/hr Potassium Chloride 40 meq/ (Dextrose) 1,020 mls @ 100 mls/hr IV .[id number] [facility] Last Admin: 12/31/17 10:03 Dose: 100 mls/hr Ondansetron HCl (Zofran Inj) 4 mg IVP Q4H PRN PRN Reason: Nausea/Vomiting - Labs Labs: 12/31/17 18:45 12/31/17 18:45 PT 12.0 SECONDS (9.4-12.5) 12/29/17 06:30 INR 1.04 (0.93-1.08) 12/29/17 06:30 APTT 23.8 Seconds (25.1-36.5) L 12/29/17 06:30 - Constitutional Appears: Chronically Ill - Head Exam Additional comments: Intubated and Ventilated. - Eye Exam Eye Exam: EOMI, PERRL Pupil Exam: NORMAL ACCOMODATION, PERRL - ENT Exam ENT Exam: Mucous Membranes Moist, Normal External Ear Exam, TM's Normal Bilaterally Additional comments: Intubated and Ventilated. - Neck Exam Neck Exam: Full ROM, Normal Inspection - Respiratory Exam Respiratory Exam: Decreased Breath Sounds. absent: Rales, Rhonchi, Wheezes Additional comments: Intubated and Ventilated. - Cardiovascular Exam Cardiovascular Exam: Tachycardia, +S1, +S2 - GI/Abdominal Exam GI & Abdominal Exam: Soft, Normal Bowel Sounds, Pulsatile Mass. absent: Distended, Tenderness - Extremities Exam Extremities Exam: absent: Joint Swelling, Pedal Edema - Neurological Exam Additional comments: Intubated and Ventilated. - Skin Skin Exam: Intact, Normal Color, Warm Assessment and Plan - Assessment and Plan (Free Text) Assessment: 77 yo AA male known to me from prior hospitalizations presenting with acute GI bleed. The patient has been anemic and hypoxic. The patient has been having persistent fevers with mild leukocytosis. Supportive care. Start Vancomycin and Meropenem for treatment. Sepsis workup. Hypoxemia. Patient being evaluted for TRALI and PE at this time. The patient has left gastric artery embolization on 12/27/2017. The patient was given 13 U PRBCs and 8 U FFP. Patient with EKTA. Patient still requiring high O2 levels to saturate. On 100% O2 currently. Very poor prognosis. Fevers did downtrend overall to a high of 100.9 F over the past 24 hours... The patient has been afebrile for the past several hours. He did receive 2U of PRBCs overnight. Extremely poor prognosis. Sputum cultures showing Serratia. Thank you for allowing me to participate in the care of the patient, we will follow with you.
--- NOTE | 2017-12-31 23:36 | CP.PCM.PN ---
Subjective - Date & Time of Evaluation Date of Evaluation: 12/31/17 Time of Evaluation: 12:00 - Subjective Subjective: Patient still intubated; no reported overt blood loss lately; Objective - Vital Signs/Intake and Output Vital Signs (last 24 hours): Temp Pulse Resp BP Pulse Ox 98.8 F 65 21 102/64 92 L 12/31/17 19:30 12/31/17 19:30 12/31/17 10:32 12/31/17 19:30 12/31/17 19:30 Intake and Output: 12/31/17 01/01/18 18:59 06:59 Intake Total 2356 100 Output Total 700 Balance 1656 100 - Medications Medications: Current Medications Albuterol/Ipratropium (Duoneb 3 Mg/0.5 Mg (3 Ml) Ud) 3 ml IH TIDRESP [facility] Last Admin: 12/31/17 20:50 Dose: 3 ml Albuterol/Ipratropium (Duoneb 3 Mg/0.5 Mg (3 Ml) Ud) 3 ml IH Q2H PRN PRN Reason: Shortness of Breath Last Admin: 12/31/17 01:30 Dose: 3 ml Pantoprazole Sodium (Protonix 40mg Ivpb) 40 mg in 100 mls @ 20 mls/hr IVPB .Q5H [facility] Last Admin: 12/31/17 21:04 Dose: 20 mls/hr Midazolam 100 mg/100ml in NS (Midazolam 100 Mg/100ml In Ns) 100 mg in 100 mls @ 1 mls/hr IV .Q24H PRN; Protocol; 1 MG/HR PRN Reason: Agitation Last Titration: 12/31/17 09:45 Dose: 2 mg/hr, 2 mls/hr Propofol (Diprivan) 1,000 mg in 100 mls @ 2.557 mls/hr IV .Q24H PRN; Protocol; 5 MCG/KG/MIN PRN Reason: TITRATE PER MD ORDER Last Admin: 12/31/17 20:47 Dose: 45 mcg/kg/min, 23.012 mls/hr Vancomycin HCl (Vancomycin 1gm) 1 gm in 250 mls @ 167 mls/hr IVPB DAILY [facility] PRN Reason: Protocol Last Admin: 12/30/17 09:21 Dose: 167 mls/hr Sodium Chloride (Sodium Chloride 0.45%) 1,000 mls @ 75 mls/hr IV .[id number] [facility] Last Admin: 12/29/17 12:40 Dose: Not Given Meropenem 500 mg/ Sodium (Chloride) 50 mls @ 100 mls/hr IVPB Q12 [facility] PRN Reason: Protocol Last Admin: 12/31/17 21:05 Dose: 100 mls/hr Acetaminophen (Ofirmev) 1,000 mg in 100 mls @ 400 mls/hr IVPB Q6H PRN PRN Reason: Temperature Stop: 01/01/18 18:57 Last Admin: 12/31/17 00:13 Dose: 400 mls/hr Potassium Chloride 40 meq/ (Dextrose) 1,020 mls @ 100 mls/hr IV .[id number] [facility] Last Admin: 12/31/17 20:56 Dose: 100 mls/hr Ondansetron HCl (Zofran Inj) 4 mg IVP Q4H PRN PRN Reason: Nausea/Vomiting - Labs Labs: 12/31/17 18:45 12/31/17 18:45 PT 12.0 SECONDS (9.4-12.5) 12/29/17 06:30 INR 1.04 (0.93-1.08) 12/29/17 06:30 APTT 23.8 Seconds (25.1-36.5) L 12/29/17 06:30 - Constitutional Appears: Non-toxic, No Acute Distress - Eye Exam Eye Exam: absent: Scleral icterus - ENT Exam ENT Exam: Mucous Membranes Moist - Respiratory Exam Respiratory Exam: Clear to Ausculation Bilateral. absent: Respiratory Distress - Cardiovascular Exam Cardiovascular Exam: REGULAR RHYTHM, +S1, +S2 - GI/Abdominal Exam GI & Abdominal Exam: Soft. absent: Distended, Tenderness - Exam Exam: absent: Bladder Distension - Extremities Exam Additional comments: no significant leg edema; - Neurological Exam Additional comments: sedated, arousable to verbal stimuli; - Psychiatric Exam Psychiatric exam: absent: Agitated - Skin Skin Exam: Warm. absent: Cyanosis Assessment and Plan (1) Acute kidney failure Assessment & Plan: EKTA improving; non-oliguric renal failure; hypernatremia stable though not improved; BP stable; -avoid further nephrotoxic agents; -keep MAP > 65; Status: Acute (2) Hypernatremia Assessment & Plan: Still significant free water deficit; agree with increasing D5W to 100 cc/hr; Status: Acute (3) SIRS (systemic inflammatory response syndrome) Status: Acute (4) Acute hypoxemic respiratory failure Status: Acute
[2018-01-01] MEDS: Propofol 10 mg/ml 1,000 MG/100 ML VIAL IV PRN ×5 (06:07→22:00)
[2018-01-01] MEDS: Pantoprazole 40mg/100mL NS 40 MG/100 ML BAG IVPB SCH ×4 (06:14→21:48)
[2018-01-01 06:45] LABS: BASO # 0.02 K/mm3 (0.0-2.0); BASO % 0.2 % (0.0-3.0); EOS # 0.1 (0.0-0.7); EOS % 1.2 % (1.5-5.0); GRAN # 7.47 (1.4-6.5); HEMOGLOBIN 8.8 g/dL (14.0-18.0); LYMPH # 0.9 (1.2-3.4); LYMPH % 9.2 % (22.0-35.0); MEAN CELL VOLUME 89.2 fl (80.0-105.0); MEAN CORPUSCULAR HEMOGLOBIN 28.8 pg (25.0-35.0); MEAN CORPUSCULAR HGB CONC 32.2 g/dl (31.0-37.0); MEAN PLATELET VOLUME 11.3 fl (7.0-11.0); MONO % 10.4 % (1.0-6.0); RBC 3.06 10^6/uL (3.5-6.1); RED CELL DISTRIBUTION WIDTH 16.2 % (11.5-14.5); WHITE BLOOD COUNT 9.5 10^3/ul (4.5-11.0)
[2018-01-01 07:19] LABS: ALB/GLOB RATIO 0.9 (1.1-1.8); ALBUMIN 2.4 g/dL (3.0-4.8); CALCIUM 8.3 mg/dL (8.4-10.5)
[2018-01-01] MEDS: Albuterol-Ipratrop 3 mg / 0.5 (3 ml) UD IH SCH ×3 (07:29→20:00)
--- NOTE | 2018-01-01 07:30 | CP.PCM.PN ---
<Victor Hugo Chapa - Last Filed: 01/01/18 15:04> Subjective - Date & Time of Evaluation Date of Evaluation: 01/01/18 Time of Evaluation: 07:00 - Subjective Subjective: Patient seen and examined at bedside in no acute distress. As per overnight nurse patient had no issues overnight. Currently on max dose of propofol and on versed; however patient is still response able to open eyes when name is called. Still attempts at times to self extubate. Patient will undergo colonoscopy today hence sedation still. No bloody bowel movements overnight as per nurse. Objective - Vital Signs/Intake and Output Vital Signs (last 24 hours): Temp Pulse Resp BP Pulse Ox 98.8 F 65 21 102/64 92 L 12/31/17 19:30 12/31/17 19:30 12/31/17 10:32 12/31/17 19:30 12/31/17 19:30 Intake and Output: 01/01/18 01/01/18 06:59 18:59 Intake Total 200 Balance 200 - Medications Medications: Current Medications Albuterol/Ipratropium (Duoneb 3 Mg/0.5 Mg (3 Ml) Ud) 3 ml IH TIDRESP [facility] Last Admin: 12/31/17 20:50 Dose: 3 ml Albuterol/Ipratropium (Duoneb 3 Mg/0.5 Mg (3 Ml) Ud) 3 ml IH Q2H PRN PRN Reason: Shortness of Breath Last Admin: 12/31/17 01:30 Dose: 3 ml Pantoprazole Sodium (Protonix 40mg Ivpb) 40 mg in 100 mls @ 20 mls/hr IVPB .Q5H [facility] Last Admin: 01/01/18 06:14 Dose: 20 mls/hr Midazolam 100 mg/100ml in NS (Midazolam 100 Mg/100ml In Ns) 100 mg in 100 mls @ 1 mls/hr IV .Q24H PRN; Protocol; 1 MG/HR PRN Reason: Agitation Last Titration: 12/31/17 09:45 Dose: 2 mg/hr, 2 mls/hr Propofol (Diprivan) 1,000 mg in 100 mls @ 2.557 mls/hr IV .Q24H PRN; Protocol; 5 MCG/KG/MIN PRN Reason: TITRATE PER MD ORDER Last Admin: 01/01/18 06:07 Dose: 45 mcg/kg/min, 23.012 mls/hr Vancomycin HCl (Vancomycin 1gm) 1 gm in 250 mls @ 167 mls/hr IVPB DAILY [facility] PRN Reason: Protocol Last Admin: 12/30/17 09:21 Dose: 167 mls/hr Sodium Chloride (Sodium Chloride 0.45%) 1,000 mls @ 75 mls/hr IV .[id number] [facility] Last Admin: 12/29/17 12:40 Dose: Not Given Meropenem 500 mg/ Sodium (Chloride) 50 mls @ 100 mls/hr IVPB Q12 [facility] PRN Reason: Protocol Last Admin: 12/31/17 21:05 Dose: 100 mls/hr Acetaminophen (Ofirmev) 1,000 mg in 100 mls @ 400 mls/hr IVPB Q6H PRN PRN Reason: Temperature Stop: 01/01/18 18:57 Last Admin: 12/31/17 00:13 Dose: 400 mls/hr Potassium Chloride 40 meq/ (Dextrose) 1,020 mls @ 100 mls/hr IV .[id number] [facility] Last Admin: 01/01/18 07:24 Dose: 100 mls/hr Ondansetron HCl (Zofran Inj) 4 mg IVP Q4H PRN PRN Reason: Nausea/Vomiting - Labs Labs: 01/01/18 06:00 01/01/18 06:00 PT 12.0 SECONDS (9.4-12.5) 12/29/17 06:30 INR 1.04 (0.93-1.08) 12/29/17 06:30 APTT 23.8 Seconds (25.1-36.5) L 12/29/17 06:30 - Head Exam Head Exam: ATRAUMATIC, NORMAL INSPECTION, NORMOCEPHALIC - Eye Exam Eye Exam: Normal appearance - ENT Exam ENT Exam: Mucous Membranes Moist Additional comments: intubated - Respiratory Exam Respiratory Exam: Clear to Ausculation Bilateral - Cardiovascular Exam Cardiovascular Exam: REGULAR RHYTHM, +S1, +S2 - GI/Abdominal Exam GI & Abdominal Exam: Soft, Hypoactive Bowel Sounds - Neurological Exam Additional comments: intubated on sedation - Skin Skin Exam: Normal Color, Warm Assessment and Plan - Assessment and Plan (Free Text) Assessment: 77 year old male with a past medical history of duodenitis, erosive gastritis, history of abdominal aortic aneurysm repair, DVT on Xarelto presenting on 12/26 with acute GI bleed initially intubated for airway protection, then passed sedation vacation however currently intubated on [facility] for colonoscopy. SIRS Criteria (Tachycardia and Fever) - ID Consult: Dr. Vyas - Continue with Merrem as per ID Hypoxemia, likely 2/2 TRALI VS PE - Cannot obtain CTA Chest 2/2 patient's EKTA; cannot heparinize 2/2 GiB; will consider IVF placement - LE venous dopplers ordered to r/o DVT Acute GI bleed status post Xarelto therapy - Intubated on sedation - NPO however will discuss with GI regarding nutrition - Continue with Protonix ggt - H&H stable , continue to monitor - Surgery Consulted, Dr. Lopez, follow recs - EGD reveals upper body and fundal ulcers of gastrum and superficial duoendeal ulcers with no active bleed, colonoscopy to be performed tomorrow EKTA, likely secondary to GI bleed - Hold nephrotoxic drugs; Monitor - Nephro Consulted: continue with hydration as per nephro Hypernatremia likely 2/2 Dehydration -Hypernatremia persists, however is downtrending, continue to monitor -Nephrology consulted, will follow with recommendations History DVT -Will resume anticoagulation once stable and cleared by Heme -LE venous dopplers ordered to r/o DVT History HTN - Continue to hold Valsartan History Squamous Cell CA - No acute intervention History Abdominal Aortic Aneurysm s/p Repair - Continue to hold Verapamil Prophylaxis - GI: Protonix GTT - DVT: SCD <Alberto Orourke A - Last Filed: 01/02/18 08:06> Objective - Vital Signs/Intake and Output Vital Signs (last 24 hours): Temp Pulse Resp BP Pulse Ox 98 F 72 16 134/74 100 01/01/18 12:00 01/02/18 07:29 01/01/18 16:00 01/02/18 07:30 01/02/18 04:02 Intake and Output: 01/02/18 01/02/18 06:59 18:59 Intake Total 299 Balance 299 - Medications Medications: Current Medications Albuterol/Ipratropium (Duoneb 3 Mg/0.5 Mg (3 Ml) Ud) 3 ml IH TIDRESP [facility] Last Admin: 01/01/18 20:00 Dose: 3 ml Albuterol/Ipratropium (Duoneb 3 Mg/0.5 Mg (3 Ml) Ud) 3 ml IH Q2H PRN PRN Reason: Shortness of Breath Last Admin: 12/31/17 01:30 Dose: 3 ml Pantoprazole Sodium (Protonix 40mg Ivpb) 40 mg in 100 mls @ 20 mls/hr IVPB .Q5H [facility] Last Admin: 01/01/18 21:48 Dose: 20 mls/hr Midazolam 100 mg/100ml in NS (Midazolam 100 Mg/100ml In Ns) 100 mg in 100 mls @ 1 mls/hr IV .Q24H PRN; Protocol; 1 MG/HR PRN Reason: Agitation Last Admin: 01/01/18 20:23 Dose: 2 mg/hr, 2 mls/hr Propofol (Diprivan) 1,000 mg in 100 mls @ 2.557 mls/hr IV .Q24H PRN; Protocol; 5 MCG/KG/MIN PRN Reason: TITRATE PER MD ORDER Last Admin: 01/02/18 05:00 Dose: 50 mcg/kg/min, 25.569 mls/hr Vancomycin HCl (Vancomycin 1gm) 1 gm in 250 mls @ 167 mls/hr IVPB DAILY [facility] PRN Reason: Protocol Last Admin: 12/30/17 09:21 Dose: 167 mls/hr Sodium Chloride (Sodium Chloride 0.45%) 1,000 mls @ 75 mls/hr IV .[id number] [facility] Last Admin: 12/29/17 12:40 Dose: Not Given Dextrose/Sodium Chloride (Dextrose 5%/0.33% Ns 1000 Ml) 1,000 mls @ 150 mls/hr IV .[id number] [facility] Last Admin: 01/02/18 05:09 Dose: 150 mls/hr Potassium Chloride 40 meq/ (Dextrose) 1,020 mls @ 50 mls/hr IV .[id number] [facility] Last Admin: 01/01/18 12:45 Dose: 50 mls/hr Meropenem 500 mg/ Sodium (Chloride) 50 mls @ 100 mls/hr IVPB Q8 [facility] PRN Reason: Protocol Last Admin: 01/02/18 05:34 Dose: 100 mls/hr Ondansetron HCl (Zofran Inj) 4 mg IVP Q4H PRN PRN Reason: Nausea/Vomiting - Labs Labs: 01/01/18 06:00 01/01/18 06:00 PT 12.0 SECONDS (9.4-12.5) 12/29/17 06:30 INR 1.04 (0.93-1.08) 12/29/17 06:30 APTT 23.8 Seconds (25.1-36.5) L 12/29/17 06:30 Attending/Attestation - Attestation I have personally seen and examined this patient.: Yes I have fully participated in the care of the patient.: Yes I have reviewed all pertinent clinical information, including history, physical exam and plan: Yes Notes (Text): 01/01/18 77 year old male with past medical history of hypertension, duodenitis, erosive gastritis, abdominal aortic aneurysm repair (2011), LLE DVT on xarelto who presented with GIB. He is s/p multiple PRBC / FFP transfusions. He was seen by GI and is s/p EGD last week as above. Bleeding scan was positive from transverse colon. He was seen by IR and is s/p embolization of left gastric artery last week. He had repeat EGD yesterday which showed gastric and superficial duodenal ulcers without active bleeding. Plan for colonoscopy has been rescheduled for tomorrow. His xarelto is on hold for now secondary to above. I did discuss with Dr. Dan today regarding possibility of IVC filter placement. He recommended to repeat LE dopplers first to check for active DVT. Patient is on antibiotics as well for possible pneumonia. Procalcitonin and pbnp were elevated. Echocardiogram was reviewed. Continue to monitor renal function and hypernatremia closely which is slowly improving. Will follow up with nephrology recommendations. Alberto Orourke MD Hospitalist.
--- NOTE | 2018-01-01 08:13 | CP.PCM.PN ---
<Gisel Valera - Last Filed: 01/01/18 11:42> Subjective - Date & Time of Evaluation Date of Evaluation: 01/01/18 Time of Evaluation: 08:00 - Subjective Subjective: GI Progress Note for Miky Ruiz PGY2 Patient seen and examined at bedside. Overnight, patient had large BM after being placed on golytely. Rectal tube was placed. Patient has dark liquid stool in rectal tube. Patient is intubated and sedated. ROS could not be obtained. Objective - Vital Signs/Intake and Output Vital Signs (last 24 hours): Temp Pulse Resp BP Pulse Ox 98.8 F 71 21 102/64 92 L 12/31/17 19:30 01/01/18 06:00 12/31/17 10:32 12/31/17 19:30 12/31/17 19:30 Intake and Output: 01/01/18 01/01/18 06:59 18:59 Intake Total 200 Balance 200 - Medications Medications: Current Medications Albuterol/Ipratropium (Duoneb 3 Mg/0.5 Mg (3 Ml) Ud) 3 ml IH TIDRESP [facility] Last Admin: 01/01/18 07:29 Dose: 3 ml Albuterol/Ipratropium (Duoneb 3 Mg/0.5 Mg (3 Ml) Ud) 3 ml IH Q2H PRN PRN Reason: Shortness of Breath Last Admin: 12/31/17 01:30 Dose: 3 ml Pantoprazole Sodium (Protonix 40mg Ivpb) 40 mg in 100 mls @ 20 mls/hr IVPB .Q5H [facility] Last Admin: 01/01/18 06:14 Dose: 20 mls/hr Midazolam 100 mg/100ml in NS (Midazolam 100 Mg/100ml In Ns) 100 mg in 100 mls @ 1 mls/hr IV .Q24H PRN; Protocol; 1 MG/HR PRN Reason: Agitation Last Titration: 12/31/17 09:45 Dose: 2 mg/hr, 2 mls/hr Propofol (Diprivan) 1,000 mg in 100 mls @ 2.557 mls/hr IV .Q24H PRN; Protocol; 5 MCG/KG/MIN PRN Reason: TITRATE PER MD ORDER Last Admin: 01/01/18 06:07 Dose: 45 mcg/kg/min, 23.012 mls/hr Vancomycin HCl (Vancomycin 1gm) 1 gm in 250 mls @ 167 mls/hr IVPB DAILY [facility] PRN Reason: Protocol Last Admin: 12/30/17 09:21 Dose: 167 mls/hr Sodium Chloride (Sodium Chloride 0.45%) 1,000 mls @ 75 mls/hr IV .[id number] [facility] Last Admin: 12/29/17 12:40 Dose: Not Given Meropenem 500 mg/ Sodium (Chloride) 50 mls @ 100 mls/hr IVPB Q12 [facility] PRN Reason: Protocol Last Admin: 12/31/17 21:05 Dose: 100 mls/hr Acetaminophen (Ofirmev) 1,000 mg in 100 mls @ 400 mls/hr IVPB Q6H PRN PRN Reason: Temperature Stop: 01/01/18 18:57 Last Admin: 12/31/17 00:13 Dose: 400 mls/hr Potassium Chloride 40 meq/ (Dextrose) 1,020 mls @ 100 mls/hr IV .[id number] [facility] Last Admin: 01/01/18 07:24 Dose: 100 mls/hr Ondansetron HCl (Zofran Inj) 4 mg IVP Q4H PRN PRN Reason: Nausea/Vomiting - Labs Labs: 01/01/18 06:00 01/01/18 06:00 PT 12.0 SECONDS (9.4-12.5) 12/29/17 06:30 INR 1.04 (0.93-1.08) 12/29/17 06:30 APTT 23.8 Seconds (25.1-36.5) L 12/29/17 06:30 - Constitutional Appears: No Acute Distress - Head Exam Head Exam: ATRAUMATIC, NORMAL INSPECTION, NORMOCEPHALIC - ENT Exam ENT Exam: Mucous Membranes Moist - Respiratory Exam Respiratory Exam: NORMAL BREATHING PATTERN. absent: Rales, Rhonchi, Wheezes - Cardiovascular Exam Cardiovascular Exam: REGULAR RHYTHM, +S1, +S2. absent: Gallop, Rubs, Murmur - GI/Abdominal Exam GI & Abdominal Exam: Soft, Normal Bowel Sounds. absent: Rigid, Tenderness, Mass , Rebound - Extremities Exam Extremities Exam: Pedal Edema - Neurological Exam Neurological Exam: absent: Alert, Awake - Skin Skin Exam: Dry, Warm Assessment and Plan - Assessment and Plan (Free Text) Assessment: This is a 77yo AA male with past medical history of lung ca, DVT and EKTA who was admitted for 1. Massive GI bleed was on Xeralto s/p Kcentra and had multiple transfusions ( 15U PRBC, 8U FFP, 4U platelets) - EGD showed clotted blood in gastric antrum. Gastric embolization done by IR - Bleeding scan positive in transverse colon which can be from transit - Repeat EGD done did not show any overt bleeding 2. Sepsis - secondary to pneumonia v. pulmonary edema 3. Hypernatremia 4. EKTA (improving) Plan: Hgb is stable. EGD showed multiple ulcers without any overt bleeding. Will continue high dose PPI. Patient will have colonoscopy this afternoon. Continue to monitor H/H. Renal function is improving. Case seen, discussed and reviewed with Dr. Ibrahim. Miky Valera PGY2 <Jarred Ibrahim V - Last Filed: 01/01/18 23:58> Objective - Vital Signs/Intake and Output Vital Signs (last 24 hours): Temp Pulse Resp BP Pulse Ox 98 F 74 16 126/76 98 01/01/18 12:00 01/01/18 18:00 01/01/18 16:00 01/01/18 16:00 01/01/18 12:00 Intake and Output: 01/01/18 01/02/18 18:59 06:59 Intake Total 3850 99 Output Total 2750 Balance 1100 99 - Medications Medications: Current Medications Albuterol/Ipratropium (Duoneb 3 Mg/0.5 Mg (3 Ml) Ud) 3 ml IH TIDRESP [facility] Last Admin: 01/01/18 20:00 Dose: 3 ml Albuterol/Ipratropium (Duoneb 3 Mg/0.5 Mg (3 Ml) Ud) 3 ml IH Q2H PRN PRN Reason: Shortness of Breath Last Admin: 12/31/17 01:30 Dose: 3 ml Pantoprazole Sodium (Protonix 40mg Ivpb) 40 mg in 100 mls @ 20 mls/hr IVPB .Q5H [facility] Last Admin: 01/01/18 21:48 Dose: 20 mls/hr Midazolam 100 mg/100ml in NS (Midazolam 100 Mg/100ml In Ns) 100 mg in 100 mls @ 1 mls/hr IV .Q24H PRN; Protocol; 1 MG/HR PRN Reason: Agitation Last Admin: 01/01/18 20:23 Dose: 2 mg/hr, 2 mls/hr Propofol (Diprivan) 1,000 mg in 100 mls @ 2.557 mls/hr IV .Q24H PRN; Protocol; 5 MCG/KG/MIN PRN Reason: TITRATE PER MD ORDER Last Admin: 01/01/18 18:05 Dose: 50 mcg/kg/min, 25.569 mls/hr Vancomycin HCl (Vancomycin 1gm) 1 gm in 250 mls @ 167 mls/hr IVPB DAILY [facility] PRN Reason: Protocol Last Admin: 12/30/17 09:21 Dose: 167 mls/hr Sodium Chloride (Sodium Chloride 0.45%) 1,000 mls @ 75 mls/hr IV .[id number] [facility] Last Admin: 12/29/17 12:40 Dose: Not Given Dextrose/Sodium Chloride (Dextrose 5%/0.33% Ns 1000 Ml) 1,000 mls @ 150 mls/hr IV .[id number] [facility] Last Admin: 01/01/18 20:36 Dose: 150 mls/hr Potassium Chloride 40 meq/ (Dextrose) 1,020 mls @ 50 mls/hr IV .[id number] [facility] Last Admin: 01/01/18 12:45 Dose: 50 mls/hr Meropenem 500 mg/ Sodium (Chloride) 50 mls @ 100 mls/hr IVPB Q8 [facility] PRN Reason: Protocol Ondansetron HCl (Zofran Inj) 4 mg IVP Q4H PRN PRN Reason: Nausea/Vomiting - Labs Labs: 01/01/18 06:00 01/01/18 06:00 PT 12.0 SECONDS (9.4-12.5) 12/29/17 06:30 INR 1.04 (0.93-1.08) 12/29/17 06:30 APTT 23.8 Seconds (25.1-36.5) L 12/29/17 06:30 Attending/Attestation - Attestation I have personally seen and examined this patient.: Yes I have fully participated in the care of the patient.: Yes I have reviewed all pertinent clinical information, including history, physical exam and plan: Yes Notes (Text): This is an addendum to GI progress report dictated by the Gut Sorter.The patient was seen and examined earlier. Medical records, lab studies, imagings were reviewed. Last 24 hours events reviewed. Agreed with the above treatment plan as outlined in Gut Sorter 's notes the with the addition of the following stool not clear remains on vent We'll start another half gallon of golytely Rescheduled for colonoscopy in a.m. Close follow-up off hemoglobin hematocrit Continue high-dose PPI 01/01/18 23:56
[2018-01-01] MEDS: Meropenem 500 MG in Sodium Chloride 0.9% 50 ML IVPB SCH ×2 (09:37→21:22)
--- NOTE | 2018-01-01 10:54 | CP.PCM.PN ---
Subjective - Date & Time of Evaluation Date of Evaluation: 01/01/18 Time of Evaluation: 10:52 - Subjective Subjective: General surgery progress note for Dr. Db Manrique, PGY-1 Pt S & E at bedside at 0930 Pt intubated/sedated, arousable to tactile stimuli. PRVC FiO2 50%, RR 16, PEEP 5, TV 560. Pt had EGD yesterday with findings of multiple gastric ulcers & duodenal ulcer, no active bleeding, duodenitis. No bleeding as per nursing. For colonoscopy today. Objective - Vital Signs/Intake and Output Vital Signs (last 24 hours): Temp Pulse Resp BP Pulse Ox 98.6 F 75 21 140/73 100 01/01/18 00:00 01/01/18 07:59 12/31/17 10:32 01/01/18 08:00 01/01/18 07:59 Intake and Output: 01/01/18 01/01/18 06:59 18:59 Intake Total 200 1650 Output Total 750 Balance 200 900 - Medications Medications: Current Medications Albuterol/Ipratropium (Duoneb 3 Mg/0.5 Mg (3 Ml) Ud) 3 ml IH TIDRESP [facility] Last Admin: 01/01/18 07:29 Dose: 3 ml Albuterol/Ipratropium (Duoneb 3 Mg/0.5 Mg (3 Ml) Ud) 3 ml IH Q2H PRN PRN Reason: Shortness of Breath Last Admin: 12/31/17 01:30 Dose: 3 ml Pantoprazole Sodium (Protonix 40mg Ivpb) 40 mg in 100 mls @ 20 mls/hr IVPB .Q5H [facility] Last Admin: 01/01/18 06:14 Dose: 20 mls/hr Midazolam 100 mg/100ml in NS (Midazolam 100 Mg/100ml In Ns) 100 mg in 100 mls @ 1 mls/hr IV .Q24H PRN; Protocol; 1 MG/HR PRN Reason: Agitation Last Titration: 12/31/17 09:45 Dose: 2 mg/hr, 2 mls/hr Propofol (Diprivan) 1,000 mg in 100 mls @ 2.557 mls/hr IV .Q24H PRN; Protocol; 5 MCG/KG/MIN PRN Reason: TITRATE PER MD ORDER Last Admin: 01/01/18 09:38 Dose: 50 mcg/kg/min, 25.569 mls/hr Vancomycin HCl (Vancomycin 1gm) 1 gm in 250 mls @ 167 mls/hr IVPB DAILY [facility] PRN Reason: Protocol Last Admin: 12/30/17 09:21 Dose: 167 mls/hr Sodium Chloride (Sodium Chloride 0.45%) 1,000 mls @ 75 mls/hr IV .[id number] [facility] OF [facility] Last Admin: 12/29/17 12:40 Dose: Not Given Meropenem 500 mg/ Sodium (Chloride) 50 mls @ 100 mls/hr IVPB Q12 [facility] PRN Reason: Protocol Last Admin: 01/01/18 09:37 Dose: 100 mls/hr Acetaminophen (Ofirmev) 1,000 mg in 100 mls @ 400 mls/hr IVPB Q6H PRN PRN Reason: Temperature Stop: 01/01/18 18:57 Last Admin: 12/31/17 00:13 Dose: 400 mls/hr Potassium Chloride 40 meq/ (Dextrose) 1,020 mls @ 100 mls/hr IV .[id number] [facility] Last Admin: 01/01/18 07:24 Dose: 100 mls/hr Ondansetron HCl (Zofran Inj) 4 mg IVP Q4H PRN PRN Reason: Nausea/Vomiting - Labs Labs: 01/01/18 06:00 01/01/18 06:00 PT 12.0 SECONDS (9.4-12.5) 12/29/17 06:30 INR 1.04 (0.93-1.08) 12/29/17 06:30 APTT 23.8 Seconds (25.1-36.5) L 12/29/17 06:30 - Constitutional Appears: Non-toxic, No Acute Distress - Head Exam Head Exam: ATRAUMATIC, NORMAL INSPECTION, NORMOCEPHALIC - Eye Exam Eye Exam: EOMI, Normal appearance - ENT Exam ENT Exam: Mucous Membranes Dry (ETT in place) - Respiratory Exam Respiratory Exam: NORMAL BREATHING PATTERN (on mechanical vent) - Cardiovascular Exam Cardiovascular Exam: REGULAR RHYTHM, +S1, +S2 - GI/Abdominal Exam GI & Abdominal Exam: Soft - Psychiatric Exam Additional comments: Intubated - Skin Skin Exam: Dry, Intact, Normal Color, Warm Assessment and Plan - Assessment and Plan (Free Text) Assessment: 77M w/GI bleeding; s/p IR angioemoblization of L gastric artery & EGD Plan: Monitor H/H Monitor for bleeding FU colonoscopy Strict I/O's Wean from vent when mets criteria Further recs pending colonoscopy findings Further mgmt as per ICU/primary teams Will JARROD attending Hilaria, PGY-1
[2018-01-01] MEDS: Dextrose 5%/0.33% NS 1,000 ML IV SCH ×2 (12:45→20:36)
--- NOTE | 2018-01-01 13:16 | CP.CCUPN ---
<Kirby Schuler - Last Filed: 01/01/18 13:42> CCU Subjective - Physician Review Events Since Last Encounter (Free Text): 01/01/18 08:30A Pt seen and examined at bedside, history unobtainable 2/2 intubation and sedation. Patient was given GoLytely prep yesterday and had large dark, tarry BM per nursing. CCU Objective - Vital Signs / Intake & Output Intake and Output (Last 8hrs): Intake & Output 12/31/17 01/01/18 01/01/18 22:59 06:59 14:59 Intake Total 2331 100 1650 Output Total 700 750 Balance 1631 100 900 Intake: IV 5752 560 3621 D5W 1075 Left 1550 abx 100 propofol 192 protonix 240 versed 24 Oral 0 Tube Feeding 600 Output: Urine 700 750 Urethral (Cadet) 700 750 Other: # Bowel Movements 0 - Physical Exam Head: Positive for: Atraumatic, Normocephalic Pupils: Positive for: PERRL Extroacular Muscles: Positive for: EOMI Conjunctiva: Positive for: Normal Mouth: Positive for: Moist Mucous Membranes Neck: Positive for: Normal Range of Motion Respiratory/Chest: Positive for: Clear to Auscultation, Good Air Exchange. Negative for: Respiratory Distress, Accessory Muscle Use Cardiovascular: Positive for: Regular Rate and Rhythm, Normal S1, S2. Negative for: Murmurs Abdomen: Positive for: Tenderness (Tenderness to the bilateral lower quadrants) . Negative for: Distention, Rebound, Guarding Rectal: Positive for: Gross Blood, Melena Back: Positive for: Normal Inspection Upper Extremity: Positive for: Normal Inspection. Negative for: Cyanosis, Edema Lower Extremity: Positive for: Normal Inspection. Negative for: Edema Neurological: Positive for: GCS=15, CN II-XII Intact, Speech Normal Skin: Positive for: Warm, Dry, Normal Color. Negative for: Rashes Psychiatric: Positive for: Alert, Oriented x 3, Normal Insight, Normal Concentration - Medications Active Medications: Active Medications Generic Name Dose Route Start Last Admin Trade Name Freq PRN Reason Stop Dose Admin Albuterol/Ipratropium 3 ml 12/29/17 20:00 01/01/18 07:29 Duoneb 3 Mg/0.5 Mg (3 Ml) Ud IH 3 ml TIDRESP GRICELDA Administration Albuterol/Ipratropium 3 ml 12/31/17 01:25 12/31/17 01:30 Duoneb 3 Mg/0.5 Mg (3 Ml) Ud IH 3 ml Q2H PRN Administration Shortness of Breath Pantoprazole Sodium 40 mg in 100 mls @ 20 mls/hr 12/26/17 20:30 01/01/18 06: 14 Protonix 40mg Ivpb IVPB 20 mls/hr .Q5H GRICELDA Administration Midazolam 100 mg/100ml in NS 100 mg in 100 mls @ 1 mls/hr 12/27/17 18:41 12/13 09:45 Midazolam 100 Mg/100ml In Ns IV 2 mg/hr .Q24H PRN 2 mls/hr Agitation Titration Protocol 1 MG/HR Propofol 1,000 mg in 100 mls @ 2.557 mls/hr 12/27/17 19:59 01/01/18 09:38 Diprivan IV 50 mcg/kg/min .Q24H PRN 25.569 mls/hr TITRATE PER MD ORDER Administration Protocol 5 MCG/KG/MIN Vancomycin HCl 1 gm in 250 mls @ 167 mls/hr 12/29/17 10:00 12/30/17 09:21 Vancomycin 1gm IVPB 167 mls/hr DAILY GRICELDA Administration Protocol Sodium Chloride 1,000 mls @ 75 mls/hr 12/29/17 07:45 12/29/17 12:40 Sodium Chloride 0.45% IV Not Given .[id number] GRICELDA Meropenem 500 mg/ Sodium 50 mls @ 100 mls/hr 12/29/17 22:00 01/01/18 09:37 Chloride IVPB 100 mls/hr Q12 GRICELDA Administration Protocol Acetaminophen 1,000 mg in 100 mls @ 400 mls/hr 12/30/17 18:56 12/31/17 00:13 Ofirmev IVPB 01/01/18 18:57 400 mls/hr Q6H PRN Administration Temperature Dextrose/Sodium Chloride 1,000 mls @ 150 mls/hr 01/01/18 12:15 Dextrose 5%/0.33% Ns 1000 Ml IV .[id number] GRICELDA Potassium Chloride 40 meq/ 1,020 mls @ 50 mls/hr 01/01/18 12:17 Dextrose IV .[id number] GRICELDA Ondansetron HCl 4 mg 12/26/17 21:15 Zofran Inj IVP Q4H PRN Nausea/Vomiting - Patient Studies Lab Studies: Microbiology Studies 12/29/17 06:05 Blood Culture - Preliminary Blood NO GROWTH AFTER 3 DAYS 12/29/17 05:30 Blood Culture - Preliminary Blood NO GROWTH AFTER 3 DAYS Lab Studies 01/01/18 01/01/18 12/31/17 Range/Units 06:00 06:00 18:45 WBC 9.5 (4.5-11.0) 10^3/ul RBC 3.06 L (3.5-6.1) 10^6/uL Hgb 8.8 L (14.0-18.0) g/dL Hct 27.3 L (42.0-52.0) % MCV 89.2 (80.0-105.0) fl MCH 28.8 (25.0-35.0) pg MCHC 32.2 (31.0-37.0) g/dl RDW 16.2 H (11.5-14.5) % Plt Count 148 (120.0-450.0) 10^3/uL MPV 11.3 H (7.0-11.0) fl Gran % 79.0 H (50.0-68.0) % Lymph % (Auto) 9.2 L (22.0-35.0) % [place] % (Auto) 10.4 H (1.0-6.0) % Eos % (Auto) 1.2 L (1.5-5.0) % Baso % (Auto) 0.2 (0.0-3.0) % Gran # 7.47 H (1.4-6.5) Lymph # (Auto) 0.9 L (1.2-3.4) [place] # (Auto) 1.0 H (0.1-0.6) Eos # (Auto) 0.1 (0.0-0.7) Baso # (Auto) 0.02 (0.0-2.0) K/mm3 Sodium 152 H 152 H (132-148) mmol/L Potassium 4.3 3.9 (3.6-5.0) mmol/L Chloride 118 H 119 H (98-107) mmol/L Carbon Dioxide 27 27 (21-33) mmol/L Anion Gap 11 9 L (10-20) BUN 37 H 46 H (7-21) mg/dL Creatinine 1.6 H 1.7 H (0.8-1.5) mg/dl Est GFR ( Amer) 51 48 Est GFR (Non-Af Amer) 42 39 Random Glucose 98 106 (70-110) mg/dL Calcium 8.3 L 8.3 L (8.4-10.5) mg/dL Total Bilirubin 0.2 0.2 (0.2-1.3) mg/dL AST 13 L D 10 L D (17-59) U/L ALT 18 20 (7-56) U/L Alkaline Phosphatase 55 49 (38-126) U/L Total Protein 4.9 L 4.7 L (5.8-8.3) g/dL Albumin 2.4 L 2.3 L (3.0-4.8) g/dL Globulin 2.6 2.4 gm/dL Albumin/Globulin Ratio 0.9 L 1.0 L (1.1-1.8) 06/05/18 Range/Units 18:45 WBC (4.5-11.0) 10^3/ul RBC (3.5-6.1) 10^6/uL Hgb 7.8 L (14.0-18.0) g/dL Hct (42.0-52.0) % MCV (80.0-105.0) fl MCH (25.0-35.0) pg MCHC (31.0-37.0) g/dl RDW (11.5-14.5) % Plt Count (120.0-450.0) 10^3/uL MPV (7.0-11.0) fl Gran % (50.0-68.0) % Lymph % (Auto) (22.0-35.0) % [place] % (Auto) (1.0-6.0) % Eos % (Auto) (1.5-5.0) % Baso % (Auto) (0.0-3.0) % Gran # (1.4-6.5) Lymph # (Auto) (1.2-3.4) [place] # (Auto) (0.1-0.6) Eos # (Auto) (0.0-0.7) Baso # (Auto) (0.0-2.0) K/mm3 Sodium (132-148) mmol/L Potassium (3.6-5.0) mmol/L Chloride (98-107) mmol/L Carbon Dioxide (21-33) mmol/L Anion Gap (10-20) BUN (7-21) mg/dL Creatinine (0.8-1.5) mg/dl Est GFR ( Amer) Est GFR (Non-Af Amer) Random Glucose (70-110) mg/dL Calcium (8.4-10.5) mg/dL Total Bilirubin (0.2-1.3) mg/dL AST (17-59) U/L ALT (7-56) U/L Alkaline Phosphatase (38-126) U/L Total Protein (5.8-8.3) g/dL Albumin (3.0-4.8) g/dL Globulin gm/dL Albumin/Globulin Ratio (1.1-1.8) Laboratory Results - last 24 hr 12/31/17 12/31/17 01/01/18 18:45 18:45 06:00 WBC 9.5 RBC 3.06 L Hgb 7.8 L 8.8 L Hct 27.3 L MCV 89.2 MCH 28.8 MCHC 32.2 RDW 16.2 H Plt Count 148 MPV 11.3 H Gran % 79.0 H Lymph % (Auto) 9.2 L [place] % (Auto) 10.4 H Eos % (Auto) 1.2 L Baso % (Auto) 0.2 Gran # 7.47 H Lymph # (Auto) 0.9 L [place] # (Auto) 1.0 H Eos # (Auto) 0.1 Baso # (Auto) 0.02 Sodium 152 H Potassium 3.9 Chloride 119 H Carbon Dioxide 27 Anion Gap 9 L BUN 46 H Creatinine 1.7 H Est GFR ( Amer) 48 Est GFR (Non-Af Amer) 39 Random Glucose 106 Calcium 8.3 L Total Bilirubin 0.2 AST 10 L D ALT 20 Alkaline Phosphatase 49 Total Protein 4.7 L Albumin 2.3 L Globulin 2.4 Albumin/Globulin Ratio 1.0 L 01/01/18 06:00 WBC RBC Hgb Hct MCV MCH MCHC RDW Plt Count MPV Gran % Lymph % (Auto) [place] % (Auto) Eos % (Auto) Baso % (Auto) Gran # Lymph # (Auto) [place] # (Auto) Eos # (Auto) Baso # (Auto) Sodium 152 H Potassium 4.3 Chloride 118 H Carbon Dioxide 27 Anion Gap 11 BUN 37 H Creatinine 1.6 H Est GFR ( Amer) 51 Est GFR (Non-Af Amer) 42 Random Glucose 98 Calcium 8.3 L Total Bilirubin 0.2 AST 13 L D ALT 18 Alkaline Phosphatase 55 Total Protein 4.9 L Albumin 2.4 L Globulin 2.6 Albumin/Globulin Ratio 0.9 L Critical Care Progress Note - Nutrition Nutrition: Nutrition Category Date Time Status NPO Diet [DIET] Diets 12/26/17 Breakfast Ordered Assessment/Plan - Assessment and Plan (Free Text) Assessment: Pt is a 77 yo M with pertinent history of duodenitis, errosive gastritis, diverticulosis, left LE DVT on AC admitted to ICU for UGIB. Patient was intubated for endoscopy, which revealed blood in antrum. Bleeding scan revealed transverse colon bleed and patient was found to be hypotensive and tachycardic in the ED with a Hgb of 6.6, hct of 20.3, and an INR of 2.56. Patient was given >13 U of PRBC's and platelets up til the weekend. Patient's Hgb today, 12/31, is 8.0, s/p 2U blood yesterday, and is stable with yesterday. In addition, patient has been getting hypoxemic. In light of patient's recent halt of anticoagulation, PE was on the differential, however, given recent multiple transfusions, this could also have been a picture of TRALI, and supporting this was that increasing the vent settings for FiO2 was favorable. In any case, we could not heparinize patient 2/2 recent GIB and cannot obtain CTA Chest 2/2 EKTA. Patient's sats are doing better now, 01/01, thus PE is less likely. RE: EKTA, cannot give fluid 2/2 fluid overload caused by recent transfusions; the same holds for patient's hypernatremia, thus not giving 1/2 NS and cannot give free water 2/2 patient's intubation. Finally, patient spiked a fever three days ago of 101; differentials included infectious etiologies vs reaction to blood. Patient technically had two SIRS criteria (tachycardia, fever) as well as borderline SIRS WBC count (11.3). Septic workup revealed negative blood cultures; but Procal is 1.59 and sputum culture is growing S. Marcescens. Chronic medical problems: HTN, Squamous Cell CA of Lung Plan: Neuro: - Midazolam + Diprivan for sedation right now Will give patient sedation vacation today after he has his colonoscopy, will then try to wean off of ventilator - Maintain normothermia CV: - Hx HTN: Hold Valsartan, pt hypo tensive to normotensive right now - Hx DVT: Hold anticoagulation 2/2 GIB - Hx AAA s/p Repair: Hold Verapamil 2/2 blood pressure - Hold Lasix for now, patient on Dextrose; hold 1/2 NS - Maintain MAP > 65 Pulm: - CXR, ABG for tomorrow - Maintain O2 > 90% - Keep intubated for now for patient's procedure with Dr. Ibrahim GI: - Acute GI Bleed s/p Gastric Artery Embolization: Protonix gtt; Zofran PRN; H/H q12h; CBC ordered q12 - GI consulted: will do colonoscopy today; continue GoLytely prep per GI - Surgery consulted Renal: - EKTA 2/2 GIB - Hold Nephrotoxic drugs; D5; Nephro Consult: Dr. Santos - Hypernatremia: D5. Avoid diuresis unless necessary for oxygenation - Monitor electrolytes and replete as needed - Maintain euvolemia Heme: - Monitor H/H q12H - Hold AC due to GI bleed Endo: - Maintain euglycemia ID: - Sepsis, likely 2/2 URI/LRI - On Vanc/Merrem - unchanged by ID Prophylaxis: Protonix gtt, SCD Consults: Surgery, GI, ID, Nephro Drips: Protonix gtt, Propofol gtt Diet: NPO/intubated <Yohan Vasquez - Last Filed: 01/01/18 17:09> CCU Objective - Vital Signs / Intake & Output Vital Signs (Last 4 hours): Vital Signs Pulse Resp BP 01/01/18 16:00 16 126/76 01/01/18 14:00 72 Intake and Output (Last 8hrs): Intake & Output 01/01/18 01/01/18 01/01/18 06:59 14:59 22:59 Intake Total 100 1750 Output Total 750 Balance 100 1000 Weight 197 lb Intake: IV 100 1750 Left 1550 Output: Urine 750 Urethral (Cadet) 750 - Medications Active Medications: Active Medications Generic Name Dose Route Start Last Admin Trade Name Freq PRN Reason Stop Dose Admin Albuterol/Ipratropium 3 ml 12/29/17 20:00 01/01/18 13:57 Duoneb 3 Mg/0.5 Mg (3 Ml) Ud IH 3 ml TIDRESP GRICELDA Administration Albuterol/Ipratropium 3 ml 12/31/17 01:25 12/31/17 01:30 Duoneb 3 Mg/0.5 Mg (3 Ml) Ud IH 3 ml Q2H PRN Administration Shortness of Breath Pantoprazole Sodium 40 mg in 100 mls @ 20 mls/hr 12/26/17 20:30 01/01/18 16: 12 Protonix 40mg Ivpb IVPB 20 mls/hr .Q5H GRICELDA Administration Midazolam 100 mg/100ml in NS 100 mg in 100 mls @ 1 mls/hr 12/27/17 18:41 12/13 09:45 Midazolam 100 Mg/100ml In Ns IV 2 mg/hr .Q24H PRN 2 mls/hr Agitation Titration Protocol 1 MG/HR Propofol 1,000 mg in 100 mls @ 2.557 mls/hr 12/27/17 19:59 01/01/18 14:06 Diprivan IV 50 mcg/kg/min .Q24H PRN 25.569 mls/hr TITRATE PER MD ORDER Administration Protocol 5 MCG/KG/MIN Vancomycin HCl 1 gm in 250 mls @ 167 mls/hr 12/29/17 10:00 12/30/17 09:21 Vancomycin 1gm IVPB 167 mls/hr DAILY GRICELDA Administration Protocol Sodium Chloride 1,000 mls @ 75 mls/hr 12/29/17 07:45 12/29/17 12:40 Sodium Chloride 0.45% IV Not Given .[id number] GRICELDA Meropenem 500 mg/ Sodium 50 mls @ 100 mls/hr 12/29/17 22:00 01/01/18 09:37 Chloride IVPB 100 mls/hr Q12 GRICELDA Administration Protocol Acetaminophen 1,000 mg in 100 mls @ 400 mls/hr 12/30/17 18:56 12/31/17 00:13 Ofirmev IVPB 01/01/18 18:57 400 mls/hr Q6H PRN Administration Temperature Dextrose/Sodium Chloride 1,000 mls @ 150 mls/hr 01/01/18 12:15 01/01/18 12:45 Dextrose 5%/0.33% Ns 1000 Ml IV 150 mls/hr .[id number] GRICELDA Administration Potassium Chloride 40 meq/ 1,020 mls @ 50 mls/hr 01/01/18 12:17 01/01/18 12: 45 Dextrose IV 50 mls/hr .[id number] GRICELDA Administration Ondansetron HCl 4 mg 12/26/17 21:15 Zofran Inj IVP Q4H PRN Nausea/Vomiting - Patient Studies Lab Studies: Microbiology Studies 12/29/17 06:05 Blood Culture - Preliminary Blood NO GROWTH AFTER 3 DAYS 12/29/17 05:30 Blood Culture - Preliminary Blood NO GROWTH AFTER 3 DAYS Lab Studies 01/01/18 01/01/18 12/31/17 Range/Units 06:00 06:00 18:45 WBC 9.5 (4.5-11.0) 10^3/ul RBC 3.06 L (3.5-6.1) 10^6/uL Hgb 8.8 L (14.0-18.0) g/dL Hct 27.3 L (42.0-52.0) % MCV 89.2 (80.0-105.0) fl MCH 28.8 (25.0-35.0) pg MCHC 32.2 (31.0-37.0) g/dl RDW 16.2 H (11.5-14.5) % Plt Count 148 (120.0-450.0) 10^3/uL MPV 11.3 H (7.0-11.0) fl Gran % 79.0 H (50.0-68.0) % Lymph % (Auto) 9.2 L (22.0-35.0) % [place] % (Auto) 10.4 H (1.0-6.0) % Eos % (Auto) 1.2 L (1.5-5.0) % Baso % (Auto) 0.2 (0.0-3.0) % Gran # 7.47 H (1.4-6.5) Lymph # (Auto) 0.9 L (1.2-3.4) [place] # (Auto) 1.0 H (0.1-0.6) Eos # (Auto) 0.1 (0.0-0.7) Baso # (Auto) 0.02 (0.0-2.0) K/mm3 Sodium 152 H 152 H (132-148) mmol/L Potassium 4.3 3.9 (3.6-5.0) mmol/L Chloride 118 H 119 H (98-107) mmol/L Carbon Dioxide 27 27 (21-33) mmol/L Anion Gap 11 9 L (10-20) BUN 37 H 46 H (7-21) mg/dL Creatinine 1.6 H 1.7 H (0.8-1.5) mg/dl Est GFR ( Amer) 51 48 Est GFR (Non-Af Amer) 42 39 Random Glucose 98 106 (70-110) mg/dL Calcium 8.3 L 8.3 L (8.4-10.5) mg/dL Total Bilirubin 0.2 0.2 (0.2-1.3) mg/dL AST 13 L D 10 L D (17-59) U/L ALT 18 20 (7-56) U/L Alkaline Phosphatase 55 49 (38-126) U/L Total Protein 4.9 L 4.7 L (5.8-8.3) g/dL Albumin 2.4 L 2.3 L (3.0-4.8) g/dL Globulin 2.6 2.4 gm/dL Albumin/Globulin Ratio 0.9 L 1.0 L (1.1-1.8) /12/13 Range/Units 18:45 WBC (4.5-11.0) 10^3/ul RBC (3.5-6.1) 10^6/uL Hgb 7.8 L (14.0-18.0) g/dL Hct (42.0-52.0) % MCV (80.0-105.0) fl MCH (25.0-35.0) pg MCHC (31.0-37.0) g/dl RDW (11.5-14.5) % Plt Count (120.0-450.0) 10^3/uL MPV (7.0-11.0) fl Gran % (50.0-68.0) % Lymph % (Auto) (22.0-35.0) % [place] % (Auto) (1.0-6.0) % Eos % (Auto) (1.5-5.0) % Baso % (Auto) (0.0-3.0) % Gran # (1.4-6.5) Lymph # (Auto) (1.2-3.4) [place] # (Auto) (0.1-0.6) Eos # (Auto) (0.0-0.7) Baso # (Auto) (0.0-2.0) K/mm3 Sodium (132-148) mmol/L Potassium (3.6-5.0) mmol/L Chloride (98-107) mmol/L Carbon Dioxide (21-33) mmol/L Anion Gap (10-20) BUN (7-21) mg/dL Creatinine (0.8-1.5) mg/dl Est GFR ( Amer) Est GFR (Non-Af Amer) Random Glucose (70-110) mg/dL Calcium (8.4-10.5) mg/dL Total Bilirubin (0.2-1.3) mg/dL AST (17-59) U/L ALT (7-56) U/L Alkaline Phosphatase (38-126) U/L Total Protein (5.8-8.3) g/dL Albumin (3.0-4.8) g/dL Globulin gm/dL Albumin/Globulin Ratio (1.1-1.8) Laboratory Results - last 24 hr 12/31/17 12/31/17 01/01/18 18:45 18:45 06:00 WBC 9.5 RBC 3.06 L Hgb 7.8 L 8.8 L Hct 27.3 L MCV 89.2 MCH 28.8 MCHC 32.2 RDW 16.2 H Plt Count 148 MPV 11.3 H Gran % 79.0 H Lymph % (Auto) 9.2 L [place] % (Auto) 10.4 H Eos % (Auto) 1.2 L Baso % (Auto) 0.2 Gran # 7.47 H Lymph # (Auto) 0.9 L [place] # (Auto) 1.0 H Eos # (Auto) 0.1 Baso # (Auto) 0.02 Sodium 152 H Potassium 3.9 Chloride 119 H Carbon Dioxide 27 Anion Gap 9 L BUN 46 H Creatinine 1.7 H Est GFR ( Amer) 48 Est GFR (Non-Af Amer) 39 Random Glucose 106 Calcium 8.3 L Total Bilirubin 0.2 AST 10 L D ALT 20 Alkaline Phosphatase 49 Total Protein 4.7 L Albumin 2.3 L Globulin 2.4 Albumin/Globulin Ratio 1.0 L 01/01/18 06:00 WBC RBC Hgb Hct MCV MCH MCHC RDW Plt Count MPV Gran % Lymph % (Auto) [place] % (Auto) Eos % (Auto) Baso % (Auto) Gran # Lymph # (Auto) [place] # (Auto) Eos # (Auto) Baso # (Auto) Sodium 152 H Potassium 4.3 Chloride 118 H Carbon Dioxide 27 Anion Gap 11 BUN 37 H Creatinine 1.6 H Est GFR ( Amer) 51 Est GFR (Non-Af Amer) 42 Random Glucose 98 Calcium 8.3 L Total Bilirubin 0.2 AST 13 L D ALT 18 Alkaline Phosphatase 55 Total Protein 4.9 L Albumin 2.4 L Globulin 2.6 Albumin/Globulin Ratio 0.9 L Critical Care Progress Note - Nutrition Nutrition: Nutrition Category Date Time Status NPO Diet [DIET] Diets 12/26/17 Breakfast Ordered Attending/Attestation - Attestation I have personally seen and examined this patient.: Yes I have fully participated in the care of the patient.: Yes I have reviewed all pertinent clinical information: Yes Notes (Text): 01/01/18 17:07 77 yo male with now resolved hemorrhagic shock. Hb stable. Hemodynamically stable. For colonoscopy in am and then will extubate. Protective lung ventilation, conservative fluid, 02 and restrictive PRBC strategy (shock resolved, bleeding stopped). HOB>35, oral hygiene. DVT/GI prophylaxis ccm time 40 min
[2018-01-01] MEDS ORDERED: Peg-Electrolyte Oral Soln 4L (Golytely) PO ONE (17:35)
--- NOTE | 2018-01-01 19:51 | CP.PCM.PN ---
Subjective - Date & Time of Evaluation Date of Evaluation: 01/01/18 Time of Evaluation: 12:00 - Subjective Subjective: Patient still intubated, more alert; no overt blood loss; getting colonoscopy prep via OG; greenish stools, no melena reported; Objective - Vital Signs/Intake and Output Vital Signs (last 24 hours): Temp Pulse Resp BP Pulse Ox 98 F 72 16 126/76 98 01/01/18 12:00 01/01/18 14:00 01/01/18 16:00 01/01/18 16:00 01/01/18 12:00 Intake and Output: 01/01/18 01/02/18 18:59 06:59 Intake Total 1850 Output Total 750 Balance 1100 - Medications Medications: Current Medications Albuterol/Ipratropium (Duoneb 3 Mg/0.5 Mg (3 Ml) Ud) 3 ml IH TIDRESP [facility] Last Admin: 01/01/18 13:57 Dose: 3 ml Albuterol/Ipratropium (Duoneb 3 Mg/0.5 Mg (3 Ml) Ud) 3 ml IH Q2H PRN PRN Reason: Shortness of Breath Last Admin: 12/31/17 01:30 Dose: 3 ml Pantoprazole Sodium (Protonix 40mg Ivpb) 40 mg in 100 mls @ 20 mls/hr IVPB .Q5H [facility] Last Admin: 01/01/18 16:12 Dose: 20 mls/hr Midazolam 100 mg/100ml in NS (Midazolam 100 Mg/100ml In Ns) 100 mg in 100 mls @ 1 mls/hr IV .Q24H PRN; Protocol; 1 MG/HR PRN Reason: Agitation Last Titration: 12/31/17 09:45 Dose: 2 mg/hr, 2 mls/hr Propofol (Diprivan) 1,000 mg in 100 mls @ 2.557 mls/hr IV .Q24H PRN; Protocol; 5 MCG/KG/MIN PRN Reason: TITRATE PER MD ORDER Last Admin: 01/01/18 18:05 Dose: 50 mcg/kg/min, 25.569 mls/hr Vancomycin HCl (Vancomycin 1gm) 1 gm in 250 mls @ 167 mls/hr IVPB DAILY [facility] PRN Reason: Protocol Last Admin: 12/30/17 09:21 Dose: 167 mls/hr Sodium Chloride (Sodium Chloride 0.45%) 1,000 mls @ 75 mls/hr IV .[id number] [facility] Last Admin: 12/29/17 12:40 Dose: Not Given Meropenem 500 mg/ Sodium (Chloride) 50 mls @ 100 mls/hr IVPB Q12 GRICELDA PRN Reason: Protocol Last Admin: 01/01/18 09:37 Dose: 100 mls/hr Dextrose/Sodium Chloride (Dextrose 5%/0.33% Ns 1000 Ml) 1,000 mls @ 150 mls/hr IV .[id number] [facility] Last Admin: 01/01/18 12:45 Dose: 150 mls/hr Potassium Chloride 40 meq/ (Dextrose) 1,020 mls @ 50 mls/hr IV .[id number] [facility] Last Admin: 01/01/18 12:45 Dose: 50 mls/hr Ondansetron HCl (Zofran Inj) 4 mg IVP Q4H PRN PRN Reason: Nausea/Vomiting - Labs Labs: 01/01/18 06:00 01/01/18 06:00 PT 12.0 SECONDS (9.4-12.5) 12/29/17 06:30 INR 1.04 (0.93-1.08) 12/29/17 06:30 APTT 23.8 Seconds (25.1-36.5) L 12/29/17 06:30 - Constitutional Appears: Non-toxic, No Acute Distress - Eye Exam Eye Exam: absent: Scleral icterus - ENT Exam ENT Exam: Mucous Membranes Moist - Respiratory Exam Respiratory Exam: Clear to Ausculation Bilateral. absent: Respiratory Distress - Cardiovascular Exam Additional comments: muffled heart sounds - GI/Abdominal Exam GI & Abdominal Exam: Soft. absent: Distended, Tenderness - Exam Exam: absent: Bladder Distension - Extremities Exam Additional comments: edematous b/l UE, mildly edematous lower ext; - Neurological Exam Neurological Exam: Alert Additional comments: not following commands; - Psychiatric Exam Psychiatric exam: absent: Agitated - Skin Skin Exam: Warm. absent: Cyanosis Assessment and Plan (1) Acute kidney failure Assessment & Plan: EKTA on CKD IIIA; ATN, improving; non-oliguric renal failure though UO noted to have dropped; not getting much saline (only with some meds); -changing IVF to give about 1L saline for the day (see below); Status: Acute (2) Hypernatremia Assessment & Plan: Stable but not significantly improved on D5W at 100 cc/hr; -starting D5-1/3NS at 150 cc/hr, decreasing D5W to 50 cc/hr, for total of 150 cc /hr free water via IV route; Status: Acute (3) SIRS (systemic inflammatory response syndrome) Assessment & Plan: On meropenem, being re-dosed by ID for improving CrCl; Status: Acute (4) Acute hypoxemic respiratory failure Status: Acute
--- NOTE | 2018-01-01 20:21 | US ---
HISTORY: Leg pain and swelling. Evaluate for DVT PHYSICIAN(S): Andrew Dan MD. TECHNIQUE: Duplex sonography and color-flow Doppler with graded compression were used to evaluate the deep venous systems of both lower extremities. The exam is limited by edema and portable technique. FINDINGS: The visualized deep venous systems of both lower extremities are sonographically normal and compressible. Normal wave forms and augmentation are seen. There is no sonographic evidence for deep venous thrombosis in the visualized segments of both lower extremities. IMPRESSION: No sonographic evidence for deep venous thrombosis in the visualized segments of both lower extremities. Limited study.
[2018-01-01] MEDS: Midazolam 100 mg/100ml in NS 100 MG/100 ML SOL IV PRN (20:23)
--- NOTE | 2018-01-01 23:44 | CP.PCM.PN ---
Subjective - Date & Time of Evaluation Date of Evaluation: 01/01/18 Time of Evaluation: 22:00 - Subjective Subjective: Infectious Disease Follow Up: January 01, 2018 77 year old male with PMH of hypertension, duodenitis, erosive gastritis ( diagnosed in 2012), divericulosis, abdominal aortic aneurysm repair in 2011, left lower extremity DVT (2011), who presents with GI bleed. Patient states that over the past 2 days he had multiple episodes of coffee ground hematemesis. He also reports melena, and bright red blood per rectum starting yesetrday. Patient states that he started Xarelto a few days ago. Patient endorses he was taking Eliquis but experienced abdominal discomfort, loss of appetite, and associated weight loss. He was switched to Xarelto instead recently due to these adverse events. He does admit to drinking alcohol, but denies any history of drinking greater than 8 drinks per week or having any prior history of alcohol abuse. Patient states that he takes Aleeve almost daily for the past 5 years. Currently in ICU for monitoring. TLC placed. Had several melena episodes during hospitalization. S/P IR angiography with embolization of left gastric artery POD#5. Intubated and Ventilated. On Vancomycin and Meropenem for antibiotic treatment. Patient with history of frequent hospitalizations. History obtained from the chart as the patient has been intubated and ventilated since I was consulted. Poor overall prognosis. He is still requiring high O2 requirements and moved up to 100% O2 at this time. Although intubated, the patient is arousable and able to follow some commands. Endoscopy done today. Objective - Vital Signs/Intake and Output Vital Signs (last 24 hours): Temp Pulse Resp BP Pulse Ox 98 F 74 16 126/76 98 01/01/18 12:00 01/01/18 18:00 01/01/18 16:00 01/01/18 16:00 01/01/18 12:00 Intake and Output: 01/01/18 01/02/18 18:59 06:59 Intake Total 3850 99 Output Total 2750 Balance 1100 99 - Medications Medications: Current Medications Albuterol/Ipratropium (Duoneb 3 Mg/0.5 Mg (3 Ml) Ud) 3 ml IH TIDRESP [facility] Last Admin: 01/01/18 20:00 Dose: 3 ml Albuterol/Ipratropium (Duoneb 3 Mg/0.5 Mg (3 Ml) Ud) 3 ml IH Q2H PRN PRN Reason: Shortness of Breath Last Admin: 12/31/17 01:30 Dose: 3 ml Pantoprazole Sodium (Protonix 40mg Ivpb) 40 mg in 100 mls @ 20 mls/hr IVPB .Q5H [facility] Last Admin: 01/01/18 21:48 Dose: 20 mls/hr Midazolam 100 mg/100ml in NS (Midazolam 100 Mg/100ml In Ns) 100 mg in 100 mls @ 1 mls/hr IV .Q24H PRN; Protocol; 1 MG/HR PRN Reason: Agitation Last Admin: 01/01/18 20:23 Dose: 2 mg/hr, 2 mls/hr Propofol (Diprivan) 1,000 mg in 100 mls @ 2.557 mls/hr IV .Q24H PRN; Protocol; 5 MCG/KG/MIN PRN Reason: TITRATE PER MD ORDER Last Admin: 01/01/18 18:05 Dose: 50 mcg/kg/min, 25.569 mls/hr Vancomycin HCl (Vancomycin 1gm) 1 gm in 250 mls @ 167 mls/hr IVPB DAILY [facility] PRN Reason: Protocol Last Admin: 12/30/17 09:21 Dose: 167 mls/hr Sodium Chloride (Sodium Chloride 0.45%) 1,000 mls @ 75 mls/hr IV .[id number] [facility] Last Admin: 12/29/17 12:40 Dose: Not Given Dextrose/Sodium Chloride (Dextrose 5%/0.33% Ns 1000 Ml) 1,000 mls @ 150 mls/hr IV .[id number] [facility] Last Admin: 01/01/18 20:36 Dose: 150 mls/hr Potassium Chloride 40 meq/ (Dextrose) 1,020 mls @ 50 mls/hr IV .[id number] [facility] Last Admin: 01/01/18 12:45 Dose: 50 mls/hr Ondansetron HCl (Zofran Inj) 4 mg IVP Q4H PRN PRN Reason: Nausea/Vomiting - Labs Labs: 01/01/18 06:00 01/01/18 06:00 PT 12.0 SECONDS (9.4-12.5) 12/29/17 06:30 INR 1.04 (0.93-1.08) 12/29/17 06:30 APTT 23.8 Seconds (25.1-36.5) L 12/29/17 06:30 - Constitutional Appears: Chronically Ill - Head Exam Additional comments: Intubated and Ventilated. - Eye Exam Eye Exam: EOMI, PERRL Pupil Exam: NORMAL ACCOMODATION, PERRL - ENT Exam ENT Exam: Mucous Membranes Moist, Normal External Ear Exam, TM's Normal Bilaterally Additional comments: Intubated and Ventilated. - Neck Exam Neck Exam: Full ROM, Normal Inspection - Respiratory Exam Respiratory Exam: Decreased Breath Sounds. absent: Rales, Rhonchi, Wheezes Additional comments: Intubated and Ventilated. - Cardiovascular Exam Cardiovascular Exam: Tachycardia, +S1, +S2 - GI/Abdominal Exam GI & Abdominal Exam: Soft, Normal Bowel Sounds, Pulsatile Mass. absent: Distended, Tenderness - Extremities Exam Extremities Exam: absent: Joint Swelling, Pedal Edema - Neurological Exam Additional comments: Intubated and Ventilated. - Skin Skin Exam: Intact, Normal Color, Warm Assessment and Plan - Assessment and Plan (Free Text) Assessment: 77 yo AA male known to me from prior hospitalizations presenting with acute GI bleed. The patient has been anemic and hypoxic. The patient has been having persistent fevers with mild leukocytosis. Supportive care. Start Vancomycin and Meropenem for treatment. Sepsis workup. Hypoxemia. Patient being evaluted for TRALI and PE at this time. The patient has left gastric artery embolization on 12/27/2017. The patient was given 13 U PRBCs and 8 U FFP. Patient with EKTA. Patient still requiring high O2 levels to saturate. On 100% O2 currently. Very poor prognosis. Fevers did downtrend overall to a high of 100.9 F over the past 24 hours... The patient has been afebrile for the past several hours. He did receive 2U of PRBCs overnight. Extremely poor prognosis. Sputum cultures showing Serratia. Endoscopy done by Dr. Ibrahim today. The patient is arousable and can follow some simple commands. Thank you for allowing me to participate in the care of the patient, we will follow with you.
[2018-01-02] MEDS: Propofol 10 mg/ml 1,000 MG/100 ML VIAL IV PRN (05:00)
[2018-01-02] MEDS: Dextrose 5%/0.33% NS 1,000 ML IV SCH (05:09)
[2018-01-02] MEDS: Meropenem 500 MG in Sodium Chloride 0.9% 50 ML IVPB SCH ×3 (05:34→21:02)
[2018-01-02 06:28] LABS: ARTERIAL BLOOD GAS HCO3 22.8 mmol/L (21-28); ARTERIAL BLOOD GAS HEMOGLOBIN 6.8 g/dL (11.7-17.4); ARTERIAL BLOOD GAS O2 CAPACITY 9.5 mL/dl (16-24); ARTERIAL BLOOD GAS O2 CONTENT 9.2 ML/dl (15-23); ARTERIAL BLOOD GAS O2 SAT 97.2 % (95-98); ARTERIAL BLOOD GAS PCO2 36 mm/Hg (35-45); ARTERIAL BLOOD GAS PH 7.41 (7.35-7.45); ARTERIAL BLOOD GAS TCO2 23.9 mmol.L (22-28)
[2018-01-02] MEDS: Pantoprazole 40mg/100mL NS 40 MG/100 ML BAG IVPB SCH ×2 (08:12→13:51)
--- NOTE | 2018-01-02 08:33 | RAD ---
HISTORY: INTUBATED COMPARISON: 12/31/2017 FINDINGS: LUNGS: Increasing lower lobe infiltrates bilaterally. Increasing vascular congestion. Endotracheal tube and nasogastric tube in satisfactory position PLEURA: No significant pleural effusion identified, no pneumothorax apparent. CARDIOVASCULAR: Mild cardiomegaly OSSEOUS STRUCTURES: No significant abnormalities. VISUALIZED UPPER ABDOMEN: Normal. OTHER FINDINGS: None. IMPRESSION: Increasing lower lobe infiltrates bilaterally. Increasing vascular congestion. Endotracheal tube and nasogastric tube in satisfactory position
[2018-01-02] MEDS: Albuterol-Ipratrop 3 mg / 0.5 (3 ml) UD IH SCH ×3 (08:50→20:51)
[2018-01-02 09:06] LABS: BASO # 0.02 K/mm3 (0.0-2.0); BASO % 0.2 % (0.0-3.0); EOS # 0.1 (0.0-0.7); EOS % 0.8 % (1.5-5.0); GRAN # 7.56 (1.4-6.5); GRAN % 79.6 % (50.0-68.0); HEMOGLOBIN 8.1 g/dL (14.0-18.0); LYMPH # 0.8 (1.2-3.4); LYMPH % 8.7 % (22.0-35.0); MEAN CORPUSCULAR HEMOGLOBIN 28.5 pg (25.0-35.0); MEAN CORPUSCULAR HGB CONC 32.4 g/dl (31.0-37.0); MONO % 10.7 % (1.0-6.0); RBC 2.84 10^6/uL (3.5-6.1); WHITE BLOOD COUNT 9.5 10^3/ul (4.5-11.0)
[2018-01-02 09:23] LABS: ALB/GLOB RATIO 0.9 (1.1-1.8); ALBUMIN 2.2 g/dL (3.0-4.8); ALT/SGPT 18 U/L (7-56); AST/SGOT 12 U/L (17-59); BLOOD UREA NITROGEN 22 mg/dL (7-21); CALCIUM 8.3 mg/dL (8.4-10.5); GFR AFRICAN-AMERICAN > 60; GFR NON-AFRICAN AMERICAN 59
[2018-01-02] MEDS ORDERED: Propofol 10 mg/ml Inj (20 ML) ONE (09:56)
--- NOTE | 2018-01-02 11:15 | CP.PCM.PN ---
Subjective - Date & Time of Evaluation Date of Evaluation: 01/02/18 Time of Evaluation: 08:00 - Subjective Subjective: GI Progress Note for Miky Ruiz PGY2 Patient seen and examined at bedside. There were no acute overnight events as per nursing staff. Patient is intubated and sedated. ROS could not be obtained. Objective - Vital Signs/Intake and Output Vital Signs (last 24 hours): Temp Pulse Resp BP Pulse Ox 98 F 78 24 125/79 93 L 01/01/18 12:00 01/02/18 10:00 01/02/18 10:00 01/02/18 10:00 01/02/18 10:00 Intake and Output: 01/02/18 01/02/18 06:59 18:59 Intake Total 299 1750 Output Total 1625 Balance 299 125 - Medications Medications: Current Medications Albuterol/Ipratropium (Duoneb 3 Mg/0.5 Mg (3 Ml) Ud) 3 ml IH TIDRESP [facility] Last Admin: 01/02/18 08:50 Dose: 3 ml Albuterol/Ipratropium (Duoneb 3 Mg/0.5 Mg (3 Ml) Ud) 3 ml IH Q2H PRN PRN Reason: Shortness of Breath Last Admin: 12/31/17 01:30 Dose: 3 ml Pantoprazole Sodium (Protonix 40mg Ivpb) 40 mg in 100 mls @ 20 mls/hr IVPB .Q5H [facility] Last Admin: 01/02/18 08:12 Dose: 20 mls/hr Midazolam 100 mg/100ml in NS (Midazolam 100 Mg/100ml In Ns) 100 mg in 100 mls @ 1 mls/hr IV .Q24H PRN; Protocol; 1 MG/HR PRN Reason: Agitation Last Admin: 01/01/18 20:23 Dose: 2 mg/hr, 2 mls/hr Propofol (Diprivan) 1,000 mg in 100 mls @ 2.557 mls/hr IV .Q24H PRN; Protocol; 5 MCG/KG/MIN PRN Reason: TITRATE PER MD ORDER Last Admin: 01/02/18 05:00 Dose: 50 mcg/kg/min, 25.569 mls/hr Vancomycin HCl (Vancomycin 1gm) 1 gm in 250 mls @ 167 mls/hr IVPB DAILY [facility] PRN Reason: Protocol Last Admin: 12/30/17 09:21 Dose: 167 mls/hr Sodium Chloride (Sodium Chloride 0.45%) 1,000 mls @ 75 mls/hr IV .[id number] [facility] Last Admin: 12/29/17 12:40 Dose: Not Given Dextrose/Sodium Chloride (Dextrose 5%/0.33% Ns 1000 Ml) 1,000 mls @ 150 mls/hr IV .[id number] [facility] Last Admin: 01/02/18 05:09 Dose: 150 mls/hr Potassium Chloride 40 meq/ (Dextrose) 1,020 mls @ 50 mls/hr IV .[id number] [facility] Last Admin: 01/01/18 12:45 Dose: 50 mls/hr Meropenem 500 mg/ Sodium (Chloride) 50 mls @ 100 mls/hr IVPB Q8 [facility] PRN Reason: Protocol Last Admin: 01/02/18 05:34 Dose: 100 mls/hr Ondansetron HCl (Zofran Inj) 4 mg IVP Q4H PRN PRN Reason: Nausea/Vomiting - Labs Labs: 01/02/18 08:50 01/02/18 08:50 PT 12.0 SECONDS (9.4-12.5) 12/29/17 06:30 INR 1.04 (0.93-1.08) 12/29/17 06:30 APTT 23.8 Seconds (25.1-36.5) L 12/29/17 06:30 - Head Exam Head Exam: ATRAUMATIC, NORMAL INSPECTION, NORMOCEPHALIC - Eye Exam Pupil Exam: NORMAL ACCOMODATION - ENT Exam ENT Exam: Mucous Membranes Moist - Respiratory Exam Respiratory Exam: Rhonchi, NORMAL BREATHING PATTERN. absent: Rales, Wheezes - Cardiovascular Exam Cardiovascular Exam: REGULAR RHYTHM, +S1, +S2. absent: Gallop, Rubs, Murmur - GI/Abdominal Exam GI & Abdominal Exam: Soft, Normal Bowel Sounds. absent: Rigid, Tenderness, Mass , Rebound - Extremities Exam Extremities Exam: Pedal Edema - Skin Skin Exam: Dry, Warm Assessment and Plan - Assessment and Plan (Free Text) Assessment: This is a 77yo AA male with past medical history of lung ca, DVT and EKTA who was admitted for 1. Massive GI bleed was on Xeralto s/p Kcentra and had multiple transfusions ( 15U PRBC, 8U FFP, 4U platelets) - EGD showed clotted blood in gastric antrum. Gastric embolization done by IR - Bleeding scan positive in transverse colon which can be from transit - Repeat EGD done did not show any overt bleeding 2. Sepsis - secondary to pneumonia v. pulmonary edema 3. Hypernatremia 4. EKTA (improving) Plan: Colonoscopy today showed a non-bleeding mucosal ulceration of the sigmoid colon. Biopsy was not done because tissue bled easily and does not look like a malignancy. Patient would need surgery to remove the lesion. He may be a poor candidate for surgery due to DVTs. Hgb stable. Continue high dose PPI. Case seen, discussed and reviewed with Dr. Ibrahim. Miky Valera PGY2
--- NOTE | 2018-01-02 11:20 | CP.CCUPN ---
<Kirby Schuler - Last Filed: 01/02/18 11:16> CCU Subjective - Physician Review Events Since Last Encounter (Free Text): 01/02/18 07:00A Patient seen and examined at bedside before procedure. Patient sedated and intubated. Patient was given GoLytely all night, creeping into the morning. No other acute events overnight. CCU Objective - Vital Signs / Intake & Output Vital Signs (Last 4 hours): Vital Signs Pulse Resp BP Pulse Ox 01/02/18 10:00 78 24 125/79 93 L 01/02/18 07:30 134/74 01/02/18 07:29 72 Intake and Output (Last 8hrs): Intake & Output 01/01/18 01/02/18 01/02/18 22:59 06:59 14:59 Intake Total 2299 100 1750 Output Total 2000 1625 Balance 299 100 125 Intake: IV 2299 100 1750 Left 300 1750 Right Forearm 600 abx 300 potassium 600 protonix 200 Output: Urine 1000 825 Urethral (Cadet) 1000 825 Stool 1000 800 Emesis 0 - Physical Exam Narrative Physical Exam (Free Text): 01/02/18 11:20 Please note that physical exam limited 2/2 patient's mental status. Head: Positive for: Atraumatic, Normocephalic Pupils: Positive for: PERRL Extroacular Muscles: Positive for: EOMI Conjunctiva: Positive for: Normal Mouth: Positive for: Moist Mucous Membranes Neck: Positive for: Normal Range of Motion Respiratory/Chest: Positive for: Clear to Auscultation, Good Air Exchange. Negative for: Respiratory Distress, Accessory Muscle Use Cardiovascular: Positive for: Regular Rate and Rhythm, Normal S1, S2. Negative for: Murmurs Abdomen: Positive for: Normal Bowel Sounds. Negative for: Tenderness, Distention, Peritoneal Signs, Rebound, Guarding Rectal: Positive for: Gross Blood, Melena Back: Positive for: Normal Inspection Upper Extremity: Positive for: Normal Inspection. Negative for: Cyanosis, Edema Lower Extremity: Positive for: Normal Inspection. Negative for: Edema Neurological: Positive for: GCS=15, CN II-XII Intact, Speech Normal Skin: Positive for: Warm, Dry, Normal Color. Negative for: Rashes Psychiatric: Positive for: Alert, Oriented x 3, Normal Insight, Normal Concentration - Medications Active Medications: Active Medications Generic Name Dose Route Start Last Admin Trade Name Freq PRN Reason Stop Dose Admin Albuterol/Ipratropium 3 ml 12/29/17 20:00 01/02/18 08:50 Duoneb 3 Mg/0.5 Mg (3 Ml) Ud IH 3 ml TIDRESP GRICELDA Administration Albuterol/Ipratropium 3 ml 12/31/17 01:25 12/31/17 01:30 Duoneb 3 Mg/0.5 Mg (3 Ml) Ud IH 3 ml Q2H PRN Administration Shortness of Breath Pantoprazole Sodium 40 mg in 100 mls @ 20 mls/hr 12/26/17 20:30 01/02/18 08: 12 Protonix 40mg Ivpb IVPB 20 mls/hr .Q5H GRICELDA Administration Midazolam 100 mg/100ml in NS 100 mg in 100 mls @ 1 mls/hr 12/27/17 18:41 01/13 20:23 Midazolam 100 Mg/100ml In Ns IV 2 mg/hr .Q24H PRN 2 mls/hr Agitation Administration Protocol 1 MG/HR Propofol 1,000 mg in 100 mls @ 2.557 mls/hr 12/27/17 19:59 01/02/18 05:00 Diprivan IV 50 mcg/kg/min .Q24H PRN 25.569 mls/hr TITRATE PER MD ORDER Administration Protocol 5 MCG/KG/MIN Vancomycin HCl 1 gm in 250 mls @ 167 mls/hr 12/29/17 10:00 12/30/17 09:21 Vancomycin 1gm IVPB 167 mls/hr DAILY GRICELDA Administration Protocol Sodium Chloride 1,000 mls @ 75 mls/hr 12/29/17 07:45 12/29/17 12:40 Sodium Chloride 0.45% IV Not Given .[id number] GRICELDA Dextrose/Sodium Chloride 1,000 mls @ 150 mls/hr 01/01/18 12:15 01/02/18 05:09 Dextrose 5%/0.33% Ns 1000 Ml IV 150 mls/hr .[id number] GRICELDA Administration Potassium Chloride 40 meq/ 1,020 mls @ 50 mls/hr 01/01/18 12:17 01/01/18 12: 45 Dextrose IV 50 mls/hr .[id number] GRICELDA Administration Meropenem 500 mg/ Sodium 50 mls @ 100 mls/hr 01/02/18 06:00 01/02/18 05:34 Chloride IVPB 100 mls/hr Q8 GRICELDA Administration Protocol Ondansetron HCl 4 mg 12/26/17 21:15 Zofran Inj IVP Q4H PRN Nausea/Vomiting - Patient Studies Lab Studies: Microbiology Studies 12/29/17 06:05 Blood Culture - Preliminary Blood NO GROWTH AFTER 4 DAYS 12/29/17 05:30 Blood Culture - Preliminary Blood NO GROWTH AFTER 4 DAYS Lab Studies 01/02/18 01/02/18 01/02/18 Range/Units 08:50 08:50 06:00 WBC 9.5 (4.5-11.0) 10^3/ul RBC 2.84 L (3.5-6.1) 10^6/uL Hgb 8.1 L (14.0-18.0) g/dL Hct 25.0 L (42.0-52.0) % MCV 88.0 (80.0-105.0) fl MCH 28.5 (25.0-35.0) pg MCHC 32.4 (31.0-37.0) g/dl RDW 15.0 H (11.5-14.5) % Plt Count 164 (120.0-450.0) 10^3/uL MPV 10.0 (7.0-11.0) fl Gran % 79.6 H (50.0-68.0) % Lymph % (Auto) 8.7 L (22.0-35.0) % [place] % (Auto) 10.7 H (1.0-6.0) % Eos % (Auto) 0.8 L (1.5-5.0) % Baso % (Auto) 0.2 (0.0-3.0) % Gran # 7.56 H (1.4-6.5) Lymph # (Auto) 0.8 L (1.2-3.4) [place] # (Auto) 1.0 H (0.1-0.6) Eos # (Auto) 0.1 (0.0-0.7) Baso # (Auto) 0.02 (0.0-2.0) K/mm3 pCO2 36 (35-45) mm/Hg pO2 67.0 L (80-100) mm/Hg HCO3 22.8 (21-28) mmol/L ABG pH 7.41 (7.35-7.45) ABG Total CO2 23.9 (22-28) mmol.L ABG O2 Saturation 97.2 (95-98) % ABG O2 Content 9.2 L (15-23) ML/dl ABG Base Excess -1.7 (-2.0-3.0) mmol/L ABG Hemoglobin 6.8 L (11.7-17.4) g/dL ABG Carboxyhemoglobin 1.6 H (0.5-1.5) % POC ABG HHb (Measured) 2.7 (0-5) % ABG Methemoglobin 0.9 (0.0-3.0) % ABG O2 Capacity 9.5 L (16-24) mL/dl Hgb O2 Saturation 94.8 L (95.0-98.0) % FiO2 50.0 % Sodium 145 (132-148) mmol/L Potassium 3.9 (3.6-5.0) mmol/L Chloride 114 H (98-107) mmol/L Carbon Dioxide 26 (21-33) mmol/L Anion Gap 10 (10-20) BUN 22 H (7-21) mg/dL Creatinine 1.2 (0.8-1.5) mg/dl Est GFR ( Amer) > 60 Est GFR (Non-Af Amer) 59 Random Glucose 117 H (70-110) mg/dL Calcium 8.3 L (8.4-10.5) mg/dL Total Bilirubin < 0.1 L (0.2-1.3) mg/dL AST 12 L (17-59) U/L ALT 18 (7-56) U/L Alkaline Phosphatase 52 (38-126) U/L Total Protein 4.8 L (5.8-8.3) g/dL Albumin 2.2 L (3.0-4.8) g/dL Globulin 2.5 gm/dL Albumin/Globulin Ratio 0.9 L (1.1-1.8) Laboratory Results - last 24 hr 01/02/18 01/02/18 01/02/18 06:00 08:50 08:50 WBC 9.5 RBC 2.84 L Hgb 8.1 L Hct 25.0 L MCV 88.0 MCH 28.5 MCHC 32.4 RDW 15.0 H Plt Count 164 MPV 10.0 Gran % 79.6 H Lymph % (Auto) 8.7 L [place] % (Auto) 10.7 H Eos % (Auto) 0.8 L Baso % (Auto) 0.2 Gran # 7.56 H Lymph # (Auto) 0.8 L [place] # (Auto) 1.0 H Eos # (Auto) 0.1 Baso # (Auto) 0.02 pCO2 36 pO2 67.0 L HCO3 22.8 ABG pH 7.41 ABG Total CO2 23.9 ABG O2 Saturation 97.2 ABG O2 Content 9.2 L ABG Base Excess -1.7 ABG Hemoglobin 6.8 L ABG Carboxyhemoglobin 1.6 H POC ABG HHb (Measured) 2.7 ABG Methemoglobin 0.9 ABG O2 Capacity 9.5 L Hgb O2 Saturation 94.8 L FiO2 50.0 Sodium 145 Potassium 3.9 Chloride 114 H Carbon Dioxide 26 Anion Gap 10 BUN 22 H Creatinine 1.2 Est GFR ( Amer) > 60 Est GFR (Non-Af Amer) 59 Random Glucose 117 H Calcium 8.3 L Total Bilirubin < 0.1 L AST 12 L ALT 18 Alkaline Phosphatase 52 Total Protein 4.8 L Albumin 2.2 L Globulin 2.5 Albumin/Globulin Ratio 0.9 L Critical Care Progress Note - Nutrition Nutrition: Nutrition Category Date Time Status NPO Diet [DIET] Diets 12/26/17 Breakfast Ordered Assessment/Plan - Assessment and Plan (Free Text) Assessment: Pt is a 77 yo M with pertinent history of duodenitis, errosive gastritis, diverticulosis, left LE DVT on AC admitted to ICU for UGIB. Patient was intubated for endoscopy, which revealed blood in antrum. Bleeding scan revealed transverse colon bleed and patient was found to be hypotensive and tachycardic in the ED with a Hgb of 6.6, hct of 20.3, and an INR of 2.56. Patient was given >13 U of PRBC's and platelets up til the weekend. Patient's Hgb today, 01/02, is 8.1, with no transfusion since 12/30/17. In addition, patient has been getting hypoxemic. In light of patient's recent halt of anticoagulation, PE was on the differential, as well as a picture of TRALI given recent transfusions; supporting this was that increasing the vent settings for FiO2 was favorable. In any case, we could not heparinize patient 2/2 recent GIB and could not obtain CTA Chest 2/2 EKTA. Patient's sats have been stable for days as of 01/02, thus PE is less likely. RE: EKTA, cannot give fluid 2/2 fluid overload caused by recent transfusions; the same holds for patient's hypernatremia, thus not giving 1/2 NS and cannot give free water 2/2 patient's intubation. Finally, patient spiked a fever four days ago of 101; differentials included infectious etiologies vs reaction to blood. Patient technically had two SIRS criteria (tachycardia, fever) as well as borderline SIRS WBC count (11.3). Septic workup revealed negative blood cultures; but Procal is 1.59 and sputum culture is growing S. Marcescens. Chronic medical problems: HTN, Squamous Cell CA of Lung Plan: Neuro: - Midazolam + Diprivan for sedation right now Will give patient sedation vacation today after he has his colonoscopy, will then try to wean off of ventilator - Maintain normothermia CV: - Hx HTN: Hold Valsartan, pt hypo tensive to normotensive right now - Hx DVT: Hold anticoagulation 2/2 GIB - Hx AAA s/p Repair: Hold Verapamil 2/2 blood pressure - Hold Lasix for now, patient on Dextrose; hold 1/2 NS - Maintain MAP > 65 Pulm: - CXR, ABG for tomorrow - Maintain O2 > 90% - Keep intubated for now for patient's procedure with Dr. Ibrahim GI: - Acute GI Bleed s/p Gastric Artery Embolization: Protonix gtt; Zofran PRN; H/H q12h; CBC ordered q12 - GI consulted: will do colonoscopy today - Surgery consulted: no further recommendations Renal: - EKTA 2/2 GIB - Hold Nephrotoxic drugs; D5; Nephro Consult: Dr. Santos - Hypernatremia: D5. Avoid diuresis unless necessary for oxygenation - Monitor electrolytes and replete as needed - Maintain euvolemia Heme: - Monitor H/H q12H - Hold AC due to GI bleed Endo: - Maintain euglycemia ID: - Sepsis, likely 2/2 URI/LRI - On Vanc/Merrem - unchanged by ID Prophylaxis: Protonix gtt, SCD Consults: Surgery, GI, ID, Nephro Drips: Protonix gtt, Propofol gtt Diet: NPO/intubated <Yohan Vasquez - Last Filed: 01/02/18 16:56> CCU Objective - Vital Signs / Intake & Output Intake and Output (Last 8hrs): Intake & Output 01/02/18 01/02/18 01/02/18 06:59 14:59 22:59 Intake Total 100 1750 Output Total 1625 Balance 100 125 Intake: IV 100 1750 Left 1750 Output: Urine 825 Urethral (Cadet) 825 Stool 800 Emesis 0 - Medications Active Medications: Active Medications Generic Name Dose Route Start Last Admin Trade Name Freq PRN Reason Stop Dose Admin Albuterol/Ipratropium 3 ml 12/29/17 20:00 01/02/18 13:55 Duoneb 3 Mg/0.5 Mg (3 Ml) Ud IH 3 ml TIDRESP GRICELDA Administration Albuterol/Ipratropium 3 ml 12/31/17 01:25 12/31/17 01:30 Duoneb 3 Mg/0.5 Mg (3 Ml) Ud IH 3 ml Q2H PRN Administration Shortness of Breath Pantoprazole Sodium 40 mg in 100 mls @ 20 mls/hr 12/26/17 20:30 01/02/18 13: 51 Protonix 40mg Ivpb IVPB 20 mls/hr .Q5H GRICELDA Administration Midazolam 100 mg/100ml in NS 100 mg in 100 mls @ 1 mls/hr 12/27/17 18:41 01/13 20:23 Midazolam 100 Mg/100ml In Ns IV 2 mg/hr .Q24H PRN 2 mls/hr Agitation Administration Protocol 1 MG/HR Propofol 1,000 mg in 100 mls @ 2.557 mls/hr 12/27/17 19:59 01/02/18 05:00 Diprivan IV 50 mcg/kg/min .Q24H PRN 25.569 mls/hr TITRATE PER MD ORDER Administration Protocol 5 MCG/KG/MIN Vancomycin HCl 1 gm in 250 mls @ 167 mls/hr 12/29/17 10:00 12/30/17 09:21 Vancomycin 1gm IVPB 167 mls/hr DAILY GRICELDA Administration Protocol Sodium Chloride 1,000 mls @ 75 mls/hr 12/29/17 07:45 12/29/17 12:40 Sodium Chloride 0.45% IV Not Given .[id number] [facility] Meropenem 500 mg/ Sodium 50 mls @ 100 mls/hr 01/02/18 06:00 01/02/18 14:03 Chloride IVPB 100 mls/hr Q8 GRICELDA Administration Protocol Ondansetron HCl 4 mg 12/26/17 21:15 Zofran Inj IVP Q4H PRN Nausea/Vomiting - Patient Studies Lab Studies: Microbiology Studies 12/29/17 06:05 Blood Culture - Preliminary Blood NO GROWTH AFTER 4 DAYS 12/29/17 05:30 Blood Culture - Preliminary Blood NO GROWTH AFTER 4 DAYS Lab Studies 01/02/18 01/02/18 01/02/18 Range/Units 08:50 08:50 06:00 WBC 9.5 (4.5-11.0) 10^3/ul RBC 2.84 L (3.5-6.1) 10^6/uL Hgb 8.1 L (14.0-18.0) g/dL Hct 25.0 L (42.0-52.0) % MCV 88.0 (80.0-105.0) fl MCH 28.5 (25.0-35.0) pg MCHC 32.4 (31.0-37.0) g/dl RDW 15.0 H (11.5-14.5) % Plt Count 164 (120.0-450.0) 10^3/uL MPV 10.0 (7.0-11.0) fl Gran % 79.6 H (50.0-68.0) % Lymph % (Auto) 8.7 L (22.0-35.0) % [place] % (Auto) 10.7 H (1.0-6.0) % Eos % (Auto) 0.8 L (1.5-5.0) % Baso % (Auto) 0.2 (0.0-3.0) % Gran # 7.56 H (1.4-6.5) Lymph # (Auto) 0.8 L (1.2-3.4) [place] # (Auto) 1.0 H (0.1-0.6) Eos # (Auto) 0.1 (0.0-0.7) Baso # (Auto) 0.02 (0.0-2.0) K/mm3 pCO2 36 (35-45) mm/Hg pO2 67.0 L (80-100) mm/Hg HCO3 22.8 (21-28) mmol/L ABG pH 7.41 (7.35-7.45) ABG Total CO2 23.9 (22-28) mmol.L ABG O2 Saturation 97.2 (95-98) % ABG O2 Content 9.2 L (15-23) ML/dl ABG Base Excess -1.7 (-2.0-3.0) mmol/L ABG Hemoglobin 6.8 L (11.7-17.4) g/dL ABG Carboxyhemoglobin 1.6 H (0.5-1.5) % POC ABG HHb (Measured) 2.7 (0-5) % ABG Methemoglobin 0.9 (0.0-3.0) % ABG O2 Capacity 9.5 L (16-24) mL/dl Hgb O2 Saturation 94.8 L (95.0-98.0) % FiO2 50.0 % Sodium 145 (132-148) mmol/L Potassium 3.9 (3.6-5.0) mmol/L Chloride 114 H (98-107) mmol/L Carbon Dioxide 26 (21-33) mmol/L Anion Gap 10 (10-20) BUN 22 H (7-21) mg/dL Creatinine 1.2 (0.8-1.5) mg/dl Est GFR ( Amer) > 60 Est GFR (Non-Af Amer) 59 Random Glucose 117 H (70-110) mg/dL Calcium 8.3 L (8.4-10.5) mg/dL Total Bilirubin < 0.1 L (0.2-1.3) mg/dL AST 12 L (17-59) U/L ALT 18 (7-56) U/L Alkaline Phosphatase 52 (38-126) U/L Total Protein 4.8 L (5.8-8.3) g/dL Albumin 2.2 L (3.0-4.8) g/dL Globulin 2.5 gm/dL Albumin/Globulin Ratio 0.9 L (1.1-1.8) Crossmatch 12/30/17 Range/Units 10:15 WBC (4.5-11.0) 10^3/ul RBC (3.5-6.1) 10^6/uL Hgb (14.0-18.0) g/dL Hct (42.0-52.0) % MCV (80.0-105.0) fl MCH (25.0-35.0) pg MCHC (31.0-37.0) g/dl RDW (11.5-14.5) % Plt Count (120.0-450.0) 10^3/uL MPV (7.0-11.0) fl Gran % (50.0-68.0) % Lymph % (Auto) (22.0-35.0) % [place] % (Auto) (1.0-6.0) % Eos % (Auto) (1.5-5.0) % Baso % (Auto) (0.0-3.0) % Gran # (1.4-6.5) Lymph # (Auto) (1.2-3.4) [place] # (Auto) (0.1-0.6) Eos # (Auto) (0.0-0.7) Baso # (Auto) (0.0-2.0) K/mm3 pCO2 (35-45) mm/Hg pO2 (80-100) mm/Hg HCO3 (21-28) mmol/L ABG pH (7.35-7.45) ABG Total CO2 (22-28) mmol.L ABG O2 Saturation (95-98) % ABG O2 Content (15-23) ML/dl ABG Base Excess (-2.0-3.0) mmol/L ABG Hemoglobin (11.7-17.4) g/dL ABG Carboxyhemoglobin (0.5-1.5) % POC ABG HHb (Measured) (0-5) % ABG Methemoglobin (0.0-3.0) % ABG O2 Capacity (16-24) mL/dl Hgb O2 Saturation (95.0-98.0) % FiO2 % Sodium (132-148) mmol/L Potassium (3.6-5.0) mmol/L Chloride (98-107) mmol/L Carbon Dioxide (21-33) mmol/L Anion Gap (10-20) BUN (7-21) mg/dL Creatinine (0.8-1.5) mg/dl Est GFR ( Amer) Est GFR (Non-Af Amer) Random Glucose (70-110) mg/dL Calcium (8.4-10.5) mg/dL Total Bilirubin (0.2-1.3) mg/dL AST (17-59) U/L ALT (7-56) U/L Alkaline Phosphatase (38-126) U/L Total Protein (5.8-8.3) g/dL Albumin (3.0-4.8) g/dL Globulin gm/dL Albumin/Globulin Ratio (1.1-1.8) Crossmatch See Detail Laboratory Results - last 24 hr 12/30/17 01/02/18 01/02/18 10:15 06:00 08:50 WBC 9.5 RBC 2.84 L Hgb 8.1 L Hct 25.0 L MCV 88.0 MCH 28.5 MCHC 32.4 RDW 15.0 H Plt Count 164 MPV 10.0 Gran % 79.6 H Lymph % (Auto) 8.7 L [place] % (Auto) 10.7 H Eos % (Auto) 0.8 L Baso % (Auto) 0.2 Gran # 7.56 H Lymph # (Auto) 0.8 L [place] # (Auto) 1.0 H Eos # (Auto) 0.1 Baso # (Auto) 0.02 pCO2 36 pO2 67.0 L HCO3 22.8 ABG pH 7.41 ABG Total CO2 23.9 ABG O2 Saturation 97.2 ABG O2 Content 9.2 L ABG Base Excess -1.7 ABG Hemoglobin 6.8 L ABG Carboxyhemoglobin 1.6 H POC ABG HHb (Measured) 2.7 ABG Methemoglobin 0.9 ABG O2 Capacity 9.5 L Hgb O2 Saturation 94.8 L FiO2 50.0 Sodium Potassium Chloride Carbon Dioxide Anion Gap BUN Creatinine Est GFR ( Amer) Est GFR (Non-Af Amer) Random Glucose Calcium Total Bilirubin AST ALT Alkaline Phosphatase Total Protein Albumin Globulin Albumin/Globulin Ratio Crossmatch See Detail 01/02/18 08:50 WBC RBC Hgb Hct MCV MCH MCHC RDW Plt Count MPV Gran % Lymph % (Auto) [place] % (Auto) Eos % (Auto) Baso % (Auto) Gran # Lymph # (Auto) [place] # (Auto) Eos # (Auto) Baso # (Auto) pCO2 pO2 HCO3 ABG pH ABG Total CO2 ABG O2 Saturation ABG O2 Content ABG Base Excess ABG Hemoglobin ABG Carboxyhemoglobin POC ABG HHb (Measured) ABG Methemoglobin ABG O2 Capacity Hgb O2 Saturation FiO2 Sodium 145 Potassium 3.9 Chloride 114 H Carbon Dioxide 26 Anion Gap 10 BUN 22 H Creatinine 1.2 Est GFR ( Amer) > 60 Est GFR (Non-Af Amer) 59 Random Glucose 117 H Calcium 8.3 L Total Bilirubin < 0.1 L AST 12 L ALT 18 Alkaline Phosphatase 52 Total Protein 4.8 L Albumin 2.2 L Globulin 2.5 Albumin/Globulin Ratio 0.9 L Crossmatch Critical Care Progress Note - Nutrition Nutrition: Nutrition Category Date Time Status Heart Healthy Diet [DIET] Diets 01/02/18 Dinner Active Attending/Attestation - Attestation I have personally seen and examined this patient.: Yes I have fully participated in the care of the patient.: Yes I have reviewed all pertinent clinical information: Yes Notes (Text): 01/02/18 16:54 77 yo male with resolved hemorrhagic shock, colonoscopy today-->oozing polyp, but no major bleed. Hb relatively stable. successfully extubated. dvt/gi prophylaxis. Please also see Dr. Vasquze note ccm time 40 min 01/02/18 16:55
--- NOTE | 2018-01-02 15:38 | CP.PCM.PN ---
<Victor Hugo Chapa - Last Filed: 01/03/18 04:43> Subjective - Date & Time of Evaluation Date of Evaluation: 01/02/18 Time of Evaluation: 07:50 - Subjective Subjective: Patient seen and examined at bedside sedated in no acute distress about to soon be undergoing colonoscopy. ROS limited due to sedation Objective - Vital Signs/Intake and Output Vital Signs (last 24 hours): Temp Pulse Resp BP Pulse Ox 98 F 78 24 126/78 93 L 01/01/18 12:00 01/02/18 10:00 01/02/18 10:00 01/02/18 12:09 01/02/18 10:00 Intake and Output: 01/02/18 01/02/18 06:59 18:59 Intake Total 299 1750 Output Total 1625 Balance 299 125 - Medications Medications: Current Medications Albuterol/Ipratropium (Duoneb 3 Mg/0.5 Mg (3 Ml) Ud) 3 ml IH TIDRESP [facility] Last Admin: 01/02/18 13:55 Dose: 3 ml Albuterol/Ipratropium (Duoneb 3 Mg/0.5 Mg (3 Ml) Ud) 3 ml IH Q2H PRN PRN Reason: Shortness of Breath Last Admin: 12/31/17 01:30 Dose: 3 ml Pantoprazole Sodium (Protonix 40mg Ivpb) 40 mg in 100 mls @ 20 mls/hr IVPB .Q5H [facility] Last Admin: 01/02/18 13:51 Dose: 20 mls/hr Midazolam 100 mg/100ml in NS (Midazolam 100 Mg/100ml In Ns) 100 mg in 100 mls @ 1 mls/hr IV .Q24H PRN; Protocol; 1 MG/HR PRN Reason: Agitation Last Admin: 01/01/18 20:23 Dose: 2 mg/hr, 2 mls/hr Propofol (Diprivan) 1,000 mg in 100 mls @ 2.557 mls/hr IV .Q24H PRN; Protocol; 5 MCG/KG/MIN PRN Reason: TITRATE PER MD ORDER Last Admin: 01/02/18 05:00 Dose: 50 mcg/kg/min, 25.569 mls/hr Vancomycin HCl (Vancomycin 1gm) 1 gm in 250 mls @ 167 mls/hr IVPB DAILY [facility] PRN Reason: Protocol Last Admin: 12/30/17 09:21 Dose: 167 mls/hr Sodium Chloride (Sodium Chloride 0.45%) 1,000 mls @ 75 mls/hr IV .[id number] [facility] Last Admin: 12/29/17 12:40 Dose: Not Given Meropenem 500 mg/ Sodium (Chloride) 50 mls @ 100 mls/hr IVPB Q8 [facility] PRN Reason: Protocol Last Admin: 01/02/18 14:03 Dose: 100 mls/hr Ondansetron HCl (Zofran Inj) 4 mg IVP Q4H PRN PRN Reason: Nausea/Vomiting - Labs Labs: 01/02/18 08:50 01/02/18 08:50 PT 12.0 SECONDS (9.4-12.5) 12/29/17 06:30 INR 1.04 (0.93-1.08) 12/29/17 06:30 APTT 23.8 Seconds (25.1-36.5) L 12/29/17 06:30 - Constitutional Appears: Other (intubated on sedation) - Head Exam Head Exam: ATRAUMATIC, NORMAL INSPECTION, NORMOCEPHALIC - Eye Exam Eye Exam: EOMI, Normal appearance - ENT Exam ENT Exam: Mucous Membranes Moist - Neck Exam Neck Exam: Normal Inspection - Respiratory Exam Respiratory Exam: Clear to Ausculation Bilateral. absent: Rales, Rhonchi, Wheezes - Cardiovascular Exam Cardiovascular Exam: REGULAR RHYTHM, +S1, +S2 - GI/Abdominal Exam GI & Abdominal Exam: Soft, Normal Bowel Sounds - Extremities Exam Extremities Exam: Normal Inspection - Back Exam Back Exam: NORMAL INSPECTION - Neurological Exam Additional comments: sedated - Skin Skin Exam: Normal Color, Warm Assessment and Plan - Assessment and Plan (Free Text) Assessment: 77 year old male with a past medical history of duodenitis, erosive gastritis, history of abdominal aortic aneurysm repair, DVT on Xarelto presenting on 12/26 with acute GI bleed initially intubated for airway protection, then passed sedation vacation however currently intubated on [facility] for colonoscopy. SIRS Criteria (Tachycardia and Fever) -ID Consult: Dr. Vyas -Possible Pneumonia -Sputum cultures positive for serratia -ID on consult -Continue with Meropenem and Vancomycin IV for antibiotic treatment at this time as per ID Hypoxemia, likely 2/2 TRALI VS PE - Cannot obtain CTA Chest 2/2 patient's EKTA; cannot heparinize 2/2 GiB. Will discuss IVC filter placement with heme/onc - LE venous dopplers ordered to r/o DVT; negative Acute GI bleed status post Xarelto therapy - Intubated on sedation - NPO however will discuss with GI regarding nutrition once colonoscopy is done and patient is extubated - Continue with Protonix ggt - H&H stable , continue to monitor - Surgery Consulted, Dr. Lopez, follow recs - EGD reveals upper body and fundal ulcers of gastrum and superficial duoendeal ulcers with no active bleed, colonoscopy to be performed today EKTA, likely secondary to GI bleed -Resolved -Hold nephrotoxic drugs; Monitor -Nephro Consulted: continue with hydration as per nephro Hypernatremia likely 2/2 Dehydration -Hypernatremia resolved continue to monitor -Nephrology consulted, will follow with recommendations History DVT -Will resume anticoagulation once stable and cleared by Heme -LE venous dopplers ordered to r/o DVT History HTN - Continue to hold Valsartan History Squamous Cell CA - No acute intervention History Abdominal Aortic Aneurysm s/p Repair - Continue to hold Verapamil Prophylaxis - GI: Protonix GTT - DVT: SCD <Alberto Orourke A - Last Filed: 01/03/18 07:29> Objective - Vital Signs/Intake and Output Vital Signs (last 24 hours): Temp Pulse Resp BP Pulse Ox 98.8 F 93 H 16 172/90 H 99 01/03/18 04:00 01/03/18 06:30 01/03/18 02:30 01/03/18 07:08 01/03/18 02:30 Intake and Output: 01/03/18 01/03/18 06:59 18:59 Intake Total 640 Output Total 1100 Balance -460 - Medications Medications: Current Medications Albuterol/Ipratropium (Duoneb 3 Mg/0.5 Mg (3 Ml) Ud) 3 ml IH TIDRESP [facility] Last Admin: 01/02/18 20:51 Dose: 3 ml Albuterol/Ipratropium (Duoneb 3 Mg/0.5 Mg (3 Ml) Ud) 3 ml IH Q2H PRN PRN Reason: Shortness of Breath Last Admin: 01/03/18 04:24 Dose: 3 ml Pantoprazole Sodium (Protonix 40mg Ivpb) 40 mg in 100 mls @ 20 mls/hr IVPB .Q5H [facility] Last Admin: 01/03/18 05:08 Dose: 20 mls/hr Midazolam 100 mg/100ml in NS (Midazolam 100 Mg/100ml In Ns) 100 mg in 100 mls @ 1 mls/hr IV .Q24H PRN; Protocol; 1 MG/HR PRN Reason: Agitation Last Admin: 01/01/18 20:23 Dose: 2 mg/hr, 2 mls/hr Propofol (Diprivan) 1,000 mg in 100 mls @ 2.557 mls/hr IV .Q24H PRN; Protocol; 5 MCG/KG/MIN PRN Reason: TITRATE PER MD ORDER Last Admin: 01/02/18 05:00 Dose: 50 mcg/kg/min, 25.569 mls/hr Vancomycin HCl (Vancomycin 1gm) 1 gm in 250 mls @ 167 mls/hr IVPB DAILY [facility] PRN Reason: Protocol Last Admin: 12/30/17 09:21 Dose: 167 mls/hr Sodium Chloride (Sodium Chloride 0.45%) 1,000 mls @ 75 mls/hr IV .[id number] [facility] Last Admin: 12/29/17 12:40 Dose: Not Given Meropenem 500 mg/ Sodium (Chloride) 50 mls @ 100 mls/hr IVPB Q8 [facility] PRN Reason: Protocol Last Admin: 01/03/18 05:02 Dose: 100 mls/hr Ondansetron HCl (Zofran Inj) 4 mg IVP Q4H PRN PRN Reason: Nausea/Vomiting - Labs Labs: 01/03/18 05:40 01/03/18 05:40 PT 12.0 SECONDS (9.4-12.5) 12/29/17 06:30 INR 1.04 (0.93-1.08) 12/29/17 06:30 APTT 23.8 Seconds (25.1-36.5) L 12/29/17 06:30 Attending/Attestation - Attestation I have personally seen and examined this patient.: Yes I have fully participated in the care of the patient.: Yes I have reviewed all pertinent clinical information, including history, physical exam and plan: Yes Notes (Text): 01/02/18 77 year old male with past medical history of hypertension, duodenitis, erosive gastritis, abdominal aortic aneurysm repair (2011), LLE DVT on xarelto who presented with GIB. He is s/p multiple PRBC / FFP transfusions. He was seen by GI and is s/p EGD last week as above. Bleeding scan was positive from transverse colon. He was seen by IR and is s/p embolization of left gastric artery last week. He had repeat EGD this week which showed gastric and superficial duodenal ulcers without active bleeding. Plan for colonoscopy today. His xarelto is on hold for now secondary to above. I did discuss with Dr. Dan today regarding possibility of IVC filter placement. He recommended to repeat LE dopplers first to check for active DVT which was negative. Patient is on antibiotics as well for possible pneumonia. Procalcitonin and pbnp were elevated. Echocardiogram was reviewed. EKTA and hypernatremia have resolved. Alberto Orourke MD Hospitalist.
--- NOTE | 2018-01-02 17:44 | PN ---
DATE: 01/02/2018 SUBJECTIVE: Yannick Aleman is seen. Endoscopy was performed by Dr. Ibrahim which showed no bleeding site. I reviewed the bleeding scan done a week ago and I believe in contradiction to the report, the bleeding site is actually the stomach. I went over it with and he convinced me the stomach was high up in the left upper quadrant. This is consistent with bleeding scan. I believe the only bleeding site was taken care of adequately. I have no surgical intention at this time. We will watch peripherally. Please recall as necessary. Harrison Lopez MD
--- NOTE | 2018-01-02 18:26 | PN ---
DATE: 01/02/2018 SUBJECTIVE: The patient was seen and examined at bedside. He is on pressure support trial which he tolerates well. He is on 5/5 with FiO2 of 50%. Rapid shallow breathing index 30. He is holding more than 500 mL of tidal volume. His end-tidal CO2 on the monitor 32. His blood pressure 148/79, his heart rate is 87, oxygen saturation 95%, respiratory rate 19. The patient just had colonoscopy done, which revealed oozing polyp in ascending colon. That was not major concern for big bleed as per Dr. Ibrahim and no more procedures are planned, thus patient entered weaning trial with intent to extubate. OBJECTIVE: HEENT: Head and neck atraumatic. LUNGS: Clear to auscultation bilaterally. HEART: Regular rate with S1, S2 normal. ABDOMEN: Soft, nontender, and nondistended. MUSCULOSKELETAL: No C/C/E. NEURO: The patient was seen moving all extremities spontaneously. SKIN: Moist. PSYCH: The patient is following commands and taking deep breath on command. LABORATORY DATA: WBC 9.5, hemoglobin 8.1, and platelet count 164. Sodium 145, potassium 3.9, chloride 114, carbon dioxide 26. BUN 22, creatinine 1.2 down from 1.6. Glucose 117. ABG today on PRVC 7.41/36/67 with O2 sat 94% on 50% FIO2. Chest x-ray showed some bilateral vascular congestion. MEDICATIONS: DuoNeb p.r.n., DuoNeb three times a day, IV fluid stopped, meropenem, Protonix drip, Versed stopped. ASSESSMENT AND PLAN: This is a 77-year-old gentleman who is recovered from hemorrhagic shock secondary to upper gastrointestinal bleed, status post embolization of the gastric artery. He had lower a gastrointestinal bleed as well, which appears to be stable now. He has had a colonoscopy by Dr. Ibrahim. At the present time, we are holding sedation. Propofol and Versed are off. The patient tolerated procedure well and now he is on pressure support trial. He is following commands. He is moving all extremities. His rapid shallow breathing index is 31, and he will be extubated if completes pressure support trial. His hemoglobin is stable. His chest x-ray shows bilateral vascular congestion, most likely due to multiple blood products that he received during the course of his ICU stay. At present time, we will stop IV fluids. We will give Lasix. We will diurese him to optimize his chances to stay off off invasive mechanical ventilation after extubation. He will be extubated to BiPAP. We will continue with mechanical DVT prophylaxis, Protonix drip. We will continue with antibiotics and ID followups. We will continue to maintain euvolemia, euglycemia, normothermia, and oxygen saturation more than 100%. We will continue with head of bed elevated at more than 35 degrees. Oral hygiene. ccm time 40 min Yohan Vasquez MD MTDRosa
--- NOTE | 2018-01-02 18:33 | CP.PCM.PN ---
Subjective - Date & Time of Evaluation Date of Evaluation: 01/02/18 Time of Evaluation: 17:30 - Subjective Subjective: Infectious Disease Follow Up: January 02, 2018 77 year old male with PMH of hypertension, duodenitis, erosive gastritis ( diagnosed in 2012), divericulosis, abdominal aortic aneurysm repair in 2011, left lower extremity DVT (2011), who presents with GI bleed. Patient states that over the past 2 days he had multiple episodes of coffee ground hematemesis. He also reports melena, and bright red blood per rectum starting yesetrday. Patient states that he started Xarelto a few days ago. Patient endorses he was taking Eliquis but experienced abdominal discomfort, loss of appetite, and associated weight loss. He was switched to Xarelto instead recently due to these adverse events. He does admit to drinking alcohol, but denies any history of drinking greater than 8 drinks per week or having any prior history of alcohol abuse. Patient states that he takes Aleve almost daily for the past 5 years. Currently in ICU for monitoring. TLC placed. Had several melena episodes during hospitalization. S/P IR angiography with embolization of left gastric artery POD#6. Extubated this morning. On Vancomycin and Meropenem for antibiotic treatment. Patient with history of frequent hospitalizations. History obtained from the chart. He is still requiring high O2 requirements and moved up to 100% O2 at this time. Extubated, the patient is arousable and able to follow some commands. Endoscopy done today. Objective - Vital Signs/Intake and Output Vital Signs (last 24 hours): Temp Pulse Resp BP Pulse Ox 97.8 F 78 20 154/88 H 93 L 01/02/18 16:00 01/02/18 18:00 01/02/18 16:00 01/02/18 16:00 01/02/18 10:00 Intake and Output: 01/02/18 01/02/18 06:59 18:59 Intake Total 299 4720 Output Total 4675 Balance 299 45 - Medications Medications: Current Medications Albuterol/Ipratropium (Duoneb 3 Mg/0.5 Mg (3 Ml) Ud) 3 ml IH TIDRESP [facility] Last Admin: 01/02/18 13:55 Dose: 3 ml Albuterol/Ipratropium (Duoneb 3 Mg/0.5 Mg (3 Ml) Ud) 3 ml IH Q2H PRN PRN Reason: Shortness of Breath Last Admin: 12/31/17 01:30 Dose: 3 ml Pantoprazole Sodium (Protonix 40mg Ivpb) 40 mg in 100 mls @ 20 mls/hr IVPB .Q5H [facility] Last Admin: 01/02/18 13:51 Dose: 20 mls/hr Midazolam 100 mg/100ml in NS (Midazolam 100 Mg/100ml In Ns) 100 mg in 100 mls @ 1 mls/hr IV .Q24H PRN; Protocol; 1 MG/HR PRN Reason: Agitation Last Admin: 01/01/18 20:23 Dose: 2 mg/hr, 2 mls/hr Propofol (Diprivan) 1,000 mg in 100 mls @ 2.557 mls/hr IV .Q24H PRN; Protocol; 5 MCG/KG/MIN PRN Reason: TITRATE PER MD ORDER Last Admin: 01/02/18 05:00 Dose: 50 mcg/kg/min, 25.569 mls/hr Vancomycin HCl (Vancomycin 1gm) 1 gm in 250 mls @ 167 mls/hr IVPB DAILY [facility] PRN Reason: Protocol Last Admin: 12/30/17 09:21 Dose: 167 mls/hr Sodium Chloride (Sodium Chloride 0.45%) 1,000 mls @ 75 mls/hr IV .[id number] [facility] Last Admin: 12/29/17 12:40 Dose: Not Given Meropenem 500 mg/ Sodium (Chloride) 50 mls @ 100 mls/hr IVPB Q8 [facility] PRN Reason: Protocol Last Admin: 01/02/18 14:03 Dose: 100 mls/hr Ondansetron HCl (Zofran Inj) 4 mg IVP Q4H PRN PRN Reason: Nausea/Vomiting - Labs Labs: 01/02/18 08:50 01/02/18 08:50 PT 12.0 SECONDS (9.4-12.5) 12/29/17 06:30 INR 1.04 (0.93-1.08) 12/29/17 06:30 APTT 23.8 Seconds (25.1-36.5) L 12/29/17 06:30 - Constitutional Appears: No Acute Distress, Chronically Ill - Head Exam Head Exam: ATRAUMATIC, NORMOCEPHALIC - Eye Exam Eye Exam: EOMI, PERRL Pupil Exam: NORMAL ACCOMODATION, PERRL - ENT Exam ENT Exam: Mucous Membranes Moist, Normal External Ear Exam, TM's Normal Bilaterally - Neck Exam Neck Exam: Full ROM, Normal Inspection - Respiratory Exam Respiratory Exam: Decreased Breath Sounds, Clear to Ausculation Bilateral, NORMAL BREATHING PATTERN. absent: Rales, Rhonchi, Wheezes - Cardiovascular Exam Cardiovascular Exam: REGULAR RHYTHM, RRR, +S1, +S2 - GI/Abdominal Exam GI & Abdominal Exam: Soft, Normal Bowel Sounds. absent: Distended, Tenderness - Extremities Exam Extremities Exam: Full ROM, Normal Inspection. absent: Joint Swelling, Pedal Edema - Neurological Exam Neurological Exam: Alert, Awake, CN II-XII Intact, Oriented x3 - Psychiatric Exam Psychiatric exam: Normal Affect, Normal Mood - Skin Skin Exam: Intact, Normal Color Assessment and Plan - Assessment and Plan (Free Text) Assessment: 77 yo AA male known to me from prior hospitalizations presenting with acute GI bleed. The patient has been anemic and hypoxic. The patient has been having persistent fevers with mild leukocytosis. Supportive care. Start Vancomycin and Meropenem for treatment. Sepsis workup. Hypoxemia. Patient being evaluted for TRALI and PE at this time. The patient has left gastric artery embolization on 12/27/2017. The patient was given 13 U PRBCs and 8 U FFP. Patient with EKTA. Extubated this morning. Poor prognosis. The patient has been afebrile for the past several hours. Extremely poor prognosis. Sputum cultures showing Serratia. Remains on Meropenem and Vancomycin IV for antibiotic treatment at this time. Colonoscopy done by Dr. Ibrahim today. The patient is arousable and can follow some simple commands. Extubated today. Slowly improving. Thank you for allowing me to participate in the care of the patient, we will follow with you.
--- NOTE | 2018-01-02 23:34 | CP.PCM.PN ---
Subjective - Date & Time of Evaluation Date of Evaluation: 01/02/18 Time of Evaluation: 10:00 - Subjective Subjective: s/p colonoscopy today; also s/p extubation later today; still sedated at time of encounter; Objective - Vital Signs/Intake and Output Vital Signs (last 24 hours): Temp Pulse Resp BP Pulse Ox 97.8 F 88 20 154/88 H 93 L 01/02/18 16:00 01/02/18 22:51 01/02/18 16:00 01/02/18 16:00 01/02/18 10:00 Intake and Output: 01/02/18 01/03/18 18:59 06:59 Intake Total 4720 Output Total 4675 Balance 45 - Medications Medications: Current Medications Albuterol/Ipratropium (Duoneb 3 Mg/0.5 Mg (3 Ml) Ud) 3 ml IH TIDRESP [facility] Last Admin: 01/02/18 20:51 Dose: 3 ml Albuterol/Ipratropium (Duoneb 3 Mg/0.5 Mg (3 Ml) Ud) 3 ml IH Q2H PRN PRN Reason: Shortness of Breath Last Admin: 12/31/17 01:30 Dose: 3 ml Pantoprazole Sodium (Protonix 40mg Ivpb) 40 mg in 100 mls @ 20 mls/hr IVPB .Q5H [facility] Last Admin: 01/02/18 13:51 Dose: 20 mls/hr Midazolam 100 mg/100ml in NS (Midazolam 100 Mg/100ml In Ns) 100 mg in 100 mls @ 1 mls/hr IV .Q24H PRN; Protocol; 1 MG/HR PRN Reason: Agitation Last Admin: 01/01/18 20:23 Dose: 2 mg/hr, 2 mls/hr Propofol (Diprivan) 1,000 mg in 100 mls @ 2.557 mls/hr IV .Q24H PRN; Protocol; 5 MCG/KG/MIN PRN Reason: TITRATE PER MD ORDER Last Admin: 01/02/18 05:00 Dose: 50 mcg/kg/min, 25.569 mls/hr Vancomycin HCl (Vancomycin 1gm) 1 gm in 250 mls @ 167 mls/hr IVPB DAILY [facility] PRN Reason: Protocol Last Admin: 12/30/17 09:21 Dose: 167 mls/hr Sodium Chloride (Sodium Chloride 0.45%) 1,000 mls @ 75 mls/hr IV .[id number] [facility] Last Admin: 12/29/17 12:40 Dose: Not Given Meropenem 500 mg/ Sodium (Chloride) 50 mls @ 100 mls/hr IVPB Q8 [facility] PRN Reason: Protocol Last Admin: 01/02/18 21:02 Dose: 100 mls/hr Ondansetron HCl (Zofran Inj) 4 mg IVP Q4H PRN PRN Reason: Nausea/Vomiting - Labs Labs: 01/02/18 08:50 01/02/18 08:50 PT 12.0 SECONDS (9.4-12.5) 12/29/17 06:30 INR 1.04 (0.93-1.08) 12/29/17 06:30 APTT 23.8 Seconds (25.1-36.5) L 12/29/17 06:30 - Constitutional Appears: Non-toxic, No Acute Distress - Eye Exam Eye Exam: absent: Scleral icterus - ENT Exam ENT Exam: Mucous Membranes Moist - Respiratory Exam Respiratory Exam: Clear to Ausculation Bilateral. absent: Respiratory Distress - Cardiovascular Exam Cardiovascular Exam: +S1, +S2. absent: Gallop - GI/Abdominal Exam GI & Abdominal Exam: Soft. absent: Distended, Tenderness - Exam Exam: absent: Bladder Distension - Extremities Exam Additional comments: edematous ext upper > lower - Neurological Exam Neurological Exam: absent: Alert, Awake - Psychiatric Exam Psychiatric exam: absent: Agitated - Skin Skin Exam: Warm. absent: Cyanosis Assessment and Plan (1) Acute kidney failure Assessment & Plan: ATN, improving, IVF stopped and IV lasix given by CCM team in the setting of hypoxemia and needing to extubate; noted to be polyuric today; -may need to restart IVF with 1/2NS to partially match urinary losses Status: Acute (2) Hypernatremia Assessment & Plan: Much improved; may worsen by tomorrow with patient being diuresed and polyuric; monitor, may need to restart hypotonic IVF; Status: Acute (3) SIRS (systemic inflammatory response syndrome) Status: Acute (4) Acute hypoxemic respiratory failure Assessment & Plan: ABG still showing hypoxemia, agree with IV lasix; Status: Acute
[2018-01-03] MEDS: Pantoprazole 40mg/100mL NS 40 MG/100 ML BAG IVPB SCH ×4 (00:06→10:01)
[2018-01-03] MEDS: Albuterol-Ipratrop 3 mg / 0.5 (3 ml) UD IH PRN (04:24)
[2018-01-03] MEDS: Meropenem 500 MG in Sodium Chloride 0.9% 50 ML IVPB SCH ×3 (05:02→22:52)
[2018-01-03 06:46] LABS: BASO # 0.01 K/mm3 (0.0-2.0); BASO % 0.1 % (0.0-3.0); EOS % 0.4 % (1.5-5.0); GRAN # 8.41 (1.4-6.5); GRAN % 82.3 % (50.0-68.0); HEMOGLOBIN 8.8 g/dL (14.0-18.0); LYMPH # 0.9 (1.2-3.4); LYMPH % 8.7 % (22.0-35.0); MEAN CELL VOLUME 86.2 fl (80.0-105.0); MEAN CORPUSCULAR HEMOGLOBIN 28.2 pg (25.0-35.0); MEAN CORPUSCULAR HGB CONC 32.7 g/dl (31.0-37.0); MEAN PLATELET VOLUME 10.4 fl (7.0-11.0); MONO # 0.9 (0.1-0.6); MONO % 8.5 % (1.0-6.0); RBC 3.12 10^6/uL (3.5-6.1); RED CELL DISTRIBUTION WIDTH 14.7 % (11.5-14.5); WHITE BLOOD COUNT 10.2 10^3/ul (4.5-11.0)
[2018-01-03 07:13] LABS: ALB/GLOB RATIO 0.9 (1.1-1.8); ALBUMIN 2.6 g/dL (3.0-4.8); ALT/SGPT 13 U/L (7-56); AST/SGOT 16 U/L (17-59); BLOOD UREA NITROGEN 21 mg/dL (7-21); CALCIUM 8.8 mg/dL (8.4-10.5); GFR AFRICAN-AMERICAN > 60; GFR NON-AFRICAN AMERICAN 59
[2018-01-03] MEDS: Albuterol-Ipratrop 3 mg / 0.5 (3 ml) UD IH SCH ×3 (07:34→22:18)
--- NOTE | 2018-01-03 08:19 | CP.PCM.PN ---
Subjective - Date & Time of Evaluation Date of Evaluation: 01/03/18 Time of Evaluation: 08:18 - Subjective Subjective: General surgery progress note for Dr. Db Manrique, PGY-1 Pt S & E at bedside at 0650 Pt extubated, resting comfortably in bed. Reports no bleeding, no complaints at this time. S/p colonoscopy yesterday. Objective - Vital Signs/Intake and Output Vital Signs (last 24 hours): Temp Pulse Resp BP Pulse Ox 98.8 F 93 H 16 172/90 H 99 01/03/18 04:00 01/03/18 06:30 01/03/18 02:30 01/03/18 07:08 01/03/18 02:30 Intake and Output: 01/03/18 01/03/18 06:59 18:59 Intake Total 640 Output Total 1100 Balance -460 - Medications Medications: Current Medications Albuterol/Ipratropium (Duoneb 3 Mg/0.5 Mg (3 Ml) Ud) 3 ml IH TIDRESP [facility] Last Admin: 01/03/18 07:34 Dose: 3 ml Albuterol/Ipratropium (Duoneb 3 Mg/0.5 Mg (3 Ml) Ud) 3 ml IH Q2H PRN PRN Reason: Shortness of Breath Last Admin: 01/03/18 04:24 Dose: 3 ml Hydrochlorothiazide (Hydrodiuril) 25 mg PO DAILY PRN PRN Reason: If BP > 160/90 after Losartan Pantoprazole Sodium (Protonix 40mg Ivpb) 40 mg in 100 mls @ 20 mls/hr IVPB .Q5H [facility] Last Admin: 01/03/18 05:08 Dose: 20 mls/hr Midazolam 100 mg/100ml in NS (Midazolam 100 Mg/100ml In Ns) 100 mg in 100 mls @ 1 mls/hr IV .Q24H PRN; Protocol; 1 MG/HR PRN Reason: Agitation Last Admin: 01/01/18 20:23 Dose: 2 mg/hr, 2 mls/hr Propofol (Diprivan) 1,000 mg in 100 mls @ 2.557 mls/hr IV .Q24H PRN; Protocol; 5 MCG/KG/MIN PRN Reason: TITRATE PER MD ORDER Last Admin: 01/02/18 05:00 Dose: 50 mcg/kg/min, 25.569 mls/hr Vancomycin HCl (Vancomycin 1gm) 1 gm in 250 mls @ 167 mls/hr IVPB DAILY [facility] PRN Reason: Protocol Last Admin: 12/30/17 09:21 Dose: 167 mls/hr Sodium Chloride (Sodium Chloride 0.45%) 1,000 mls @ 75 mls/hr IV .[id number] [facility] Last Admin: 12/29/17 12:40 Dose: Not Given Meropenem 500 mg/ Sodium (Chloride) 50 mls @ 100 mls/hr IVPB Q8 [facility] PRN Reason: Protocol Last Admin: 01/03/18 05:02 Dose: 100 mls/hr Losartan Potassium (Cozaar) 25 mg PO DAILY PRN PRN Reason: BP > 160 Systolic Ondansetron HCl (Zofran Inj) 4 mg IVP Q4H PRN PRN Reason: Nausea/Vomiting - Labs Labs: 01/03/18 05:40 01/03/18 05:40 PT 12.0 SECONDS (9.4-12.5) 12/29/17 06:30 INR 1.04 (0.93-1.08) 12/29/17 06:30 APTT 23.8 Seconds (25.1-36.5) L 12/29/17 06:30 - Constitutional Appears: Non-toxic, No Acute Distress - Head Exam Head Exam: ATRAUMATIC, NORMAL INSPECTION, NORMOCEPHALIC - Eye Exam Eye Exam: EOMI, Normal appearance - ENT Exam ENT Exam: Mucous Membranes Moist, Normal Exam - Neck Exam Neck Exam: Full ROM, Normal Inspection - Respiratory Exam Respiratory Exam: NORMAL BREATHING PATTERN - Cardiovascular Exam Cardiovascular Exam: REGULAR RHYTHM, +S1, +S2 - GI/Abdominal Exam GI & Abdominal Exam: Soft, Normal Bowel Sounds. absent: Distended, Firm, Guarding, Rigid, Tenderness - Neurological Exam Neurological Exam: Alert, Awake, CN II-XII Intact, Oriented x3 - Psychiatric Exam Psychiatric exam: Normal Affect, Normal Mood - Skin Skin Exam: Dry, Intact, Normal Color, Warm Assessment and Plan - Assessment and Plan (Free Text) Assessment: 77M w/GI bleeding; s/p IR angioemoblization of L gastric artery & EGD, colonoscopy yesterday, extubated yesterday Plan: Cont Vanc, Merrem FU colonoscopy findings Monitor for bleeding Strict I/O's Further mgmt as per primary/ICU teams Further recs as per attending Will JARROD attending Hilaria, PGY-1
[2018-01-03 08:29] LABS: ARTERIAL BLOOD GAS HCO3 25.3 mmol/L (21-28); ARTERIAL BLOOD GAS HEMOGLOBIN 8.6 g/dL (11.7-17.4); ARTERIAL BLOOD GAS O2 CAPACITY 11.8 mL/dl (16-24); ARTERIAL BLOOD GAS O2 CONTENT 10.6 ML/dl (15-23); ARTERIAL BLOOD GAS O2 SAT 89.5 % (95-98); ARTERIAL BLOOD GAS PCO2 34 mm/Hg (35-45); ARTERIAL BLOOD GAS PH 7.48 (7.35-7.45); ARTERIAL BLOOD GAS TCO2 26.3 mmol.L (22-28)
[2018-01-03] MEDS ORDERED: diltiaZEM IVPB 100mg in NS 100 ML IV PRN (09:31)
--- NOTE | 2018-01-03 10:11 | RAD ---
HISTORY: INTUBATED COMPARISON: 01/02/2018 FINDINGS: LUNGS: Moderate vascular congestion and left lower lobe infiltrate. There has been improvement in the right-sided infiltrate. The endotracheal tube is been removed PLEURA: No significant pleural effusion identified, no pneumothorax apparent. CARDIOVASCULAR: Moderate cardiomegaly OSSEOUS STRUCTURES: No significant abnormalities. VISUALIZED UPPER ABDOMEN: Normal. OTHER FINDINGS: None. IMPRESSION: Moderate vascular congestion and left lower lobe infiltrate. There has been improvement in the right-sided infiltrate. The endotracheal tube has been removed
--- NOTE | 2018-01-03 12:51 | CP.CCUPN ---
<Kirby Schuler - Last Filed: 01/03/18 13:52> CCU Subjective - Physician Review Events Since Last Encounter (Free Text): 01/03/18 09:45A Patient seen and examined at bedside, no bloody bm overnight, taken off of Bipap at 4A and placed on 6L NC. Patient passed swallow eval and placed on CLD. Mildly agitated when woken up from sedation yesterday. Patient has a swollen RUE that he states is painful to touch. CCU Objective - Vital Signs / Intake & Output Vital Signs (Last 4 hours): Vital Signs Pulse BP 01/03/18 10:00 140 H 01/03/18 09:57 128 H 120/62 01/03/18 09:50 116/84 Intake and Output (Last 8hrs): Intake & Output 01/02/18 01/03/18 01/03/18 22:59 06:59 14:59 Intake Total 2970 640 Output Total 3050 1100 Balance -80 -460 Weight 87.135 kg Intake: IV 2970 440 Left 1600 abx 400 200 potassium 400 propofol 170 protonix 400 240 Oral 200 Output: Urine 2800 1100 Urethral (Cadet) 2800 1100 Stool 250 - Physical Exam Head: Positive for: Atraumatic, Normocephalic Pupils: Positive for: PERRL Extroacular Muscles: Positive for: EOMI Conjunctiva: Positive for: Normal Mouth: Positive for: Moist Mucous Membranes Neck: Positive for: Normal Range of Motion Respiratory/Chest: Positive for: Clear to Auscultation, Good Air Exchange. Negative for: Respiratory Distress, Accessory Muscle Use Cardiovascular: Positive for: Regular Rate and Rhythm, Normal S1, S2. Negative for: Murmurs Abdomen: Positive for: Normal Bowel Sounds. Negative for: Tenderness, Distention, Peritoneal Signs, Rebound, Guarding Rectal: Positive for: Gross Blood, Melena Back: Positive for: Normal Inspection Upper Extremity: Positive for: Normal Inspection. Negative for: Cyanosis, Edema Lower Extremity: Positive for: Normal Inspection. Negative for: Edema Neurological: Positive for: GCS=15, CN II-XII Intact, Speech Normal Skin: Positive for: Warm, Dry, Normal Color. Negative for: Rashes Psychiatric: Positive for: Alert, Oriented x 3, Normal Insight, Normal Concentration - Medications Active Medications: Active Medications Generic Name Dose Route Start Last Admin Trade Name Freq PRN Reason Stop Dose Admin Albuterol/Ipratropium 3 ml 12/29/17 20:00 01/03/18 07:34 Duoneb 3 Mg/0.5 Mg (3 Ml) Ud IH 3 ml TIDRESP GRICELDA Administration Albuterol/Ipratropium 3 ml 12/31/17 01:25 01/03/18 04:24 Duoneb 3 Mg/0.5 Mg (3 Ml) Ud IH 3 ml Q2H PRN Administration Shortness of Breath Furosemide 40 mg 01/03/18 10:00 Lasix IVP Q12 GRICELDA Hydralazine HCl 10 mg 01/03/18 12:08 Apresoline IVP Q6 PRN sbp/dbp>160/100 Hydrochlorothiazide 25 mg 01/04/18 10:00 Hydrodiuril PO DAILY GRICELDA Pantoprazole Sodium 40 mg in 100 mls @ 20 mls/hr 12/26/17 20:30 01/03/18 10: 01 Protonix 40mg Ivpb IVPB 20 mls/hr .Q5H GRICELDA Administration Midazolam 100 mg/100ml in NS 100 mg in 100 mls @ 1 mls/hr 12/27/17 18:41 01/13 20:23 Midazolam 100 Mg/100ml In Ns IV 2 mg/hr .Q24H PRN 2 mls/hr Agitation Administration Protocol 1 MG/HR Propofol 1,000 mg in 100 mls @ 2.557 mls/hr 12/27/17 19:59 01/02/18 05:00 Diprivan IV 50 mcg/kg/min .Q24H PRN 25.569 mls/hr TITRATE PER MD ORDER Administration Protocol 5 MCG/KG/MIN Vancomycin HCl 1 gm in 250 mls @ 167 mls/hr 12/29/17 10:00 12/30/17 09:21 Vancomycin 1gm IVPB 167 mls/hr DAILY GRICELDA Administration Protocol Sodium Chloride 1,000 mls @ 75 mls/hr 12/29/17 07:45 12/29/17 12:40 Sodium Chloride 0.45% IV Not Given .[id number] GRICELDA Meropenem 500 mg/ Sodium 50 mls @ 100 mls/hr 01/02/18 06:00 01/03/18 05:02 Chloride IVPB 100 mls/hr Q8 GRICELDA Administration Protocol diltiaZEM IVPB 100mg in NS 100 mls @ 5 mls/hr 01/03/18 09:31 01/03/18 09:50 Cardizem 100mg In Ns IV 5 mg/hr .Q20H PRN 5 mls/hr TITRATE PER MD ORDER Administration Protocol 5 MG/HR Ondansetron HCl 4 mg 12/26/17 21:15 Zofran Inj IVP Q4H PRN Nausea/Vomiting Valsartan 320 mg 01/04/18 10:00 Diovan PO DAILY GRICELDA - Patient Studies Lab Studies: Microbiology Studies 12/29/17 06:05 Blood Culture - Final Blood NO GROWTH AFTER 5 DAYS Gram Stain - Final TEST NOT PERFORMED 12/29/17 05:30 Blood Culture - Final Blood NO GROWTH AFTER 5 DAYS Gram Stain - Final TEST NOT PERFORMED Lab Studies 01/03/18 01/03/18 01/03/18 Range/Units 05:40 05:40 05:05 WBC 10.2 (4.5-11.0) 10^3/ul RBC 3.12 L (3.5-6.1) 10^6/uL Hgb 8.8 L (14.0-18.0) g/dL Hct 26.9 L (42.0-52.0) % MCV 86.2 (80.0-105.0) fl MCH 28.2 (25.0-35.0) pg MCHC 32.7 (31.0-37.0) g/dl RDW 14.7 H (11.5-14.5) % Plt Count 226 (120.0-450.0) 10^3/uL MPV 10.4 (7.0-11.0) fl Gran % 82.3 H (50.0-68.0) % Lymph % (Auto) 8.7 L (22.0-35.0) % Pitt % (Auto) 8.5 H (1.0-6.0) % Eos % (Auto) 0.4 L (1.5-5.0) % Baso % (Auto) 0.1 (0.0-3.0) % Gran # 8.41 H (1.4-6.5) Lymph # (Auto) 0.9 L (1.2-3.4) Pitt # (Auto) 0.9 H (0.1-0.6) Eos # (Auto) 0.0 (0.0-0.7) Baso # (Auto) 0.01 (0.0-2.0) K/mm3 pCO2 34 L (35-45) mm/Hg pO2 47.0 L (80-100) mm/Hg HCO3 25.3 (21-28) mmol/L ABG pH 7.48 H (7.35-7.45) ABG Total CO2 26.3 (22-28) mmol.L ABG O2 Saturation 89.5 L (95-98) % ABG O2 Content 10.6 L (15-23) ML/dl ABG Base Excess 1.8 (-2.0-3.0) mmol/L ABG Hemoglobin 8.6 L (11.7-17.4) g/dL ABG Carboxyhemoglobin 2.2 H (0.5-1.5) % POC ABG HHb (Measured) 10.2 H (0-5) % ABG Methemoglobin 0.5 (0.0-3.0) % ABG O2 Capacity 11.8 L (16-24) mL/dl Hgb O2 Saturation 87.1 L (95.0-98.0) % FiO2 28.0 % Sodium 146 (132-148) mmol/L Potassium 3.6 (3.6-5.0) mmol/L Chloride 112 H (98-107) mmol/L Carbon Dioxide 24 (21-33) mmol/L Anion Gap 13 (10-20) BUN 21 (7-21) mg/dL Creatinine 1.2 (0.8-1.5) mg/dl Est GFR ( Amer) > 60 Est GFR (Non-Af Amer) 59 Random Glucose 105 (70-110) mg/dL Calcium 8.8 (8.4-10.5) mg/dL Total Bilirubin 0.3 (0.2-1.3) mg/dL AST 16 L D (17-59) U/L ALT 13 (7-56) U/L Alkaline Phosphatase 62 (38-126) U/L Total Protein 5.3 L (5.8-8.3) g/dL Albumin 2.6 L (3.0-4.8) g/dL Globulin 2.7 gm/dL Albumin/Globulin Ratio 0.9 L (1.1-1.8) Crossmatch 12/30/17 Range/Units 10:15 WBC (4.5-11.0) 10^3/ul RBC (3.5-6.1) 10^6/uL Hgb (14.0-18.0) g/dL Hct (42.0-52.0) % MCV (80.0-105.0) fl MCH (25.0-35.0) pg MCHC (31.0-37.0) g/dl RDW (11.5-14.5) % Plt Count (120.0-450.0) 10^3/uL MPV (7.0-11.0) fl Gran % (50.0-68.0) % Lymph % (Auto) (22.0-35.0) % Pitt % (Auto) (1.0-6.0) % Eos % (Auto) (1.5-5.0) % Baso % (Auto) (0.0-3.0) % Gran # (1.4-6.5) Lymph # (Auto) (1.2-3.4) Pitt # (Auto) (0.1-0.6) Eos # (Auto) (0.0-0.7) Baso # (Auto) (0.0-2.0) K/mm3 pCO2 (35-45) mm/Hg pO2 (80-100) mm/Hg HCO3 (21-28) mmol/L ABG pH (7.35-7.45) ABG Total CO2 (22-28) mmol.L ABG O2 Saturation (95-98) % ABG O2 Content (15-23) ML/dl ABG Base Excess (-2.0-3.0) mmol/L ABG Hemoglobin (11.7-17.4) g/dL ABG Carboxyhemoglobin (0.5-1.5) % POC ABG HHb (Measured) (0-5) % ABG Methemoglobin (0.0-3.0) % ABG O2 Capacity (16-24) mL/dl Hgb O2 Saturation (95.0-98.0) % FiO2 % Sodium (132-148) mmol/L Potassium (3.6-5.0) mmol/L Chloride (98-107) mmol/L Carbon Dioxide (21-33) mmol/L Anion Gap (10-20) BUN (7-21) mg/dL Creatinine (0.8-1.5) mg/dl Est GFR ( Amer) Est GFR (Non-Af Amer) Random Glucose (70-110) mg/dL Calcium (8.4-10.5) mg/dL Total Bilirubin (0.2-1.3) mg/dL AST (17-59) U/L ALT (7-56) U/L Alkaline Phosphatase (38-126) U/L Total Protein (5.8-8.3) g/dL Albumin (3.0-4.8) g/dL Globulin gm/dL Albumin/Globulin Ratio (1.1-1.8) Crossmatch See Detail Laboratory Results - last 24 hr 12/30/17 01/03/18 01/03/18 10:15 05:05 05:40 WBC 10.2 RBC 3.12 L Hgb 8.8 L Hct 26.9 L MCV 86.2 MCH 28.2 MCHC 32.7 RDW 14.7 H Plt Count 226 MPV 10.4 Gran % 82.3 H Lymph % (Auto) 8.7 L Pitt % (Auto) 8.5 H Eos % (Auto) 0.4 L Baso % (Auto) 0.1 Gran # 8.41 H Lymph # (Auto) 0.9 L Pitt # (Auto) 0.9 H Eos # (Auto) 0.0 Baso # (Auto) 0.01 pCO2 34 L pO2 47.0 L HCO3 25.3 ABG pH 7.48 H ABG Total CO2 26.3 ABG O2 Saturation 89.5 L ABG O2 Content 10.6 L ABG Base Excess 1.8 ABG Hemoglobin 8.6 L ABG Carboxyhemoglobin 2.2 H POC ABG HHb (Measured) 10.2 H ABG Methemoglobin 0.5 ABG O2 Capacity 11.8 L Hgb O2 Saturation 87.1 L FiO2 28.0 Sodium Potassium Chloride Carbon Dioxide Anion Gap BUN Creatinine Est GFR ( Amer) Est GFR (Non-Af Amer) Random Glucose Calcium Total Bilirubin AST ALT Alkaline Phosphatase Total Protein Albumin Globulin Albumin/Globulin Ratio Crossmatch See Detail 01/03/18 05:40 WBC RBC Hgb Hct MCV MCH MCHC RDW Plt Count MPV Gran % Lymph % (Auto) Pitt % (Auto) Eos % (Auto) Baso % (Auto) Gran # Lymph # (Auto) Pitt # (Auto) Eos # (Auto) Baso # (Auto) pCO2 pO2 HCO3 ABG pH ABG Total CO2 ABG O2 Saturation ABG O2 Content ABG Base Excess ABG Hemoglobin ABG Carboxyhemoglobin POC ABG HHb (Measured) ABG Methemoglobin ABG O2 Capacity Hgb O2 Saturation FiO2 Sodium 146 Potassium 3.6 Chloride 112 H Carbon Dioxide 24 Anion Gap 13 BUN 21 Creatinine 1.2 Est GFR ( Amer) > 60 Est GFR (Non-Af Amer) 59 Random Glucose 105 Calcium 8.8 Total Bilirubin 0.3 AST 16 L D ALT 13 Alkaline Phosphatase 62 Total Protein 5.3 L Albumin 2.6 L Globulin 2.7 Albumin/Globulin Ratio 0.9 L Crossmatch EKG/Cardiology Studies: Cardiology / EKG Studies 01/03/18 09:31 EKG [ELECTROCARDIOGRAM] Stat Comment: Reason For Exam: new onset afib Critical Care Progress Note - Nutrition Nutrition: Nutrition Category Date Time Status Liquid Diet [DIET] Diets 01/03/18 Breakfast Ordered Liquid Diet [DIET] Diets 01/03/18 Dinner Ordered Assessment/Plan - Assessment and Plan (Free Text) Assessment: Pt is a 77 yo M admitted to ICU for Hemorrhagic Shock 2/2 UGIB and LGIB. Day after admission, patient was intubated for endoscopy, which revealed blood in antrum. Bleeding scan revealed transverse colon bleed and patient was found to be hypotensive and tachycardic in the ED with a Hgb of 6.6, hct of 20.3, and an INR of 2.56. Patient was given >13 U of PRBC's and platelets up til the weekend. In addition, patient started getting hypoxemic. In light of patient' s recent halt of anticoagulation, PE was on the differential, as well as a picture of TRALI given recent transfusions; supporting this was that increasing the vent settings for FiO2 was favorable. In any case, we could not heparinize patient 2/2 recent GIB and could not obtain CTA Chest 2/2 EKTA. Patient had also been hypernatremic for days and had an EKTA with rising creatinine. Finally , patient spiked a fever of 101 on 12/29; differentials included infectious etiologies vs reaction to blood. Patient technically had two SIRS criteria ( tachycardia, fever) as well as borderline SIRS WBC count (11.3). Patient is much improved now, bleed and shock have resolved - Patient's Hgb today, 01/03, is 8.8, with no transfusion since 12/30/17, and he is maintaining his blood pressure. Patient's hypoxemia has been stable - patient's sats have been stable for days as of 01/03, thus PE is less likely. RE: EKTA, cannot give fluid 2/2 fluid overload caused by recent transfusions; the same holds for patient's hypernatremia, thus not giving 1/2 NS and must control amount of fluid given. In either case, both patient's hyhpernatremia and EKTA have resolved for now. Septic workup has revealed negative blood cultures; but Procal was 1.59 and sputum culture is growing S. Marcescens. Patient does not have SIRS criteria right now. Of note, physical exam today revealed RUE swelling and tenderness; this is concerning given patient's PMHx of DVT's. In addition, b/l UE DVTs need to be ruled out for PICC Line insertion Chronic medical problems: HTN, Squamous Cell CA of Lung, Gastritis, Chronic DVT Plan: Neuro: - Off sedation - Maintain normothermia CV: - Hx HTN: Dr. Anita Purcell spoke to Nephro, restarted home BP medications - Hx DVT: Hold anticoagulation 2/2 GIB - Hx AAA s/p Repair: Hold Verapamil 2/2 blood pressure - Hold Lasix for now; hold 1/2 NS - Maintain MAP > 65 Pulm: - CXR, ABG for tomorrow - Maintain O2 > 90% - Keep intubated for now for patient's procedure with Dr. Ibrahim GI: - Acute GI Bleed s/p Gastric Artery Embolization: Protonix gtt; Zofran PRN; H/H q12h; CBC ordered q12 - GI consulted: No further endoscopy for now - Surgery consulted: no further recommendations Renal: - EKTA 2/2 GIB - Hold Nephrotoxic drugs; Nephro Consult: Dr. Santos - Hypernatremia: Avoid fluids for now; Avoid diuresis unless necessary for oxygenation - Monitor electrolytes and replete as needed - Maintain euvolemia Heme: - Monitor H/H - Hold AC due to GI bleed - Check Duplex U/s for bilateral LE; if patient shows DVT, will need to consider IVC Filter - Check Duplex U/s for bilateral UE Endo: - Maintain euglycemia ID: - Sepsis, likely 2/2 URI/LRI - Resolved: On Vanc/Merrem - unchanged by ID Prophylaxis: Protonix gtt, SCD Consults: Surgery, GI, ID, Nephro Drips: Protonix gtt Diet: CLD <Yohan Vasquez B - Last Filed: 01/03/18 15:48> CCU Objective - Vital Signs / Intake & Output Vital Signs (Last 4 hours): Vital Signs Pulse BP 01/03/18 14:40 82 158/78 H Intake and Output (Last 8hrs): Intake & Output 01/03/18 01/03/18 01/03/18 06:59 14:59 22:59 Intake Total 640 Output Total 1100 Balance -460 Weight 192 lb 1.6 oz Intake: IV 440 abx 200 protonix 240 Oral 200 Output: Urine 1100 Urethral (Cadet) 1100 - Medications Active Medications: Active Medications Generic Name Dose Route Start Last Admin Trade Name Freq PRN Reason Stop Dose Admin Albuterol/Ipratropium 3 ml 12/29/17 20:00 01/03/18 07:34 Duoneb 3 Mg/0.5 Mg (3 Ml) Ud IH 3 ml TIDRESP GRICELDA Administration Albuterol/Ipratropium 3 ml 12/31/17 01:25 01/03/18 04:24 Duoneb 3 Mg/0.5 Mg (3 Ml) Ud IH 3 ml Q2H PRN Administration Shortness of Breath Diltiazem HCl 30 mg 01/03/18 14:00 01/03/18 14:40 Cardizem PO 30 mg QID GRICELDA Administration Furosemide 40 mg 01/03/18 10:00 01/03/18 14:40 Lasix IVP 40 mg Q12 GRICELDA Administration Hydralazine HCl 10 mg 01/03/18 12:08 Apresoline IVP Q6 PRN sbp/dbp>160/100 Midazolam 100 mg/100ml in NS 100 mg in 100 mls @ 1 mls/hr 12/27/17 18:41 01/13 20:23 Midazolam 100 Mg/100ml In Ns IV 2 mg/hr .Q24H PRN 2 mls/hr Agitation Administration Protocol 1 MG/HR Propofol 1,000 mg in 100 mls @ 2.557 mls/hr 12/27/17 19:59 01/02/18 05:00 Diprivan IV 50 mcg/kg/min .Q24H PRN 25.569 mls/hr TITRATE PER MD ORDER Administration Protocol 5 MCG/KG/MIN Vancomycin HCl 1 gm in 250 mls @ 167 mls/hr 12/29/17 10:00 12/30/17 09:21 Vancomycin 1gm IVPB 167 mls/hr DAILY GRICELDA Administration Protocol Sodium Chloride 1,000 mls @ 75 mls/hr 12/29/17 07:45 12/29/17 12:40 Sodium Chloride 0.45% IV Not Given .[id number] GRICELDA Meropenem 500 mg/ Sodium 50 mls @ 100 mls/hr 01/02/18 06:00 01/03/18 14:41 Chloride IVPB 100 mls/hr Q8 GRICELDA Administration Protocol Ondansetron HCl 4 mg 12/26/17 21:15 Zofran Inj IVP Q4H PRN Nausea/Vomiting Pantoprazole Sodium 40 mg 01/03/18 22:00 Protonix Inj IVP Q12H GRICELDA - Patient Studies Lab Studies: Microbiology Studies 12/29/17 06:05 Blood Culture - Final Blood NO GROWTH AFTER 5 DAYS Gram Stain - Final TEST NOT PERFORMED 12/29/17 05:30 Blood Culture - Final Blood NO GROWTH AFTER 5 DAYS Gram Stain - Final TEST NOT PERFORMED Lab Studies 01/03/18 01/03/18 01/03/18 Range/Units 05:40 05:40 05:05 WBC 10.2 (4.5-11.0) 10^3/ul RBC 3.12 L (3.5-6.1) 10^6/uL Hgb 8.8 L (14.0-18.0) g/dL Hct 26.9 L (42.0-52.0) % MCV 86.2 (80.0-105.0) fl MCH 28.2 (25.0-35.0) pg MCHC 32.7 (31.0-37.0) g/dl RDW 14.7 H (11.5-14.5) % Plt Count 226 (120.0-450.0) 10^3/uL MPV 10.4 (7.0-11.0) fl Gran % 82.3 H (50.0-68.0) % Lymph % (Auto) 8.7 L (22.0-35.0) % Pitt % (Auto) 8.5 H (1.0-6.0) % Eos % (Auto) 0.4 L (1.5-5.0) % Baso % (Auto) 0.1 (0.0-3.0) % Gran # 8.41 H (1.4-6.5) Lymph # (Auto) 0.9 L (1.2-3.4) Pitt # (Auto) 0.9 H (0.1-0.6) Eos # (Auto) 0.0 (0.0-0.7) Baso # (Auto) 0.01 (0.0-2.0) K/mm3 pCO2 34 L (35-45) mm/Hg pO2 47.0 L (80-100) mm/Hg HCO3 25.3 (21-28) mmol/L ABG pH 7.48 H (7.35-7.45) ABG Total CO2 26.3 (22-28) mmol.L ABG O2 Saturation 89.5 L (95-98) % ABG O2 Content 10.6 L (15-23) ML/dl ABG Base Excess 1.8 (-2.0-3.0) mmol/L ABG Hemoglobin 8.6 L (11.7-17.4) g/dL ABG Carboxyhemoglobin 2.2 H (0.5-1.5) % POC ABG HHb (Measured) 10.2 H (0-5) % ABG Methemoglobin 0.5 (0.0-3.0) % ABG O2 Capacity 11.8 L (16-24) mL/dl Hgb O2 Saturation 87.1 L (95.0-98.0) % FiO2 28.0 % Sodium 146 (132-148) mmol/L Potassium 3.6 (3.6-5.0) mmol/L Chloride 112 H (98-107) mmol/L Carbon Dioxide 24 (21-33) mmol/L Anion Gap 13 (10-20) BUN 21 (7-21) mg/dL Creatinine 1.2 (0.8-1.5) mg/dl Est GFR ( Amer) > 60 Est GFR (Non-Af Amer) 59 Random Glucose 105 (70-110) mg/dL Calcium 8.8 (8.4-10.5) mg/dL Total Bilirubin 0.3 (0.2-1.3) mg/dL AST 16 L D (17-59) U/L ALT 13 (7-56) U/L Alkaline Phosphatase 62 (38-126) U/L Total Protein 5.3 L (5.8-8.3) g/dL Albumin 2.6 L (3.0-4.8) g/dL Globulin 2.7 gm/dL Albumin/Globulin Ratio 0.9 L (1.1-1.8) Laboratory Results - last 24 hr 01/03/18 01/03/18 01/03/18 05:05 05:40 05:40 WBC 10.2 RBC 3.12 L Hgb 8.8 L Hct 26.9 L MCV 86.2 MCH 28.2 MCHC 32.7 RDW 14.7 H Plt Count 226 MPV 10.4 Gran % 82.3 H Lymph % (Auto) 8.7 L Pitt % (Auto) 8.5 H Eos % (Auto) 0.4 L Baso % (Auto) 0.1 Gran # 8.41 H Lymph # (Auto) 0.9 L Pitt # (Auto) 0.9 H Eos # (Auto) 0.0 Baso # (Auto) 0.01 pCO2 34 L pO2 47.0 L HCO3 25.3 ABG pH 7.48 H ABG Total CO2 26.3 ABG O2 Saturation 89.5 L ABG O2 Content 10.6 L ABG Base Excess 1.8 ABG Hemoglobin 8.6 L ABG Carboxyhemoglobin 2.2 H POC ABG HHb (Measured) 10.2 H ABG Methemoglobin 0.5 ABG O2 Capacity 11.8 L Hgb O2 Saturation 87.1 L FiO2 28.0 Sodium 146 Potassium 3.6 Chloride 112 H Carbon Dioxide 24 Anion Gap 13 BUN 21 Creatinine 1.2 Est GFR ( Amer) > 60 Est GFR (Non-Af Amer) 59 Random Glucose 105 Calcium 8.8 Total Bilirubin 0.3 AST 16 L D ALT 13 Alkaline Phosphatase 62 Total Protein 5.3 L Albumin 2.6 L Globulin 2.7 Albumin/Globulin Ratio 0.9 L EKG/Cardiology Studies: Cardiology / EKG Studies 01/03/18 09:31 EKG [ELECTROCARDIOGRAM] Stat Comment: Reason For Exam: new onset afib 01/03/18 13:14 EKG [ELECTROCARDIOGRAM] Stat Comment: Reason For Exam: afib to sinus Critical Care Progress Note - Nutrition Nutrition: Nutrition Category Date Time Status Liquid Diet [DIET] Diets 01/03/18 Breakfast Ordered Liquid Diet [DIET] Diets 01/03/18 Dinner Ordered Attending/Attestation - Attestation I have personally seen and examined this patient.: Yes I have fully participated in the care of the patient.: Yes I have reviewed all pertinent clinical information: Yes Notes (Text): 01/03/18 15:37 77 yo male after hemorrhagic shock, now hemodyanmically stable and bleeding stop. Still high risk for rebleeding, risks of which much higher then the benefits of restarting it today, despite recent history of DVT (as per Dr. Pride, who I spoke with today). Today's LE venous doppler is negative for DVT. Patient had bout of paroxysmal afib with RVR-->cardizem drip started, BP held, rhythm converted to sinus, PO cardizem started, drip started. Patient is fluid overload (CXR, physical exam)-->Lasix 40 mg IV BID started, high flow 02 initiated. BP holds. OOB to chair, advance diet (as per GI), remove cordis. protonix down to bid ccm time 40 min
--- NOTE | 2018-01-03 13:41 | CP.PCM.PN ---
<Alexandria,Kovil V - Last Filed: 01/04/18 00:23> Objective - Vital Signs/Intake and Output Vital Signs (last 24 hours): Temp Pulse Resp BP Pulse Ox 99.7 F H 93 H 25 H 139/75 98 01/03/18 16:00 01/03/18 22:52 01/03/18 16:00 01/03/18 22:52 01/03/18 16:00 Intake and Output: 01/03/18 01/04/18 18:59 06:59 Intake Total 4520 Output Total 4400 Balance 120 - Medications Medications: Current Medications Albuterol/Ipratropium (Duoneb 3 Mg/0.5 Mg (3 Ml) Ud) 3 ml IH TIDRESP [facility] Last Admin: 01/03/18 22:18 Dose: 3 ml Albuterol/Ipratropium (Duoneb 3 Mg/0.5 Mg (3 Ml) Ud) 3 ml IH Q2H PRN PRN Reason: Shortness of Breath Last Admin: 01/03/18 04:24 Dose: 3 ml Diltiazem HCl (Cardizem) 30 mg PO QID [facility] Last Admin: 01/03/18 22:52 Dose: 30 mg Furosemide (Lasix) 40 mg IVP Q12 [facility] Last Admin: 01/03/18 14:40 Dose: 40 mg Hydralazine HCl (Apresoline) 10 mg IVP Q6 PRN PRN Reason: sbp/dbp>160/100 Midazolam 100 mg/100ml in NS (Midazolam 100 Mg/100ml In Ns) 100 mg in 100 mls @ 1 mls/hr IV .Q24H PRN; Protocol; 1 MG/HR PRN Reason: Agitation Last Admin: 01/01/18 20:23 Dose: 2 mg/hr, 2 mls/hr Propofol (Diprivan) 1,000 mg in 100 mls @ 2.557 mls/hr IV .Q24H PRN; Protocol; 5 MCG/KG/MIN PRN Reason: TITRATE PER MD ORDER Last Admin: 01/02/18 05:00 Dose: 50 mcg/kg/min, 25.569 mls/hr Vancomycin HCl (Vancomycin 1gm) 1 gm in 250 mls @ 167 mls/hr IVPB DAILY [facility] PRN Reason: Protocol Last Admin: 12/30/17 09:21 Dose: 167 mls/hr Sodium Chloride (Sodium Chloride 0.45%) 1,000 mls @ 75 mls/hr IV .[id number] [facility] Last Admin: 12/29/17 12:40 Dose: Not Given Meropenem 500 mg/ Sodium (Chloride) 50 mls @ 100 mls/hr IVPB Q8 [facility] PRN Reason: Protocol Last Admin: 01/03/18 22:52 Dose: 100 mls/hr Ondansetron HCl (Zofran Inj) 4 mg IVP Q4H PRN PRN Reason: Nausea/Vomiting Pantoprazole Sodium (Protonix Inj) 40 mg IVP Q12H [facility] Last Admin: 01/03/18 22:52 Dose: 40 mg - Labs Labs: 01/03/18 05:40 01/03/18 19:25 PT 12.0 SECONDS (9.4-12.5) 12/29/17 06:30 INR 1.04 (0.93-1.08) 12/29/17 06:30 APTT 23.8 Seconds (25.1-36.5) L 12/29/17 06:30 Attending/Attestation - Attestation I have personally seen and examined this patient.: Yes I have fully participated in the care of the patient.: Yes I have reviewed all pertinent clinical information, including history, physical exam and plan: Yes Notes (Text): This is an addendum to GI progress report dictated by Jennifer Islas APN.The patient was seen and examined earlier. Medical records, lab studies, imagings were reviewed. Last 24 hours events reviewed. Agreed with the above treatment plan as outlined in Jennifer Islas APN's notes with the addition of the following 01/04/18 00:25 <Jennifer Islas - Last Filed: 01/07/18 11:49> Subjective - Date & Time of Evaluation Date of Evaluation: 01/03/18 Time of Evaluation: 10:10 - Subjective Subjective: Seen and examined at the bedside earlier today, chart review. The patient is awake alert and on high flow O2. Patient reported to be tachycardic, receiving Cardizem. Patient reported to be tolerating oral intake, patient denies nausea or abdominal pain. Had yellow soft stool this morning, no reports of bleeding. Patient reports he has hungry. Objective - Vital Signs/Intake and Output Vital Signs (last 24 hours): Temp Pulse Resp BP Pulse Ox 98.3 F 140 H 23 120/62 93 L 01/03/18 08:00 01/03/18 10:00 01/03/18 08:00 01/03/18 09:57 01/03/18 08:00 Intake and Output: 01/03/18 01/03/18 06:59 18:59 Intake Total 640 Output Total 1100 Balance -460 - Medications Medications: Current Medications Albuterol/Ipratropium (Duoneb 3 Mg/0.5 Mg (3 Ml) Ud) 3 ml IH TIDRESP [facility] Last Admin: 01/03/18 07:34 Dose: 3 ml Albuterol/Ipratropium (Duoneb 3 Mg/0.5 Mg (3 Ml) Ud) 3 ml IH Q2H PRN PRN Reason: Shortness of Breath Last Admin: 01/03/18 04:24 Dose: 3 ml Diltiazem HCl (Cardizem) 30 mg PO QID [facility] Furosemide (Lasix) 40 mg IVP Q12 [facility] Hydralazine HCl (Apresoline) 10 mg IVP Q6 PRN PRN Reason: sbp/dbp>160/100 Midazolam 100 mg/100ml in NS (Midazolam 100 Mg/100ml In Ns) 100 mg in 100 mls @ 1 mls/hr IV .Q24H PRN; Protocol; 1 MG/HR PRN Reason: Agitation Last Admin: 01/01/18 20:23 Dose: 2 mg/hr, 2 mls/hr Propofol (Diprivan) 1,000 mg in 100 mls @ 2.557 mls/hr IV .Q24H PRN; Protocol; 5 MCG/KG/MIN PRN Reason: TITRATE PER MD ORDER Last Admin: 01/02/18 05:00 Dose: 50 mcg/kg/min, 25.569 mls/hr Vancomycin HCl (Vancomycin 1gm) 1 gm in 250 mls @ 167 mls/hr IVPB DAILY [facility] PRN Reason: Protocol Last Admin: 12/30/17 09:21 Dose: 167 mls/hr Sodium Chloride (Sodium Chloride 0.45%) 1,000 mls @ 75 mls/hr IV .[id number] [facility] Last Admin: 12/29/17 12:40 Dose: Not Given Meropenem 500 mg/ Sodium (Chloride) 50 mls @ 100 mls/hr IVPB Q8 [facility] PRN Reason: Protocol Last Admin: 01/03/18 05:02 Dose: 100 mls/hr diltiaZEM IVPB 100mg in NS (Cardizem 100mg In Ns) 100 mls @ 5 mls/hr IV .Q20H PRN; Protocol; 5 MG/HR PRN Reason: TITRATE PER MD ORDER Last Admin: 01/03/18 09:50 Dose: 5 mg/hr, 5 mls/hr Ondansetron HCl (Zofran Inj) 4 mg IVP Q4H PRN PRN Reason: Nausea/Vomiting Pantoprazole Sodium (Protonix Inj) 40 mg IVP Q12H [facility] - Labs Labs: 01/03/18 05:40 01/03/18 05:40 PT 12.0 SECONDS (9.4-12.5) 12/29/17 06:30 INR 1.04 (0.93-1.08) 12/29/17 06:30 APTT 23.8 Seconds (25.1-36.5) L 12/29/17 06:30 - Constitutional Appears: No Acute Distress - Eye Exam Eye Exam: Normal appearance. absent: Scleral icterus - ENT Exam ENT Exam: Mucous Membranes Moist - Respiratory Exam Respiratory Exam: NORMAL BREATHING PATTERN. absent: Respiratory Distress - Cardiovascular Exam Cardiovascular Exam: +S1, +S2 - GI/Abdominal Exam GI & Abdominal Exam: Soft, Normal Bowel Sounds. absent: Guarding, Tenderness, Organomegaly, Rebound - Extremities Exam Extremities Exam: Pedal Edema. absent: Calf Tenderness - Neurological Exam Neurological Exam: Alert, Awake, Oriented x3 - Skin Skin Exam: Dry, Warm Assessment and Plan - Assessment and Plan (Free Text) Assessment: Assessment: This is a 77yo AA male with past medical history of lung ca, DVT and EKTA who was admitted for -Acute GI bleed was on Xeralto s/p Kcentra and had multiple transfusions (15U PRBC, 8U FFP, 4U platelets) ,s/p EGD showed clotted blood in gastric antrum. Gastric embolization done by IR , Repeat EGD done did not show any overt bleeding -Bleeding scan positive in transverse colon which can be from transit , Colonoscopy today showed a non-bleeding mucosal ulceration of the sigmoid colon. Biopsy was not done because tissue bled easily and does not look like a malignancy. -Sepsis - secondary to pneumonia v. pulmonary edema -Hypernatremia -EKTA (improving) Plan: Continue PPI, DC Protonix drip and change to Protonix 40 every 12 Advance diet to full liquid diet Continue to monitor H&H and for overt GI bleed, currently stable Patient would need surgery to remove the lesion, may not be a candidate secondary to history of DVT Seen and reviewed with Dr. Ibrahim.
--- NOTE | 2018-01-03 14:33 | CARD ---
APPROVED REPORT EKG Measurement Heart [id number] OR [id number] [id number] <Conclusion> Sinus tachycardia with APCs STTW changes c/w ischemia
--- NOTE | 2018-01-03 15:31 | CP.PCM.PN ---
<Victor Hugo Chapa - Last Filed: 01/06/18 07:11> Subjective - Date & Time of Evaluation Date of Evaluation: 01/03/18 Time of Evaluation: 08:15 - Subjective Subjective: Patient seen and examined at bedside in no acute distress this morning, speaking and communicating in full sentences. He states he feels fine except he wishes his bed were larger. Denies fevers, chills, shortness of breath, nausea, vomiting, diarrhea. Objective - Vital Signs/Intake and Output Vital Signs (last 24 hours): Temp Pulse Resp BP Pulse Ox 98.3 F 82 23 158/78 H 93 L 01/03/18 08:00 01/03/18 14:40 01/03/18 08:00 01/03/18 14:40 01/03/18 08:00 Intake and Output: 01/03/18 01/03/18 06:59 18:59 Intake Total 640 Output Total 1100 Balance -460 - Medications Medications: Current Medications Albuterol/Ipratropium (Duoneb 3 Mg/0.5 Mg (3 Ml) Ud) 3 ml IH TIDRESP [facility] Last Admin: 01/03/18 07:34 Dose: 3 ml Albuterol/Ipratropium (Duoneb 3 Mg/0.5 Mg (3 Ml) Ud) 3 ml IH Q2H PRN PRN Reason: Shortness of Breath Last Admin: 01/03/18 04:24 Dose: 3 ml Diltiazem HCl (Cardizem) 30 mg PO QID [facility] Last Admin: 01/03/18 14:40 Dose: 30 mg Furosemide (Lasix) 40 mg IVP Q12 [facility] Last Admin: 01/03/18 14:40 Dose: 40 mg Hydralazine HCl (Apresoline) 10 mg IVP Q6 PRN PRN Reason: sbp/dbp>160/100 Midazolam 100 mg/100ml in NS (Midazolam 100 Mg/100ml In Ns) 100 mg in 100 mls @ 1 mls/hr IV .Q24H PRN; Protocol; 1 MG/HR PRN Reason: Agitation Last Admin: 01/01/18 20:23 Dose: 2 mg/hr, 2 mls/hr Propofol (Diprivan) 1,000 mg in 100 mls @ 2.557 mls/hr IV .Q24H PRN; Protocol; 5 MCG/KG/MIN PRN Reason: TITRATE PER MD ORDER Last Admin: 01/02/18 05:00 Dose: 50 mcg/kg/min, 25.569 mls/hr Vancomycin HCl (Vancomycin 1gm) 1 gm in 250 mls @ 167 mls/hr IVPB DAILY [facility] PRN Reason: Protocol Last Admin: 12/30/17 09:21 Dose: 167 mls/hr Sodium Chloride (Sodium Chloride 0.45%) 1,000 mls @ 75 mls/hr IV .[id number] [facility] Last Admin: 12/29/17 12:40 Dose: Not Given Meropenem 500 mg/ Sodium (Chloride) 50 mls @ 100 mls/hr IVPB Q8 [facility] PRN Reason: Protocol Last Admin: 01/03/18 14:41 Dose: 100 mls/hr Ondansetron HCl (Zofran Inj) 4 mg IVP Q4H PRN PRN Reason: Nausea/Vomiting Pantoprazole Sodium (Protonix Inj) 40 mg IVP Q12H [facility] - Labs Labs: 01/03/18 05:40 01/03/18 05:40 PT 12.0 SECONDS (9.4-12.5) 12/29/17 06:30 INR 1.04 (0.93-1.08) 12/29/17 06:30 APTT 23.8 Seconds (25.1-36.5) L 12/29/17 06:30 - Constitutional Appears: Non-toxic, Toxic - Head Exam Head Exam: ATRAUMATIC, NORMAL INSPECTION, NORMOCEPHALIC - Eye Exam Eye Exam: EOMI, Normal appearance - ENT Exam ENT Exam: Mucous Membranes Moist - Respiratory Exam Respiratory Exam: Clear to Ausculation Bilateral. absent: Rhonchi, Wheezes - Cardiovascular Exam Cardiovascular Exam: Irregular Rhythm, +S1, +S2 - GI/Abdominal Exam GI & Abdominal Exam: Soft, Normal Bowel Sounds - Extremities Exam Extremities Exam: Tenderness (right upper extremity). absent: Normal Inspection , Pedal Edema Additional comments: swelling and erythema of right upper extremity - Neurological Exam Neurological Exam: Alert, Awake, CN II-XII Intact, Oriented x3 - Psychiatric Exam Psychiatric exam: Normal Affect, Normal Mood - Skin Skin Exam: Erythema (right upper extremity), Warm (right upper extremity) Assessment and Plan - Assessment and Plan (Free Text) Plan: 77 year old male with a past medical history of duodenitis, erosive gastritis, history of abdominal aortic aneurysm repair, DVT on Xarelto presenting on 12/26 with acute GI bleed initially intubated for airway protection, then passed sedation vacation however currently intubated on PRVC for colonoscopy. SIRS Criteria (Tachycardia and Fever) -ID Consult: Dr. Vyas -Sputum cultures positive for serratia -ID on consult -Continue with Meropenem and Vancomycin IV Hypoxemia, likely 2/2 TRALI VS PE - Cannot obtain CTA Chest 2/2 patient's EKTA; cannot heparinize 2/2 GiB. - LE venous dopplers; negative - Continue with daily doppler studies Acute GI bleed status post Xarelto therapy - Intubated on sedation - Clear liquid diet started - Continue with Protonix ggt - H&H stable , continue to monitor - Surgery Consulted, Dr. Lopez, follow recs - EGD reveals upper body and fundal ulcers of gastrum and superficial duoendeal ulcers with no active bleed, colonoscopy reveals large ulcerated partially prolapsing mucosal fold vs sigmoid colon polyp and diverticulosis EKTA, likely secondary to GI bleed -Resolved -Hold nephrotoxic drugs; Monitor -Nephro Consulted: continue with hydration as per nephro Hypernatremia likely 2/2 Dehydration -Hypernatremia resolved continue to monitor -Nephrology consulted, will follow with recommendations History DVT -Will resume anticoagulation once stable and cleared by Heme -Right upper extremity venous doppler ordered to r/o DVT; negative History HTN - Consider re-starting Valsartan - Consider hydralazine PRN History Squamous Cell CA - No acute intervention History Abdominal Aortic Aneurysm s/p Repair - Continue to hold Verapamil Prophylaxis - GI: Protonix GTT - DVT: SCD <Alberto Orourke - Last Filed: 01/08/18 11:16> Objective - Vital Signs/Intake and Output Vital Signs (last 24 hours): Temp Pulse Resp BP Pulse Ox 98.0 F 95 H 27 H 143/81 97 01/08/18 07:58 01/08/18 09:42 01/08/18 07:58 01/08/18 09:42 01/08/18 07:58 Intake and Output: 01/08/18 01/08/18 06:59 18:59 Intake Total 360 120 Output Total 150 Balance 360 -30 - Medications Medications: Current Medications Albuterol/Ipratropium (Duoneb 3 Mg/0.5 Mg (3 Ml) Ud) 3 ml IH TIDRESP [facility] Last Admin: 01/08/18 07:36 Dose: 3 ml Albuterol/Ipratropium (Duoneb 3 Mg/0.5 Mg (3 Ml) Ud) 3 ml IH Q2H PRN PRN Reason: Shortness of Breath Last Admin: 01/08/18 05:32 Dose: 3 ml Diltiazem HCl (Cardizem Cd) 180 mg PO DAILY [facility] Last Admin: 01/08/18 09:42 Dose: 180 mg Furosemide (Lasix) 40 mg IVP BID [facility] Last Admin: 01/08/18 09:41 Dose: 40 mg Vancomycin HCl (Vancomycin 1gm) 1 gm in 250 mls @ 167 mls/hr IVPB DAILY [facility] PRN Reason: Protocol Last Admin: 01/07/18 14:33 Dose: 167 mls/hr Cefepime HCl (Maxipime 1gm) 1 gm in 100 mls @ 100 mls/hr IVPB Q12 [facility] PRN Reason: Protocol Last Admin: 01/08/18 09:43 Dose: 100 mls/hr Lorazepam (Ativan) 1 mg IVP Q4H PRN; Protocol PRN Reason: Symptoms of alcohol withdrawl Last Admin: 01/06/18 23:17 Dose: 1 mg Metoprolol Tartrate (Lopressor) 5 mg IVP Q6 PRN PRN Reason: Heart rate Last Admin: 01/06/18 01:45 Dose: 5 mg Nicotine (Nicoderm Cq) 1 patch TD DAILY [facility] Last Admin: 01/08/18 09:41 Dose: 1 patch Ondansetron HCl (Zofran Inj) 4 mg IVP Q4H PRN PRN Reason: Nausea/Vomiting Pantoprazole Sodium (Protonix Ec Tab) 40 mg PO 0600,1600 [facility] Last Admin: 01/08/18 05:20 Dose: 40 mg Prednisone (Prednisone Tab) 40 mg PO DAILY [facility] - Labs Labs: 01/08/18 06:00 01/08/18 06:00 PT 12.0 SECONDS (9.4-12.5) 12/29/17 06:30 INR 1.04 (0.93-1.08) 12/29/17 06:30 APTT 23.8 Seconds (25.1-36.5) L 12/29/17 06:30 Attending/Attestation - Attestation I have personally seen and examined this patient.: Yes I have fully participated in the care of the patient.: Yes I have reviewed all pertinent clinical information, including history, physical exam and plan: Yes
--- NOTE | 2018-01-03 16:20 | CP.PCM.PN ---
Subjective - Date & Time of Evaluation Date of Evaluation: 01/03/18 Time of Evaluation: 15:00 - Subjective Subjective: Infectious Disease Follow Up: January 03, 2018 77 year old male with PMH of hypertension, duodenitis, erosive gastritis ( diagnosed in 2012), divericulosis, abdominal aortic aneurysm repair in 2011, left lower extremity DVT (2011), who presents with GI bleed. Patient states that over the past 2 days he had multiple episodes of coffee ground hematemesis. He also reports melena, and bright red blood per rectum starting yesetrday. Patient states that he started Xarelto a few days ago. Patient endorses he was taking Eliquis but experienced abdominal discomfort, loss of appetite, and associated weight loss. He was switched to Xarelto instead recently due to these adverse events. He does admit to drinking alcohol, but denies any history of drinking greater than 8 drinks per week or having any prior history of alcohol abuse. Patient states that he takes Aleve almost daily for the past 5 years. Currently in ICU for monitoring. TLC placed. Had several melena episodes during hospitalization. S/P IR angiography with embolization of left gastric artery POD#6. Extubated this morning. On Vancomycin and Meropenem for antibiotic treatment. Patient with history of frequent hospitalizations. History obtained from the chart. Extubated, the patient is fully awake and alert and able to follow commands. Endoscopy done and Colonoscopy done Saturday. He is on Nasal Cannula now. Supportive care. Objective - Vital Signs/Intake and Output Vital Signs (last 24 hours): Temp Pulse Resp BP Pulse Ox 98.3 F 82 23 158/78 H 93 L 01/03/18 08:00 01/03/18 14:40 01/03/18 08:00 01/03/18 14:40 01/03/18 08:00 Intake and Output: 01/03/18 01/03/18 06:59 18:59 Intake Total 640 Output Total 1100 Balance -460 - Medications Medications: Current Medications Albuterol/Ipratropium (Duoneb 3 Mg/0.5 Mg (3 Ml) Ud) 3 ml IH TIDRESP [facility] Last Admin: 01/03/18 15:47 Dose: 3 ml Albuterol/Ipratropium (Duoneb 3 Mg/0.5 Mg (3 Ml) Ud) 3 ml IH Q2H PRN PRN Reason: Shortness of Breath Last Admin: 01/03/18 04:24 Dose: 3 ml Diltiazem HCl (Cardizem) 30 mg PO QID [facility] Last Admin: 01/03/18 14:40 Dose: 30 mg Furosemide (Lasix) 40 mg IVP Q12 [facility] Last Admin: 01/03/18 14:40 Dose: 40 mg Hydralazine HCl (Apresoline) 10 mg IVP Q6 PRN PRN Reason: sbp/dbp>160/100 Midazolam 100 mg/100ml in NS (Midazolam 100 Mg/100ml In Ns) 100 mg in 100 mls @ 1 mls/hr IV .Q24H PRN; Protocol; 1 MG/HR PRN Reason: Agitation Last Admin: 01/01/18 20:23 Dose: 2 mg/hr, 2 mls/hr Propofol (Diprivan) 1,000 mg in 100 mls @ 2.557 mls/hr IV .Q24H PRN; Protocol; 5 MCG/KG/MIN PRN Reason: TITRATE PER MD ORDER Last Admin: 01/02/18 05:00 Dose: 50 mcg/kg/min, 25.569 mls/hr Vancomycin HCl (Vancomycin 1gm) 1 gm in 250 mls @ 167 mls/hr IVPB DAILY [facility] PRN Reason: Protocol Last Admin: 12/30/17 09:21 Dose: 167 mls/hr Sodium Chloride (Sodium Chloride 0.45%) 1,000 mls @ 75 mls/hr IV .[id number] [facility] Last Admin: 12/29/17 12:40 Dose: Not Given Meropenem 500 mg/ Sodium (Chloride) 50 mls @ 100 mls/hr IVPB Q8 [facility] PRN Reason: Protocol Last Admin: 01/03/18 14:41 Dose: 100 mls/hr Ondansetron HCl (Zofran Inj) 4 mg IVP Q4H PRN PRN Reason: Nausea/Vomiting Pantoprazole Sodium (Protonix Inj) 40 mg IVP Q12H [facility] - Labs Labs: 01/03/18 05:40 01/03/18 05:40 PT 12.0 SECONDS (9.4-12.5) 12/29/17 06:30 INR 1.04 (0.93-1.08) 12/29/17 06:30 APTT 23.8 Seconds (25.1-36.5) L 12/29/17 06:30 - Constitutional Appears: Non-toxic, No Acute Distress, Chronically Ill - Head Exam Head Exam: ATRAUMATIC, NORMOCEPHALIC - Eye Exam Eye Exam: EOMI, PERRL Pupil Exam: NORMAL ACCOMODATION, PERRL - ENT Exam ENT Exam: Mucous Membranes Moist, Normal External Ear Exam, TM's Normal Bilaterally - Neck Exam Neck Exam: Full ROM, Normal Inspection - Respiratory Exam Respiratory Exam: Decreased Breath Sounds, Clear to Ausculation Bilateral, NORMAL BREATHING PATTERN. absent: Rales, Rhonchi, Wheezes - Cardiovascular Exam Cardiovascular Exam: REGULAR RHYTHM, RRR, +S1, +S2 - GI/Abdominal Exam GI & Abdominal Exam: Soft, Normal Bowel Sounds. absent: Distended, Tenderness - Extremities Exam Extremities Exam: Full ROM, Normal Inspection - Neurological Exam Neurological Exam: Alert, Awake, CN II-XII Intact, Oriented x3 - Psychiatric Exam Psychiatric exam: Normal Affect, Normal Mood - Skin Skin Exam: Intact, Normal Color Assessment and Plan - Assessment and Plan (Free Text) Assessment: 77 yo AA male known to me from prior hospitalizations presenting with acute GI bleed. The patient has been anemic and hypoxic. The patient has been having persistent fevers with mild leukocytosis. Supportive care. Start Vancomycin and Meropenem for treatment. Sepsis workup. Hypoxemia. Patient being evaluted for TRALI and PE at this time. The patient has left gastric artery embolization on 12/27/2017. The patient was given 13 U PRBCs and 8 U FFP. Patient with EKTA. Extubated this morning. Poor prognosis. The patient has been afebrile for the past several hours. Extremely poor prognosis. Sputum cultures showing Serratia. Remains on Meropenem and Vancomycin IV for antibiotic treatment at this time. Colonoscopy done by Dr. Ibrahim Saturday. The patient is fully awake and alert and can follow commands. Extubated Saturday. Slowly improving. On Nasal canula now. Thank you for allowing me to participate in the care of the patient, we will follow with you.
--- NOTE | 2018-01-03 17:37 | US ---
HISTORY: Arm pain and swelling. Evaluate for deep venous thrombosis. PHYSICIAN(S): Andrew Dan MD. FINDINGS: The visualized internal jugular veins are sonographically normal and compressible. No evidence of obstruction or thrombus this is seen. The visualized segments of the subclavian veins are patent with normal waveforms. No sonographic evidence of obstruction or thrombosis is seen. The visualized deep venous systems of both upper extremities proximally are sonographically normal and compressible. IMPRESSION: 1. No sonographic evidence for deep venous thrombosis in the visualized segments of both upper strategies.
--- NOTE | 2018-01-03 17:38 | US ---
HISTORY: Leg pain and swelling. Evaluate for DVT PHYSICIAN(S): Andrew Dan MD. TECHNIQUE: Duplex sonography and color-flow Doppler with graded compression were used to evaluate the deep venous systems of both lower extremities. FINDINGS: The visualized deep venous systems of both lower extremities are sonographically normal and compressible. Normal wave forms and augmentation are seen. There is no sonographic evidence for deep venous thrombosis in the visualized segments of both lower extremities. IMPRESSION: No sonographic evidence for deep venous thrombosis in the visualized segments of both lower extremities.
[2018-01-03 19:46] LABS: BLOOD UREA NITROGEN 20 mg/dL (7-21); CALCIUM 8.9 mg/dL (8.4-10.5); GFR AFRICAN-AMERICAN > 60; GFR NON-AFRICAN AMERICAN 54
--- NOTE | 2018-01-03 19:53 | CP.PCM.PN ---
Subjective - Date & Time of Evaluation Date of Evaluation: 01/03/18 Time of Evaluation: 11:00 - Subjective Subjective: Patient on high flow O2; tolerating diet; Objective - Vital Signs/Intake and Output Vital Signs (last 24 hours): Temp Pulse Resp BP Pulse Ox 99.7 F H 95 H 25 H 139/75 98 01/03/18 16:00 01/03/18 19:28 01/03/18 16:00 01/03/18 19:28 01/03/18 16:00 Intake and Output: 01/03/18 01/04/18 18:59 06:59 Intake Total 4520 Output Total 4400 Balance 120 - Medications Medications: Current Medications Albuterol/Ipratropium (Duoneb 3 Mg/0.5 Mg (3 Ml) Ud) 3 ml IH TIDRESP [facility] Last Admin: 01/03/18 15:47 Dose: 3 ml Albuterol/Ipratropium (Duoneb 3 Mg/0.5 Mg (3 Ml) Ud) 3 ml IH Q2H PRN PRN Reason: Shortness of Breath Last Admin: 01/03/18 04:24 Dose: 3 ml Diltiazem HCl (Cardizem) 30 mg PO QID [facility] Last Admin: 01/03/18 19:28 Dose: 30 mg Furosemide (Lasix) 40 mg IVP Q12 [facility] Last Admin: 01/03/18 14:40 Dose: 40 mg Hydralazine HCl (Apresoline) 10 mg IVP Q6 PRN PRN Reason: sbp/dbp>160/100 Midazolam 100 mg/100ml in NS (Midazolam 100 Mg/100ml In Ns) 100 mg in 100 mls @ 1 mls/hr IV .Q24H PRN; Protocol; 1 MG/HR PRN Reason: Agitation Last Admin: 01/01/18 20:23 Dose: 2 mg/hr, 2 mls/hr Propofol (Diprivan) 1,000 mg in 100 mls @ 2.557 mls/hr IV .Q24H PRN; Protocol; 5 MCG/KG/MIN PRN Reason: TITRATE PER MD ORDER Last Admin: 01/02/18 05:00 Dose: 50 mcg/kg/min, 25.569 mls/hr Vancomycin HCl (Vancomycin 1gm) 1 gm in 250 mls @ 167 mls/hr IVPB DAILY [facility] PRN Reason: Protocol Last Admin: 12/30/17 09:21 Dose: 167 mls/hr Sodium Chloride (Sodium Chloride 0.45%) 1,000 mls @ 75 mls/hr IV .[id number] [facility] Last Admin: 12/29/17 12:40 Dose: Not Given Meropenem 500 mg/ Sodium (Chloride) 50 mls @ 100 mls/hr IVPB Q8 [facility] PRN Reason: Protocol Last Admin: 01/03/18 14:41 Dose: 100 mls/hr Ondansetron HCl (Zofran Inj) 4 mg IVP Q4H PRN PRN Reason: Nausea/Vomiting Pantoprazole Sodium (Protonix Inj) 40 mg IVP Q12H [facility] - Labs Labs: 01/03/18 05:40 01/03/18 19:25 PT 12.0 SECONDS (9.4-12.5) 12/29/17 06:30 INR 1.04 (0.93-1.08) 12/29/17 06:30 APTT 23.8 Seconds (25.1-36.5) L 12/29/17 06:30 - Constitutional Appears: Non-toxic, No Acute Distress - Eye Exam Eye Exam: Normal appearance - ENT Exam ENT Exam: Mucous Membranes Moist - Respiratory Exam Respiratory Exam: Clear to Ausculation Bilateral. absent: Respiratory Distress - Cardiovascular Exam Cardiovascular Exam: +S1, +S2. absent: Gallop, Murmur - GI/Abdominal Exam GI & Abdominal Exam: Soft. absent: Distended, Tenderness - Exam Exam: absent: Bladder Distension - Extremities Exam Additional comments: mild/moderate edema, UE >> LE; - Neurological Exam Neurological Exam: Alert, Awake - Psychiatric Exam Psychiatric exam: Normal Mood. absent: Agitated - Skin Skin Exam: Warm. absent: Cyanosis Assessment and Plan (1) Acute kidney failure Assessment & Plan: Resolving; polyuric again with diuretics; monitor carefully, need to avoid volume depletion; Status: Acute (2) Hypernatremia Assessment & Plan: Improved but IVF stopped and lasix resumed to aid respiratory status; encourage PO fluid intake; Status: Acute (3) SIRS (systemic inflammatory response syndrome) Status: Acute (4) Acute hypoxemic respiratory failure Status: Acute
[2018-01-03] MEDS ORDERED: Magnesium Sulfate 1 gm in D5W 1 GM/100 ML BAG IVPB ONE (21:01)
--- NOTE | 2018-01-04 03:01 | PN ---
DATE: 01/03/2018 SUBJECTIVE: The patient was seen and examined at bedside. He was extubated yesterday, did very well overnight. Night was uneventful. Complained of some swelling and pain in the right upper extremity where peripheral IV was removed. PHYSICAL EXAMINATION VITAL SIGNS: The patient is on Cardizem drip at 5 mg per hour and Protonix drip at 8 mg per hour. He is on high flow with 45% of FiO2. Blood pressure 130/61, heart rate 93, oxygen saturation 100% and respiratory rate 22. Flow rate is 2 liters per minute on high flow oxygen. ENT: HEAD AND NECK: Atraumatic. LUNGS: Clear to auscultation bilaterally. HEART: Now regular rate and rhythm. S1 and S2 normal. ABDOMEN: Soft, nontender, nondistended. MUSCULOSKELETAL: There is a swelling of the right upper extremity where peripheral line was removed. SKIN: Moist. PSYCH: The patient is alert, awake and oriented, comfortable. NEURO: The patient moves all extremities spontaneously. LABORATORY DATA: WBC 10.2, hemoglobin 8.8 up from 8.1 (no blood transfusion) and platelet count 226. Sodium 146, potassium 3.6, chloride 112, carbon dioxide 24, BUN 21, creatinine 1.2, stable. Glucose 105. AST 16, ALT 13, total bilirubin 0.3. ABG is 7.48/34/47. MEDICATIONS: DuoNeb p.r.n. and three times a day, Cardizem drip, Lasix 40 mg IV every 12 hours, hydralazine p.r.n., vancomycin. ASSESSMENT AND PLAN: This is a 77-year-old gentleman recovered from hemorrhagic shock, now extubated, hemoglobin stable. The patient developed atrial fibrillation with rapid ventricular response and started on Cardizem drip. He is fluid overloaded due to multiple blood products transfusion and started on Lasix 40 mg IV every 12 hours. He has a very adequate urinary output. His creatinine is going down (stabilized). He is making good urine. Currently, he has converted to sinus rhythm. We will start him on Cardizem p.o. and overlap with cardizem drip and will subsequently stop the drip. We will continue with early mobilization, get him out of bed to chair, physical therapy, incentive spirometry, chest PT, and bronchodilators. The other concern is previous history of deep venous thrombosis, for which the patient was on Eliquis. The lower extremity venous Doppler performed two days ago did not reveal deep venous thrombosis and I spoke with Dr. Ibrahim who was was very adamant that at present time initiating therapeutic anticoagulation even with heparin will be too risky and the risk of massive bleeding would overweigh the potential benefit as the patient just suffered massive upper gastrointestinal bleed with hemorrhagic shock. We will proceed with serial venous Doppler of lower extremities and if one of those reveals deep venous thrombosis, we will proceed with inferior vena cava filter. Meanwhile, we will continue with watchful observation. We will continue target euvolemia, euglycemia, normothermia, and oxygen saturation more than 90%. We will continue with Protonix drip. We will continue with mechanical deep venous thrombosis prophylaxis. Aspiration precaution. Advance diet as tolerated. ccm time 40 min Yohan Vasquez MD INDER
[2018-01-04] MEDS: Meropenem 500 MG in Sodium Chloride 0.9% 50 ML IVPB SCH ×3 (05:18→21:42)
[2018-01-04 05:22] LABS: ARTERIAL BLOOD GAS HCO3 28.6 mmol/L (21-28); ARTERIAL BLOOD GAS HEMOGLOBIN 8.2 g/dL (11.7-17.4); ARTERIAL BLOOD GAS O2 CAPACITY 11.4 mL/dl (16-24); ARTERIAL BLOOD GAS O2 CONTENT 11.3 ML/dl (15-23); ARTERIAL BLOOD GAS O2 SAT 99.1 % (95-98); ARTERIAL BLOOD GAS PCO2 35 mm/Hg (35-45); ARTERIAL BLOOD GAS PH 7.52 (7.35-7.45); ARTERIAL BLOOD GAS TCO2 29.7 mmol.L (22-28)
[2018-01-04 05:48] LABS: BASO # 0.03 K/mm3 (0.0-2.0); BASO % 0.2 % (0.0-3.0); EOS % 0.2 % (1.5-5.0); GRAN # 10.55 (1.4-6.5); GRAN % 82.1 % (50.0-68.0); HEMOGLOBIN 8.4 g/dL (14.0-18.0); LYMPH % 7.6 % (22.0-35.0); MEAN CELL VOLUME 86.4 fl (80.0-105.0); MEAN CORPUSCULAR HEMOGLOBIN 27.9 pg (25.0-35.0); MEAN CORPUSCULAR HGB CONC 32.3 g/dl (31.0-37.0); MEAN PLATELET VOLUME 10.1 fl (7.0-11.0); MONO # 1.3 (0.1-0.6); MONO % 9.9 % (1.0-6.0); RBC 3.01 10^6/uL (3.5-6.1); RED CELL DISTRIBUTION WIDTH 14.6 % (11.5-14.5); WHITE BLOOD COUNT 12.9 10^3/ul (4.5-11.0)
[2018-01-04 06:20] LABS: ALB/GLOB RATIO 0.9 (1.1-1.8); ALBUMIN 2.6 g/dL (3.0-4.8); ALT/SGPT 13 U/L (7-56); AST/SGOT 10 U/L (17-59); BLOOD UREA NITROGEN 19 mg/dL (7-21); CALCIUM 8.7 mg/dL (8.4-10.5); GFR AFRICAN-AMERICAN > 60; GFR NON-AFRICAN AMERICAN 59
[2018-01-04] MEDS: Albuterol-Ipratrop 3 mg / 0.5 (3 ml) UD IH SCH ×3 (07:04→20:20)
[2018-01-04] MEDS ORDERED: Magnesium Sulfate 1 gm in D5W 1 GM/100 ML BAG IVPB ONE (07:59)
--- NOTE | 2018-01-04 09:12 | RAD ---
HISTORY: Pulm edema COMPARISON: 01/03/2018 FINDINGS: LUNGS: There is improvement in the left lower lobe infiltrate PLEURA: No significant pleural effusion identified, no pneumothorax apparent. CARDIOVASCULAR: Mild cardiomegaly. Mild vascular congestion OSSEOUS STRUCTURES: No significant abnormalities. VISUALIZED UPPER ABDOMEN: Normal. OTHER FINDINGS: None. IMPRESSION: Improvement in left lower lobe infiltrate and vascular congestion
--- NOTE | 2018-01-04 09:48 | CARD ---
APPROVED REPORT EKG Measurement Heart [id number] <Conclusion> Normal sinus rhythm NSSTW changes No change except the rate is slower and there are no APCs
[2018-01-04] MEDS ORDERED: [UNRECOGNIZED DRUG - OTHER] PO SCH (10:00)
[2018-01-04] MEDS ORDERED: HYDROCHLOROTHIAZIDE PO SCH (10:00)
[2018-01-04] MEDS ORDERED: VALSARTAN PO SCH (10:00)
--- NOTE | 2018-01-04 11:00 | CP.CCUPN ---
<Kirby Schuler - Last Filed: 01/04/18 10:45> CCU Subjective - Physician Review Events Since Last Encounter (Free Text): 01/04/18 10:45 Patient seen and examined at bedside. Patient is resting comfortably on 5L NC. No acute complaints, very pleasant CCU Objective - Vital Signs / Intake & Output Vital Signs (Last 4 hours): Vital Signs Temp Pulse Resp BP Pulse Ox 01/04/18 10:00 93 H 18 139/75 100 01/04/18 09:25 98 H 131/69 01/04/18 09:00 92 H 34 H 131/69 100 01/04/18 08:00 98.2 F 85 20 162/85 H 99 01/04/18 07:07 18 01/04/18 07:00 84 17 166/88 H 100 Intake and Output (Last 8hrs): Intake & Output 01/03/18 01/04/18 01/04/18 22:59 06:59 14:59 Intake Total 1770 450 Output Total 2200 600 Balance -430 -150 Intake: IV 970 200 abx 100 200 ofirmev 100 potassium 400 propofol 170 protonix 200 Oral 800 250 Output: Urine 2000 600 Urethral (Cadet) 2000 600 Stool 200 Emesis 0 - Physical Exam Physical Exam Limitations: Negative for: Altered Mental Status Head: Positive for: Atraumatic, Normocephalic Pupils: Positive for: PERRL Extroacular Muscles: Positive for: EOMI Conjunctiva: Positive for: Normal Mouth: Positive for: Moist Mucous Membranes Neck: Positive for: Normal Range of Motion Respiratory/Chest: Positive for: Clear to Auscultation, Good Air Exchange. Negative for: Respiratory Distress, Accessory Muscle Use Cardiovascular: Positive for: Regular Rate and Rhythm, Normal S1, S2. Negative for: Murmurs Abdomen: Positive for: Normal Bowel Sounds. Negative for: Tenderness, Distention, Peritoneal Signs, Rebound, Guarding Rectal: Positive for: Gross Blood, Melena Back: Positive for: Normal Inspection Upper Extremity: Positive for: Normal Inspection. Negative for: Cyanosis, Edema Lower Extremity: Positive for: Normal Inspection. Negative for: Edema Neurological: Positive for: GCS=15, CN II-XII Intact, Speech Normal Skin: Positive for: Warm, Dry, Normal Color. Negative for: Rashes Psychiatric: Positive for: Alert, Oriented x 3, Normal Insight, Normal Concentration - Medications Active Medications: Active Medications Generic Name Dose Route Start Last Admin Trade Name Freq PRN Reason Stop Dose Admin Albuterol/Ipratropium 3 ml 12/29/17 20:00 01/04/18 07:04 Duoneb 3 Mg/0.5 Mg (3 Ml) Ud IH 3 ml TIDRESP GRICELDA Administration Albuterol/Ipratropium 3 ml 12/31/17 01:25 01/03/18 04:24 Duoneb 3 Mg/0.5 Mg (3 Ml) Ud IH 3 ml Q2H PRN Administration Shortness of Breath Diltiazem HCl 30 mg 01/03/18 14:00 01/04/18 09:25 Cardizem PO 30 mg QID GRICEDLA Administration Furosemide 40 mg 01/03/18 10:00 01/03/18 14:40 Lasix IVP 40 mg Q12 GRICELDA Administration Hydralazine HCl 10 mg 01/03/18 12:08 Apresoline IVP Q6 PRN sbp/dbp>160/100 Midazolam 100 mg/100ml in NS 100 mg in 100 mls @ 1 mls/hr 12/27/17 18:41 01/13 20:23 Midazolam 100 Mg/100ml In Ns IV 2 mg/hr .Q24H PRN 2 mls/hr Agitation Administration Protocol 1 MG/HR Propofol 1,000 mg in 100 mls @ 2.557 mls/hr 12/27/17 19:59 01/02/18 05:00 Diprivan IV 50 mcg/kg/min .Q24H PRN 25.569 mls/hr TITRATE PER MD ORDER Administration Protocol 5 MCG/KG/MIN Vancomycin HCl 1 gm in 250 mls @ 167 mls/hr 12/29/17 10:00 12/30/17 09:21 Vancomycin 1gm IVPB 167 mls/hr DAILY GRICELDA Administration Protocol Sodium Chloride 1,000 mls @ 75 mls/hr 12/29/17 07:45 12/29/17 12:40 Sodium Chloride 0.45% IV Not Given .[id number] GRICELDA Meropenem 500 mg/ Sodium 50 mls @ 100 mls/hr 01/02/18 06:00 01/04/18 05:18 Chloride IVPB 100 mls/hr Q8 GRICELDA Administration Protocol Potassium Chloride 10 meq in 100 mls @ 50 mls/hr 01/04/18 08:00 01/04/18 09: 24 Potassium Chloride 10 Meq/100 Ml IVPB 01/04/18 11:59 50 mls/hr Q2H GRICELDA Administration Ondansetron HCl 4 mg 12/26/17 21:15 Zofran Inj IVP Q4H PRN Nausea/Vomiting Pantoprazole Sodium 40 mg 01/03/18 22:00 01/04/18 09:25 Protonix Inj IVP 40 mg Q12H GRICELDA Administration - Patient Studies Lab Studies: Lab Studies 01/04/18 01/04/18 01/04/18 Range/Units 05:30 05:30 05:00 WBC 12.9 H D (4.5-11.0) 10^3/ul RBC 3.01 L (3.5-6.1) 10^6/uL Hgb 8.4 L (14.0-18.0) g/dL Hct 26.0 L (42.0-52.0) % MCV 86.4 (80.0-105.0) fl MCH 27.9 (25.0-35.0) pg MCHC 32.3 (31.0-37.0) g/dl RDW 14.6 H (11.5-14.5) % Plt Count 254 (120.0-450.0) 10^3/uL MPV 10.1 (7.0-11.0) fl Gran % 82.1 H (50.0-68.0) % Lymph % (Auto) 7.6 L (22.0-35.0) % [place] % (Auto) 9.9 H (1.0-6.0) % Eos % (Auto) 0.2 L (1.5-5.0) % Baso % (Auto) 0.2 (0.0-3.0) % Gran # 10.55 H (1.4-6.5) Lymph # (Auto) 1.0 L (1.2-3.4) [place] # (Auto) 1.3 H (0.1-0.6) Eos # (Auto) 0.0 (0.0-0.7) Baso # (Auto) 0.03 (0.0-2.0) K/mm3 pCO2 35 (35-45) mm/Hg pO2 88.0 (80-100) mm/Hg HCO3 28.6 H (21-28) mmol/L ABG pH 7.52 H (7.35-7.45) ABG Total CO2 29.7 H (22-28) mmol.L ABG O2 Saturation 99.1 H (95-98) % ABG O2 Content 11.3 L (15-23) ML/dl ABG Base Excess 5.4 H (-2.0-3.0) mmol/L ABG Hemoglobin 8.2 L (11.7-17.4) g/dL ABG Carboxyhemoglobin 1.6 H (0.5-1.5) % POC ABG HHb (Measured) 0.9 (0-5) % ABG Methemoglobin 0.8 (0.0-3.0) % ABG O2 Capacity 11.4 L (16-24) mL/dl Hgb O2 Saturation 96.6 (95.0-98.0) % FiO2 45.0 % Sodium 146 (132-148) mmol/L Potassium 3.5 L (3.6-5.0) mmol/L Chloride 110 H (98-107) mmol/L Carbon Dioxide 26 (21-33) mmol/L Anion Gap 14 (10-20) BUN 19 (7-21) mg/dL Creatinine 1.2 (0.8-1.5) mg/dl Est GFR ( Amer) > 60 Est GFR (Non-Af Amer) 59 Random Glucose 105 (70-110) mg/dL Calcium 8.7 (8.4-10.5) mg/dL Magnesium 1.6 L (1.7-2.2) mg/dL Total Bilirubin 0.4 (0.2-1.3) mg/dL AST 10 L D (17-59) U/L ALT 13 (7-56) U/L Alkaline Phosphatase 61 (38-126) U/L Total Protein 5.4 L (5.8-8.3) g/dL Albumin 2.6 L (3.0-4.8) g/dL Globulin 2.8 gm/dL Albumin/Globulin Ratio 0.9 L (1.1-1.8) 01/03/18 Range/Units 19:25 WBC (4.5-11.0) 10^3/ul RBC (3.5-6.1) 10^6/uL Hgb (14.0-18.0) g/dL Hct (42.0-52.0) % MCV (80.0-105.0) fl MCH (25.0-35.0) pg MCHC (31.0-37.0) g/dl RDW (11.5-14.5) % Plt Count (120.0-450.0) 10^3/uL MPV (7.0-11.0) fl Gran % (50.0-68.0) % Lymph % (Auto) (22.0-35.0) % [place] % (Auto) (1.0-6.0) % Eos % (Auto) (1.5-5.0) % Baso % (Auto) (0.0-3.0) % Gran # (1.4-6.5) Lymph # (Auto) (1.2-3.4) [place] # (Auto) (0.1-0.6) Eos # (Auto) (0.0-0.7) Baso # (Auto) (0.0-2.0) K/mm3 pCO2 (35-45) mm/Hg pO2 (80-100) mm/Hg HCO3 (21-28) mmol/L ABG pH (7.35-7.45) ABG Total CO2 (22-28) mmol.L ABG O2 Saturation (95-98) % ABG O2 Content (15-23) ML/dl ABG Base Excess (-2.0-3.0) mmol/L ABG Hemoglobin (11.7-17.4) g/dL ABG Carboxyhemoglobin (0.5-1.5) % POC ABG HHb (Measured) (0-5) % ABG Methemoglobin (0.0-3.0) % ABG O2 Capacity (16-24) mL/dl Hgb O2 Saturation (95.0-98.0) % FiO2 % Sodium 147 (132-148) mmol/L Potassium 3.5 L (3.6-5.0) mmol/L Chloride 109 H (98-107) mmol/L Carbon Dioxide 29 (21-33) mmol/L Anion Gap 13 (10-20) BUN 20 (7-21) mg/dL Creatinine 1.3 (0.8-1.5) mg/dl Est GFR ( Amer) > 60 Est GFR (Non-Af Amer) 54 Random Glucose 112 H (70-110) mg/dL Calcium 8.9 (8.4-10.5) mg/dL Magnesium 1.4 L (1.7-2.2) mg/dL Total Bilirubin (0.2-1.3) mg/dL AST (17-59) U/L ALT (7-56) U/L Alkaline Phosphatase (38-126) U/L Total Protein (5.8-8.3) g/dL Albumin (3.0-4.8) g/dL Globulin gm/dL Albumin/Globulin Ratio (1.1-1.8) Laboratory Results - last 24 hr 01/03/18 01/04/18 01/04/18 19:25 05:00 05:30 WBC 12.9 H D RBC 3.01 L Hgb 8.4 L Hct 26.0 L MCV 86.4 MCH 27.9 MCHC 32.3 RDW 14.6 H Plt Count 254 MPV 10.1 Gran % 82.1 H Lymph % (Auto) 7.6 L [place] % (Auto) 9.9 H Eos % (Auto) 0.2 L Baso % (Auto) 0.2 Gran # 10.55 H Lymph # (Auto) 1.0 L [place] # (Auto) 1.3 H Eos # (Auto) 0.0 Baso # (Auto) 0.03 pCO2 35 pO2 88.0 HCO3 28.6 H ABG pH 7.52 H ABG Total CO2 29.7 H ABG O2 Saturation 99.1 H ABG O2 Content 11.3 L ABG Base Excess 5.4 H ABG Hemoglobin 8.2 L ABG Carboxyhemoglobin 1.6 H POC ABG HHb (Measured) 0.9 ABG Methemoglobin 0.8 ABG O2 Capacity 11.4 L Hgb O2 Saturation 96.6 FiO2 45.0 Sodium 147 Potassium 3.5 L Chloride 109 H Carbon Dioxide 29 Anion Gap 13 BUN 20 Creatinine 1.3 Est GFR ( Amer) > 60 Est GFR (Non-Af Amer) 54 Random Glucose 112 H Calcium 8.9 Magnesium 1.4 L Total Bilirubin AST ALT Alkaline Phosphatase Total Protein Albumin Globulin Albumin/Globulin Ratio 01/04/18 05:30 WBC RBC Hgb Hct MCV MCH MCHC RDW Plt Count MPV Gran % Lymph % (Auto) [place] % (Auto) Eos % (Auto) Baso % (Auto) Gran # Lymph # (Auto) [place] # (Auto) Eos # (Auto) Baso # (Auto) pCO2 pO2 HCO3 ABG pH ABG Total CO2 ABG O2 Saturation ABG O2 Content ABG Base Excess ABG Hemoglobin ABG Carboxyhemoglobin POC ABG HHb (Measured) ABG Methemoglobin ABG O2 Capacity Hgb O2 Saturation FiO2 Sodium 146 Potassium 3.5 L Chloride 110 H Carbon Dioxide 26 Anion Gap 14 BUN 19 Creatinine 1.2 Est GFR ( Amer) > 60 Est GFR (Non-Af Amer) 59 Random Glucose 105 Calcium 8.7 Magnesium 1.6 L Total Bilirubin 0.4 AST 10 L D ALT 13 Alkaline Phosphatase 61 Total Protein 5.4 L Albumin 2.6 L Globulin 2.8 Albumin/Globulin Ratio 0.9 L EKG/Cardiology Studies: Cardiology / EKG Studies 01/03/18 13:14 EKG [ELECTROCARDIOGRAM] Stat Comment: Reason For Exam: afib to sinus Critical Care Progress Note - Nutrition Nutrition: Nutrition Category Date Time Status Liquid Diet [DIET] Diets 01/03/18 Dinner Ordered Assessment/Plan - Assessment and Plan (Free Text) Assessment: Pt is a 77 yo M admitted to ICU for Hemorrhagic Shock 2/2 UGIB and LGIB. Day after admission, patient was intubated for endoscopy, which revealed blood in antrum. Bleeding scan revealed transverse colon bleed and patient was found to be hypotensive and tachycardic in the ED with a Hgb of 6.6, hct of 20.3, and an INR of 2.56. Patient was given >13 U of PRBC's and platelets up til the weekend. In addition, patient started getting hypoxemic. In light of patient' s recent halt of anticoagulation, PE was on the differential, as well as a picture of TRALI given recent transfusions; supporting this was that increasing the vent settings for FiO2 was favorable. In any case, we could not heparinize patient 2/2 recent GIB and could not obtain CTA Chest 2/2 EKTA. Patient had also been hypernatremic for days and had an EKTA with rising creatinine. Finally , patient spiked a fever of 101 on 12/29; differentials included infectious etiologies vs reaction to blood. Patient technically had two SIRS criteria ( tachycardia, fever) as well as borderline SIRS WBC count (11.3). Patient is much improved now, bleed and shock have resolved - Patient's Hgb today, 01/03, is 8.4, with no transfusion since 12/30/17, and he is maintaining his blood pressure. Patient's hypoxemia has been stable - patient's sats have been stable for days as of 01/03, thus PE is less likely. RE: EKTA, cannot give fluid 2/2 fluid overload caused by recent transfusions; the same holds for patient's hypernatremia, thus not giving 1/2 NS and must control amount of fluid given. In either case, both patient's hypernatremia and EKTA have resolved for now. Septic workup has revealed negative blood cultures; but Procal was 1.59 and sputum culture is growing S. Marcescens. Patient does not have SIRS criteria right now. Of note, physical exam yesterday and today revealed RUE swelling and tenderness ; this is concerning given patient's PMHx of DVT's, but Duplex has been negative. PICC line was not inserted yesterday, but Cortis was taken out. Chronic medical problems: HTN, Squamous Cell CA of Lung, Gastritis, Chronic DVT Plan: Neuro: - Off sedation - Maintain normothermia CV: - Hx HTN: Hydralazine PRN - Hx DVT: Hold anticoagulation 2/2 GIB - spoke to Dr. Ibrahim yesterday, risk of starting AC still greater than benefit - Hx AAA s/p Repair: Hold Verapamil 2/2 blood pressure - Hold Lasix for now; hold 1/2 NS - Maintain MAP > 65 Pulm: - No longer need daily CXR and ABG's - Maintain O2 > 90% GI: - Acute GI Bleed s/p Gastric Artery Embolization: Protonix changed to bid; Zofran PRN; Daily CBC - GI consulted: No further endoscopy for now - Surgery consulted: no further recommendations Renal: - EKTA 2/2 GIB - Hold Nephrotoxic drugs; Nephro Consult: Dr. Santos - Hypernatremia: Avoid fluids for now; Avoid diuresis unless necessary for oxygenation - Monitor electrolytes and replete as needed - Maintain euvolemia Heme: - Monitor H/H - Hold AC due to GI bleed - Check Duplex U/s for bilateral LE; if patient shows DVT, will need to consider IVC Filter Endo: - Maintain euglycemia ID: - Sepsis, likely 2/2 URI/LRI - Resolved: On Vanc/Merrem - unchanged by ID Prophylaxis: Protonix BID; SCD Consults: Surgery, GI, ID, Nephro Drips: None Diet: CLD Dispo: At this time, patient is stable for transfer to [facility]. <Harpreet Greenwood - Last Filed: 01/04/18 12:00> CCU Objective - Vital Signs / Intake & Output Vital Signs (Last 4 hours): Vital Signs Temp Pulse Resp BP Pulse Ox 01/04/18 10:00 93 H 18 139/75 100 01/04/18 09:25 98 H 131/69 01/04/18 09:00 92 H 34 H 131/69 100 01/04/18 08:00 98.2 F 85 20 162/85 H 99 Intake and Output (Last 8hrs): Intake & Output 01/03/18 01/04/18 01/04/18 22:59 06:59 14:59 Intake Total 1770 450 Output Total 2200 600 Balance -430 -150 Intake: IV 970 200 abx 100 200 ofirmev 100 potassium 400 propofol 170 protonix 200 Oral 800 250 Output: Urine 2000 600 Urethral (Cadet) 2000 600 Stool 200 Emesis 0 - Medications Active Medications: Active Medications Generic Name Dose Route Start Last Admin Trade Name Freq PRN Reason Stop Dose Admin Albuterol/Ipratropium 3 ml 12/29/17 20:00 01/04/18 07:04 Duoneb 3 Mg/0.5 Mg (3 Ml) Ud IH 3 ml TIDRESP GRICELDA Administration Albuterol/Ipratropium 3 ml 12/31/17 01:25 01/03/18 04:24 Duoneb 3 Mg/0.5 Mg (3 Ml) Ud IH 3 ml Q2H PRN Administration Shortness of Breath Diltiazem HCl 30 mg 01/03/18 14:00 01/04/18 09:25 Cardizem PO 30 mg QID GRICELDA Administration Furosemide 40 mg 01/03/18 10:00 01/03/18 14:40 Lasix IVP 40 mg Q12 GRICELDA Administration Hydralazine HCl 10 mg 01/03/18 12:08 Apresoline IVP Q6 PRN sbp/dbp>160/100 Midazolam 100 mg/100ml in NS 100 mg in 100 mls @ 1 mls/hr 12/27/17 18:41 01/13 20:23 Midazolam 100 Mg/100ml In Ns IV 2 mg/hr .Q24H PRN 2 mls/hr Agitation Administration Protocol 1 MG/HR Propofol 1,000 mg in 100 mls @ 2.557 mls/hr 12/27/17 19:59 01/02/18 05:00 Diprivan IV 50 mcg/kg/min .Q24H PRN 25.569 mls/hr TITRATE PER MD ORDER Administration Protocol 5 MCG/KG/MIN Vancomycin HCl 1 gm in 250 mls @ 167 mls/hr 12/29/17 10:00 12/30/17 09:21 Vancomycin 1gm IVPB 167 mls/hr DAILY GRICELDA Administration Protocol Sodium Chloride 1,000 mls @ 75 mls/hr 12/29/17 07:45 12/29/17 12:40 Sodium Chloride 0.45% IV Not Given .[id number] GRICELDA Meropenem 500 mg/ Sodium 50 mls @ 100 mls/hr 01/02/18 06:00 01/04/18 05:18 Chloride IVPB 100 mls/hr Q8 GRICELDA Administration Protocol Potassium Chloride 10 meq in 100 mls @ 50 mls/hr 01/04/18 08:00 01/04/18 09: 24 Potassium Chloride 10 Meq/100 Ml IVPB 01/04/18 11:59 50 mls/hr Q2H GRICELDA Administration Ondansetron HCl 4 mg 12/26/17 21:15 Zofran Inj IVP Q4H PRN Nausea/Vomiting Pantoprazole Sodium 40 mg 01/03/18 22:00 01/04/18 09:25 Protonix Inj IVP 40 mg Q12H GRICELDA Administration - Patient Studies Lab Studies: Lab Studies 01/04/18 01/04/18 01/04/18 Range/Units 05:30 05:30 05:00 WBC 12.9 H D (4.5-11.0) 10^3/ul RBC 3.01 L (3.5-6.1) 10^6/uL Hgb 8.4 L (14.0-18.0) g/dL Hct 26.0 L (42.0-52.0) % MCV 86.4 (80.0-105.0) fl MCH 27.9 (25.0-35.0) pg MCHC 32.3 (31.0-37.0) g/dl RDW 14.6 H (11.5-14.5) % Plt Count 254 (120.0-450.0) 10^3/uL MPV 10.1 (7.0-11.0) fl Gran % 82.1 H (50.0-68.0) % Lymph % (Auto) 7.6 L (22.0-35.0) % [place] % (Auto) 9.9 H (1.0-6.0) % Eos % (Auto) 0.2 L (1.5-5.0) % Baso % (Auto) 0.2 (0.0-3.0) % Gran # 10.55 H (1.4-6.5) Lymph # (Auto) 1.0 L (1.2-3.4) [place] # (Auto) 1.3 H (0.1-0.6) Eos # (Auto) 0.0 (0.0-0.7) Baso # (Auto) 0.03 (0.0-2.0) K/mm3 pCO2 35 (35-45) mm/Hg pO2 88.0 (80-100) mm/Hg HCO3 28.6 H (21-28) mmol/L ABG pH 7.52 H (7.35-7.45) ABG Total CO2 29.7 H (22-28) mmol.L ABG O2 Saturation 99.1 H (95-98) % ABG O2 Content 11.3 L (15-23) ML/dl ABG Base Excess 5.4 H (-2.0-3.0) mmol/L ABG Hemoglobin 8.2 L (11.7-17.4) g/dL ABG Carboxyhemoglobin 1.6 H (0.5-1.5) % POC ABG HHb (Measured) 0.9 (0-5) % ABG Methemoglobin 0.8 (0.0-3.0) % ABG O2 Capacity 11.4 L (16-24) mL/dl Hgb O2 Saturation 96.6 (95.0-98.0) % FiO2 45.0 % Sodium 146 (132-148) mmol/L Potassium 3.5 L (3.6-5.0) mmol/L Chloride 110 H (98-107) mmol/L Carbon Dioxide 26 (21-33) mmol/L Anion Gap 14 (10-20) BUN 19 (7-21) mg/dL Creatinine 1.2 (0.8-1.5) mg/dl Est GFR ( Amer) > 60 Est GFR (Non-Af Amer) 59 Random Glucose 105 (70-110) mg/dL Calcium 8.7 (8.4-10.5) mg/dL Magnesium 1.6 L (1.7-2.2) mg/dL Total Bilirubin 0.4 (0.2-1.3) mg/dL AST 10 L D (17-59) U/L ALT 13 (7-56) U/L Alkaline Phosphatase 61 (38-126) U/L Total Protein 5.4 L (5.8-8.3) g/dL Albumin 2.6 L (3.0-4.8) g/dL Globulin 2.8 gm/dL Albumin/Globulin Ratio 0.9 L (1.1-1.8) /03/15 Range/Units 19:25 WBC (4.5-11.0) 10^3/ul RBC (3.5-6.1) 10^6/uL Hgb (14.0-18.0) g/dL Hct (42.0-52.0) % MCV (80.0-105.0) fl MCH (25.0-35.0) pg MCHC (31.0-37.0) g/dl RDW (11.5-14.5) % Plt Count (120.0-450.0) 10^3/uL MPV (7.0-11.0) fl Gran % (50.0-68.0) % Lymph % (Auto) (22.0-35.0) % [place] % (Auto) (1.0-6.0) % Eos % (Auto) (1.5-5.0) % Baso % (Auto) (0.0-3.0) % Gran # (1.4-6.5) Lymph # (Auto) (1.2-3.4) [place] # (Auto) (0.1-0.6) Eos # (Auto) (0.0-0.7) Baso # (Auto) (0.0-2.0) K/mm3 pCO2 (35-45) mm/Hg pO2 (80-100) mm/Hg HCO3 (21-28) mmol/L ABG pH (7.35-7.45) ABG Total CO2 (22-28) mmol.L ABG O2 Saturation (95-98) % ABG O2 Content (15-23) ML/dl ABG Base Excess (-2.0-3.0) mmol/L ABG Hemoglobin (11.7-17.4) g/dL ABG Carboxyhemoglobin (0.5-1.5) % POC ABG HHb (Measured) (0-5) % ABG Methemoglobin (0.0-3.0) % ABG O2 Capacity (16-24) mL/dl Hgb O2 Saturation (95.0-98.0) % FiO2 % Sodium 147 (132-148) mmol/L Potassium 3.5 L (3.6-5.0) mmol/L Chloride 109 H (98-107) mmol/L Carbon Dioxide 29 (21-33) mmol/L Anion Gap 13 (10-20) BUN 20 (7-21) mg/dL Creatinine 1.3 (0.8-1.5) mg/dl Est GFR ( Amer) > 60 Est GFR (Non-Af Amer) 54 Random Glucose 112 H (70-110) mg/dL Calcium 8.9 (8.4-10.5) mg/dL Magnesium 1.4 L (1.7-2.2) mg/dL Total Bilirubin (0.2-1.3) mg/dL AST (17-59) U/L ALT (7-56) U/L Alkaline Phosphatase (38-126) U/L Total Protein (5.8-8.3) g/dL Albumin (3.0-4.8) g/dL Globulin gm/dL Albumin/Globulin Ratio (1.1-1.8) Laboratory Results - last 24 hr 01/03/18 01/04/18 01/04/18 19:25 05:00 05:30 WBC 12.9 H D RBC 3.01 L Hgb 8.4 L Hct 26.0 L MCV 86.4 MCH 27.9 MCHC 32.3 RDW 14.6 H Plt Count 254 MPV 10.1 Gran % 82.1 H Lymph % (Auto) 7.6 L [place] % (Auto) 9.9 H Eos % (Auto) 0.2 L Baso % (Auto) 0.2 Gran # 10.55 H Lymph # (Auto) 1.0 L [place] # (Auto) 1.3 H Eos # (Auto) 0.0 Baso # (Auto) 0.03 pCO2 35 pO2 88.0 HCO3 28.6 H ABG pH 7.52 H ABG Total CO2 29.7 H ABG O2 Saturation 99.1 H ABG O2 Content 11.3 L ABG Base Excess 5.4 H ABG Hemoglobin 8.2 L ABG Carboxyhemoglobin 1.6 H POC ABG HHb (Measured) 0.9 ABG Methemoglobin 0.8 ABG O2 Capacity 11.4 L Hgb O2 Saturation 96.6 FiO2 45.0 Sodium 147 Potassium 3.5 L Chloride 109 H Carbon Dioxide 29 Anion Gap 13 BUN 20 Creatinine 1.3 Est GFR ( Amer) > 60 Est GFR (Non-Af Amer) 54 Random Glucose 112 H Calcium 8.9 Magnesium 1.4 L Total Bilirubin AST ALT Alkaline Phosphatase Total Protein Albumin Globulin Albumin/Globulin Ratio 01/04/18 05:30 WBC RBC Hgb Hct MCV MCH MCHC RDW Plt Count MPV Gran % Lymph % (Auto) [place] % (Auto) Eos % (Auto) Baso % (Auto) Gran # Lymph # (Auto) [place] # (Auto) Eos # (Auto) Baso # (Auto) pCO2 pO2 HCO3 ABG pH ABG Total CO2 ABG O2 Saturation ABG O2 Content ABG Base Excess ABG Hemoglobin ABG Carboxyhemoglobin POC ABG HHb (Measured) ABG Methemoglobin ABG O2 Capacity Hgb O2 Saturation FiO2 Sodium 146 Potassium 3.5 L Chloride 110 H Carbon Dioxide 26 Anion Gap 14 BUN 19 Creatinine 1.2 Est GFR ( Amer) > 60 Est GFR (Non-Af Amer) 59 Random Glucose 105 Calcium 8.7 Magnesium 1.6 L Total Bilirubin 0.4 AST 10 L D ALT 13 Alkaline Phosphatase 61 Total Protein 5.4 L Albumin 2.6 L Globulin 2.8 Albumin/Globulin Ratio 0.9 L EKG/Cardiology Studies: Cardiology / EKG Studies 01/03/18 13:14 EKG [ELECTROCARDIOGRAM] Stat Comment: Reason For Exam: afib to sinus Critical Care Progress Note - Nutrition Nutrition: Nutrition Category Date Time Status Liquid Diet [DIET] Diets 01/03/18 Dinner Ordered Assessment/Plan - Assessment and Plan (Free Text) Assessment: Patient seen and examined on rounds with resident, agree with note with following additions/exceptions: Patient is 77yo male with PMhx duodenitis, errosive gastritis, diverticulosis, left LE DVT on AC [place] [facility] [place]oche[place] Pt had cortis put in for hemorrhagic shock, s/p 18u PRBC transfusion. Currently afebrile, HD stable, off vasopressor support, extubated on 2LNC, sat 96% Patient had embolization done by IR. Patient had repeat EGD, and colonoscopy by GI, no active bleeding. HH stable HD stable, afebrile, doing well. Tolerating diet. GIB, resolved Anemia Melena Hemorrhagic Shock, resolved Pulm Edema, r/o TACO, r/o TRALI, resolved Hypernatremia Recommend: - cont with sup o2 - follow up cultures, Abx as per ID - BP control - HOLD A/C - PPI BID - follow up GI - FS control - follow up renal - GI ppx - DVT ppx, SCDs - stable, transfer to telemetry
--- NOTE | 2018-01-04 14:14 | CP.PCM.PN ---
<Chuck Harris - Last Filed: 01/04/18 14:01> Subjective - Date & Time of Evaluation Date of Evaluation: 01/04/18 Time of Evaluation: 14:01 - Subjective Subjective: Patient seen and evaluated this AM. No acute events reported overnight. Patient resting comfortably in bed. Patient denies chest pain, shortness of breath, palpitations, headache, nausea, vomiting, fever, chills. Objective - Vital Signs/Intake and Output Vital Signs (last 24 hours): Temp Pulse Resp BP Pulse Ox 98.2 F 89 18 159/77 H 100 01/04/18 08:00 01/04/18 13:48 01/04/18 10:00 01/04/18 13:48 01/04/18 10:00 Intake and Output: 01/04/18 01/04/18 06:59 18:59 Intake Total 450 Output Total 600 Balance -150 - Medications Medications: Current Medications Albuterol/Ipratropium (Duoneb 3 Mg/0.5 Mg (3 Ml) Ud) 3 ml IH TIDRESP [facility] Last Admin: 01/04/18 13:24 Dose: 3 ml Albuterol/Ipratropium (Duoneb 3 Mg/0.5 Mg (3 Ml) Ud) 3 ml IH Q2H PRN PRN Reason: Shortness of Breath Last Admin: 01/03/18 04:24 Dose: 3 ml Diltiazem HCl (Cardizem) 30 mg PO QID [facility] Last Admin: 01/04/18 13:48 Dose: 30 mg Furosemide (Lasix) 40 mg IVP Q12 [facility] Last Admin: 01/03/18 14:40 Dose: 40 mg Hydralazine HCl (Apresoline) 10 mg IVP Q6 PRN PRN Reason: sbp/dbp>160/100 Midazolam 100 mg/100ml in NS (Midazolam 100 Mg/100ml In Ns) 100 mg in 100 mls @ 1 mls/hr IV .Q24H PRN; Protocol; 1 MG/HR PRN Reason: Agitation Last Admin: 01/01/18 20:23 Dose: 2 mg/hr, 2 mls/hr Propofol (Diprivan) 1,000 mg in 100 mls @ 2.557 mls/hr IV .Q24H PRN; Protocol; 5 MCG/KG/MIN PRN Reason: TITRATE PER MD ORDER Last Admin: 01/02/18 05:00 Dose: 50 mcg/kg/min, 25.569 mls/hr Vancomycin HCl (Vancomycin 1gm) 1 gm in 250 mls @ 167 mls/hr IVPB DAILY [facility] PRN Reason: Protocol Last Admin: 12/30/17 09:21 Dose: 167 mls/hr Sodium Chloride (Sodium Chloride 0.45%) 1,000 mls @ 75 mls/hr IV .[id number] [facility] Last Admin: 12/29/17 12:40 Dose: Not Given Meropenem 500 mg/ Sodium (Chloride) 50 mls @ 100 mls/hr IVPB Q8 [facility] PRN Reason: Protocol Last Admin: 01/04/18 13:48 Dose: 100 mls/hr Ondansetron HCl (Zofran Inj) 4 mg IVP Q4H PRN PRN Reason: Nausea/Vomiting Pantoprazole Sodium (Protonix Inj) 40 mg IVP Q12H [facility] Last Admin: 01/04/18 09:25 Dose: 40 mg - Labs Labs: 01/04/18 05:30 01/04/18 05:30 PT 12.0 SECONDS (9.4-12.5) 12/29/17 06:30 INR 1.04 (0.93-1.08) 12/29/17 06:30 APTT 23.8 Seconds (25.1-36.5) L 12/29/17 06:30 - Head Exam Head Exam: ATRAUMATIC, NORMAL INSPECTION, NORMOCEPHALIC - Eye Exam Eye Exam: EOMI, PERRL - ENT Exam ENT Exam: Mucous Membranes Moist - Neck Exam Neck Exam: Full ROM - Respiratory Exam Respiratory Exam: Clear to Ausculation Bilateral, NORMAL BREATHING PATTERN. absent: Respiratory Distress - Cardiovascular Exam Cardiovascular Exam: REGULAR RHYTHM, +S1, +S2 - GI/Abdominal Exam GI & Abdominal Exam: Soft, Normal Bowel Sounds. absent: Guarding, Rigid, Tenderness - Extremities Exam Extremities Exam: absent: Calf Tenderness, Pedal Edema Additional comments: Right upper extremity positive for edema, stable over past 24 hours - Neurological Exam Neurological Exam: Alert, Awake, CN II-XII Intact - Psychiatric Exam Psychiatric exam: Normal Affect, Normal Mood - Skin Skin Exam: Dry, Warm Assessment and Plan - Assessment and Plan (Free Text) Assessment: 77 year old male with past medical history of hypertension, duodenitis, erosive gastritis, abdominal aortic aneurysm repair (2011), LLE DVT on xarelto who presented with GIB. Patient admitted for hemorraghic shock and observed in ICU. Patient is s/p multiple pRBC and FFP transfusion. Patient recently undergone endoscopy with GI and bleeding scan positive of the patient transverse colon. Patient hypernatremia and EKTA have resolved with septic work up showing negative blood cultures with elevated procal and sputum positive for S. marcescens. Plan: SIRS Criteria (Tachycardia and Fever) - Resolved -ID Consult: Dr. Vyas -Possible Pneumonia -Sputum cultures positive for serratia -ID on consult -Continue with Meropenem and Vancomycin IV for antibiotic treatment at this time as per ID Hypoxemia, likely 2/2 TRALI VS PE - Cannot obtain CTA Chest 2/2 patient's EKTA; cannot heparinize 2/2 GIB - LE venous dopplers ordered to r/o DVT; negative Acute GI bleed status post Xarelto therapy - Continue with Protonix gtt - H&H stable , continue to monitor - Surgery Consulted, Dr. Lopez, follow recs - EGD reveals upper body and fundal ulcers of gastrum and superficial duodenal ulcers with no active bleed EKAT, likely secondary to GI bleed -Resolved -Hold nephrotoxic drugs; Monitor -Nephro Consulted: continue with hydration as per nephro Hypernatremia likely 2/2 Dehydration -Hypernatremia resolved continue to monitor -Nephrology consulted, will follow with recommendations History DVT -Holding AC due to GI bleed, continue to monitor -LE venous dopplers ordered to r/o DVT; negative: -Continue with serial LE dopplers -IR consulted for possible ICV filter, holding at this time History HTN - Continue to hold Valsartan - Hydralazine prn History Squamous Cell CA - No acute intervention Atrial fibrillation with RVR - Resolved, patient off cardizem gtt History Abdominal Aortic Aneurysm s/p Repair - Continue with cardizem Prophylaxis - GI: Protonix BID - DVT: SCD <Abdirahman Lugo - Last Filed: 01/05/18 11:28> Objective - Vital Signs/Intake and Output Vital Signs (last 24 hours): Temp Pulse Resp BP Pulse Ox 99.2 F 123 H 15 185/62 H 100 01/05/18 08:00 01/05/18 10:08 01/05/18 09:00 01/05/18 10:08 01/05/18 09:00 Intake and Output: 01/05/18 01/05/18 06:59 18:59 Intake Total 240 Output Total 550 Balance -310 - Medications Medications: Current Medications Albuterol/Ipratropium (Duoneb 3 Mg/0.5 Mg (3 Ml) Ud) 3 ml IH TIDRESP [facility] Last Admin: 01/05/18 07:33 Dose: 3 ml Albuterol/Ipratropium (Duoneb 3 Mg/0.5 Mg (3 Ml) Ud) 3 ml IH Q2H PRN PRN Reason: Shortness of Breath Last Admin: 01/03/18 04:24 Dose: 3 ml Diltiazem HCl (Cardizem) 30 mg PO QID [facility] Last Admin: 01/05/18 09:31 Dose: 30 mg Furosemide (Lasix) 40 mg IVP Q12 [facility] Last Admin: 01/03/18 14:40 Dose: 40 mg Hydralazine HCl (Apresoline) 10 mg IVP Q6 PRN PRN Reason: sbp/dbp>160/100 Last Admin: 01/05/18 10:08 Dose: 10 mg Midazolam 100 mg/100ml in NS (Midazolam 100 Mg/100ml In Ns) 100 mg in 100 mls @ 1 mls/hr IV .Q24H PRN; Protocol; 1 MG/HR PRN Reason: Agitation Last Admin: 01/01/18 20:23 Dose: 2 mg/hr, 2 mls/hr Propofol (Diprivan) 1,000 mg in 100 mls @ 2.557 mls/hr IV .Q24H PRN; Protocol; 5 MCG/KG/MIN PRN Reason: TITRATE PER MD ORDER Last Admin: 01/02/18 05:00 Dose: 50 mcg/kg/min, 25.569 mls/hr Vancomycin HCl (Vancomycin 1gm) 1 gm in 250 mls @ 167 mls/hr IVPB DAILY [facility] PRN Reason: Protocol Last Admin: 12/30/17 09:21 Dose: 167 mls/hr Sodium Chloride (Sodium Chloride 0.45%) 1,000 mls @ 75 mls/hr IV .[id number] [facility] Last Admin: 12/29/17 12:40 Dose: Not Given Ondansetron HCl (Zofran Inj) 4 mg IVP Q4H PRN PRN Reason: Nausea/Vomiting Pantoprazole Sodium (Protonix Inj) 40 mg IVP Q12H [facility] Last Admin: 01/05/18 09:31 Dose: 40 mg - Labs Labs: 01/05/18 05:30 01/05/18 05:30 PT 12.0 SECONDS (9.4-12.5) 12/29/17 06:30 INR 1.04 (0.93-1.08) 12/29/17 06:30 APTT 23.8 Seconds (25.1-36.5) L 12/29/17 06:30 Attending/Attestation - Attestation I have personally seen and examined this patient.: Yes I have fully participated in the care of the patient.: Yes I have reviewed all pertinent clinical information, including history, physical exam and plan: Yes Notes (Text): 01/05/18 11:26 Medical record note made by the resident after discussion with my direction and input after the patient was personally seen and examined by me. I have reviewed the chart and agree that the record accurately reflects by personal performance of the history, physical exam, data review, and medical decision-making, in the course for the patient. I have also personally directed the plan of care. 77 year old male with past medical history of hypertension, duodenitis, erosive gastritis, abdominal aortic aneurysm repair (2011), LLE DVT (last month) on xarelto who presented with GIB. He is s/p multiple PRBC / FFP transfusions. He was seen by GI and is s/p EGD last week. Bleeding scan was positive from transverse colon. He was seen by IR and is s/p embolization of left gastric artery last week. He had repeat EGD this week which showed gastric and superficial duodenal ulcers without active bleeding. He had colonoscopy yesterday which showed nonbleeding mucosal ulceration at sigmoid colon.Patient is now hemodynamically stable and bleeding stop. Still high risk for rebleeding , risks of which much higher then the benefits of restarting anticoagulation, LE venous doppler is negative for DVT. Proxysmal AF. Rate is controlled, not on anticogulation due to risk of bleeding. Management plan was discussed in detail with patient. Education was provided.
--- NOTE | 2018-01-04 15:07 | CP.PCM.PN ---
Subjective - Date & Time of Evaluation Date of Evaluation: 01/04/18 Time of Evaluation: 11:00 - Subjective Subjective: Patient started on diet, tolerating it; taken off high flow O2, now only on nasal cannula; denies any difficulty breathing; Objective - Vital Signs/Intake and Output Vital Signs (last 24 hours): Temp Pulse Resp BP Pulse Ox 98.6 F 89 18 159/77 H 100 01/04/18 12:00 01/04/18 14:00 01/04/18 10:00 01/04/18 13:48 01/04/18 10:00 Intake and Output: 01/04/18 01/04/18 06:59 18:59 Intake Total 450 Output Total 600 Balance -150 - Medications Medications: Current Medications Albuterol/Ipratropium (Duoneb 3 Mg/0.5 Mg (3 Ml) Ud) 3 ml IH TIDRESP [facility] Last Admin: 01/04/18 13:24 Dose: 3 ml Albuterol/Ipratropium (Duoneb 3 Mg/0.5 Mg (3 Ml) Ud) 3 ml IH Q2H PRN PRN Reason: Shortness of Breath Last Admin: 01/03/18 04:24 Dose: 3 ml Diltiazem HCl (Cardizem) 30 mg PO QID [facility] Last Admin: 01/04/18 13:48 Dose: 30 mg Furosemide (Lasix) 40 mg IVP Q12 [facility] Last Admin: 01/03/18 14:40 Dose: 40 mg Hydralazine HCl (Apresoline) 10 mg IVP Q6 PRN PRN Reason: sbp/dbp>160/100 Midazolam 100 mg/100ml in NS (Midazolam 100 Mg/100ml In Ns) 100 mg in 100 mls @ 1 mls/hr IV .Q24H PRN; Protocol; 1 MG/HR PRN Reason: Agitation Last Admin: 01/01/18 20:23 Dose: 2 mg/hr, 2 mls/hr Propofol (Diprivan) 1,000 mg in 100 mls @ 2.557 mls/hr IV .Q24H PRN; Protocol; 5 MCG/KG/MIN PRN Reason: TITRATE PER MD ORDER Last Admin: 01/02/18 05:00 Dose: 50 mcg/kg/min, 25.569 mls/hr Vancomycin HCl (Vancomycin 1gm) 1 gm in 250 mls @ 167 mls/hr IVPB DAILY [facility] PRN Reason: Protocol Last Admin: 12/30/17 09:21 Dose: 167 mls/hr Sodium Chloride (Sodium Chloride 0.45%) 1,000 mls @ 75 mls/hr IV .[id number] [facility] Last Admin: 12/29/17 12:40 Dose: Not Given Meropenem 500 mg/ Sodium (Chloride) 50 mls @ 100 mls/hr IVPB Q8 [facility] PRN Reason: Protocol Last Admin: 01/04/18 13:48 Dose: 100 mls/hr Ondansetron HCl (Zofran Inj) 4 mg IVP Q4H PRN PRN Reason: Nausea/Vomiting Pantoprazole Sodium (Protonix Inj) 40 mg IVP Q12H [facility] Last Admin: 01/04/18 09:25 Dose: 40 mg - Labs Labs: 01/04/18 05:30 01/04/18 05:30 PT 12.0 SECONDS (9.4-12.5) 12/29/17 06:30 INR 1.04 (0.93-1.08) 12/29/17 06:30 APTT 23.8 Seconds (25.1-36.5) L 12/29/17 06:30 - Constitutional Appears: Non-toxic, No Acute Distress - Eye Exam Eye Exam: absent: Scleral icterus - ENT Exam ENT Exam: Mucous Membranes Moist - Respiratory Exam Respiratory Exam: Clear to Ausculation Bilateral. absent: Respiratory Distress - Cardiovascular Exam Cardiovascular Exam: +S1, +S2. absent: Gallop - GI/Abdominal Exam GI & Abdominal Exam: Soft. absent: Distended, Tenderness - Extremities Exam Additional comments: edema improving; - Neurological Exam Neurological Exam: Alert, Awake - Psychiatric Exam Psychiatric exam: Normal Mood. absent: Agitated - Skin Skin Exam: Warm. absent: Cyanosis Assessment and Plan (1) Acute kidney failure Assessment & Plan: Resolved; has mild baseline renal insufficiency; continue to avoid nephrotoxic agents; Status: Acute (2) Hypernatremia Assessment & Plan: Improved and stable; now on PO diet; should continue to correct with free water intake; Status: Acute (3) SIRS (systemic inflammatory response syndrome) Status: Acute (4) Acute hypoxemic respiratory failure Status: Acute
--- NOTE | 2018-01-04 23:49 | CP.PCM.PN ---
Subjective - Date & Time of Evaluation Date of Evaluation: 01/04/18 Time of Evaluation: 23:48 - Subjective Subjective: Infectious Disease Follow Up: January 04, 2018 77 year old male with PMH of hypertension, duodenitis, erosive gastritis ( diagnosed in 2012), divericulosis, abdominal aortic aneurysm repair in 2011, left lower extremity DVT (2011), who presents with GI bleed. Patient states that over the past 2 days he had multiple episodes of coffee ground hematemesis. He also reports melena, and bright red blood per rectum starting yesetrday. Patient states that he started Xarelto a few days ago. Patient endorses he was taking Eliquis but experienced abdominal discomfort, loss of appetite, and associated weight loss. He was switched to Xarelto instead recently due to these adverse events. He does admit to drinking alcohol, but denies any history of drinking greater than 8 drinks per week or having any prior history of alcohol abuse. Patient states that he takes Aleve almost daily for the past 5 years. Currently in ICU for monitoring. TLC placed. Had several melena episodes during hospitalization. S/P IR angiography with embolization of left gastric artery POD#7. Extubated. On Vancomycin and Meropenem for antibiotic treatment. Patient with history of frequent hospitalizations. History obtained from the chart. Extubated, the patient is fully awake and alert and able to follow commands. Endoscopy done and Colonoscopy done Saturday. He is on Nasal Cannula now. Supportive care. He is on 5L NC. Objective - Vital Signs/Intake and Output Vital Signs (last 24 hours): Temp Pulse Resp BP Pulse Ox 99.1 F 93 H 20 151/72 H 95 01/04/18 20:00 01/04/18 22:00 01/04/18 20:00 01/04/18 21:04 01/04/18 20:00 Intake and Output: 01/04/18 01/05/18 18:59 06:59 Intake Total 1050 Output Total 651 Balance 399 - Medications Medications: Current Medications Albuterol/Ipratropium (Duoneb 3 Mg/0.5 Mg (3 Ml) Ud) 3 ml IH TIDRESP [facility] Last Admin: 01/04/18 20:20 Dose: 3 ml Albuterol/Ipratropium (Duoneb 3 Mg/0.5 Mg (3 Ml) Ud) 3 ml IH Q2H PRN PRN Reason: Shortness of Breath Last Admin: 01/03/18 04:24 Dose: 3 ml Diltiazem HCl (Cardizem) 30 mg PO QID [facility] Last Admin: 01/04/18 21:04 Dose: 30 mg Furosemide (Lasix) 40 mg IVP Q12 [facility] Last Admin: 01/03/18 14:40 Dose: 40 mg Hydralazine HCl (Apresoline) 10 mg IVP Q6 PRN PRN Reason: sbp/dbp>160/100 Midazolam 100 mg/100ml in NS (Midazolam 100 Mg/100ml In Ns) 100 mg in 100 mls @ 1 mls/hr IV .Q24H PRN; Protocol; 1 MG/HR PRN Reason: Agitation Last Admin: 01/01/18 20:23 Dose: 2 mg/hr, 2 mls/hr Propofol (Diprivan) 1,000 mg in 100 mls @ 2.557 mls/hr IV .Q24H PRN; Protocol; 5 MCG/KG/MIN PRN Reason: TITRATE PER MD ORDER Last Admin: 01/02/18 05:00 Dose: 50 mcg/kg/min, 25.569 mls/hr Vancomycin HCl (Vancomycin 1gm) 1 gm in 250 mls @ 167 mls/hr IVPB DAILY [facility] PRN Reason: Protocol Last Admin: 12/30/17 09:21 Dose: 167 mls/hr Sodium Chloride (Sodium Chloride 0.45%) 1,000 mls @ 75 mls/hr IV .[id number] [facility] Last Admin: 12/29/17 12:40 Dose: Not Given Meropenem 500 mg/ Sodium (Chloride) 50 mls @ 100 mls/hr IVPB Q8 [facility] PRN Reason: Protocol Last Admin: 01/04/18 21:42 Dose: 100 mls/hr Ondansetron HCl (Zofran Inj) 4 mg IVP Q4H PRN PRN Reason: Nausea/Vomiting Pantoprazole Sodium (Protonix Inj) 40 mg IVP Q12H [facility] Last Admin: 01/04/18 21:04 Dose: 40 mg - Labs Labs: 01/04/18 05:30 01/04/18 05:30 PT 12.0 SECONDS (9.4-12.5) 12/29/17 06:30 INR 1.04 (0.93-1.08) 12/29/17 06:30 APTT 23.8 Seconds (25.1-36.5) L 12/29/17 06:30 - Constitutional Appears: Non-toxic, No Acute Distress, Chronically Ill - Head Exam Head Exam: ATRAUMATIC, NORMOCEPHALIC - Eye Exam Eye Exam: EOMI, PERRL Pupil Exam: NORMAL ACCOMODATION, PERRL - ENT Exam ENT Exam: Mucous Membranes Moist, Normal External Ear Exam, TM's Normal Bilaterally - Neck Exam Neck Exam: Full ROM, Normal Inspection - Respiratory Exam Respiratory Exam: Decreased Breath Sounds, Clear to Ausculation Bilateral, NORMAL BREATHING PATTERN. absent: Rales, Rhonchi, Wheezes - Cardiovascular Exam Cardiovascular Exam: REGULAR RHYTHM, RRR, +S1, +S2 - GI/Abdominal Exam GI & Abdominal Exam: Soft, Normal Bowel Sounds. absent: Distended, Tenderness - Extremities Exam Extremities Exam: Full ROM, Normal Inspection - Neurological Exam Neurological Exam: Alert, Awake, CN II-XII Intact, Oriented x3 - Psychiatric Exam Psychiatric exam: Normal Affect, Normal Mood - Skin Skin Exam: Intact, Normal Color Assessment and Plan - Assessment and Plan (Free Text) Assessment: 77 yo AA male known to me from prior hospitalizations presenting with acute GI bleed. The patient has been anemic and hypoxic. The patient has been having persistent fevers with mild leukocytosis. Supportive care. Start Vancomycin and Meropenem for treatment. Sepsis workup. Hypoxemia. Patient being evaluted for TRALI and PE at this time. The patient has left gastric artery embolization on 12/27/2017. The patient was given 13 U PRBCs and 8 U FFP. Patient with EKTA. Extubated this morning. Poor prognosis. The patient has been afebrile for the past several hours. Extremely poor prognosis. Sputum cultures showing Serratia. Remains on Meropenem and Vancomycin IV for antibiotic treatment at this time. Colonoscopy done by Dr. Ibrahim Saturday. The patient is fully awake and alert and can follow commands. Extubated Saturday. Slowly improving. On Nasal canula now. 5L of O2. Thank you for allowing me to participate in the care of the patient, we will follow with you.
[2018-01-05] MEDS: Meropenem 500 MG in Sodium Chloride 0.9% 50 ML IVPB SCH (05:03)
[2018-01-05 06:01] LABS: BASO # 0.03 K/mm3 (0.0-2.0); BASO % 0.2 % (0.0-3.0); EOS % 0.1 % (1.5-5.0); GRAN # 12.9 (1.4-6.5); GRAN % 84.6 % (50.0-68.0); HEMOGLOBIN 8.3 g/dL (14.0-18.0); LYMPH # 0.8 (1.2-3.4); LYMPH % 5.4 % (22.0-35.0); MEAN CELL VOLUME 86.4 fl (80.0-105.0); MEAN CORPUSCULAR HEMOGLOBIN 28.1 pg (25.0-35.0); MEAN CORPUSCULAR HGB CONC 32.5 g/dl (31.0-37.0); MEAN PLATELET VOLUME 10.1 fl (7.0-11.0); MONO # 1.5 (0.1-0.6); MONO % 9.7 % (1.0-6.0); RBC 2.95 10^6/uL (3.5-6.1); RED CELL DISTRIBUTION WIDTH 14.7 % (11.5-14.5); WHITE BLOOD COUNT 15.2 10^3/ul (4.5-11.0)
[2018-01-05 07:02] LABS: ALB/GLOB RATIO 0.9 (1.1-1.8); ALBUMIN 2.7 g/dL (3.0-4.8); ALT/SGPT 20 U/L (7-56); AST/SGOT 17 U/L (17-59); BLOOD UREA NITROGEN 19 mg/dL (7-21); CALCIUM 8.9 mg/dL (8.4-10.5); GFR AFRICAN-AMERICAN > 60; GFR NON-AFRICAN AMERICAN 54
[2018-01-05] MEDS: Albuterol-Ipratrop 3 mg / 0.5 (3 ml) UD IH SCH ×3 (07:33→19:43)
--- NOTE | 2018-01-05 14:04 | CP.PCM.PN ---
<Chuck Harris - Last Filed: 01/05/18 14:00> Subjective - Date & Time of Evaluation Date of Evaluation: 01/05/18 Time of Evaluation: 14:00 - Subjective Subjective: Patient seen and evaluated this AM. Patient reportedly with limited sleep overnight. Patient denies chest pain, abdominal pain, fever, nausea, vomiting. Patient evaluated in PM as well. Noticed to have some confusion regarding place stating he is in his garage. is at bedside and reports behavior is abnormal. Patient also states the patient is a regular ETOH drinker and last drink was evening. Objective - Vital Signs/Intake and Output Vital Signs (last 24 hours): Temp Pulse Resp BP Pulse Ox 99.3 F 110 H 25 H 141/87 100 01/05/18 12:00 01/05/18 13:05 01/05/18 12:00 01/05/18 13:05 01/05/18 12:00 Intake and Output: 01/05/18 01/05/18 06:59 18:59 Intake Total 240 Output Total 550 Balance -310 - Medications Medications: Current Medications Albuterol/Ipratropium (Duoneb 3 Mg/0.5 Mg (3 Ml) Ud) 3 ml IH TIDRESP [facility] Last Admin: 01/05/18 13:22 Dose: 3 ml Albuterol/Ipratropium (Duoneb 3 Mg/0.5 Mg (3 Ml) Ud) 3 ml IH Q2H PRN PRN Reason: Shortness of Breath Last Admin: 01/03/18 04:24 Dose: 3 ml Diltiazem HCl (Cardizem) 60 mg PO QID [facility] Furosemide (Lasix) 40 mg IVP Q12 [facility] Last Admin: 01/03/18 14:40 Dose: 40 mg Hydralazine HCl (Apresoline) 10 mg IVP Q6 PRN PRN Reason: sbp/dbp>160/100 Last Admin: 01/05/18 10:08 Dose: 10 mg Midazolam 100 mg/100ml in NS (Midazolam 100 Mg/100ml In Ns) 100 mg in 100 mls @ 1 mls/hr IV .Q24H PRN; Protocol; 1 MG/HR PRN Reason: Agitation Last Admin: 01/01/18 20:23 Dose: 2 mg/hr, 2 mls/hr Propofol (Diprivan) 1,000 mg in 100 mls @ 2.557 mls/hr IV .Q24H PRN; Protocol; 5 MCG/KG/MIN PRN Reason: TITRATE PER MD ORDER Last Admin: 01/02/18 05:00 Dose: 50 mcg/kg/min, 25.569 mls/hr Vancomycin HCl (Vancomycin 1gm) 1 gm in 250 mls @ 167 mls/hr IVPB DAILY [facility] PRN Reason: Protocol Last Admin: 12/30/17 09:21 Dose: 167 mls/hr Sodium Chloride (Sodium Chloride 0.45%) 1,000 mls @ 75 mls/hr IV .[id number] [facility] Last Admin: 12/29/17 12:40 Dose: Not Given Lorazepam (Ativan) 1 mg IVP Q4H PRN; Protocol PRN Reason: Symptoms of alcohol withdrawl Ondansetron HCl (Zofran Inj) 4 mg IVP Q4H PRN PRN Reason: Nausea/Vomiting Pantoprazole Sodium (Protonix Inj) 40 mg IVP Q12H [facility] Last Admin: 01/05/18 09:31 Dose: 40 mg - Labs Labs: 01/05/18 05:30 01/05/18 05:30 PT 12.0 SECONDS (9.4-12.5) 12/29/17 06:30 INR 1.04 (0.93-1.08) 12/29/17 06:30 APTT 23.8 Seconds (25.1-36.5) L 12/29/17 06:30 - Constitutional Appears: No Acute Distress - Head Exam Head Exam: ATRAUMATIC, NORMAL INSPECTION, NORMOCEPHALIC - Eye Exam Eye Exam: EOMI, PERRL, Scleral icterus (mild) - ENT Exam Additional comments: missing teeth, poor dentation - Respiratory Exam Respiratory Exam: Clear to Ausculation Bilateral, NORMAL BREATHING PATTERN. absent: Rhonchi, Wheezes - Cardiovascular Exam Cardiovascular Exam: Tachycardia, +S1, +S2 - GI/Abdominal Exam GI & Abdominal Exam: Soft, Normal Bowel Sounds. absent: Guarding, Rigid, Tenderness - Extremities Exam Extremities Exam: absent: Calf Tenderness, Pedal Edema, Tenderness Additional comments: right UE with swelling, stable from previous examination - Neurological Exam Neurological Exam: Alert, Awake, CN II-XII Intact - Psychiatric Exam Psychiatric exam: Normal Mood - Skin Skin Exam: Dry, Warm Assessment and Plan - Assessment and Plan (Free Text) Assessment: 77 year old male with past medical history of hypertension, duodenitis, erosive gastritis, abdominal aortic aneurysm repair (2011), LLE DVT on xarelto who presented with GIB. Patient admitted for hemorraghic shock and observed in ICU. Patient is s/p multiple pRBC and FFP transfusion. Patient recently undergone endoscopy with GI and bleeding scan positive of the patient transverse colon. Patient hypernatremia and EKTA have resolved with septic work up showing negative blood cultures with elevated procal and sputum positive for S. marcescens. Patient exhibiting signs of ICU delirium. Plan: Parixysmal Atrial Fibrillation - Rate control at this time, holding AC 2/2 GI bleeding - Cardizem 60mg QID - Monitor Hypoxemia, likely 2/2 TRALI VS PE - Cannot obtain CTA Chest 2/2 patient's EKTA; cannot heparinize 2/2 GIB - LE venous dopplers ordered to r/o DVT; negative - Maintain SaO2 >92% Acute GI bleed status post Xarelto therapy - Continue with Protonix gtt - H&H stable , continue to monitor - Surgery Consulted, Dr. Lopez, follow recs - EGD reveals upper body and fundal ulcers of gastrum and superficial duodenal ulcers with no active bleed ICU Delirium - Indicates he is in a car in his garage and not a hospital bed, aware of day of week and family at bedside - Reorient patient - Allow for sunlight to enter room - Likely secondary to poor sleep over past few days EKTA, likely secondary to GI bleed -Resolved -Hold nephrotoxic drugs; Monitor -Nephro Consulted: continue with hydration as per nephro Hypernatremia likely 2/2 Dehydration -Hypernatremia resolved continue to monitor -Nephrology consulted, will follow with recommendations History DVT -Holding AC due to GI bleed, continue to monitor -LE venous dopplers ordered to r/o DVT; negative: -Continue with serial LE dopplers -IR consulted for possible ICV filter, holding at this time SIRS Criteria (Tachycardia and Fever) - Resolved -ID Consult: Dr. Vyas -Possible Pneumonia -Sputum cultures positive for serratia -ID on consult -Continue with Meropenem and Vancomycin IV for antibiotic treatment at this time as per ID History HTN - Cardizem 60mg QID - Hydralazine prn, monitor for tachycardia History Squamous Cell CA - No acute intervention Atrial fibrillation with RVR - Resolved, patient off cardizem gtt History Abdominal Aortic Aneurysm s/p Repair - Continue with cardizem Hx of Tobacco abuse - Nicotine 0.21 - Smoking cessation counseling Hx of ETOH abuse - Patient with confusion, ICU delirium likely - Patient family states last drink was - CIWA protocol - Ativan 1mg Q4H prn - Monitor - Alcohol cessation counseling Prophylaxis - GI: Protonix BID - DVT: SCD Case and plan discussed with attending <Abdirahman Lugo - Last Filed: 01/05/18 14:48> Objective - Vital Signs/Intake and Output Vital Signs (last 24 hours): Temp Pulse Resp BP Pulse Ox 99.3 F 121 H 25 H 147/116 H 100 01/05/18 12:00 01/05/18 14:26 01/05/18 12:00 01/05/18 14:26 01/05/18 12:00 Intake and Output: 01/05/18 01/05/18 06:59 18:59 Intake Total 240 Output Total 550 Balance -310 - Medications Medications: Current Medications Albuterol/Ipratropium (Duoneb 3 Mg/0.5 Mg (3 Ml) Ud) 3 ml IH TIDRESP [facility] Last Admin: 01/05/18 13:22 Dose: 3 ml Albuterol/Ipratropium (Duoneb 3 Mg/0.5 Mg (3 Ml) Ud) 3 ml IH Q2H PRN PRN Reason: Shortness of Breath Last Admin: 01/03/18 04:24 Dose: 3 ml Diltiazem HCl (Cardizem) 60 mg PO QID [facility] Last Admin: 01/05/18 14:03 Dose: 60 mg Furosemide (Lasix) 40 mg IVP Q12 [facility] Last Admin: 01/03/18 14:40 Dose: 40 mg Midazolam 100 mg/100ml in NS (Midazolam 100 Mg/100ml In Ns) 100 mg in 100 mls @ 1 mls/hr IV .Q24H PRN; Protocol; 1 MG/HR PRN Reason: Agitation Last Admin: 01/01/18 20:23 Dose: 2 mg/hr, 2 mls/hr Propofol (Diprivan) 1,000 mg in 100 mls @ 2.557 mls/hr IV .Q24H PRN; Protocol; 5 MCG/KG/MIN PRN Reason: TITRATE PER MD ORDER Last Admin: 01/02/18 05:00 Dose: 50 mcg/kg/min, 25.569 mls/hr Vancomycin HCl (Vancomycin 1gm) 1 gm in 250 mls @ 167 mls/hr IVPB DAILY [facility] PRN Reason: Protocol Last Admin: 12/30/17 09:21 Dose: 167 mls/hr Sodium Chloride (Sodium Chloride 0.45%) 1,000 mls @ 75 mls/hr IV .[id number] [facility] Last Admin: 12/29/17 12:40 Dose: Not Given Lorazepam (Ativan) 1 mg IVP Q4H PRN; Protocol PRN Reason: Symptoms of alcohol withdrawl Metoprolol Tartrate (Lopressor) 5 mg IVP Q6 PRN PRN Reason: Heart rate Last Admin: 01/05/18 14:26 Dose: 5 mg Nicotine (Nicoderm Cq) 1 patch TD DAILY [facility] Last Admin: 01/05/18 14:23 Dose: 1 patch Ondansetron HCl (Zofran Inj) 4 mg IVP Q4H PRN PRN Reason: Nausea/Vomiting Pantoprazole Sodium (Protonix Inj) 40 mg IVP Q12H [facility] Last Admin: 01/05/18 09:31 Dose: 40 mg - Labs Labs: 01/05/18 05:30 01/05/18 05:30 PT 12.0 SECONDS (9.4-12.5) 12/29/17 06:30 INR 1.04 (0.93-1.08) 12/29/17 06:30 APTT 23.8 Seconds (25.1-36.5) L 12/29/17 06:30 Attending/Attestation - Attestation I have personally seen and examined this patient.: Yes I have fully participated in the care of the patient.: Yes I have reviewed all pertinent clinical information, including history, physical exam and plan: Yes Notes (Text): 01/05/18 14:43 Medical record note made by the resident after discussion with my direction and input after the patient was personally seen and examined by me. I have reviewed the chart and agree that the record accurately reflects by personal performance of the history, physical exam, data review, and medical decision-making, in the course for the patient. I have also personally directed the plan of care. 77 year old male with past medical history of hypertension, duodenitis, erosive gastritis, abdominal aortic aneurysm repair (2011), LLE DVT (last month) on xarelto who presented with GIB. He is s/p multiple PRBC / FFP transfusions.. Bleeding scan was positive from transverse colon. He was seen by IR and is SP embolization of left gastric artery last week. He had repeat EGD last week which showed gastric and superficial duodenal ulcers without active bleeding. He also had colonoscopy last week which showed nonbleeding mucosal ulceration at sigmoid colon. Patient is now hemodynamically stable and bleeding stop. Still high risk for re bleeding, risks of which much higher then the benefits of restarting anticoagulation, Lower extremity venous doppler is negative for DVT. Proxysmal AF. Rate is tachycardiac today, blood pressure is also running high, we will increase the dose of cardizem to 60 mg QID, Patient is not on anticogulation due to risk of bleeding. Management plan was discussed in detail with patient and . Education was provided.
[2018-01-05] MEDS: Metoprolol 1 mg/ml Inj IVP PRN (14:26)
--- NOTE | 2018-01-05 17:59 | CP.PCM.PN ---
Subjective - Date & Time of Evaluation Date of Evaluation: 01/05/18 Time of Evaluation: 17:00 - Subjective Subjective: Infectious Disease Follow Up: January 05, 2018 77 year old male with PMH of hypertension, duodenitis, erosive gastritis ( diagnosed in 2012), divericulosis, abdominal aortic aneurysm repair in 2011, left lower extremity DVT (2011), who presents with GI bleed. Patient states that over the past 2 days he had multiple episodes of coffee ground hematemesis. He also reports melena, and bright red blood per rectum starting yesetrday. Patient states that he started Xarelto a few days ago. Patient endorses he was taking Eliquis but experienced abdominal discomfort, loss of appetite, and associated weight loss. He was switched to Xarelto instead recently due to these adverse events. He does admit to drinking alcohol, but denies any history of drinking greater than 8 drinks per week or having any prior history of alcohol abuse. Patient states that he takes Aleve almost daily for the past 5 years. Currently in ICU for monitoring. TLC placed. Had several melena episodes during hospitalization. S/P IR angiography with embolization of left gastric artery POD#8. Extubated. On Vancomycin and Meropenem for antibiotic treatment. Patient with history of frequent hospitalizations. History obtained from the chart. Extubated, the patient is fully awake and alert and able to follow commands. Endoscopy done and Colonoscopy done Saturday. He is on Nasal Cannula now. Supportive care. He is on 5L NC. Confused today. at bedside and she states that he is mentally far from his baseline. Objective - Vital Signs/Intake and Output Vital Signs (last 24 hours): Temp Pulse Resp BP Pulse Ox 99.5 F 90 20 165/92 H 95 01/05/18 17:33 01/05/18 17:33 01/05/18 17:33 01/05/18 17:33 01/05/18 17:33 Intake and Output: 01/05/18 01/05/18 06:59 18:59 Intake Total 240 Output Total 550 Balance -310 - Medications Medications: Current Medications Albuterol/Ipratropium (Duoneb 3 Mg/0.5 Mg (3 Ml) Ud) 3 ml IH TIDRESP [facility] Last Admin: 01/05/18 13:22 Dose: 3 ml Albuterol/Ipratropium (Duoneb 3 Mg/0.5 Mg (3 Ml) Ud) 3 ml IH Q2H PRN PRN Reason: Shortness of Breath Last Admin: 01/03/18 04:24 Dose: 3 ml Diltiazem HCl (Cardizem) 60 mg PO QID [facility] Last Admin: 01/05/18 14:03 Dose: 60 mg Furosemide (Lasix) 40 mg IVP Q12 [facility] Last Admin: 01/03/18 14:40 Dose: 40 mg Vancomycin HCl (Vancomycin 1gm) 1 gm in 250 mls @ 167 mls/hr IVPB DAILY [facility] PRN Reason: Protocol Last Admin: 12/30/17 09:21 Dose: 167 mls/hr Sodium Chloride (Sodium Chloride 0.45%) 1,000 mls @ 75 mls/hr IV .[id number] [facility] Last Admin: 12/29/17 12:40 Dose: Not Given Lorazepam (Ativan) 1 mg IVP Q4H PRN; Protocol PRN Reason: Symptoms of alcohol withdrawl Metoprolol Tartrate (Lopressor) 5 mg IVP Q6 PRN PRN Reason: Heart rate Last Admin: 01/05/18 14:26 Dose: 5 mg Nicotine (Nicoderm Cq) 1 patch TD DAILY [facility] Last Admin: 01/05/18 14:23 Dose: 1 patch Ondansetron HCl (Zofran Inj) 4 mg IVP Q4H PRN PRN Reason: Nausea/Vomiting Pantoprazole Sodium (Protonix Inj) 40 mg IVP Q12H [facility] Last Admin: 01/05/18 09:31 Dose: 40 mg - Labs Labs: 01/05/18 05:30 01/05/18 05:30 PT 12.0 SECONDS (9.4-12.5) 12/29/17 06:30 INR 1.04 (0.93-1.08) 12/29/17 06:30 APTT 23.8 Seconds (25.1-36.5) L 12/29/17 06:30 - Constitutional Appears: Non-toxic, No Acute Distress, Chronically Ill - Head Exam Head Exam: ATRAUMATIC, NORMOCEPHALIC - Eye Exam Eye Exam: EOMI, PERRL Pupil Exam: NORMAL ACCOMODATION, PERRL - ENT Exam ENT Exam: Mucous Membranes Moist, Normal External Ear Exam, TM's Normal Bilaterally - Neck Exam Neck Exam: Full ROM, Normal Inspection - Respiratory Exam Respiratory Exam: Decreased Breath Sounds, Clear to Ausculation Bilateral, NORMAL BREATHING PATTERN. absent: Rales, Rhonchi, Wheezes - Cardiovascular Exam Cardiovascular Exam: REGULAR RHYTHM, RRR, +S1, +S2 - GI/Abdominal Exam GI & Abdominal Exam: Soft, Normal Bowel Sounds. absent: Distended, Tenderness - Extremities Exam Extremities Exam: Full ROM, Normal Inspection - Neurological Exam Neurological Exam: Alert, Awake, CN II-XII Intact Additional comments: AAO x 1 now. - Psychiatric Exam Psychiatric exam: Normal Affect, Normal Mood - Skin Skin Exam: Intact, Normal Color Assessment and Plan - Assessment and Plan (Free Text) Assessment: 77 yo AA male known to me from prior hospitalizations presenting with acute GI bleed. The patient has been anemic and hypoxic. The patient has been having persistent fevers with mild leukocytosis. Supportive care. Start Vancomycin and Meropenem for treatment. Sepsis workup. Hypoxemia. Patient being evaluted for TRALI and PE at this time. The patient has left gastric artery embolization on 12/27/2017. The patient was given 13 U PRBCs and 8 U FFP. Patient with EKTA. Extubated this morning. Poor prognosis. The patient has been afebrile for the past several hours. Extremely poor prognosis. Sputum cultures showing Serratia. Remains on Meropenem and Vancomycin IV for antibiotic treatment at this time. Colonoscopy done by Dr. Ibrahim Saturday. The patient today became confused. Noted increasing leukocytosis now to 15.2. Extubated Saturday. Slowly improving. On Nasal canula now. 5L of O2. Febrile to 100.7 F. Restart Cefepime. Check blood and urine cultures. Thank you for allowing me to participate in the care of the patient, we will follow with you.
--- NOTE | 2018-01-05 22:56 | PN ---
DATE: 01/05/2018 SUBJECTIVE: This patient was seen and evaluated earlier today. I discussed with the nursing staff. Patient has episodes of confusion . He is on full liquid diet, tolerating. Patient's rhythm now remains sinus rhythm. PHYSICAL EXAMINATION: VITAL SIGNS: Temperature T-max 100.7, pulse 112, blood pressure is 141/81. HEENT: Atraumatic, anicteric. NECK: Supple. HEART: S1, S2 heard, tachycardic. LUNGS: Bilateral air entry present. ABDOMEN: Softly distended. Bowel sounds present. EXTREMITIES: No cyanosis, no clubbing, no edema. No calf tenderness. NEUROLOGIC: Patient is now alert and oriented. LABORATORY DATA: Hemoglobin 8.3 stable, hematocrit 25.5, WBC 15.2 showing an upward trend, platelet count 304. LFT is normal. IMPRESSION: 1. This 77-year-old patient with history of deep vein thrombosis, was on Eliquis. It was subsequently changed to Xarelto. Admitted with massive gastrointestinal bleeding, admitted with a hemoglobin of 6.6, it dropped down to 5.3. Has totally received 15 units of packed red blood cells, 8 units of fresh frozen plasma, and 4 units of platelets. Patient had an endoscopy done, which showed multiple gastric ulcers. Patient did have a left gastric embolization done. Patient had a colonoscopy, was found to have gastric ulcerated polypoid lesion in the sigmoid colon. It appeared to be prolapsing mucosal fold with a polyp and ulcerated. Patient did have a tattoo marking. Review of the pathology done in the past was more suggestive of a hyperplastic type. Biopsies were not done as there were multiple diverticula closer to this ulcerated area. In view of this massive gastrointestinal bleeding, decision was taken not to do any biopsy at this area at this time. Patient is on Protonix twice daily; we will continue it. 2. History of atrial fibrillation, presently in sinus rhythm. 3. History of deep vein thrombosis and repeat Doppler now showed no deep vein thrombosis. 4. Sepsis. 5. Possible pneumonia. Sputum culture positive for Serratia. Patient is on vancomycin, being followed by ID. Other comorbidities include history of lung cancer, chronic obstructive pulmonary disease. RECOMMENDATIONS: Close follow up of the hemoglobin, hematocrit. Patient has poor dentition. We will advance the diet to pureed diet with assistance, with close followup of the hemoglobin and hematocrit. Patient would need a repeat EGD and also flexible sigmoidoscopic evaluation to monitor the ulcerated area and possible biopsy of this sigmoid polypoid area versus prolapsed ulcerated mucosal lesion electively. We will discuss with the health promotion educator and the medical team regarding the anticoagulation status. Thank you very much for allowing us to participate in the care of the patient. Jarred Ibrahim MD
[2018-01-05] MEDS: Cefepime 1gm in NS 100ml 1 GM/100 ML BAG IVPB SCH (23:07)
[2018-01-06] MEDS: Metoprolol 1 mg/ml Inj IVP PRN (01:45)
[2018-01-06 05:57] LABS: BASO # 0.03 K/mm3 (0.0-2.0); BASO % 0.2 % (0.0-3.0); EOS % 0.1 % (1.5-5.0); GRAN # 13.04 (1.4-6.5); GRAN % 83.9 % (50.0-68.0); HEMOGLOBIN 8.6 g/dL (14.0-18.0); LYMPH # 1.1 (1.2-3.4); LYMPH % 7.3 % (22.0-35.0); MEAN CELL VOLUME 87.1 fl (80.0-105.0); MEAN CORPUSCULAR HEMOGLOBIN 27.8 pg (25.0-35.0); MEAN PLATELET VOLUME 10.3 fl (7.0-11.0); MONO # 1.3 (0.1-0.6); MONO % 8.5 % (1.0-6.0); RBC 3.09 10^6/uL (3.5-6.1); RED CELL DISTRIBUTION WIDTH 15.2 % (11.5-14.5); WHITE BLOOD COUNT 15.5 10^3/ul (4.5-11.0)
--- NOTE | 2018-01-06 06:48 | CP.PCM.PN ---
<Gisel Valera - Last Filed: 01/06/18 11:10> Subjective - Date & Time of Evaluation Date of Evaluation: 01/06/18 Time of Evaluation: 07:00 - Subjective Subjective: GI Progress Note for Miky Ruiz PGY2 Patient seen and examined at bedside. There were no acute overnight events as per nursing staff. He is resting in bed this AM. He denies chest pain, shortness of breath, nausea/vomiting/diarrhea/constipation, fever/chills, dysuria or hematuria. He said he is tolerating his diet well. Objective - Vital Signs/Intake and Output Vital Signs (last 24 hours): Temp Pulse Resp BP Pulse Ox 99.5 F 115 H 20 148/93 H 95 01/05/18 17:33 01/06/18 02:00 01/05/18 17:33 01/06/18 01:45 01/05/18 17:33 Intake and Output: 01/05/18 01/06/18 18:59 06:59 Intake Total 180 Balance 180 - Medications Medications: Current Medications Albuterol/Ipratropium (Duoneb 3 Mg/0.5 Mg (3 Ml) Ud) 3 ml IH TIDRESP [facility] Last Admin: 01/05/18 19:43 Dose: 3 ml Albuterol/Ipratropium (Duoneb 3 Mg/0.5 Mg (3 Ml) Ud) 3 ml IH Q2H PRN PRN Reason: Shortness of Breath Last Admin: 01/03/18 04:24 Dose: 3 ml Diltiazem HCl (Cardizem) 60 mg PO QID [facility] Last Admin: 01/05/18 23:07 Dose: 60 mg Furosemide (Lasix) 40 mg IVP Q12 [facility] Last Admin: 01/03/18 14:40 Dose: 40 mg Vancomycin HCl (Vancomycin 1gm) 1 gm in 250 mls @ 167 mls/hr IVPB DAILY [facility] PRN Reason: Protocol Last Admin: 12/30/17 09:21 Dose: 167 mls/hr Sodium Chloride (Sodium Chloride 0.45%) 1,000 mls @ 75 mls/hr IV .[id number] [facility] Last Admin: 12/29/17 12:40 Dose: Not Given Cefepime HCl (Maxipime 1gm) 1 gm in 100 mls @ 100 mls/hr IVPB Q12 [facility] PRN Reason: Protocol Last Admin: 01/05/18 23:07 Dose: 100 mls/hr Lorazepam (Ativan) 1 mg IVP Q4H PRN; Protocol PRN Reason: Symptoms of alcohol withdrawl Last Admin: 01/05/18 20:41 Dose: 1 mg Metoprolol Tartrate (Lopressor) 5 mg IVP Q6 PRN PRN Reason: Heart rate Last Admin: 01/06/18 01:45 Dose: 5 mg Nicotine (Nicoderm Cq) 1 patch TD DAILY [facility] Last Admin: 01/05/18 14:23 Dose: 1 patch Ondansetron HCl (Zofran Inj) 4 mg IVP Q4H PRN PRN Reason: Nausea/Vomiting Pantoprazole Sodium (Protonix Inj) 40 mg IVP Q12H [facility] Last Admin: 01/05/18 23:45 Dose: 40 mg - Labs Labs: 01/06/18 05:00 01/05/18 05:30 PT 12.0 SECONDS (9.4-12.5) 12/29/17 06:30 INR 1.04 (0.93-1.08) 12/29/17 06:30 APTT 23.8 Seconds (25.1-36.5) L 12/29/17 06:30 - Constitutional Appears: No Acute Distress - Head Exam Head Exam: ATRAUMATIC, NORMAL INSPECTION, NORMOCEPHALIC - Eye Exam Eye Exam: Normal appearance, PERRL Pupil Exam: NORMAL ACCOMODATION, PERRL - ENT Exam ENT Exam: Mucous Membranes Moist - Respiratory Exam Respiratory Exam: Clear to Ausculation Bilateral, NORMAL BREATHING PATTERN. absent: Rales, Rhonchi, Wheezes - Cardiovascular Exam Cardiovascular Exam: REGULAR RHYTHM, +S1, +S2. absent: Gallop, Rubs, Murmur - GI/Abdominal Exam GI & Abdominal Exam: Soft, Normal Bowel Sounds. absent: Rigid, Tenderness, Mass , Rebound - Extremities Exam Extremities Exam: Normal Inspection. absent: Calf Tenderness, Pedal Edema - Neurological Exam Neurological Exam: Alert, Awake, CN II-XII Intact - Skin Skin Exam: Dry, Warm Assessment and Plan - Assessment and Plan (Free Text) Assessment: This is a 77yo AA male with past medical history of lung ca, DVT and EKTA who was admitted for 1. Massive GI bleed was on Xeralto s/p Kcentra and had multiple transfusions ( 15U PRBC, 8U FFP, 4U platelets) - EGD showed clotted blood in gastric antrum. Gastric embolization done by IR - Repeat EGD done did not show any overt bleeding - Colonoscopy showed ulcerated polypoid lesion in sigmoid colon that was not able to be biopsied. 2. Sepsis - secondary to pneumonia 3. Hx of DVT 4. EKTA (resolved) Plan: Continue puree diet for poor dentition. Counseled patient on avoiding NSAIDs. Hgb is stable. Patient will need repeat EGD and flex sigmoidoscopy in future. Will discuss with medical team about plan for anticoagulation for patient in future due to hx of DVTs. Will change PPI from IV to PO. Continue high dose PPI. Patient may need anticoagulation due to history of DVT. Do not recommend any new anticoagulants. Case seen, discussed and reviewed with Dr. Ibrahim. Miky Valera PGY2 <Jarred Ibrahim V - Last Filed: 01/07/18 00:41> Objective - Vital Signs/Intake and Output Vital Signs (last 24 hours): Temp Pulse Resp BP Pulse Ox 97.9 F 99 H 19 149/88 95 01/06/18 18:00 01/06/18 18:00 01/06/18 18:00 01/06/18 21:27 01/06/18 18:00 Intake and Output: 01/06/18 01/07/18 18:59 06:59 Intake Total 420 420 Output Total 100 Balance 420 320 - Medications Medications: Current Medications Albuterol/Ipratropium (Duoneb 3 Mg/0.5 Mg (3 Ml) Ud) 3 ml IH TIDRESP [facility] Last Admin: 01/06/18 21:30 Dose: 3 ml Albuterol/Ipratropium (Duoneb 3 Mg/0.5 Mg (3 Ml) Ud) 3 ml IH Q2H PRN PRN Reason: Shortness of Breath Last Admin: 01/03/18 04:24 Dose: 3 ml Diltiazem HCl (Cardizem) 60 mg PO QID [facility] Last Admin: 01/06/18 21:27 Dose: 60 mg Furosemide (Lasix) 20 mg IVP DAILY [facility] Last Admin: 01/06/18 17:43 Dose: 20 mg Vancomycin HCl (Vancomycin 1gm) 1 gm in 250 mls @ 167 mls/hr IVPB DAILY [facility] PRN Reason: Protocol Last Admin: 12/30/17 09:21 Dose: 167 mls/hr Cefepime HCl (Maxipime 1gm) 1 gm in 100 mls @ 100 mls/hr IVPB Q12 [facility] PRN Reason: Protocol Last Admin: 01/06/18 21:27 Dose: 100 mls/hr Lorazepam (Ativan) 1 mg IVP Q4H PRN; Protocol PRN Reason: Symptoms of alcohol withdrawl Last Admin: 01/06/18 23:17 Dose: 1 mg Metoprolol Tartrate (Lopressor) 5 mg IVP Q6 PRN PRN Reason: Heart rate Last Admin: 01/06/18 01:45 Dose: 5 mg Nicotine (Nicoderm Cq) 1 patch TD DAILY [facility] Last Admin: 01/06/18 09:52 Dose: 1 patch Ondansetron HCl (Zofran Inj) 4 mg IVP Q4H PRN PRN Reason: Nausea/Vomiting Pantoprazole Sodium (Protonix Ec Tab) 40 mg PO 0600,1600 [facility] Last Admin: 01/06/18 17:43 Dose: 40 mg - Labs Labs: 01/06/18 05:00 01/06/18 05:00 PT 12.0 SECONDS (9.4-12.5) 12/29/17 06:30 INR 1.04 (0.93-1.08) 12/29/17 06:30 APTT 23.8 Seconds (25.1-36.5) L 12/29/17 06:30 Attending/Attestation - Attestation I have personally seen and examined this patient.: Yes I have fully participated in the care of the patient.: Yes I have reviewed all pertinent clinical information, including history, physical exam and plan: Yes Notes (Text): This is an addendum to GI progress report dictated by the Waxer Operator.The patient was seen and examined earlier. Medical records, lab studies, imagings were reviewed. Last 24 hours events reviewed. Agreed with the above treatment plan as outlined in Waxer Operator 's notes the with the addition of the following on examination abdomen was soft no tenderness Hemoglobin remains stable Discussed with the medical team regarding the need for anticoagulation Status post massive GI bleeding Gastric ulcers Associated sigmoid mucosal for the diverticulosis versus polyp Would consider repeat EGD and flexible sigmoidoscopy in 2 weeks Continue PPI 01/07/18 00:40
[2018-01-06 07:05] LABS: ALB/GLOB RATIO 0.9 (1.1-1.8); ALBUMIN 2.9 g/dL (3.0-4.8); CALCIUM 8.9 mg/dL (8.4-10.5)
[2018-01-06] MEDS: Albuterol-Ipratrop 3 mg / 0.5 (3 ml) UD IH SCH ×3 (07:55→21:30)
--- NOTE | 2018-01-06 08:15 | CP.PCM.PN ---
<Vincent Estes - Last Filed: 01/06/18 13:07> Subjective - Date & Time of Evaluation Date of Evaluation: 01/06/18 Time of Evaluation: 07:50 - Subjective Subjective: Medicine Progress Note Patient seen and examined at bedside this AM. s/p angioembolization of left gastric artery, EDG and colonoscopy. Sitting upright communicating AAOx3. Tolerating pureed diet, states no appetite. Having BM, states they are still dark. Denies chest pain, shortness of breath, light headedness, dizziness, changes in urinary habits. Objective - Vital Signs/Intake and Output Vital Signs (last 24 hours): Temp Pulse Resp BP Pulse Ox 99.5 F 115 H 20 148/93 H 95 01/05/18 17:33 01/06/18 02:00 01/05/18 17:33 01/06/18 01:45 01/05/18 17:33 Intake and Output: 01/06/18 01/06/18 06:59 18:59 Intake Total 180 Balance 180 - Medications Medications: Current Medications Albuterol/Ipratropium (Duoneb 3 Mg/0.5 Mg (3 Ml) Ud) 3 ml IH TIDRESP [facility] Last Admin: 01/06/18 07:55 Dose: 3 ml Albuterol/Ipratropium (Duoneb 3 Mg/0.5 Mg (3 Ml) Ud) 3 ml IH Q2H PRN PRN Reason: Shortness of Breath Last Admin: 01/03/18 04:24 Dose: 3 ml Diltiazem HCl (Cardizem) 60 mg PO QID [facility] Last Admin: 01/05/18 23:07 Dose: 60 mg Furosemide (Lasix) 40 mg IVP Q12 [facility] Last Admin: 01/03/18 14:40 Dose: 40 mg Vancomycin HCl (Vancomycin 1gm) 1 gm in 250 mls @ 167 mls/hr IVPB DAILY [facility] PRN Reason: Protocol Last Admin: 12/30/17 09:21 Dose: 167 mls/hr Sodium Chloride (Sodium Chloride 0.45%) 1,000 mls @ 75 mls/hr IV .[id number] [facility] Last Admin: 12/29/17 12:40 Dose: Not Given Cefepime HCl (Maxipime 1gm) 1 gm in 100 mls @ 100 mls/hr IVPB Q12 [facility] PRN Reason: Protocol Last Admin: 01/05/18 23:07 Dose: 100 mls/hr Lorazepam (Ativan) 1 mg IVP Q4H PRN; Protocol PRN Reason: Symptoms of alcohol withdrawl Last Admin: 01/05/18 20:41 Dose: 1 mg Metoprolol Tartrate (Lopressor) 5 mg IVP Q6 PRN PRN Reason: Heart rate Last Admin: 01/06/18 01:45 Dose: 5 mg Nicotine (Nicoderm Cq) 1 patch TD DAILY [facility] Last Admin: 01/05/18 14:23 Dose: 1 patch Ondansetron HCl (Zofran Inj) 4 mg IVP Q4H PRN PRN Reason: Nausea/Vomiting Pantoprazole Sodium (Protonix Inj) 40 mg IVP Q12H [facility] Last Admin: 01/05/18 23:45 Dose: 40 mg - Labs Labs: 01/06/18 05:00 01/06/18 05:00 PT 12.0 SECONDS (9.4-12.5) 12/29/17 06:30 INR 1.04 (0.93-1.08) 12/29/17 06:30 APTT 23.8 Seconds (25.1-36.5) L 12/29/17 06:30 - Constitutional Appears: Non-toxic, No Acute Distress - Head Exam Head Exam: ATRAUMATIC - Eye Exam Eye Exam: EOMI. absent: Scleral icterus - ENT Exam ENT Exam: Mucous Membranes Dry - Respiratory Exam Respiratory Exam: Decreased Breath Sounds (right lower lung base), Clear to Ausculation Bilateral, NORMAL BREATHING PATTERN. absent: Accessory Muscle Use, Rales, Rhonchi, Respiratory Distress - Cardiovascular Exam Cardiovascular Exam: Bradycardia, Tachycardia, REGULAR RHYTHM, +S1, +S2 - GI/Abdominal Exam GI & Abdominal Exam: Soft. absent: Distended, Firm, Guarding, Rigid, Rebound - Extremities Exam Extremities Exam: absent: Calf Tenderness - Back Exam Back Exam: absent: CVA tenderness (L), CVA tenderness (R) - Neurological Exam Neurological Exam: Alert, Awake, Oriented x3 - Psychiatric Exam Psychiatric exam: Normal Affect - Skin Skin Exam: Intact, Warm Assessment and Plan - Assessment and Plan (Free Text) Assessment: 77M w/ pmhx of HTN, duodenitis, erosive gastritis, LLE DVT on xarelto, admitted for hemorrhagic shock 2/2 UGI bleed. Transfused 15u PRBC 8FFP, 4PLT. S/P angioembolization of left gastric artery, colonoscopy found non-bleeding mass in transverse colon not biopsied due to risk of bleeding, EGD showing multiple gastric ulcers. Positive sputum culture for S. Marcescens on Vanc and Cefepime. Plan: GI bleed - 2/2 xeralto therapy - s/p Embolization of left gastric artery - s/p EGD and colonoscopy * fundal gastric ulcers, transverse colonic mass; non-bleeding during the time of scope - c/s GI; all recs appreciated - c/s Surgery; all recs appreciated - Protonix BID - monitor H/H * currently stable at 8.6 - GI to follow up as outpatient for Endoscopy SIRS (fever, tachycardia) - sputum culture + S. marcescens - c/s ID; all recs appreciated - continue Vanc and Cefepime - Repeat CXR Parixysmal Atrial Fibrillation - Rate control at this time, holding AC 2/2 GI bleeding - Cardizem 60mg QID - Monitor - Echo on 12/30/17 shows no thrombus or vegetations - Cardiology consult; determine if anticoagulation should be restarted since hx of DVT, and A.Fib Delirium - waxing and waning delirium - AAOx2 person and time - reorient patient - continue AM sunlight into room - 2/2 poor sleep over the past few nights - head CT to rule out CVA - B12 and Folate Hypoxemia, likely 2/2 TRALI VS PE - Cannot obtain CTA Chest 2/2 patient's EKTA; cannot heparinize 2/2 GIB - LE venous dopplers ordered to r/o DVT; negative - Maintain SaO2 >92% EKTA, likely secondary to GI bleed -Resolved -Hold nephrotoxic drugs; Monitor -Nephro Consulted: continue with hydration as per nephro Hypernatremia 2/2 Dehydration -Hypernatremia resolved continue to monitor -encourage PO fluid intake History DVT -Holding AC due to GI bleed, continue to monitor -LE venous dopplers ordered to r/o DVT; negative bilateral -Continue with serial LE dopplers -IR consulted for possible ICV filter, holding at this time - Encourage physical therapy and OOB Hx HTN - Cardizem 60mg QID - Hydralazine prn, monitor for tachycardia Hx Squamous Cell CA - No acute intervention Atrial fibrillation with RVR - Resolved, patient off cardizem gtt Hx Abdominal Aortic Aneurysm s/p Repair - Continue with cardizem Hx of Tobacco abuse - Nicotine 0.21 - Smoking cessation counseling Hx of ETOH abuse - Patient with confusion, ICU delirium likely - Patient family states last drink was - CIWA protocol - Ativan 1mg Q4H prn - Monitor - Alcohol cessation counseling PPX - GI: Protonix BID - DVT: SCD Case discussed in detail w/ Dr. Lugo attending. PGY1 <Abdirahman Lugo - Last Filed: 01/06/18 15:29> Objective - Vital Signs/Intake and Output Vital Signs (last 24 hours): Temp Pulse Resp BP Pulse Ox 97.9 F 125 H 18 147/94 H 98 01/06/18 08:34 01/06/18 14:00 01/06/18 08:34 01/06/18 09:51 01/06/18 08:34 Intake and Output: 01/06/18 01/06/18 06:59 18:59 Intake Total 180 420 Balance 180 420 - Medications Medications: Current Medications Albuterol/Ipratropium (Duoneb 3 Mg/0.5 Mg (3 Ml) Ud) 3 ml IH TIDRESP [facility] Last Admin: 01/06/18 13:25 Dose: 3 ml Albuterol/Ipratropium (Duoneb 3 Mg/0.5 Mg (3 Ml) Ud) 3 ml IH Q2H PRN PRN Reason: Shortness of Breath Last Admin: 01/03/18 04:24 Dose: 3 ml Diltiazem HCl (Cardizem) 60 mg PO QID [facility] Last Admin: 01/06/18 09:51 Dose: 60 mg Furosemide (Lasix) 20 mg IVP DAILY [facility] Vancomycin HCl (Vancomycin 1gm) 1 gm in 250 mls @ 167 mls/hr IVPB DAILY [facility] PRN Reason: Protocol Last Admin: 12/30/17 09:21 Dose: 167 mls/hr Cefepime HCl (Maxipime 1gm) 1 gm in 100 mls @ 100 mls/hr IVPB Q12 [facility] PRN Reason: Protocol Last Admin: 01/06/18 09:51 Dose: 100 mls/hr Lorazepam (Ativan) 1 mg IVP Q4H PRN; Protocol PRN Reason: Symptoms of alcohol withdrawl Last Admin: 01/06/18 09:55 Dose: 1 mg Metoprolol Tartrate (Lopressor) 5 mg IVP Q6 PRN PRN Reason: Heart rate Last Admin: 01/06/18 01:45 Dose: 5 mg Nicotine (Nicoderm Cq) 1 patch TD DAILY [facility] Last Admin: 01/06/18 09:52 Dose: 1 patch Ondansetron HCl (Zofran Inj) 4 mg IVP Q4H PRN PRN Reason: Nausea/Vomiting Pantoprazole Sodium (Protonix Ec Tab) 40 mg PO 0600,1600 [facility] - Labs Labs: 01/06/18 05:00 01/06/18 05:00 PT 12.0 SECONDS (9.4-12.5) 12/29/17 06:30 INR 1.04 (0.93-1.08) 12/29/17 06:30 APTT 23.8 Seconds (25.1-36.5) L 12/29/17 06:30 Attending/Attestation - Attestation I have personally seen and examined this patient.: Yes I have fully participated in the care of the patient.: Yes I have reviewed all pertinent clinical information, including history, physical exam and plan: Yes Notes (Text): 01/06/18 15:23 Medical record note made by the resident after discussion with my direction and input after the patient was personally seen and examined by me. I have reviewed the chart and agree that the record accurately reflects by personal performance of the history, physical exam, data review, and medical decision-making, in the course for the patient. I have also personally directed the plan of care. 77 year old male with past medical history of hypertension, duodenitis, erosive gastritis, abdominal aortic aneurysm repair (2011), LLE DVT (last month) was on xarelto was admitted with GI bleeding. He is s/p multiple PRBC / FFP transfusions.. Bleeding scan was positive from transverse colon. He was seen by IR and is SP embolization of left gastric artery last week. He had repeat EGD last week which showed gastric and superficial duodenal ulcers without active bleeding. He also had colonoscopy last week which showed nonbleeding mucosal ulceration at sigmoid colon.Patient is now hemodynamically stable and bleeding has stoped. Diet has been advanced to Puree diet. Still high risk for re bleeding, risks of which much higher then the benefits of restarting anticoagulation, Lower extremity venous doppler is negative for DVT. Proxysmal AF. Rate is having intermittent , on cardizem to 60 mg QID and PRN metoprolol, We will get cardiology consult. Patient is not on anticogulation due to high risk of bleeding.The issue of anticoagulation was discussed in detail with him and his .The risk of recurrent DVT,Pullmonary Embolism and CVA while not on anticoagulation was discussed .The risk of bleeding while on anticoagulation was also discussed.Patient has opted not to pursue anticoagulation at this time. Intermittent confusion , there is no focal deficit.CT scan of head is negative.We will monitor. Management plan was discussed in detail with patient and . Education was provided. 01/06/18 15:25
--- NOTE | 2018-01-06 08:51 | PN ---
DATE: 01/04/2018 SUBJECTIVE: This patient was seen and evaluated earlier today. Patient's is at bedside. Patient remains hemodynamically stable, tolerates clear liquid diet, bowel movements. No bleeding or melena. PHYSICAL EXAMINATION: VITAL SIGNS: Stable. ABDOMEN: Softly distended. Bowel sounds present, normal. HEART: S1 and S2 heard. LUNGS: Bilateral air entry present . EXTREMITIES: Mild edema present. NEUROLOGIC: Alert, oriented, moves all the extremities. LABORATORY DATA: Reviewed. Hemoglobin stable. IMPRESSION: 1. Status post massive upper gastrointestinal bleeding, status post esophagogastroduodenoscopy and colonoscopy. Esophagogastroduodenoscopy revealed multiple gastric ulcers, patient was taking nonsteroidal antiinflammatory drug before. 2. . Patient was on Xarelto, status post . Patient had status post left gastric embolization. esophagogastroduodenoscopy and colonoscopy revealed diverticulosis. 3. Ulcerated mucosal fold polyps. Patient has a history of gastrointestinal bleeding . 4. History of atrial fibrillation. 5. Coronary artery disease. 6. Chronic obstructive pulmonary disease. 7. History of lung cancer. RECOMMENDATIONS: I had discussed before and also with resident today. In view of this massive bleeding, the plan is to observe the patient at least for another 48 hours before restarting anticoagulation. Risk of monitoring versus risk of possible bleeding with anticoagulation were carefully reviewed, and this was explained to the patient's . Presently patient is reluctant to have any anticoagulation . We will continue closely follow up care and suggest further management based on the clinical course. Jarred Ibrahim MD
[2018-01-06] MEDS: Cefepime 1gm in NS 100ml 1 GM/100 ML BAG IVPB SCH ×2 (09:51→21:27)
--- NOTE | 2018-01-06 12:43 | RAD ---
HISTORY: f/u [facility] COMPARISON: 01/04/2018 TECHNIQUE: Chest PA and lateral FINDINGS: LUNGS: There is vascular congestion. There is a new infiltrate at the left lung base. PLEURA: No significant pleural effusion identified. No pneumothorax apparent. CARDIOVASCULAR: Normal. OSSEOUS STRUCTURES: No significant abnormalities. VISUALIZED UPPER ABDOMEN: Normal. OTHER FINDINGS: None. IMPRESSION: There is vascular congestion. There is a new infiltrate at the left lung base.
--- NOTE | 2018-01-06 12:51 | CT ---
PROCEDURE: CT HEAD WITHOUT CONTRAST. HISTORY: prolonged AMS COMPARISON: None available. TECHNIQUE: Axial computed tomography images were obtained through the head/brain without intravenous contrast. Radiation dose: Total exam DLP = 837 mGy-cm. This CT exam was performed using one or more of the following dose reduction techniques: Automated exposure control, adjustment of the mA and/or kV according to patient size, and/or use of iterative reconstruction technique. FINDINGS: HEMORRHAGE: No intracranial hemorrhage. BRAIN: No mass effect or edema. There is moderate atrophy. Moderate microvascular changes are seen VENTRICLES: Unremarkable. No hydrocephalus. CALVARIUM: Unremarkable. PARANASAL SINUSES: Unremarkable as visualized. No significant inflammatory changes. MASTOID AIR CELLS: Unremarkable as visualized. No inflammatory changes. OTHER FINDINGS: None. IMPRESSION: No acute intracranial findings
--- NOTE | 2018-01-06 16:23 | CP.PCM.PN ---
Subjective - Date & Time of Evaluation Date of Evaluation: 01/06/18 Time of Evaluation: 15:00 - Subjective Subjective: Infectious Disease Follow Up: January 06, 2018 77 year old male with PMH of hypertension, duodenitis, erosive gastritis ( diagnosed in 2012), divericulosis, abdominal aortic aneurysm repair in 2011, left lower extremity DVT (2011), who presents with GI bleed. Patient states that over the past 2 days he had multiple episodes of coffee ground hematemesis. He also reports melena, and bright red blood per rectum starting yesetrday. Patient states that he started Xarelto a few days ago. Patient endorses he was taking Eliquis but experienced abdominal discomfort, loss of appetite, and associated weight loss. He was switched to Xarelto instead recently due to these adverse events. He does admit to drinking alcohol, but denies any history of drinking greater than 8 drinks per week or having any prior history of alcohol abuse. Patient states that he takes Aleve almost daily for the past 5 years. Currently in ICU for monitoring. TLC placed. Had several melena episodes during hospitalization. S/P IR angiography with embolization of left gastric artery POD#9. Extubated. On Vancomycin and Meropenem for antibiotic treatment. Patient with history of frequent hospitalizations. History obtained from the chart. Extubated, the patient is fully awake and alert and able to follow commands. Endoscopy done and Colonoscopy done Saturday. He is on Nasal Cannula now. Supportive care. He is on 5L NC. Less confused but lethargic. Chest X-ray showing new left lung base infiltrate. Awaiting blood and urine cultures. Objective - Vital Signs/Intake and Output Vital Signs (last 24 hours): Temp Pulse Resp BP Pulse Ox 97.9 F 125 H 18 147/94 H 98 01/06/18 08:34 01/06/18 14:00 01/06/18 08:34 01/06/18 09:51 01/06/18 08:34 Intake and Output: 01/06/18 01/06/18 06:59 18:59 Intake Total 180 420 Balance 180 420 - Medications Medications: Current Medications Albuterol/Ipratropium (Duoneb 3 Mg/0.5 Mg (3 Ml) Ud) 3 ml IH TIDRESP [facility] Last Admin: 01/06/18 13:25 Dose: 3 ml Albuterol/Ipratropium (Duoneb 3 Mg/0.5 Mg (3 Ml) Ud) 3 ml IH Q2H PRN PRN Reason: Shortness of Breath Last Admin: 01/03/18 04:24 Dose: 3 ml Diltiazem HCl (Cardizem) 60 mg PO QID [facility] Last Admin: 01/06/18 09:51 Dose: 60 mg Furosemide (Lasix) 20 mg IVP DAILY [facility] Vancomycin HCl (Vancomycin 1gm) 1 gm in 250 mls @ 167 mls/hr IVPB DAILY [facility] PRN Reason: Protocol Last Admin: 12/30/17 09:21 Dose: 167 mls/hr Cefepime HCl (Maxipime 1gm) 1 gm in 100 mls @ 100 mls/hr IVPB Q12 [facility] PRN Reason: Protocol Last Admin: 01/06/18 09:51 Dose: 100 mls/hr Lorazepam (Ativan) 1 mg IVP Q4H PRN; Protocol PRN Reason: Symptoms of alcohol withdrawl Last Admin: 01/06/18 09:55 Dose: 1 mg Metoprolol Tartrate (Lopressor) 5 mg IVP Q6 PRN PRN Reason: Heart rate Last Admin: 01/06/18 01:45 Dose: 5 mg Nicotine (Nicoderm Cq) 1 patch TD DAILY [facility] Last Admin: 01/06/18 09:52 Dose: 1 patch Ondansetron HCl (Zofran Inj) 4 mg IVP Q4H PRN PRN Reason: Nausea/Vomiting Pantoprazole Sodium (Protonix Ec Tab) 40 mg PO 0600,1600 [facility] - Labs Labs: 01/06/18 05:00 01/06/18 05:00 PT 12.0 SECONDS (9.4-12.5) 12/29/17 06:30 INR 1.04 (0.93-1.08) 12/29/17 06:30 APTT 23.8 Seconds (25.1-36.5) L 12/29/17 06:30 - Constitutional Appears: Non-toxic, No Acute Distress, Chronically Ill - Head Exam Head Exam: ATRAUMATIC, NORMOCEPHALIC - Eye Exam Eye Exam: EOMI, PERRL Pupil Exam: NORMAL ACCOMODATION, PERRL - ENT Exam ENT Exam: Mucous Membranes Moist, Normal External Ear Exam, TM's Normal Bilaterally - Neck Exam Neck Exam: Full ROM, Normal Inspection - Respiratory Exam Respiratory Exam: Clear to Ausculation Bilateral, NORMAL BREATHING PATTERN. absent: Rales, Rhonchi, Wheezes - Cardiovascular Exam Cardiovascular Exam: REGULAR RHYTHM, RRR, +S1, +S2 - GI/Abdominal Exam GI & Abdominal Exam: Soft, Normal Bowel Sounds. absent: Distended, Tenderness - Extremities Exam Extremities Exam: Full ROM, Normal Inspection - Neurological Exam Neurological Exam: Alert, Awake, CN II-XII Intact, Oriented x3 - Psychiatric Exam Psychiatric exam: Normal Affect, Normal Mood - Skin Skin Exam: Intact, Normal Color Assessment and Plan - Assessment and Plan (Free Text) Assessment: 77 yo AA male known to me from prior hospitalizations presenting with acute GI bleed. The patient has been anemic and hypoxic. The patient has been having persistent fevers with mild leukocytosis. Supportive care. Start Vancomycin and Meropenem for treatment. Sepsis workup. Hypoxemia. Patient being evaluted for TRALI and PE at this time. The patient has left gastric artery embolization on 12/27/2017. The patient was given 13 U PRBCs and 8 U FFP. Patient with EKTA. Extubated this morning. Poor prognosis. The patient has been afebrile for the past several hours. Extremely poor prognosis. Sputum cultures showing Serratia. Remains on Meropenem and Vancomycin IV for antibiotic treatment at this time. Colonoscopy done by Dr. Ibrahim Saturday. The patient today became confused. Noted increasing leukocytosis now to 15.5. Extubated Saturday. Slowly improving. On Nasal canula now. 5L of O2. Febrile to 100.7 F yesterday afternoon. Chest X-ray with left lower lung base new infiltrate. Restarted Cefepime. Check blood and urine cultures. On Cefepime and Vancomycin IV for antibiotic treatment. Thank you for allowing me to participate in the care of the patient, we will follow with you.
[2018-01-06] MEDS: Pantoprazole 40 mg EC Tab PO SCH (17:43)
--- NOTE | 2018-01-06 17:43 | CP.PCM.PN ---
Subjective - Date & Time of Evaluation Date of Evaluation: 01/06/18 Time of Evaluation: 11:00 - Subjective Subjective: Reportedly agitated last night; given ativan earlier and has been sleeping thereafter; Objective - Vital Signs/Intake and Output Vital Signs (last 24 hours): Temp Pulse Resp BP Pulse Ox 97.9 F 125 H 18 147/94 H 98 01/06/18 08:34 01/06/18 14:00 01/06/18 08:34 01/06/18 09:51 01/06/18 08:34 Intake and Output: 01/06/18 01/06/18 06:59 18:59 Intake Total 180 420 Balance 180 420 - Medications Medications: Current Medications Albuterol/Ipratropium (Duoneb 3 Mg/0.5 Mg (3 Ml) Ud) 3 ml IH TIDRESP [facility] Last Admin: 01/06/18 13:25 Dose: 3 ml Albuterol/Ipratropium (Duoneb 3 Mg/0.5 Mg (3 Ml) Ud) 3 ml IH Q2H PRN PRN Reason: Shortness of Breath Last Admin: 01/03/18 04:24 Dose: 3 ml Diltiazem HCl (Cardizem) 60 mg PO QID [facility] Last Admin: 01/06/18 09:51 Dose: 60 mg Furosemide (Lasix) 20 mg IVP DAILY [facility] Vancomycin HCl (Vancomycin 1gm) 1 gm in 250 mls @ 167 mls/hr IVPB DAILY [facility] PRN Reason: Protocol Last Admin: 12/30/17 09:21 Dose: 167 mls/hr Cefepime HCl (Maxipime 1gm) 1 gm in 100 mls @ 100 mls/hr IVPB Q12 [facility] PRN Reason: Protocol Last Admin: 01/06/18 09:51 Dose: 100 mls/hr Lorazepam (Ativan) 1 mg IVP Q4H PRN; Protocol PRN Reason: Symptoms of alcohol withdrawl Last Admin: 01/06/18 09:55 Dose: 1 mg Metoprolol Tartrate (Lopressor) 5 mg IVP Q6 PRN PRN Reason: Heart rate Last Admin: 01/06/18 01:45 Dose: 5 mg Nicotine (Nicoderm Cq) 1 patch TD DAILY [facility] Last Admin: 01/06/18 09:52 Dose: 1 patch Ondansetron HCl (Zofran Inj) 4 mg IVP Q4H PRN PRN Reason: Nausea/Vomiting Pantoprazole Sodium (Protonix Ec Tab) 40 mg PO 0600,1600 [facility] - Labs Labs: 01/06/18 05:00 01/06/18 05:00 PT 12.0 SECONDS (9.4-12.5) 12/29/17 06:30 INR 1.04 (0.93-1.08) 12/29/17 06:30 APTT 23.8 Seconds (25.1-36.5) L 12/29/17 06:30 - Constitutional Appears: Non-toxic, No Acute Distress - Eye Exam Eye Exam: absent: Scleral icterus - ENT Exam ENT Exam: Mucous Membranes Moist - Respiratory Exam Respiratory Exam: Clear to Ausculation Bilateral. absent: Respiratory Distress - Cardiovascular Exam Cardiovascular Exam: RRR, +S1, +S2 - GI/Abdominal Exam GI & Abdominal Exam: Soft. absent: Distended, Tenderness - Extremities Exam Additional comments: edema much improved; - Neurological Exam Additional comments: drowsy - Psychiatric Exam Psychiatric exam: absent: Agitated - Skin Skin Exam: Warm. absent: Cyanosis Assessment and Plan (1) Acute kidney failure Assessment & Plan: EKTA on CKD IIIA; ATN, resolved; renal function at baseline; continue to avoid further nephrotoxic agents; Status: Acute (2) Hypernatremia Assessment & Plan: Slightly worsened; unclear how much free water patient is consuming, should be encouraged to do so; if serum Na doesn't improve by tomorrow, will start D5W; Status: Acute (3) SIRS (systemic inflammatory response syndrome) Status: Acute (4) Acute hypoxemic respiratory failure Assessment & Plan: Much improved although CXR reporting vascular congestion; agree with restarting lasix but may further worsen hypernatremia; Status: Acute
[2018-01-07] MEDS: Pantoprazole 40 mg EC Tab PO SCH ×2 (05:37→16:17)
[2018-01-07 06:27] LABS: BASO # 0.04 K/mm3 (0.0-2.0); BASO % 0.2 % (0.0-3.0); EOS % 0.1 % (1.5-5.0); GRAN # 15.09 (1.4-6.5); GRAN % 86.7 % (50.0-68.0); HEMOGLOBIN 8.2 g/dL (14.0-18.0); LYMPH % 5.6 % (22.0-35.0); MEAN CELL VOLUME 86.4 fl (80.0-105.0); MEAN CORPUSCULAR HEMOGLOBIN 27.8 pg (25.0-35.0); MEAN CORPUSCULAR HGB CONC 32.2 g/dl (31.0-37.0); MEAN PLATELET VOLUME 10.5 fl (7.0-11.0); MONO # 1.3 (0.1-0.6); MONO % 7.4 % (1.0-6.0); RBC 2.95 10^6/uL (3.5-6.1); RED CELL DISTRIBUTION WIDTH 15.4 % (11.5-14.5); WHITE BLOOD COUNT 17.4 10^3/ul (4.5-11.0)
[2018-01-07 07:16] LABS: BLOOD UREA NITROGEN 28 mg/dL (7-21); CALCIUM 8.7 mg/dL (8.4-10.5); GFR AFRICAN-AMERICAN > 60; GFR NON-AFRICAN AMERICAN 54
[2018-01-07 07:17] LABS: ALB/GLOB RATIO 0.9 (1.1-1.8); ALBUMIN 2.9 g/dL (3.0-4.8); ALT/SGPT 23 U/L (7-56); AST/SGOT 21 U/L (17-59)
--- NOTE | 2018-01-07 07:27 | CP.PCM.PN ---
<Vincent Estes - Last Filed: 01/07/18 13:53> Subjective - Date & Time of Evaluation Date of Evaluation: 01/07/18 Time of Evaluation: 07:00 - Subjective Subjective: Medicine Progress note Patient seen and examined at bedside. Had trouble falling asleep last night. Finally went to bed around 0400. Woke up this morning altered. During time of re -examination AAOx3. Mental status continues to wax and wane. Tolerating current diet. Denies nausea, vomiting. States regular bowel movement Objective - Vital Signs/Intake and Output Vital Signs (last 24 hours): Temp Pulse Resp BP Pulse Ox 97.9 F 111 H 19 149/88 95 01/06/18 18:00 01/07/18 06:00 01/06/18 18:00 01/06/18 21:27 01/06/18 18:00 Intake and Output: 01/07/18 01/07/18 06:59 18:59 Intake Total 540 Output Total 100 Balance 440 - Medications Medications: Current Medications Albuterol/Ipratropium (Duoneb 3 Mg/0.5 Mg (3 Ml) Ud) 3 ml IH TIDRESP [facility] Last Admin: 01/06/18 21:30 Dose: 3 ml Albuterol/Ipratropium (Duoneb 3 Mg/0.5 Mg (3 Ml) Ud) 3 ml IH Q2H PRN PRN Reason: Shortness of Breath Last Admin: 01/03/18 04:24 Dose: 3 ml Diltiazem HCl (Cardizem) 60 mg PO QID [facility] Last Admin: 01/06/18 21:27 Dose: 60 mg Furosemide (Lasix) 20 mg IVP DAILY [facility] Last Admin: 01/06/18 17:43 Dose: 20 mg Vancomycin HCl (Vancomycin 1gm) 1 gm in 250 mls @ 167 mls/hr IVPB DAILY [facility] PRN Reason: Protocol Last Admin: 12/30/17 09:21 Dose: 167 mls/hr Cefepime HCl (Maxipime 1gm) 1 gm in 100 mls @ 100 mls/hr IVPB Q12 [facility] PRN Reason: Protocol Last Admin: 01/06/18 21:27 Dose: 100 mls/hr Lorazepam (Ativan) 1 mg IVP Q4H PRN; Protocol PRN Reason: Symptoms of alcohol withdrawl Last Admin: 01/06/18 23:17 Dose: 1 mg Metoprolol Tartrate (Lopressor) 5 mg IVP Q6 PRN PRN Reason: Heart rate Last Admin: 01/06/18 01:45 Dose: 5 mg Nicotine (Nicoderm Cq) 1 patch TD DAILY [facility] Last Admin: 01/06/18 09:52 Dose: 1 patch Ondansetron HCl (Zofran Inj) 4 mg IVP Q4H PRN PRN Reason: Nausea/Vomiting Pantoprazole Sodium (Protonix Ec Tab) 40 mg PO 0600,1600 [facility] Last Admin: 01/07/18 05:37 Dose: 40 mg - Labs Labs: 01/07/18 05:30 01/07/18 05:30 PT 12.0 SECONDS (9.4-12.5) 12/29/17 06:30 INR 1.04 (0.93-1.08) 12/29/17 06:30 APTT 23.8 Seconds (25.1-36.5) L 12/29/17 06:30 - Constitutional Appears: Non-toxic, No Acute Distress - Head Exam Head Exam: ATRAUMATIC - Eye Exam Eye Exam: EOMI - ENT Exam ENT Exam: Mucous Membranes Moist - Respiratory Exam Respiratory Exam: Rales (LLL). absent: Accessory Muscle Use, Respiratory Distress - Cardiovascular Exam Cardiovascular Exam: Tachycardia, Irregular Rhythm - GI/Abdominal Exam GI & Abdominal Exam: Soft. absent: Distended, Firm, Guarding, Rigid - Extremities Exam Extremities Exam: absent: Calf Tenderness - Neurological Exam Neurological Exam: Alert, Oriented x3 (Alert during the time of examination) - Skin Skin Exam: Normal Color, Warm Assessment and Plan - Assessment and Plan (Free Text) Assessment: 77M w/ pmhx of HTN, duodenitis, erosive gastritis, LLE DVT on xarelto, admitted for hemorrhagic shock 2/2 UGI bleed. Transfused 15u PRBC 8FFP, 4PLT. S/P angioembolization of left gastric artery, colonoscopy found non-bleeding mass in transverse colon not biopsied due to risk of bleeding, EGD showing multiple gastric ulcers. Positive sputum culture for S. Marcescens on Vanc and Cefepime. Repeat CXR shows new LLL infiltrate, and increasing leukocytosis Plan: GI bleed - 2/2 xeralto therapy - s/p Embolization of left gastric artery - s/p EGD and colonoscopy * fundal gastric ulcers, transverse colonic mass; non-bleeding during the time of scope - c/s GI; all recs appreciated - c/s Surgery; all recs appreciated * no surgical intervention; follow up as an outpatient - Protonix BID - monitor H/H * currently stable at 8.6 - GI to follow up as outpatient for Endoscopy SIRS (fever, tachycardia) - sputum culture + S. marcescens - c/s ID; all recs appreciated - continue Vanc and Cefepime for 14 days per ID - repeat BCx negative to date- 01/07/18 - Repeat CXR 01/06/18; new LLL infiltrate - UA pending - increasing leukocytosis Paroxysmal Atrial Fibrillation - Rate control at this time, holding AC 2/2 GI bleeding - Cardizem 60mg QID - Monitor - Echo on 12/30/17 shows no thrombus or vegetations - Cardiology consult; determine if anticoagulation should be restarted since hx of DVT, and A.Fib Delirium - waxing and waning delirium - AAOx3 person and time - reorient patient - continue AM sunlight into room - 2/2 poor sleep over the past few nights - Head CT negative for CVA - B12 and Folate WNL Hypoxemia, likely 2/2 TRALI VS PE - Cannot obtain CTA Chest 2/2 patient's EKTA; cannot heparinize 2/2 GIB - LE venous dopplers ordered to r/o DVT; negative - Maintain SaO2 >92% EKTA, likely secondary to GI bleed -Resolved -Hold nephrotoxic drugs; Monitor -Nephro Consulted: continue with hydration as per nephro Hypernatremia 2/2 Dehydration -Hypernatremia resolved continue to monitor -encourage PO fluid intake History DVT - Holding AC due to GI bleed, continue to monitor - LE venous dopplers ordered to r/o DVT; negative bilateral - Continue with serial LE dopplers - IR consulted for possible ICV filter, holding at this time - Encourage physical therapy and OOB Hx HTN - Cardizem 60mg QID - Hydralazine prn, monitor for tachycardia Hx Squamous Cell CA - No acute intervention Atrial fibrillation with RVR - Resolved, patient off cardizem gtt - will consider restarting anti-coagulation at this time. Discussed risks and benefits of the continuation of anti-coagulation with at bedside. - c/s Cardiology; recommends holding anti-coagulation for now Hx Abdominal Aortic Aneurysm s/p Repair - Continue with cardizem Hx of Tobacco abuse - Nicotine 0.21 - Smoking cessation counseling Hx of ETOH abuse - Patient with confusion, ICU delirium likely - Patient family states last drink was - CIWA protocol - Ativan 1mg Q4H prn - Monitor - Alcohol cessation counseling PPX - GI: Protonix BID - DVT: SCD <Abdirahman Lugo - Last Filed: 01/07/18 17:39> Objective - Vital Signs/Intake and Output Vital Signs (last 24 hours): Temp Pulse Resp BP Pulse Ox 100.1 F H 87 22 144/75 90 L 01/07/18 07:43 01/07/18 14:58 01/07/18 07:43 01/07/18 12:10 01/07/18 14:58 Intake and Output: 01/07/18 01/07/18 06:59 18:59 Intake Total 540 480 Output Total 100 Balance 440 480 - Medications Medications: Current Medications Albuterol/Ipratropium (Duoneb 3 Mg/0.5 Mg (3 Ml) Ud) 3 ml IH TIDRESP [facility] Last Admin: 01/07/18 13:27 Dose: 3 ml Albuterol/Ipratropium (Duoneb 3 Mg/0.5 Mg (3 Ml) Ud) 3 ml IH Q2H PRN PRN Reason: Shortness of Breath Last Admin: 01/07/18 09:38 Dose: 3 ml Diltiazem HCl (Cardizem Cd) 180 mg PO DAILY [facility] Last Admin: 01/07/18 12:10 Dose: 180 mg Furosemide (Lasix) 40 mg IVP DAILY [facility] Furosemide (Lasix) 40 mg PO ONCE ONE Stop: 01/08/18 12:58 Vancomycin HCl (Vancomycin 1gm) 1 gm in 250 mls @ 167 mls/hr IVPB DAILY [facility] PRN Reason: Protocol Last Admin: 01/07/18 14:33 Dose: 167 mls/hr Cefepime HCl (Maxipime 1gm) 1 gm in 100 mls @ 100 mls/hr IVPB Q12 [facility] PRN Reason: Protocol Last Admin: 01/07/18 12:11 Dose: 100 mls/hr Lorazepam (Ativan) 1 mg IVP Q4H PRN; Protocol PRN Reason: Symptoms of alcohol withdrawl Last Admin: 01/06/18 23:17 Dose: 1 mg Metoprolol Tartrate (Lopressor) 5 mg IVP Q6 PRN PRN Reason: Heart rate Last Admin: 01/06/18 01:45 Dose: 5 mg Nicotine (Nicoderm Cq) 1 patch TD DAILY [facility] Last Admin: 01/07/18 12:10 Dose: 1 patch Ondansetron HCl (Zofran Inj) 4 mg IVP Q4H PRN PRN Reason: Nausea/Vomiting Pantoprazole Sodium (Protonix Ec Tab) 40 mg PO 0600,1600 [facility] Last Admin: 01/07/18 16:17 Dose: 40 mg - Labs Labs: 01/07/18 05:30 01/07/18 05:30 PT 12.0 SECONDS (9.4-12.5) 12/29/17 06:30 INR 1.04 (0.93-1.08) 12/29/17 06:30 APTT 23.8 Seconds (25.1-36.5) L 12/29/17 06:30 Attending/Attestation - Attestation I have personally seen and examined this patient.: Yes I have fully participated in the care of the patient.: Yes I have reviewed all pertinent clinical information, including history, physical exam and plan: Yes Notes (Text): 01/07/18 17:36 Medical record note made by the resident after discussion with my direction and input after the patient was personally seen and examined by me. I have reviewed the chart and agree that the record accurately reflects by personal performance of the history, physical exam, data review, and medical decision-making, in the course for the patient. I have also personally directed the plan of care. Patient is more alert today, but still has intermittent confusion likely due to metabolic encephlopathy. on IV antibiotics for HCAP. We will follow up repeat blood cultures. Hemoglobin is stable. AF , Rate is better controlled. Patient condition and plan of care was discussed with patient PMD over phone. Prognosis is guarded.
[2018-01-07] MEDS: Albuterol-Ipratrop 3 mg / 0.5 (3 ml) UD IH SCH ×3 (07:55→20:31)
[2018-01-07] MEDS: Albuterol-Ipratrop 3 mg / 0.5 (3 ml) UD IH PRN (09:38)
--- NOTE | 2018-01-07 11:24 | CON ---
DATE: 01/07/2018 CARDIOLOGY CONSULTATION HISTORY: The patient is a 77-year-old male, who presents with multiple episodes of GI bleeding. The patient's cardiac history includes history of hypertension, history of PTCA and stent years ago as well as chronic atrial fibrillation, in which he was on anticoagulation. He does drink alcohol. He was on Eliquis, but has been off since his GI bleed. The patient is intubated in the hospital and currently has been extubated. He is currently on the floor. SOCIAL HISTORY AND REVIEW OF SYSTEMS: Free of cardiac symptomatology. PHYSICAL EXAMINATION: VITAL SIGNS: Blood pressure is 144/75, heart rate is atrial fibrillation of 105. NECK: Negative JVD. LUNGS: Without rales. HEART: Reveals S1, S2. EXTREMITIES: Without edema. LABORATORY DATA: EKG shows atrial fibrillation with nonspecific ST-T changes. White count is 17, hemoglobin is 8.2, BUN and creatinine are unremarkable. IMPRESSION: 1. Gastrointestinal bleed. 2. Chronic atrial fibrillation. 3. Marked anemia. 4. Coronary artery disease. 5. Sepsis. 6. Status post respiratory failure. PLAN: Given these findings, given his anemia and his recent GI bleed, we will need to hold off on anticoagulation until it is stable. We will change his Cardizem to single long-acting Cardizem. We will continue to monitor his heart rate. Andrew Ashton MD
--- NOTE | 2018-01-07 11:56 | CP.PCM.PN ---
Subjective - Date & Time of Evaluation Date of Evaluation: 01/07/18 Time of Evaluation: 10:25 - Subjective Subjective: S&E at bedside, chart reviewed, at bedside, patient reported to be confused at times, did not sleep well last night as per nursing. Patient had ct scan head and negative for infarct or bleeding. no acute findings. As per patient drinks Ensure but have poor appetite, patient is presently awake and aware of surroundings, he denies dysphagia, just no appetite. Objective - Vital Signs/Intake and Output Vital Signs (last 24 hours): Temp Pulse Resp BP Pulse Ox 100.1 F H 105 H 22 144/75 95 01/07/18 07:43 01/07/18 07:43 01/07/18 07:43 01/07/18 07:43 01/06/18 18:00 Intake and Output: 01/07/18 01/07/18 06:59 18:59 Intake Total 540 Output Total 100 Balance 440 - Medications Medications: Current Medications Albuterol/Ipratropium (Duoneb 3 Mg/0.5 Mg (3 Ml) Ud) 3 ml IH TIDRESP [facility] Last Admin: 01/07/18 07:55 Dose: 3 ml Albuterol/Ipratropium (Duoneb 3 Mg/0.5 Mg (3 Ml) Ud) 3 ml IH Q2H PRN PRN Reason: Shortness of Breath Last Admin: 01/07/18 09:38 Dose: 3 ml Diltiazem HCl (Cardizem Cd) 180 mg PO DAILY [facility] Furosemide (Lasix) 20 mg IVP DAILY [facility] Last Admin: 01/06/18 17:43 Dose: 20 mg Vancomycin HCl (Vancomycin 1gm) 1 gm in 250 mls @ 167 mls/hr IVPB DAILY [facility] PRN Reason: Protocol Last Admin: 12/30/17 09:21 Dose: 167 mls/hr Cefepime HCl (Maxipime 1gm) 1 gm in 100 mls @ 100 mls/hr IVPB Q12 [facility] PRN Reason: Protocol Last Admin: 01/06/18 21:27 Dose: 100 mls/hr Lorazepam (Ativan) 1 mg IVP Q4H PRN; Protocol PRN Reason: Symptoms of alcohol withdrawl Last Admin: 01/06/18 23:17 Dose: 1 mg Metoprolol Tartrate (Lopressor) 5 mg IVP Q6 PRN PRN Reason: Heart rate Last Admin: 01/06/18 01:45 Dose: 5 mg Nicotine (Nicoderm Cq) 1 patch TD DAILY [facility] Last Admin: 01/06/18 09:52 Dose: 1 patch Ondansetron HCl (Zofran Inj) 4 mg IVP Q4H PRN PRN Reason: Nausea/Vomiting Pantoprazole Sodium (Protonix Ec Tab) 40 mg PO 0600,1600 [facility] Last Admin: 01/07/18 05:37 Dose: 40 mg - Labs Labs: 01/07/18 05:30 01/07/18 05:30 PT 12.0 SECONDS (9.4-12.5) 12/29/17 06:30 INR 1.04 (0.93-1.08) 12/29/17 06:30 APTT 23.8 Seconds (25.1-36.5) L 12/29/17 06:30 - Constitutional Appears: No Acute Distress - Eye Exam Eye Exam: Normal appearance. absent: Scleral icterus - ENT Exam ENT Exam: Mucous Membranes Moist - Neck Exam Neck Exam: Normal Inspection - Respiratory Exam Respiratory Exam: NORMAL BREATHING PATTERN. absent: Respiratory Distress - Cardiovascular Exam Cardiovascular Exam: +S1, +S2 - GI/Abdominal Exam GI & Abdominal Exam: Soft, Normal Bowel Sounds. absent: Guarding, Tenderness, Organomegaly, Rebound - Neurological Exam Neurological Exam: Alert, Awake, Oriented x3 - Skin Skin Exam: Dry, Warm Assessment and Plan - Assessment and Plan (Free Text) Assessment: Assessment: This is a 77yo AA male with past medical history of lung ca, DVT and EKTA who was admitted for -Acute GI bleed was on Xeralto s/p Kcentra and had multiple transfusions (15U PRBC, 8U FFP, 4U platelets) ,s/p EGD showed clotted blood in gastric antrum. Gastric embolization done by IR , Repeat EGD done did not show any overt bleeding -Bleeding scan positive in transverse colon which can be from transit , Colonoscopy today showed a non-bleeding mucosal ulceration of the sigmoid colon. Biopsy was not done because tissue bled easily and does not look like a malignancy. -SIRS, s/p cxr: new LLL infiltrate -Hypernatremia -EKTA (improving) Plan: Continue PPI BID puree diet, poor dentition, continue Ensure supplements Continue to monitor H&H and for overt GI bleed, currently stable on IV antibiotics as per ID discuss with patient and will need repeat EGD and flesigmoidoscopy in few weeks time to FU ulcers stomach and colon cardiology FU, recommendations noted and appreciated. Due to GI bleeding hold off anticoagulants for now till stable and on Cardizem Seen and reviewed with Dr. Ibrahim.
[2018-01-07] MEDS: diltiaZEM 180 mg/24 Hours CD Cap PO SCH (12:10)
[2018-01-07] MEDS: Cefepime 1gm in NS 100ml 1 GM/100 ML BAG IVPB SCH ×2 (12:11→21:51)
[2018-01-07] MEDS ORDERED: Levalbuterol 0.63 MG/3 ML Inhal Soln UD IH SCH (14:00)
[2018-01-07] MEDS: Vancomycin 1gm in NS 250ml 1 GM/250 ML BAG IVPB SCH (14:33)
--- NOTE | 2018-01-07 16:15 | CP.PCM.PN ---
Subjective - Date & Time of Evaluation Date of Evaluation: 01/07/18 Time of Evaluation: 15:30 - Subjective Subjective: Infectious Disease Follow Up: January 07, 2018 77 year old male with PMH of hypertension, duodenitis, erosive gastritis ( diagnosed in 2012), divericulosis, abdominal aortic aneurysm repair in 2011, left lower extremity DVT (2011), who presents with GI bleed. Patient states that over the past 2 days he had multiple episodes of coffee ground hematemesis. He also reports melena, and bright red blood per rectum starting yesetrday. Patient states that he started Xarelto a few days ago. Patient endorses he was taking Eliquis but experienced abdominal discomfort, loss of appetite, and associated weight loss. He was switched to Xarelto instead recently due to these adverse events. He does admit to drinking alcohol, but denies any history of drinking greater than 8 drinks per week or having any prior history of alcohol abuse. Patient states that he takes Aleve almost daily for the past 5 years. Currently in ICU for monitoring. TLC placed. Had several melena episodes during hospitalization. S/P IR angiography with embolization of left gastric artery POD#10. Extubated. On Vancomycin and Meropenem for antibiotic treatment. Patient with history of frequent hospitalizations. History obtained from the chart. Extubated, the patient is fully awake and alert and able to follow commands. Endoscopy done and Colonoscopy done Saturday. He is on Nasal Cannula now. Supportive care. He is on 5L NC. Less confused but lethargic. Chest X-ray showing new left lung base infiltrate. Awaiting blood and urine cultures. Fever up to 100.7 F in past 24 hours. Still with cough. Objective - Vital Signs/Intake and Output Vital Signs (last 24 hours): Temp Pulse Resp BP Pulse Ox 100.1 F H 87 22 144/75 90 L 01/07/18 07:43 01/07/18 14:58 01/07/18 07:43 01/07/18 12:10 01/07/18 14:58 Intake and Output: 01/07/18 01/07/18 06:59 18:59 Intake Total 540 480 Output Total 100 Balance 440 480 - Medications Medications: Current Medications Albuterol/Ipratropium (Duoneb 3 Mg/0.5 Mg (3 Ml) Ud) 3 ml IH TIDRESP [facility] Last Admin: 01/07/18 13:27 Dose: 3 ml Albuterol/Ipratropium (Duoneb 3 Mg/0.5 Mg (3 Ml) Ud) 3 ml IH Q2H PRN PRN Reason: Shortness of Breath Last Admin: 01/07/18 09:38 Dose: 3 ml Diltiazem HCl (Cardizem Cd) 180 mg PO DAILY [facility] Last Admin: 01/07/18 12:10 Dose: 180 mg Furosemide (Lasix) 40 mg IVP DAILY [facility] Furosemide (Lasix) 40 mg PO ONCE ONE Stop: 01/08/18 12:58 Vancomycin HCl (Vancomycin 1gm) 1 gm in 250 mls @ 167 mls/hr IVPB DAILY [facility] PRN Reason: Protocol Last Admin: 01/07/18 14:33 Dose: 167 mls/hr Cefepime HCl (Maxipime 1gm) 1 gm in 100 mls @ 100 mls/hr IVPB Q12 [facility] PRN Reason: Protocol Last Admin: 01/07/18 12:11 Dose: 100 mls/hr Lorazepam (Ativan) 1 mg IVP Q4H PRN; Protocol PRN Reason: Symptoms of alcohol withdrawl Last Admin: 01/06/18 23:17 Dose: 1 mg Metoprolol Tartrate (Lopressor) 5 mg IVP Q6 PRN PRN Reason: Heart rate Last Admin: 01/06/18 01:45 Dose: 5 mg Nicotine (Nicoderm Cq) 1 patch TD DAILY [facility] Last Admin: 01/07/18 12:10 Dose: 1 patch Ondansetron HCl (Zofran Inj) 4 mg IVP Q4H PRN PRN Reason: Nausea/Vomiting Pantoprazole Sodium (Protonix Ec Tab) 40 mg PO 0600,1600 [facility] Last Admin: 01/07/18 05:37 Dose: 40 mg - Labs Labs: 01/07/18 05:30 01/07/18 05:30 PT 12.0 SECONDS (9.4-12.5) 12/29/17 06:30 INR 1.04 (0.93-1.08) 12/29/17 06:30 APTT 23.8 Seconds (25.1-36.5) L 12/29/17 06:30 - Constitutional Appears: Non-toxic, No Acute Distress, Chronically Ill - Head Exam Head Exam: ATRAUMATIC, NORMOCEPHALIC - Eye Exam Eye Exam: EOMI, PERRL Pupil Exam: NORMAL ACCOMODATION, PERRL - ENT Exam ENT Exam: Mucous Membranes Moist, Normal External Ear Exam, TM's Normal Bilaterally - Neck Exam Neck Exam: Full ROM, Normal Inspection - Respiratory Exam Respiratory Exam: NORMAL BREATHING PATTERN. absent: Rales, Rhonchi, Wheezes - Cardiovascular Exam Cardiovascular Exam: REGULAR RHYTHM, RRR, +S1, +S2 - GI/Abdominal Exam GI & Abdominal Exam: Soft, Normal Bowel Sounds. absent: Distended, Tenderness - Extremities Exam Extremities Exam: Full ROM, Normal Inspection - Neurological Exam Neurological Exam: Alert, Awake, CN II-XII Intact, Oriented x3 - Psychiatric Exam Psychiatric exam: Normal Affect, Normal Mood - Skin Skin Exam: Intact, Normal Color Assessment and Plan - Assessment and Plan (Free Text) Assessment: 77 yo AA male known to me from prior hospitalizations presenting with acute GI bleed. The patient has been anemic and hypoxic. The patient has been having persistent fevers with mild leukocytosis. Supportive care. Start Vancomycin and Meropenem for treatment. Sepsis workup. Hypoxemia. Patient being evaluted for TRALI and PE at this time. The patient has left gastric artery embolization on 12/27/2017. The patient was given 13 U PRBCs and 8 U FFP. Patient with EKTA. Extubated this morning. Poor prognosis. The patient has been afebrile for the past several hours. Extremely poor prognosis. Sputum cultures showing Serratia. Remains on Meropenem and Vancomycin IV for antibiotic treatment at this time. Colonoscopy done by Dr. Ibrahim Saturday. The patient today became confused. Noted increasing leukocytosis now to 17.4. Extubated Saturday. Slowly improving. On Nasal canula now. 3L of O2 but saturations of 90%. Febrile to 100.7 F yesterday afternoon. Chest X-ray with left lower lung base new infiltrate. Restarted Cefepime. Check blood and urine cultures. 01/06/2018 cultures negative so far. On Cefepime and Vancomycin IV for antibiotic treatment. Treatment for pneumonia at this point. Noted patient refused BiPAP today. Thank you for allowing me to participate in the care of the patient, we will follow with you.
[2018-01-08 03:50] LABS: URINE BILIRUBIN NEGATIVE (NEGATIVE); URINE BLOOD NEGATIVE (NEGATIVE); URINE GLUCOSE (UA) NEGATIVE (NEGATIVE); URINE LEUKOCYTE ESTERASE NEGATIVE Leu/uL (NEGATIVE); URINE PROTEIN 30 mg/dL (<30 mg/dL); URINE UROBILINOGEN 0.2 E.U./dL (<1 E.U./dL)
[2018-01-08 04:10] LABS: URINE APPEARANCE SLIGHT-CLOUDY (CLEAR); URINE COLOR YELLOW (YELLOW)
[2018-01-08 05:02] LABS: URINE RBC NEGATIVE /hpf (0-2); URINE WBC NEGATIVE /hpf (0-6)
[2018-01-08 05:03] LABS: URINE BACTERIA MOD (NEG)
[2018-01-08] MEDS: Pantoprazole 40 mg EC Tab PO SCH ×2 (05:20→15:53)
[2018-01-08] MEDS: Albuterol-Ipratrop 3 mg / 0.5 (3 ml) UD IH PRN (05:32)
--- NOTE | 2018-01-08 05:48 | CP.PCM.PN ---
<Tanisha Garcia - Last Filed: 01/08/18 06:13> Subjective - Date & Time of Evaluation Date of Evaluation: 01/08/18 Time of Evaluation: 05:41 - Subjective Subjective: Patient seen and examined at bedside at the request of the RN. Patient was saturating around 85% but had been off of the nasal cannula because the patient took it off. The nurse switched the patient to a venti mask and bumped the O2 up to 4L. Patient's O2 sat came up to the low 90s. Duoneb was started and by the time I arrived in the room patient had an O2 sat of 97% while having duoneb treatment. Immediately after patient was placed on nasal cannula at 3L and O2 sat dropped back down to the high 80s. Patient's rhythm strip showed PVCs, PACs , and tachycardia at 102 bpm. Ordered CXR, ECG, BNP, cardiac enzymes, and added a magnesium level to the morning lab work. CXR was improved from previous on the . Objective - Vital Signs/Intake and Output Vital Signs (last 24 hours): Temp Pulse Resp BP Pulse Ox 98.2 F 116 H 20 153/79 H 90 L 01/07/18 18:00 01/08/18 02:00 01/07/18 18:00 01/07/18 18:00 01/07/18 18:00 Intake and Output: 01/07/18 01/08/18 18:59 06:59 Intake Total 480 360 Balance 480 360 - Medications Medications: Current Medications Albuterol/Ipratropium (Duoneb 3 Mg/0.5 Mg (3 Ml) Ud) 3 ml IH TIDRESP [facility] Last Admin: 01/07/18 20:31 Dose: 3 ml Albuterol/Ipratropium (Duoneb 3 Mg/0.5 Mg (3 Ml) Ud) 3 ml IH Q2H PRN PRN Reason: Shortness of Breath Last Admin: 01/08/18 05:32 Dose: 3 ml Diltiazem HCl (Cardizem Cd) 180 mg PO DAILY [facility] Last Admin: 01/07/18 12:10 Dose: 180 mg Furosemide (Lasix) 40 mg IVP DAILY [facility] Furosemide (Lasix) 40 mg PO ONCE ONE Stop: 01/08/18 12:58 Vancomycin HCl (Vancomycin 1gm) 1 gm in 250 mls @ 167 mls/hr IVPB DAILY [facility] PRN Reason: Protocol Last Admin: 01/07/18 14:33 Dose: 167 mls/hr Cefepime HCl (Maxipime 1gm) 1 gm in 100 mls @ 100 mls/hr IVPB Q12 [facility] PRN Reason: Protocol Last Admin: 01/07/18 21:51 Dose: 100 mls/hr Lorazepam (Ativan) 1 mg IVP Q4H PRN; Protocol PRN Reason: Symptoms of alcohol withdrawl Last Admin: 01/06/18 23:17 Dose: 1 mg Metoprolol Tartrate (Lopressor) 5 mg IVP Q6 PRN PRN Reason: Heart rate Last Admin: 01/06/18 01:45 Dose: 5 mg Nicotine (Nicoderm Cq) 1 patch TD DAILY [facility] Last Admin: 01/07/18 12:10 Dose: 1 patch Ondansetron HCl (Zofran Inj) 4 mg IVP Q4H PRN PRN Reason: Nausea/Vomiting Pantoprazole Sodium (Protonix Ec Tab) 40 mg PO 0600,1600 [facility] Last Admin: 01/08/18 05:20 Dose: 40 mg - Labs Labs: 01/07/18 05:30 01/07/18 05:30 PT 12.0 SECONDS (9.4-12.5) 12/29/17 06:30 INR 1.04 (0.93-1.08) 12/29/17 06:30 APTT 23.8 Seconds (25.1-36.5) L 12/29/17 06:30 - Constitutional Appears: Non-toxic, No Acute Distress - Respiratory Exam Respiratory Exam: Clear to Ausculation Bilateral, NORMAL BREATHING PATTERN. absent: Accessory Muscle Use, Rales, Rhonchi, Wheezes, Respiratory Distress - Cardiovascular Exam Cardiovascular Exam: Tachycardia (102), +S1, +S2 Assessment and Plan - Assessment and Plan (Free Text) Plan: Patient was seen and examined. ECG reviewed and no change from prior. He was found to be improving - we will continue to use nasal cannula at 3L. Ordered CXR , ECG, BNP, ABG, cardiac enzymes, and added a magnesium level to the morning lab work. CXR was improved from previous on the . Will folllow up lab work and sign out to the day team. <Tegan Mercado - Last Filed: 01/08/18 07:43> Objective - Vital Signs/Intake and Output Vital Signs (last 24 hours): Temp Pulse Resp BP Pulse Ox 98.2 F 100 H 20 153/79 H 90 L 01/07/18 18:00 01/08/18 06:00 01/07/18 18:00 01/07/18 18:00 01/07/18 18:00 Intake and Output: 01/08/18 01/08/18 06:59 18:59 Intake Total 360 120 Output Total 150 Balance 360 -30 - Medications Medications: Current Medications Albuterol/Ipratropium (Duoneb 3 Mg/0.5 Mg (3 Ml) Ud) 3 ml IH TIDRESP [facility] Last Admin: 01/07/18 20:31 Dose: 3 ml Albuterol/Ipratropium (Duoneb 3 Mg/0.5 Mg (3 Ml) Ud) 3 ml IH Q2H PRN PRN Reason: Shortness of Breath Last Admin: 01/08/18 05:32 Dose: 3 ml Diltiazem HCl (Cardizem Cd) 180 mg PO DAILY [facility] Last Admin: 01/07/18 12:10 Dose: 180 mg Furosemide (Lasix) 40 mg IVP DAILY [facility] Furosemide (Lasix) 40 mg PO ONCE ONE Stop: 01/08/18 12:58 Vancomycin HCl (Vancomycin 1gm) 1 gm in 250 mls @ 167 mls/hr IVPB DAILY [facility] PRN Reason: Protocol Last Admin: 01/07/18 14:33 Dose: 167 mls/hr Cefepime HCl (Maxipime 1gm) 1 gm in 100 mls @ 100 mls/hr IVPB Q12 [facility] PRN Reason: Protocol Last Admin: 01/07/18 21:51 Dose: 100 mls/hr Lorazepam (Ativan) 1 mg IVP Q4H PRN; Protocol PRN Reason: Symptoms of alcohol withdrawl Last Admin: 01/06/18 23:17 Dose: 1 mg Metoprolol Tartrate (Lopressor) 5 mg IVP Q6 PRN PRN Reason: Heart rate Last Admin: 01/06/18 01:45 Dose: 5 mg Nicotine (Nicoderm Cq) 1 patch TD DAILY [facility] Last Admin: 01/07/18 12:10 Dose: 1 patch Ondansetron HCl (Zofran Inj) 4 mg IVP Q4H PRN PRN Reason: Nausea/Vomiting Pantoprazole Sodium (Protonix Ec Tab) 40 mg PO 0600,1600 [facility] Last Admin: 01/08/18 05:20 Dose: 40 mg - Labs Labs: 01/08/18 06:00 01/08/18 06:00 PT 12.0 SECONDS (9.4-12.5) 12/29/17 06:30 INR 1.04 (0.93-1.08) 12/29/17 06:30 APTT 23.8 Seconds (25.1-36.5) L 12/29/17 06:30 Attending/Attestation - Attestation I have personally seen and examined this patient.: Yes I have fully participated in the care of the patient.: Yes I have reviewed all pertinent clinical information, including history, physical exam and plan: Yes Notes (Text): 01/08/18 07:26 Agree with documentation Imp:Hypoxia Plan:ABG done stat on O2 at 3L/min showed PO2 of 45,O2 sat 87.2%.Pt was placed on Ventimask at 50%,O2 sat improved to 97%. Blood drawn for tests ordered,will await results. 01/08/18 07:40 01/08/18 07:43
[2018-01-08 06:33] LABS: BASO # 0.04 K/mm3 (0.0-2.0); BASO % 0.3 % (0.0-3.0); EOS % 0.1 % (1.5-5.0); GRAN # 12.9 (1.4-6.5); GRAN % 84.2 % (50.0-68.0); HEMOGLOBIN 7.3 g/dL (14.0-18.0); LYMPH # 1.2 (1.2-3.4); MEAN CORPUSCULAR HEMOGLOBIN 27.7 pg (25.0-35.0); MEAN CORPUSCULAR HGB CONC 32.2 g/dl (31.0-37.0); MEAN PLATELET VOLUME 10.1 fl (7.0-11.0); MONO # 1.1 (0.1-0.6); MONO % 7.4 % (1.0-6.0); RBC 2.64 10^6/uL (3.5-6.1); RED CELL DISTRIBUTION WIDTH 15.8 % (11.5-14.5); WHITE BLOOD COUNT 15.3 10^3/ul (4.5-11.0)
[2018-01-08 06:35] LABS: ARTERIAL BLOOD GAS HCO3 26.7 mmol/L (21-28); ARTERIAL BLOOD GAS O2 SAT 87.2 % (95-98); ARTERIAL BLOOD GAS PCO2 35 mm/Hg (35-45); ARTERIAL BLOOD GAS PH 7.49 (7.35-7.45); ARTERIAL BLOOD GAS TCO2 27.8 mmol.L (22-28)
[2018-01-08 06:48] LABS: ALB/GLOB RATIO 0.9 (1.1-1.8); ALBUMIN 2.6 g/dL (3.0-4.8); CALCIUM 8.3 mg/dL (8.4-10.5)
[2018-01-08] MEDS: Albuterol-Ipratrop 3 mg / 0.5 (3 ml) UD IH SCH ×3 (07:36→20:24)
[2018-01-08 07:45] LABS: TROPONIN I 0.05 ng/mL
--- NOTE | 2018-01-08 09:39 | RAD ---
HISTORY: shortness of breath COMPARISON: 01/07/2008 FINDINGS: LUNGS: Greater confluence of the assumed coalescent pulmonary edema vascular congestion around the right hilum. Coalescing pulmonary edema left lung base similar Concomitant patchy infiltrates at the site not excluded. No dense consolidation with air bronchograms appreciated. Discoid atelectasis/scarring medial right lung base PLEURA: No significant pleural effusion identified, no pneumothorax apparent. CARDIOVASCULAR: Cardiomegaly - accentuated by current technique OSSEOUS STRUCTURES: No significant abnormalities. VISUALIZED UPPER ABDOMEN: Normal. OTHER FINDINGS: None. IMPRESSION: Cardiomegaly with pulmonary venous congestion/ CHF -coalescence pulmonary edema vascular congestion increased most notably right perihilar location. . Concomitant patchy infiltrates at the site not excluded. No dense consolidation with air bronchograms appreciated.
[2018-01-08] MEDS: diltiaZEM 180 mg/24 Hours CD Cap PO SCH (09:42)
[2018-01-08] MEDS: Cefepime 1gm in NS 100ml 1 GM/100 ML BAG IVPB SCH ×2 (09:43→21:55)
--- NOTE | 2018-01-08 09:57 | CP.PCM.PN ---
Subjective - Date & Time of Evaluation Date of Evaluation: 01/08/18 Time of Evaluation: 09:30 - Subjective Subjective: Seen and examined at bedside, chart reviewed. Patient oxygen level desaturated last night , events noted. Patient on face mask, no acute distress. Patient denies SOB, chest pain. No reported BM or overt GI bleeding reported. No N/V or abdominal pain. Objective - Vital Signs/Intake and Output Vital Signs (last 24 hours): Temp Pulse Resp BP Pulse Ox 98.0 F 95 H 27 H 143/81 97 01/08/18 07:58 01/08/18 09:42 01/08/18 07:58 01/08/18 09:42 01/08/18 07:58 Intake and Output: 01/08/18 01/08/18 06:59 18:59 Intake Total 360 120 Output Total 150 Balance 360 -30 - Medications Medications: Current Medications Albuterol/Ipratropium (Duoneb 3 Mg/0.5 Mg (3 Ml) Ud) 3 ml IH TIDRESP [facility] Last Admin: 01/08/18 07:36 Dose: 3 ml Albuterol/Ipratropium (Duoneb 3 Mg/0.5 Mg (3 Ml) Ud) 3 ml IH Q2H PRN PRN Reason: Shortness of Breath Last Admin: 01/08/18 05:32 Dose: 3 ml Diltiazem HCl (Cardizem Cd) 180 mg PO DAILY [facility] Last Admin: 01/08/18 09:42 Dose: 180 mg Furosemide (Lasix) 40 mg IVP BID [facility] Last Admin: 01/08/18 09:41 Dose: 40 mg Vancomycin HCl (Vancomycin 1gm) 1 gm in 250 mls @ 167 mls/hr IVPB DAILY [facility] PRN Reason: Protocol Last Admin: 01/07/18 14:33 Dose: 167 mls/hr Cefepime HCl (Maxipime 1gm) 1 gm in 100 mls @ 100 mls/hr IVPB Q12 [facility] PRN Reason: Protocol Last Admin: 01/08/18 09:43 Dose: 100 mls/hr Lorazepam (Ativan) 1 mg IVP Q4H PRN; Protocol PRN Reason: Symptoms of alcohol withdrawl Last Admin: 01/06/18 23:17 Dose: 1 mg Metoprolol Tartrate (Lopressor) 5 mg IVP Q6 PRN PRN Reason: Heart rate Last Admin: 01/06/18 01:45 Dose: 5 mg Nicotine (Nicoderm Cq) 1 patch TD DAILY [facility] Last Admin: 01/08/18 09:41 Dose: 1 patch Ondansetron HCl (Zofran Inj) 4 mg IVP Q4H PRN PRN Reason: Nausea/Vomiting Pantoprazole Sodium (Protonix Ec Tab) 40 mg PO 0600,1600 [facility] Last Admin: 01/08/18 05:20 Dose: 40 mg - Labs Labs: 01/08/18 06:00 01/08/18 06:00 PT 12.0 SECONDS (9.4-12.5) 12/29/17 06:30 INR 1.04 (0.93-1.08) 12/29/17 06:30 APTT 23.8 Seconds (25.1-36.5) L 12/29/17 06:30 - Constitutional Appears: No Acute Distress - Head Exam Head Exam: NORMOCEPHALIC - Eye Exam Eye Exam: Normal appearance - ENT Exam ENT Exam: Mucous Membranes Moist - Respiratory Exam Respiratory Exam: NORMAL BREATHING PATTERN. absent: Rales, Wheezes, Respiratory Distress - Cardiovascular Exam Cardiovascular Exam: +S1, +S2 - GI/Abdominal Exam GI & Abdominal Exam: Soft, Normal Bowel Sounds. absent: Guarding, Tenderness, Organomegaly, Rebound - Extremities Exam Extremities Exam: absent: Calf Tenderness - Neurological Exam Neurological Exam: Alert, Awake, Oriented x3 - Skin Skin Exam: Dry, Warm Assessment and Plan - Assessment and Plan (Free Text) Assessment: Assessment: This is a 77yo AA male with past medical history of lung ca, DVT and EKTA who was admitted for -Acute GI bleed was on Xeralto s/p Kcentra and had multiple transfusions (15U PRBC, 8U FFP, 4U platelets) ,s/p EGD showed clotted blood in gastric antrum. Gastric embolization done by IR , Repeat EGD done did not show any overt bleeding -Bleeding scan positive in transverse colon which can be from transit , Colonoscopy today showed a non-bleeding mucosal ulceration of the sigmoid colon. Biopsy was not done because tissue bled easily and does not look like a malignancy. -SIRS, s/p cxr: new LLL infiltrate -Hypernatremia -EKTA (improving) -Elevated BNP, s/p cCXR, show improvement from previous CXR on 01/06 Plan: Continue PPI BID puree diet, poor dentition, continue Ensure supplements Continue to monitor H&H and for overt GI bleed, hgb noted, no noted GI bleeding reported on IV antibiotics as per ID back on Lasix will need repeat EGD and flesigmoidoscopy in few weeks time to FU ulcers stomach and colon, has been discussed w/ family on previous occasion cardiology FU, recommendations noted and appreciated. Due to GI bleeding hold off anticoagulants for now till stable and on Cardizem Seen and reviewed with Dr. Ibrahim.
--- NOTE | 2018-01-08 12:28 | RAD ---
PROCEDURE: Right Knee Radiographs. HISTORY: knee pain and swelling COMPARISON: None. FINDINGS: BONES: No fracture JOINTS: Arthrosis tricompartmental JOINT EFFUSION: Suprapatellar joint effusion present OTHER FINDINGS: Atherosclerotic vascular calcifications present. . IMPRESSION: No fracture. Arthrosis with moderate suprapatellar joint effusion
[2018-01-08 13:10] LABS: BASO # 0.04 K/mm3 (0.0-2.0); BASO % 0.3 % (0.0-3.0); EOS % 0.1 % (1.5-5.0); GRAN # 11.7 (1.4-6.5); GRAN % 84.2 % (50.0-68.0); HEMOGLOBIN 7.9 g/dL (14.0-18.0); LYMPH # 1.1 (1.2-3.4); LYMPH % 7.5 % (22.0-35.0); MEAN CELL VOLUME 86.4 fl (80.0-105.0); MEAN CORPUSCULAR HEMOGLOBIN 28.2 pg (25.0-35.0); MEAN CORPUSCULAR HGB CONC 32.6 g/dl (31.0-37.0); MEAN PLATELET VOLUME 10.5 fl (7.0-11.0); MONO # 1.1 (0.1-0.6); MONO % 7.9 % (1.0-6.0); RBC 2.8 10^6/uL (3.5-6.1); RED CELL DISTRIBUTION WIDTH 15.9 % (11.5-14.5); WHITE BLOOD COUNT 13.9 10^3/ul (4.5-11.0)
--- NOTE | 2018-01-08 15:05 | CP.PCM.PN ---
<Victor Hugo Chapa - Last Filed: 01/08/18 20:15> Subjective - Date & Time of Evaluation Date of Evaluation: 01/08/18 Time of Evaluation: 08:30 - Subjective Subjective: Patient seen and examined at bedside in no acute distress with venti mask on. Patient states he felt fine through the night. Denies shortness of breath, chest pain, palpitations, nausea, vomiting, diarrhea, headache, fevers, chills, cough. Objective - Vital Signs/Intake and Output Vital Signs (last 24 hours): Temp Pulse Resp BP Pulse Ox 98.0 F 95 H 27 H 143/81 97 01/08/18 07:58 01/08/18 09:42 01/08/18 07:58 01/08/18 09:42 01/08/18 07:58 Intake and Output: 01/08/18 01/08/18 06:59 18:59 Intake Total 360 120 Output Total 150 Balance 360 -30 - Medications Medications: Current Medications Albuterol/Ipratropium (Duoneb 3 Mg/0.5 Mg (3 Ml) Ud) 3 ml IH TIDRESP [facility] Last Admin: 01/08/18 13:56 Dose: 3 ml Albuterol/Ipratropium (Duoneb 3 Mg/0.5 Mg (3 Ml) Ud) 3 ml IH Q2H PRN PRN Reason: Shortness of Breath Last Admin: 01/08/18 05:32 Dose: 3 ml Diltiazem HCl (Cardizem Cd) 180 mg PO DAILY [facility] Last Admin: 01/08/18 09:42 Dose: 180 mg Furosemide (Lasix) 40 mg IVP BID [facility] Last Admin: 01/08/18 09:41 Dose: 40 mg Vancomycin HCl (Vancomycin 1gm) 1 gm in 250 mls @ 167 mls/hr IVPB DAILY [facility] PRN Reason: Protocol Last Admin: 01/07/18 14:33 Dose: 167 mls/hr Cefepime HCl (Maxipime 1gm) 1 gm in 100 mls @ 100 mls/hr IVPB Q12 [facility] PRN Reason: Protocol Last Admin: 01/08/18 09:43 Dose: 100 mls/hr Lorazepam (Ativan) 1 mg IVP Q4H PRN; Protocol PRN Reason: Symptoms of alcohol withdrawl Last Admin: 01/06/18 23:17 Dose: 1 mg Metoprolol Tartrate (Lopressor) 5 mg IVP Q6 PRN PRN Reason: Heart rate Last Admin: 01/06/18 01:45 Dose: 5 mg Nicotine (Nicoderm Cq) 1 patch TD DAILY [facility] Last Admin: 01/08/18 09:41 Dose: 1 patch Ondansetron HCl (Zofran Inj) 4 mg IVP Q4H PRN PRN Reason: Nausea/Vomiting Pantoprazole Sodium (Protonix Ec Tab) 40 mg PO 0600,1600 [facility] Last Admin: 01/08/18 05:20 Dose: 40 mg Prednisone (Prednisone Tab) 40 mg PO DAILY [facility] Last Admin: 01/08/18 12:33 Dose: 40 mg - Labs Labs: 01/08/18 13:00 01/08/18 06:00 PT 12.0 SECONDS (9.4-12.5) 12/29/17 06:30 INR 1.04 (0.93-1.08) 12/29/17 06:30 APTT 23.8 Seconds (25.1-36.5) L 12/29/17 06:30 - Head Exam Head Exam: ATRAUMATIC, NORMAL INSPECTION, NORMOCEPHALIC - Eye Exam Eye Exam: EOMI, Normal appearance - ENT Exam ENT Exam: Mucous Membranes Moist - Cardiovascular Exam Cardiovascular Exam: Tachycardia, REGULAR RHYTHM, +S1, +S2 - GI/Abdominal Exam GI & Abdominal Exam: Soft, Normal Bowel Sounds - Extremities Exam Extremities Exam: Calf Tenderness, Normal Inspection - Back Exam Back Exam: NORMAL INSPECTION - Neurological Exam Neurological Exam: Alert, Awake, Oriented x3 - Psychiatric Exam Psychiatric exam: Normal Affect, Normal Mood - Skin Skin Exam: Normal Color, Warm Assessment and Plan - Assessment and Plan (Free Text) Assessment: 77M w/ pmhx of HTN, duodenitis, erosive gastritis, LLE DVT on xarelto, admitted for hemorrhagic shock 2/2 UGI bleed. Transfused 15u PRBC 8FFP, 4PLT. S/P angioembolization of left gastric artery, colonoscopy found non-bleeding mass in transverse colon not biopsied due to risk of bleeding, EGD showing multiple gastric ulcers. Positive sputum culture for S. Marcescens on Vanc and Cefepime. Repeat CXR shows new LLL infiltrate. Plan: GI bleed - 2/2 xarelto therapy - s/p Embolization of left gastric artery - s/p EGD and colonoscopy * fundal gastric ulcers, transverse colonic mass; non-bleeding during the time of scope - c/s GI; all recs appreciated - c/s Surgery; all recs appreciated * no surgical intervention; follow up as an outpatient - Protonix BID - monitor H/H * currently stable at 7.9, however transfuse if goes below 7.5 - GI to follow up as outpatient for Endoscopy SIRS (fever, tachycardia) - sputum culture + S. marcescens - c/s ID; all recs appreciated - continue Vanc and Cefepime for 14 days per ID - repeat BCx negative to date- 01/08/18 - UA negative - leukocytosis downtrending Paroxysmal Atrial Fibrillation - Rate control at this time, holding AC 2/2 GI bleeding - Cardizem 60mg QID - Monitor - Echo on 12/30/17 shows no thrombus or vegetations - Cardiology consult; determine if anticoagulation should be restarted since hx of DVT, and A.Fib Delirium - waxing and waning delirium which has resolved - AAOx3 person and time - If returns,reorient patient - continue AM sunlight into room - 2/2 poor sleep over the past few nights - Head CT negative for CVA - B12 and Folate WNL Hypoxemia, likely 2/2 TRALI VS PE - Serial LE venous dopplers ordered to r/o DVT; negative - Maintain SaO2 >92% EKTA, likely secondary to GI bleed -Resolved -Hold nephrotoxic drugs; Monitor -Nephro Consulted: continue with hydration as per nephro Hypernatremia 2/2 Dehydration -Hypernatremia resolved continue to monitor -Encourage PO fluid intake History DVT - Holding AC due to GI bleed, continue to monitor - LE venous dopplers ordered to r/o DVT; negative bilateral - Encourage physical therapy and OOB Hx HTN - Cardizem 60mg QID - Hydralazine prn, monitor for tachycardia Hx Squamous Cell CA - No acute intervention Atrial fibrillation with RVR - Resolved, patient off cardizem gtt - will consider restarting anti-coagulation at this time. Discussed risks and benefits of the continuation of anti-coagulation with at bedside. - c/s Cardiology; recommends holding anti-coagulation Hx Abdominal Aortic Aneurysm s/p Repair - Continue with cardizem Hx of Tobacco abuse - Nicotine 0.21 - Smoking cessation counseling Hx of ETOH abuse - Patient with confusion, ICU delirium likely - Patient family states last drink was - CIWA protocol - Ativan 1mg Q4H prn - Monitor - Alcohol cessation counseling PPX - GI: Protonix BID - DVT: SCD <Abdirahman Lugo - Last Filed: 01/12/18 11:27> Objective - Vital Signs/Intake and Output Vital Signs (last 24 hours): Temp Pulse Resp BP Pulse Ox 98.3 F 82 20 149/89 91 L 01/10/18 06:00 01/10/18 13:57 01/10/18 06:00 01/10/18 13:09 01/10/18 06:00 - Labs Labs: 01/10/18 06:00 01/10/18 06:00 PT 12.0 SECONDS (9.4-12.5) 12/29/17 06:30 INR 1.04 (0.93-1.08) 12/29/17 06:30 APTT 23.8 Seconds (25.1-36.5) L 12/29/17 06:30 Attending/Attestation - Attestation I have personally seen and examined this patient.: Yes I have fully participated in the care of the patient.: Yes I have reviewed all pertinent clinical information, including history, physical exam and plan: Yes Notes (Text): 01/12/18 11:21 Medical record note made by the resident after discussion with my direction and input after the patient was personally seen and examined by me. I have reviewed the chart and agree that the record accurately reflects by personal performance of the history, physical exam, data review, and medical decision-making, in the course for the patient. I have also personally directed the plan of care. 77 YRS male with past medical history of hypertension, PUD, abdominal aortic aneurysm repair (2011), LLE DVT (last month) was on xarelto was admitted with GI bleeding. He is s/p multiple PRBC / FFP transfusions.. Bleeding scan was positive from transverse colon. He was seen by IR and is SP embolization of left gastric artery last week. He had repeat EGD last week which showed gastric and superficial duodenal ulcers without active bleeding. He also had colonoscopy last week which showed nonbleeding mucosal ulceration at sigmoid colon. Diet has been advanced to Puree diet.Hemoglobin is stable 7.9 today.Patient is still high risk for re bleeding, risks of which much higher then the benefits of restarting anticoagulation, Lower extremity venous doppler is negative for DVT 3 times. Proxysmal AF. Rate is having intermittent , on cardizem and PRN metoprolol, .Patient is also on Van and cefepime for HCAP pneumonia, on IV Lasix for diastolic CHF, Creatinin 1.5, Nephrology is on case, Patient was c/o right knee pain and swelling, He has h/o gout , started don Prednisone, Ortho is consulted. Prognosis is guarded 01/12/18 11:26
--- NOTE | 2018-01-08 16:55 | CARD ---
APPROVED REPORT EKG Measurement Heart [id number] <Conclusion> Sinus rhythm with frequent APCs and PVCs Nonspecific T wave abnormality, probably digitalis effect Abnormal ECG
[2018-01-08] MEDS: Vancomycin 1gm in NS 250ml 1 GM/250 ML BAG IVPB SCH (17:05)
--- NOTE | 2018-01-08 18:55 | CP.PCM.PN ---
Subjective - Date & Time of Evaluation Date of Evaluation: 01/08/18 Time of Evaluation: 18:00 - Subjective Subjective: Infectious Disease Follow Up: January 08, 2018 77 year old male with PMH of hypertension, duodenitis, erosive gastritis ( diagnosed in 2012), divericulosis, abdominal aortic aneurysm repair in 2011, left lower extremity DVT (2011), who presents with GI bleed. Patient states that over the past 2 days he had multiple episodes of coffee ground hematemesis. He also reports melena, and bright red blood per rectum starting yesetrday. Patient states that he started Xarelto a few days ago. Patient endorses he was taking Eliquis but experienced abdominal discomfort, loss of appetite, and associated weight loss. He was switched to Xarelto instead recently due to these adverse events. He does admit to drinking alcohol, but denies any history of drinking greater than 8 drinks per week or having any prior history of alcohol abuse. Patient states that he takes Aleve almost daily for the past 5 years. Currently in ICU for monitoring. TLC placed. Had several melena episodes during hospitalization. S/P IR angiography with embolization of left gastric artery POD#11. Extubated. On Vancomycin and Meropenem for antibiotic treatment. Patient with history of frequent hospitalizations. History obtained from the chart. Extubated, the patient is fully awake and alert and able to follow commands. Endoscopy done and Colonoscopy done Saturday. He is on Nasal Cannula now. Supportive care. He is on 5L NC. Less confused but lethargic. Chest X-ray showing new left lung base infiltrate. Awaiting blood and urine cultures. Fever up to 100.7 F in past 48 hours. Still with cough. Afebrile so far today. Objective - Vital Signs/Intake and Output Vital Signs (last 24 hours): Temp Pulse Resp BP Pulse Ox 98.0 F 103 H 27 H 143/81 97 01/08/18 07:58 01/08/18 14:00 01/08/18 07:58 01/08/18 09:42 01/08/18 07:58 Intake and Output: 01/08/18 01/08/18 06:59 18:59 Intake Total 360 120 Output Total 150 Balance 360 -30 - Medications Medications: Current Medications Albuterol/Ipratropium (Duoneb 3 Mg/0.5 Mg (3 Ml) Ud) 3 ml IH TIDRESP [facility] Last Admin: 01/08/18 13:56 Dose: 3 ml Albuterol/Ipratropium (Duoneb 3 Mg/0.5 Mg (3 Ml) Ud) 3 ml IH Q2H PRN PRN Reason: Shortness of Breath Last Admin: 01/08/18 05:32 Dose: 3 ml Diltiazem HCl (Cardizem Cd) 180 mg PO DAILY [facility] Last Admin: 01/08/18 09:42 Dose: 180 mg Furosemide (Lasix) 40 mg IVP BID [facility] Last Admin: 01/08/18 09:41 Dose: 40 mg Vancomycin HCl (Vancomycin 1gm) 1 gm in 250 mls @ 167 mls/hr IVPB DAILY [facility] PRN Reason: Protocol Last Admin: 01/08/18 17:05 Dose: 167 mls/hr Cefepime HCl (Maxipime 1gm) 1 gm in 100 mls @ 100 mls/hr IVPB Q12 [facility] PRN Reason: Protocol Last Admin: 01/08/18 09:43 Dose: 100 mls/hr Lorazepam (Ativan) 1 mg IVP Q4H PRN; Protocol PRN Reason: Symptoms of alcohol withdrawl Last Admin: 01/06/18 23:17 Dose: 1 mg Metoprolol Tartrate (Lopressor) 5 mg IVP Q6 PRN PRN Reason: Heart rate Last Admin: 01/06/18 01:45 Dose: 5 mg Nicotine (Nicoderm Cq) 1 patch TD DAILY [facility] Last Admin: 01/08/18 09:41 Dose: 1 patch Ondansetron HCl (Zofran Inj) 4 mg IVP Q4H PRN PRN Reason: Nausea/Vomiting Pantoprazole Sodium (Protonix Ec Tab) 40 mg PO 0600,1600 [facility] Last Admin: 01/08/18 15:53 Dose: 40 mg Prednisone (Prednisone Tab) 40 mg PO DAILY [facility] Last Admin: 01/08/18 12:33 Dose: 40 mg - Labs Labs: 01/08/18 13:00 01/08/18 06:00 PT 12.0 SECONDS (9.4-12.5) 12/29/17 06:30 INR 1.04 (0.93-1.08) 12/29/17 06:30 APTT 23.8 Seconds (25.1-36.5) L 12/29/17 06:30 - Constitutional Appears: Non-toxic, No Acute Distress, Chronically Ill - Head Exam Head Exam: ATRAUMATIC, NORMOCEPHALIC - Eye Exam Eye Exam: EOMI, PERRL Pupil Exam: NORMAL ACCOMODATION, PERRL - ENT Exam ENT Exam: Mucous Membranes Moist, Normal External Ear Exam, TM's Normal Bilaterally - Neck Exam Neck Exam: Full ROM, Normal Inspection - Respiratory Exam Respiratory Exam: Decreased Breath Sounds, NORMAL BREATHING PATTERN. absent: Rales, Rhonchi, Wheezes - Cardiovascular Exam Cardiovascular Exam: REGULAR RHYTHM, RRR, +S1, +S2 - GI/Abdominal Exam GI & Abdominal Exam: Soft, Normal Bowel Sounds. absent: Distended, Tenderness - Extremities Exam Extremities Exam: Full ROM, Normal Inspection - Neurological Exam Neurological Exam: Alert, Awake, CN II-XII Intact, Oriented x3 - Psychiatric Exam Psychiatric exam: Normal Affect, Normal Mood - Skin Skin Exam: Intact, Normal Color Assessment and Plan - Assessment and Plan (Free Text) Assessment: 77 yo AA male known to me from prior hospitalizations presenting with acute GI bleed. The patient has been anemic and hypoxic. The patient has been having persistent fevers with mild leukocytosis. Supportive care. Start Vancomycin and Meropenem for treatment. Sepsis workup. Hypoxemia. Patient being evaluted for TRALI and PE at this time. The patient has left gastric artery embolization on 12/27/2017. The patient was given 13 U PRBCs and 8 U FFP. Patient with EKTA. Extubated this morning. Poor prognosis. The patient has been afebrile for the past several hours. Extremely poor prognosis. Sputum cultures showing Serratia. Remains on Meropenem and Vancomycin IV for antibiotic treatment at this time. Colonoscopy done by Dr. Ibrahim Saturday. The patient today became confused. Noted increasing leukocytosis now to 17.4. Extubated Saturday. Slowly improving. On Nasal canula now. 3L of O2 but saturations of 90%. Febrile to 100.7 F two afternoons ago. Chest X-ray with left lower lung base new infiltrate. Restarted Cefepime. Check blood and urine cultures. 01/06/2018 cultures negative so far. On Cefepime and Vancomycin IV for antibiotic treatment. Treatment for pneumonia at this point. Noted patient refused BiPAP today. The patient's cardiac issues are the more pressing medical issues at this time. Thank you for allowing me to participate in the care of the patient, we will follow with you.
--- NOTE | 2018-01-09 01:26 | PN ---
DATE: 01/08/2018 CARDIOLOGY FOLLOWUP SUBJECTIVE: The patient is without shortness of breath, without chest pain. PHYSICAL EXAMINATION: VITAL SIGNS: Blood pressure is 143/81, heart rates in the 90s. NECK: Negative JVD. LUNGS: Without rales. HEART: With S1, S2. EXTREMITIES: Without edema. LABORATORY DATA: Hemoglobin is 7.9. Chemistries, BUN and creatinine is 32 and 1.6. IMPRESSION: 1. Marked anemia. 2. Status post gastrointestinal bleed. 3. Chronic atrial fibrillation. 4. Coronary artery disease. 5. Sepsis. PLAN: Given these findings, given the GI bleed as well as his continued anemia, we cannot restart his anticoagulation at this time. We will hold off on his Xarelto until his GI bleed is stable. If the patient cannot take anticoagulation, we will consider him for Watchman Procedure to reduce the chances for thromboembolic phenomenon. Andrew Ashton MD
[2018-01-09] MEDS: Pantoprazole 40 mg EC Tab PO SCH ×2 (06:10→16:43)
[2018-01-09 06:48] LABS: BASO # 0.01 K/mm3 (0.0-2.0); BASO % 0.1 % (0.0-3.0); EOS % 0.1 % (1.5-5.0); GRAN # 10.67 (1.4-6.5); GRAN % 85.5 % (50.0-68.0); HEMOGLOBIN 7.1 g/dL (14.0-18.0); LYMPH # 1.1 (1.2-3.4); LYMPH % 8.9 % (22.0-35.0); MEAN CELL VOLUME 85.6 fl (80.0-105.0); MEAN CORPUSCULAR HEMOGLOBIN 27.6 pg (25.0-35.0); MEAN CORPUSCULAR HGB CONC 32.3 g/dl (31.0-37.0); MEAN PLATELET VOLUME 10.5 fl (7.0-11.0); MONO # 0.7 (0.1-0.6); MONO % 5.4 % (1.0-6.0); RBC 2.57 10^6/uL (3.5-6.1); RED CELL DISTRIBUTION WIDTH 15.9 % (11.5-14.5); WHITE BLOOD COUNT 12.5 10^3/ul (4.5-11.0)
[2018-01-09 07:33] LABS: ALB/GLOB RATIO 0.9 (1.1-1.8); ALBUMIN 2.7 g/dL (3.0-4.8); CALCIUM 8.3 mg/dL (8.4-10.5)
--- NOTE | 2018-01-09 07:39 | CP.PCM.PN ---
<Gisel Valera - Last Filed: 01/09/18 11:35> Subjective - Date & Time of Evaluation Date of Evaluation: 01/09/18 Time of Evaluation: 07:00 - Subjective Subjective: GI Progress note for Miky Ruiz PGY2 Patient seen and examined at bedside. There were no acute overnight events as per nursing staff. Patient was unable to sleep last night and was A&O x 2 this am. He reports he is tolerating his diet well. He denies having abdominal pain, nausea/vomiting/diarrhea, fever/chills, chest pain, shortness of breath, numbness/tingling, dysuria or hematuria. Objective - Vital Signs/Intake and Output Vital Signs (last 24 hours): Temp Pulse Resp BP Pulse Ox 97.7 F 75 21 155/98 H 97 01/09/18 06:00 01/09/18 06:00 01/09/18 06:00 01/09/18 06:00 01/09/18 06:00 Intake and Output: 01/09/18 01/09/18 06:59 18:59 Intake Total 300 Balance 300 - Medications Medications: Current Medications Albuterol/Ipratropium (Duoneb 3 Mg/0.5 Mg (3 Ml) Ud) 3 ml IH TIDRESP [facility] Last Admin: 01/08/18 20:24 Dose: 3 ml Albuterol/Ipratropium (Duoneb 3 Mg/0.5 Mg (3 Ml) Ud) 3 ml IH Q2H PRN PRN Reason: Shortness of Breath Last Admin: 01/08/18 05:32 Dose: 3 ml Diltiazem HCl (Cardizem Cd) 180 mg PO DAILY [facility] Last Admin: 01/08/18 09:42 Dose: 180 mg Furosemide (Lasix) 40 mg IVP BID [facility] Last Admin: 01/08/18 09:41 Dose: 40 mg Vancomycin HCl (Vancomycin 1gm) 1 gm in 250 mls @ 167 mls/hr IVPB DAILY [facility] PRN Reason: Protocol Last Admin: 01/08/18 17:05 Dose: 167 mls/hr Cefepime HCl (Maxipime 1gm) 1 gm in 100 mls @ 100 mls/hr IVPB Q12 [facility] PRN Reason: Protocol Last Admin: 06/13/18 21:55 Dose: 100 mls/hr Lorazepam (Ativan) 1 mg IVP Q4H PRN; Protocol PRN Reason: Symptoms of alcohol withdrawl Last Admin: 01/06/18 23:17 Dose: 1 mg Metoprolol Tartrate (Lopressor) 5 mg IVP Q6 PRN PRN Reason: Heart rate Last Admin: 01/06/18 01:45 Dose: 5 mg Nicotine (Nicoderm Cq) 1 patch TD DAILY [facility] Last Admin: 01/08/18 09:41 Dose: 1 patch Ondansetron HCl (Zofran Inj) 4 mg IVP Q4H PRN PRN Reason: Nausea/Vomiting Pantoprazole Sodium (Protonix Ec Tab) 40 mg PO 0600,1600 [facility] Last Admin: 01/09/18 06:10 Dose: 40 mg Prednisone (Prednisone Tab) 40 mg PO DAILY [facility] Last Admin: 01/08/18 12:33 Dose: 40 mg - Labs Labs: 01/09/18 06:15 01/09/18 06:15 PT 12.0 SECONDS (9.4-12.5) 12/29/17 06:30 INR 1.04 (0.93-1.08) 12/29/17 06:30 APTT 23.8 Seconds (25.1-36.5) L 12/29/17 06:30 - Constitutional Appears: No Acute Distress - Head Exam Head Exam: ATRAUMATIC, NORMAL INSPECTION, NORMOCEPHALIC - ENT Exam ENT Exam: Mucous Membranes Moist - Respiratory Exam Respiratory Exam: Clear to Ausculation Bilateral, NORMAL BREATHING PATTERN. absent: Rales, Rhonchi, Wheezes - Cardiovascular Exam Cardiovascular Exam: REGULAR RHYTHM, +S1, +S2. absent: Gallop, Rubs, Murmur - GI/Abdominal Exam GI & Abdominal Exam: Soft, Normal Bowel Sounds. absent: Rigid, Tenderness, Mass , Rebound - Extremities Exam Extremities Exam: Pedal Edema. absent: Calf Tenderness - Neurological Exam Neurological Exam: Alert, Awake, CN II-XII Intact. absent: Oriented x3 (A&O x 2 ) - Skin Skin Exam: Dry, Warm Assessment and Plan - Assessment and Plan (Free Text) Assessment: This is a 77yo AA male with past medical history of lung ca, DVT and EKTA who was admitted for 1. Massive GI bleed was on Xeralto s/p Kcentra and had multiple transfusions ( 15U PRBC, 8U FFP, 4U platelets) - EGD showed clotted blood in gastric antrum. Gastric embolization done by IR - Repeat EGD done did not show any overt bleeding - Colonoscopy showed ulcerated polypoid lesion in sigmoid colon that was not able to be biopsied. 2. Sepsis - secondary to pneumonia with new LLL infiltrate 3. Elevated BNP - Echo EF 67% with mild-mod pulm HTN 4. Gout of R knee 4. Hx of DVT - Duplex US did not show evidence of DVT Plan: Hgb 7.1 today. Monitor H/H. Transfuse as needed. Patient is on steroids as well as IV antibiotics. Steroids can exacerbate ulcers and prevent healing. Will start patient on Carafate 4 times per day. Continue puree diet with ensure supplementation. Continue to monitor I&O. Continue high dose PPI BID. Will repeat EGD and flexsigmoidoscopy in a couple of weeks. Cardiology on consult. Will hold off on anticoagulation for now. Patient is on Lasix. Case seen, discussed and reviewed with Dr. Ibrahim. Miky Valera PGY2 <Jarred Ibrahim V - Last Filed: 01/09/18 23:55> Objective - Vital Signs/Intake and Output Vital Signs (last 24 hours): Temp Pulse Resp BP Pulse Ox 98.1 F 82 20 170/90 H 97 01/09/18 19:58 01/09/18 19:58 01/09/18 19:58 01/09/18 19:58 01/09/18 06:00 Intake and Output: 01/09/18 01/10/18 18:59 06:59 Intake Total 365 280 Output Total 1450 Balance 365 -1170 - Medications Medications: Current Medications Albuterol/Ipratropium (Duoneb 3 Mg/0.5 Mg (3 Ml) Ud) 3 ml IH TIDRESP [facility] Last Admin: 01/09/18 20:01 Dose: 3 ml Albuterol/Ipratropium (Duoneb 3 Mg/0.5 Mg (3 Ml) Ud) 3 ml IH Q2H PRN PRN Reason: Shortness of Breath Last Admin: 01/08/18 05:32 Dose: 3 ml Diltiazem HCl (Cardizem Cd) 180 mg PO DAILY [facility] Last Admin: 01/09/18 10:27 Dose: 180 mg Furosemide (Lasix) 40 mg IVP BID [facility] Last Admin: 01/09/18 18:37 Dose: 40 mg Vancomycin HCl (Vancomycin 1gm) 1 gm in 250 mls @ 167 mls/hr IVPB DAILY [facility] PRN Reason: Protocol Last Admin: 01/09/18 10:28 Dose: 167 mls/hr Cefepime HCl (Maxipime 1gm) 1 gm in 100 mls @ 100 mls/hr IVPB Q12 [facility] PRN Reason: Protocol Last Admin: 01/09/18 21:40 Dose: 100 mls/hr Lorazepam (Ativan) 1 mg IVP Q4H PRN; Protocol PRN Reason: Symptoms of alcohol withdrawl Last Admin: 01/06/18 23:17 Dose: 1 mg Metoprolol Tartrate (Lopressor) 5 mg IVP Q6 PRN PRN Reason: Heart rate Last Admin: 01/09/18 12:56 Dose: 5 mg Nicotine (Nicoderm Cq) 1 patch TD DAILY [facility] Last Admin: 01/09/18 10:48 Dose: 1 patch Ondansetron HCl (Zofran Inj) 4 mg IVP Q4H PRN PRN Reason: Nausea/Vomiting Pantoprazole Sodium (Protonix Ec Tab) 40 mg PO 0600,1600 [facility] Last Admin: 01/09/18 16:43 Dose: 40 mg Prednisone (Prednisone Tab) 20 mg PO DAILY [facility] Stop: 01/12/18 10:01 Sucralfate (Carafate Oral Susp) 1 gm PO 0630,1130,1630,2200 [facility] Last Admin: 01/09/18 21:40 Dose: 1 gm - Labs Labs: 01/09/18 06:15 01/09/18 06:15 PT 12.0 SECONDS (9.4-12.5) 12/29/17 06:30 INR 1.04 (0.93-1.08) 12/29/17 06:30 APTT 23.8 Seconds (25.1-36.5) L 12/29/17 06:30 Attending/Attestation - Attestation I have personally seen and examined this patient.: Yes I have fully participated in the care of the patient.: Yes I have reviewed all pertinent clinical information, including history, physical exam and plan: Yes Notes (Text): This is an addendum to GI consult report dictated by the Progressive Care Nurse.The patient was seen and examined earlier. Medical records, lab studies, imagings were reviewed. Last 24 hours events reviewed. Agreed with the above treatment plan as outlined in Progressive Care Nurse 's notes the with the addition of the following on examination abdomen soft no tenderness on steroids now Continue high-dose PPI We will add Carafate close follow-up of hemoglobin and hematocrit repeat EGD and flexible sigmoidoscopy in few weeks off anticoagulation now 01/09/18 23:52
[2018-01-09] MEDS: Albuterol-Ipratrop 3 mg / 0.5 (3 ml) UD IH SCH ×3 (08:14→20:01)
--- NOTE | 2018-01-09 10:11 | CP.PCM.PN ---
Subjective - Date & Time of Evaluation Date of Evaluation: 01/09/18 Time of Evaluation: 07:20 - Subjective Subjective: Medicine Progress note Patient seen and examined at bedside this AM. Currently AAOx3, undergoing breathing treatment. Overnight patient saturation dropped into the mid 80s. Pt was not on NC at that time. Venti mask was put on, and patient saturation went up. Currently states breathing is significantly better than yesterday. Non- productive cough. Denies Chest pain, shortness of breath. States normal non bloody, non-melanotic bowel movements. Denies nausea, vomiting. tolerating current diet. Objective - Vital Signs/Intake and Output Vital Signs (last 24 hours): Temp Pulse Resp BP Pulse Ox 97.7 F 75 21 155/98 H 97 01/09/18 06:00 01/09/18 06:00 01/09/18 06:00 01/09/18 06:00 01/09/18 06:00 Intake and Output: 01/09/18 01/09/18 06:59 18:59 Intake Total 300 Balance 300 - Medications Medications: Current Medications Albuterol/Ipratropium (Duoneb 3 Mg/0.5 Mg (3 Ml) Ud) [address] [facility] Last Admin: 01/09/18 08:14 Dose: 3 ml Albuterol/Ipratropium (Duoneb 3 Mg/0.5 Mg (3 Ml) Ud) 3 ml IH Q2H PRN PRN Reason: Shortness of Breath Last Admin: 01/08/18 05:32 Dose: 3 ml Diltiazem HCl (Cardizem Cd) [address] [facility] Last Admin: 01/08/18 09:42 Dose: 180 mg Furosemide (Lasix) [address] [facility] Last Admin: 01/08/18 09:41 Dose: 40 mg Vancomycin HCl (Vancomycin 1gm) 1 gm in 250 mls @ 167 mls/hr IVPB DAILY [facility] PRN Reason: Protocol Last Admin: 01/08/18 17:05 Dose: 167 mls/hr Cefepime HCl (Maxipime 1gm) 1 gm in 100 mls @ 100 mls/hr IVPB Q12 [facility] PRN Reason: Protocol Last Admin: 01/08/18 21:55 Dose: 100 mls/hr Lorazepam (Ativan) 1 mg IVP Q4H PRN; Protocol PRN Reason: Symptoms of alcohol withdrawl Last Admin: 01/06/18 23:17 Dose: 1 mg Metoprolol Tartrate (Lopressor) 5 mg IVP Q6 PRN PRN Reason: Heart rate Last Admin: 01/06/18 01:45 Dose: 5 mg Nicotine (Nicoderm Cq) [address] [facility] Last Admin: 01/08/18 09:41 Dose: 1 patch Ondansetron HCl (Zofran Inj) 4 mg IVP Q4H PRN PRN Reason: Nausea/Vomiting Pantoprazole Sodium (Protonix Ec Tab) 40 mg PO 0600,1600 [facility] Last Admin: 01/09/18 06:10 Dose: 40 mg Prednisone (Prednisone Tab) [address] [facility] Last Admin: 01/08/18 12:33 Dose: 40 mg Sucralfate (Carafate Oral Susp) 1 gm PO 0630,1130,1630,2200 [facility] - Labs Labs: 01/09/18 06:15 01/09/18 06:15 PT 12.0 SECONDS (9.4-12.5) 12/29/17 06:30 INR 1.04 (0.93-1.08) 12/29/17 06:30 APTT 23.8 Seconds (25.1-36.5) L 12/29/17 06:30 - Constitutional Appears: Non-toxic, In Acute Distress - Head Exam Head Exam: ATRAUMATIC - Eye Exam Eye Exam: EOMI. absent: Scleral icterus - ENT Exam ENT Exam: Mucous Membranes Moist - Respiratory Exam Respiratory Exam: Wheezes (signficantly decreased than yesterday in LLL), NORMAL BREATHING PATTERN. absent: Accessory Muscle Use, Respiratory Distress - Cardiovascular Exam Cardiovascular Exam: REGULAR RHYTHM, +S1, +S2. absent: Bradycardia, Tachycardia - GI/Abdominal Exam GI & Abdominal Exam: Soft. absent: Distended, Firm, Guarding, Rigid, Tenderness - Extremities Exam Extremities Exam: Joint Swelling (R. Knee know longer swelling). absent: Calf Tenderness - Neurological Exam Neurological Exam: Alert, Awake, Oriented x3 - Psychiatric Exam Psychiatric exam: Normal Affect - Skin Skin Exam: Intact, Warm Assessment and Plan - Assessment and Plan (Free Text) Assessment: 77M w/ pmhx of HTN, duodenitis, erosive gastritis, LLE DVT on xarelto, admitted for hemorrhagic shock 2/2 UGI bleed. Transfused 15u PRBC 8FFP, 4PLT. S/P angioembolization of left gastric artery, colonoscopy found non-bleeding mass in transverse colon not biopsied due to risk of bleeding, EGD showing multiple gastric ulcers. Positive sputum culture for S. Marcescens on Vanc and Cefepime. Repeat CXR shows LLL infiltrate on . Recent repeat CXR shows improving PNA. Leukocytosis trending down. Plan to de-escalate to PO abx upon discharge. slowly decreasing hgb 2/2 daily blood draws. No signs of bleeding. Hemodynamically stable at this time. Plan: GI bleed - 2/2 xeralto therapy - s/p Embolization of left gastric artery - s/p EGD and colonoscopy * fundal gastric ulcers, transverse colonic mass; non-bleeding during the time of scope - c/s GI; all recs appreciated - c/s Surgery; all recs appreciated * no surgical intervention; follow up as an outpatient - Protonix BID - monitor H/H * currently stable at 8.6 - GI to follow up as outpatient for Endoscopy after endoscopy Anemia - Hgb trending down; 2/2 daily blood draw - no signs of acute bleed - transfuse 2Units PRBC - will continue to hold off on any anticoagulation SIRS (fever, tachycardia) - sputum culture + S. marcescens - c/s ID; all recs appreciated - continue Vanc and Cefepime for 14 days per ID - repeat BCx negative to date- 01/07/18 - Repeat CXR 01/06/18; new LLL infiltrate - leukocytosis trending down - Source LLL pneumonia - can de-escalate to PO abx upon discharge; Omnicef and Zyvox BID for 7 days Paroxysmal Atrial Fibrillation - Rate control at this time, holding AC 2/2 GI bleeding - Cardizem 60mg QID - Monitor - Echo on 12/30/17 shows no thrombus or vegetations - Cardiology consult; determine if anticoagulation should be restarted since hx of DVT, and A.Fib - will hold anticoagulation for now - plan for follow up as an outpatient with Cardiology after rehabd Delirium - waxing and waning delirium - AAOx3 person and time - reorient patient - continue AM sunlight into room - 2/2 poor sleep over the past few nights - Head CT negative for CVA - B12 and Folate WNL Inflammed Knee - elevation of leg - steroids 20mg for 5 days - knee swelling resolved Hypoxemia, likely 2/2 TRALI VS PE - Cannot obtain CTA Chest 2/2 patient's EKTA; cannot heparinize 2/2 GIB - LE venous dopplers ordered to r/o DVT; negative - Maintain SaO2 >92% EKTA, likely secondary to GI bleed -Resolved -Hold nephrotoxic drugs; Monitor -Nephro Consulted: continue with hydration as per nephro Hypernatremia 2/2 Dehydration -Hypernatremia resolved continue to monitor -encourage PO fluid intake History DVT - Holding AC due to GI bleed, continue to monitor - LE venous dopplers ordered to r/o DVT; negative bilateral - Continue with serial LE dopplers - IR consulted for possible ICV filter, holding at this time - Encourage physical therapy and OOB - repeat Doppler negative for DVT x2 - elevated D-Dimer 2/2 inflammation and recent procedure; suspicion for PE low Hx HTN - Cardizem 60mg QID - Hydralazine prn, monitor for tachycardia Hx Squamous Cell CA - No acute intervention Atrial fibrillation with RVR - Resolved, patient off cardizem gtt - will consider restarting anti-coagulation at this time. Discussed risks and benefits of the continuation of anti-coagulation with at bedside. - c/s Cardiology; recommends holding anti-coagulation for now Hx Abdominal Aortic Aneurysm s/p Repair - Continue with cardizem Hx of Tobacco abuse - Nicotine 0.21 - Smoking cessation counseling Hx of ETOH abuse - Patient with confusion, ICU delirium likely - Patient family states last drink was - CIWA protocol - Ativan 1mg Q4H prn - Monitor - Alcohol cessation counseling PPX - GI: Protonix BID - DVT: SCD
[2018-01-09] MEDS: diltiaZEM 180 mg/24 Hours CD Cap PO SCH (10:27)
[2018-01-09] MEDS: Vancomycin 1gm in NS 250ml 1 GM/250 ML BAG IVPB SCH (10:28)
[2018-01-09] MEDS: Cefepime 1gm in NS 100ml 1 GM/100 ML BAG IVPB SCH ×2 (10:28→21:40)
[2018-01-09] MEDS: Sucralfate 1 gm/10 ml Oral Susp UD PO SCH ×3 (12:37→21:40)
[2018-01-09] MEDS ORDERED: Metoprolol 1 mg/ml Inj IVP PRN (12:46)
--- NOTE | 2018-01-09 18:00 | CP.PCM.PN ---
Subjective - Date & Time of Evaluation Date of Evaluation: 01/09/18 Time of Evaluation: 10:00 - Subjective Subjective: Patient with O2 desat yesterday, placed on venti mask; otherwise tolerating diet ; Objective - Vital Signs/Intake and Output Vital Signs (last 24 hours): Temp Pulse Resp BP Pulse Ox 98.2 F 83 18 149/81 97 01/09/18 17:49 01/09/18 17:49 01/09/18 17:49 01/09/18 17:49 01/09/18 06:00 Intake and Output: 01/09/18 01/09/18 06:59 18:59 Intake Total 300 365 Balance 300 365 - Medications Medications: Current Medications Albuterol/Ipratropium (Duoneb 3 Mg/0.5 Mg (3 Ml) Ud) 3 ml IH TIDRESP [facility] Last Admin: 01/09/18 14:21 Dose: 3 ml Albuterol/Ipratropium (Duoneb 3 Mg/0.5 Mg (3 Ml) Ud) 3 ml IH Q2H PRN PRN Reason: Shortness of Breath Last Admin: 01/08/18 05:32 Dose: 3 ml Diltiazem HCl (Cardizem Cd) 180 mg PO DAILY [facility] Last Admin: 01/09/18 10:27 Dose: 180 mg Furosemide (Lasix) 40 mg IVP BID [facility] Last Admin: 01/09/18 10:27 Dose: 40 mg Vancomycin HCl (Vancomycin 1gm) 1 gm in 250 mls @ 167 mls/hr IVPB DAILY [facility] PRN Reason: Protocol Last Admin: 01/09/18 10:28 Dose: 167 mls/hr Cefepime HCl (Maxipime 1gm) 1 gm in 100 mls @ 100 mls/hr IVPB Q12 [facility] PRN Reason: Protocol Last Admin: 01/09/18 10:28 Dose: 100 mls/hr Lorazepam (Ativan) 1 mg IVP Q4H PRN; Protocol PRN Reason: Symptoms of alcohol withdrawl Last Admin: 01/06/18 23:17 Dose: 1 mg Metoprolol Tartrate (Lopressor) 5 mg IVP Q6 PRN PRN Reason: Heart rate Last Admin: 01/09/18 12:56 Dose: 5 mg Nicotine (Nicoderm Cq) 1 patch TD DAILY [facility] Last Admin: 01/09/18 10:48 Dose: 1 patch Ondansetron HCl (Zofran Inj) 4 mg IVP Q4H PRN PRN Reason: Nausea/Vomiting Pantoprazole Sodium (Protonix Ec Tab) 40 mg PO 0600,1600 [facility] Last Admin: 01/09/18 16:43 Dose: 40 mg Prednisone (Prednisone Tab) 20 mg PO DAILY [facility] Stop: 01/12/18 10:01 Sucralfate (Carafate Oral Susp) 1 gm PO 0630,1130,1630,2200 [facility] Last Admin: 01/09/18 16:43 Dose: 1 gm - Labs Labs: 01/09/18 06:15 01/09/18 06:15 PT 12.0 SECONDS (9.4-12.5) 12/29/17 06:30 INR 1.04 (0.93-1.08) 12/29/17 06:30 APTT 23.8 Seconds (25.1-36.5) L 12/29/17 06:30 - Constitutional Appears: Non-toxic, No Acute Distress - Eye Exam Eye Exam: absent: Scleral icterus - ENT Exam ENT Exam: Mucous Membranes Moist - Respiratory Exam Respiratory Exam: Clear to Ausculation Bilateral. absent: Respiratory Distress - Cardiovascular Exam Cardiovascular Exam: RRR, +S1, +S2 - GI/Abdominal Exam GI & Abdominal Exam: Soft. absent: Distended, Tenderness - Exam Exam: absent: Bladder Distension - Extremities Exam Additional comments: no leg edema - Neurological Exam Neurological Exam: Alert, Awake - Psychiatric Exam Psychiatric exam: Normal Mood. absent: Agitated - Skin Skin Exam: Warm. absent: Cyanosis Assessment and Plan (1) Acute kidney failure Assessment & Plan: Resolved, renal function at baseline but getting aggressively diuresed and on vanco for PNA; -checking vanco trough tomorrow -avoid nephrotoxic agents Status: Acute (2) Hypernatremia Status: Acute (3) SIRS (systemic inflammatory response syndrome) Status: Acute (4) Acute hypoxemic respiratory failure Status: Acute (5) Anemia Assessment & Plan: GI bleed had resolved but hgb again dropping; getting 1 u prbc; Status: Acute
--- NOTE | 2018-01-09 19:03 | CP.PCM.PN ---
Subjective - Date & Time of Evaluation Date of Evaluation: 01/09/18 Time of Evaluation: 16:00 - Subjective Subjective: Infectious Disease Follow Up: January 09, 2018 77 year old male with PMH of hypertension, duodenitis, erosive gastritis ( diagnosed in 2012), divericulosis, abdominal aortic aneurysm repair in 2011, left lower extremity DVT (2011), who presents with GI bleed. Patient states that over the past 2 days he had multiple episodes of coffee ground hematemesis. He also reports melena, and bright red blood per rectum starting yesetrday. Patient states that he started Xarelto a few days ago. Patient endorses he was taking Eliquis but experienced abdominal discomfort, loss of appetite, and associated weight loss. He was switched to Xarelto instead recently due to these adverse events. He does admit to drinking alcohol, but denies any history of drinking greater than 8 drinks per week or having any prior history of alcohol abuse. Patient states that he takes Aleve almost daily for the past 5 years. Currently in ICU for monitoring. TLC placed. Had several melena episodes during hospitalization. S/P IR angiography with embolization of left gastric artery POD#12. Extubated. On Vancomycin and Meropenem for antibiotic treatment. Patient with history of frequent hospitalizations. History obtained from the chart. Extubated, the patient is fully awake and alert and able to follow commands. Endoscopy done and Colonoscopy done Saturday. He is on Nasal Cannula now. Supportive care. He is on 5L NC. Awake and alert. Chest X-ray showing new left lung base infiltrate. Awaiting blood and urine cultures... these have been negative from 01/06 and 01/07. Fever up to 100.7 F in past 48 hours. Still with cough. Afebrile so far today. No new complaints. Objective - Vital Signs/Intake and Output Vital Signs (last 24 hours): Temp Pulse Resp BP Pulse Ox 98.2 F 75 18 152/82 H 97 01/09/18 17:49 01/09/18 18:00 01/09/18 17:49 01/09/18 18:37 01/09/18 06:00 Intake and Output: 01/09/18 01/09/18 06:59 18:59 Intake Total 300 365 Balance 300 365 - Medications Medications: Current Medications Albuterol/Ipratropium (Duoneb 3 Mg/0.5 Mg (3 Ml) Ud) 3 ml IH TIDRESP [facility] Last Admin: 01/09/18 14:21 Dose: 3 ml Albuterol/Ipratropium (Duoneb 3 Mg/0.5 Mg (3 Ml) Ud) 3 ml IH Q2H PRN PRN Reason: Shortness of Breath Last Admin: 01/08/18 05:32 Dose: 3 ml Diltiazem HCl (Cardizem Cd) 180 mg PO DAILY [facility] Last Admin: 01/09/18 10:27 Dose: 180 mg Furosemide (Lasix) 40 mg IVP BID [facility] Last Admin: 01/09/18 18:37 Dose: 40 mg Vancomycin HCl (Vancomycin 1gm) 1 gm in 250 mls @ 167 mls/hr IVPB DAILY [facility] PRN Reason: Protocol Last Admin: 01/09/18 10:28 Dose: 167 mls/hr Cefepime HCl (Maxipime 1gm) 1 gm in 100 mls @ 100 mls/hr IVPB Q12 [facility] PRN Reason: Protocol Last Admin: 01/09/18 10:28 Dose: 100 mls/hr Lorazepam (Ativan) 1 mg IVP Q4H PRN; Protocol PRN Reason: Symptoms of alcohol withdrawl Last Admin: 01/06/18 23:17 Dose: 1 mg Metoprolol Tartrate (Lopressor) 5 mg IVP Q6 PRN PRN Reason: Heart rate Last Admin: 01/09/18 12:56 Dose: 5 mg Nicotine (Nicoderm Cq) 1 patch TD DAILY [facility] Last Admin: 01/09/18 10:48 Dose: 1 patch Ondansetron HCl (Zofran Inj) 4 mg IVP Q4H PRN PRN Reason: Nausea/Vomiting Pantoprazole Sodium (Protonix Ec Tab) 40 mg PO 0600,1600 [facility] Last Admin: 01/09/18 16:43 Dose: 40 mg Prednisone (Prednisone Tab) 20 mg PO DAILY [facility] Stop: 01/12/18 10:01 Sucralfate (Carafate Oral Susp) 1 gm PO 0630,1130,1630,2200 [facility] Last Admin: 01/09/18 16:43 Dose: 1 gm - Labs Labs: 01/09/18 06:15 01/09/18 06:15 PT 12.0 SECONDS (9.4-12.5) 12/29/17 06:30 INR 1.04 (0.93-1.08) 12/29/17 06:30 APTT 23.8 Seconds (25.1-36.5) L 12/29/17 06:30 - Constitutional Appears: Non-toxic, No Acute Distress, Chronically Ill - Head Exam Head Exam: ATRAUMATIC, NORMOCEPHALIC - Eye Exam Eye Exam: EOMI, PERRL Pupil Exam: NORMAL ACCOMODATION, PERRL - ENT Exam ENT Exam: Mucous Membranes Moist, Normal External Ear Exam, TM's Normal Bilaterally - Neck Exam Neck Exam: Full ROM, Normal Inspection - Respiratory Exam Respiratory Exam: Decreased Breath Sounds, NORMAL BREATHING PATTERN. absent: Rales, Rhonchi, Wheezes - Cardiovascular Exam Cardiovascular Exam: REGULAR RHYTHM, RRR, +S1, +S2 - GI/Abdominal Exam GI & Abdominal Exam: Soft, Normal Bowel Sounds. absent: Distended, Tenderness - Extremities Exam Extremities Exam: Full ROM, Normal Inspection - Neurological Exam Neurological Exam: Alert, Awake, CN II-XII Intact, Oriented x3 - Psychiatric Exam Psychiatric exam: Normal Affect, Normal Mood - Skin Skin Exam: Intact, Normal Color Assessment and Plan - Assessment and Plan (Free Text) Assessment: 77 yo AA male known to me from prior hospitalizations presenting with acute GI bleed. The patient has been anemic and hypoxic. The patient has been having persistent fevers with mild leukocytosis. Supportive care. Start Vancomycin and Meropenem for treatment. Sepsis workup. Hypoxemia. Patient being evaluted for TRALI and PE at this time. The patient has left gastric artery embolization on 12/27/2017. The patient was given 13 U PRBCs and 8 U FFP. Patient with EKTA. Extubated this morning. Poor prognosis. The patient has been afebrile for the past several hours. Extremely poor prognosis. Sputum cultures showing Serratia. Remains on Meropenem and Vancomycin IV for antibiotic treatment at this time. Colonoscopy done by Dr. Ibrahim Saturday. The patient today became confused. Noted increasing leukocytosis now to 17.4. Extubated Saturday. Slowly improving. On Nasal canula now. 3L of O2 but saturations of 90%. Febrile to 100.7 F two afternoons ago. Chest X-ray with left lower lung base new infiltrate. On Cefepime. Check blood and urine cultures. 01/06/2018 and 01/07/2018 cultures negative so far. On Cefepime and Vancomycin IV for antibiotic treatment. Treatment for pneumonia at this point. Noted patient refused BiPAP today. Antibiotics now completed. The patient's cardiac issues are the more pressing medical issues at this time. Thank you for allowing me to participate in the care of the patient, we will follow with you.
[2018-01-09 20:00] VITALS: RESP 20
[2018-01-10] MEDS: Pantoprazole 40 mg EC Tab PO SCH (05:42)
[2018-01-10] MEDS: Sucralfate 1 gm/10 ml Oral Susp UD PO SCH ×2 (05:42→12:01)
[2018-01-10 06:51] LABS: BASO # 0.02 K/mm3 (0.0-2.0); BASO % 0.1 % (0.0-3.0); EOS % 0.1 % (1.5-5.0); GRAN # 11.43 (1.4-6.5); LYMPH # 1.1 (1.2-3.4); LYMPH % 8.2 % (22.0-35.0); MEAN CELL VOLUME 84.2 fl (80.0-105.0); MEAN CORPUSCULAR HEMOGLOBIN 27.5 pg (25.0-35.0); MEAN CORPUSCULAR HGB CONC 32.6 g/dl (31.0-37.0); MEAN PLATELET VOLUME 10.3 fl (7.0-11.0); MONO % 7.6 % (1.0-6.0); RBC 3.35 10^6/uL (3.5-6.1); RED CELL DISTRIBUTION WIDTH 16.3 % (11.5-14.5); WHITE BLOOD COUNT 13.6 10^3/ul (4.5-11.0)
[2018-01-10 07:02] LABS: ALBUMIN 3.1 g/dL (3.0-4.8); CALCIUM 8.6 mg/dL (8.4-10.5)
[2018-01-10] MEDS ORDERED: Potassium Chloride 20 mEq ER Tab PO ONE (07:08)
[2018-01-10 07:10] LABS: IRON 44 ug/dL (45-180)
[2018-01-10 07:14] LABS: HEMOGLOBIN 9.2 g/dL (14.0-18.0)
[2018-01-10 07:20] LABS: % IRON SATURATION 18 % (20-55); TOTAL IRON BINDING CAPACITY 237 ug/dL (261-462)
[2018-01-10 07:28] VITALS: TEMP 98.3; O2SAT 91
[2018-01-10] MEDS: Albuterol-Ipratrop 3 mg / 0.5 (3 ml) UD IH SCH ×2 (08:03→13:43)
--- NOTE | 2018-01-10 08:25 | CP.PCM.PN ---
Subjective - Date & Time of Evaluation Date of Evaluation: 01/10/18 Time of Evaluation: 07:00 - Subjective Subjective: GI Progress Note for Miky Ruiz PGY2 Patient seen and examined at bedside. There were no acute overnight events as per nursing staff. Patient was transfused 2U PRBC yesterday. He was sitting up in bed comfortably upon examination. He reports feeling well and would like to go home. He denies chest pain, abdominal pain, shortness of breath, nausea/ vomiting/diarrhea, fever/chills, numbness/tingling, dysuria or hematuria. Objective - Vital Signs/Intake and Output Vital Signs (last 24 hours): Temp Pulse Resp BP Pulse Ox 98.3 F 84 20 167/82 H 91 L 01/10/18 06:00 01/10/18 06:00 01/10/18 06:00 01/10/18 06:00 01/10/18 06:00 Intake and Output: 01/10/18 01/10/18 06:59 18:59 Intake Total 340 Output Total 2100 Balance -1760 - Medications Medications: Current Medications Albuterol/Ipratropium (Duoneb 3 Mg/0.5 Mg (3 Ml) Ud) 3 ml IH TIDRESP [facility] Last Admin: 01/10/18 08:03 Dose: 3 ml Albuterol/Ipratropium (Duoneb 3 Mg/0.5 Mg (3 Ml) Ud) 3 ml IH Q2H PRN PRN Reason: Shortness of Breath Last Admin: 01/08/18 05:32 Dose: 3 ml Diltiazem HCl (Cardizem Cd) 180 mg PO DAILY [facility] Last Admin: 01/09/18 10:27 Dose: 180 mg Furosemide (Lasix) 40 mg IVP BID [facility] Last Admin: 01/09/18 18:37 Dose: 40 mg Vancomycin HCl (Vancomycin 1gm) 1 gm in 250 mls @ 167 mls/hr IVPB DAILY [facility] PRN Reason: Protocol Last Admin: 01/09/18 10:28 Dose: 167 mls/hr Cefepime HCl (Maxipime 1gm) 1 gm in 100 mls @ 100 mls/hr IVPB Q12 [facility] PRN Reason: Protocol Last Admin: 01/09/18 21:40 Dose: 100 mls/hr Lorazepam (Ativan) 1 mg IVP Q4H PRN; Protocol PRN Reason: Symptoms of alcohol withdrawl Last Admin: 01/06/18 23:17 Dose: 1 mg Metoprolol Tartrate (Lopressor) 5 mg IVP Q6 PRN PRN Reason: Heart rate Last Admin: 01/09/18 12:56 Dose: 5 mg Nicotine (Nicoderm Cq) 1 patch TD DAILY [facility] Last Admin: 01/09/18 10:48 Dose: 1 patch Ondansetron HCl (Zofran Inj) 4 mg IVP Q4H PRN PRN Reason: Nausea/Vomiting Pantoprazole Sodium (Protonix Ec Tab) 40 mg PO 0600,1600 [facility] Last Admin: 01/10/18 05:42 Dose: 40 mg Prednisone (Prednisone Tab) 20 mg PO DAILY [facility] Stop: 01/12/18 10:01 Sucralfate (Carafate Oral Susp) 1 gm PO 0630,1130,1630,2200 [facility] Last Admin: 01/10/18 05:42 Dose: 1 gm - Labs Labs: 01/10/18 06:00 01/10/18 06:00 PT 12.0 SECONDS (9.4-12.5) 12/29/17 06:30 INR 1.04 (0.93-1.08) 12/29/17 06:30 APTT 23.8 Seconds (25.1-36.5) L 12/29/17 06:30 - Constitutional Appears: No Acute Distress - Head Exam Head Exam: ATRAUMATIC, NORMAL INSPECTION, NORMOCEPHALIC - Eye Exam Eye Exam: Normal appearance Pupil Exam: NORMAL ACCOMODATION - ENT Exam ENT Exam: Mucous Membranes Moist - Respiratory Exam Respiratory Exam: Clear to Ausculation Bilateral, NORMAL BREATHING PATTERN. absent: Rales, Rhonchi, Wheezes - Cardiovascular Exam Cardiovascular Exam: REGULAR RHYTHM, +S1, +S2. absent: Gallop, Rubs, Murmur - GI/Abdominal Exam GI & Abdominal Exam: Soft, Normal Bowel Sounds. absent: Rigid, Tenderness, Mass , Rebound - Extremities Exam Extremities Exam: Pedal Edema - Neurological Exam Neurological Exam: Alert, Awake, CN II-XII Intact - Psychiatric Exam Psychiatric exam: Normal Affect, Normal Mood - Skin Skin Exam: Dry, Warm Assessment and Plan - Assessment and Plan (Free Text) Assessment: This is a 77yo AA male with past medical history of lung ca, DVT and EKTA who was admitted for 1. Massive GI bleed was on Xeralto s/p Kcentra and had multiple transfusions ( 17U PRBC, 8U FFP, 4U platelets) - EGD showed clotted blood in gastric antrum. Gastric embolization done by IR - Repeat EGD done did not show any overt bleeding - Colonoscopy showed ulcerated polypoid lesion in sigmoid colon that was not able to be biopsied. 2. Sepsis - secondary to pneumonia with new LLL infiltrate 3. Elevated BNP - Echo EF 67% with mild-mod pulm HTN 4. Gout of R knee 5. Hx of DVT of femoral vein - Duplex US did not show evidence of DVT 6. Paroxysmal a.fib (non-valvular) Plan: Hgb improved. No overt signs of bleeding at this time. Continue to monitor H/H. Patient is on PO Prednisone for gout. Recommend to continue carafate. Continue high dose PPI and puree diet. Will repeat EGD and flexible sigmoidoscopy in a few weeks. Cardiology is on consult. Will monitor off of anticoagulation. Do not recommend newer anticoagulants. Case seen, discussed and reviewed with Dr. Ibrahim. Miky Valera PGY2
[2018-01-10] MEDS: Vancomycin 1gm in NS 250ml 1 GM/250 ML BAG IVPB SCH (08:59)
[2018-01-10] MEDS: Cefepime 1gm in NS 100ml 1 GM/100 ML BAG IVPB SCH (08:59)
[2018-01-10] MEDS: diltiaZEM 180 mg/24 Hours CD Cap PO SCH (09:00)
--- NOTE | 2018-01-10 12:55 | CP.PCM.DIS ---
Provider - Provider Date of Admission: 12/26/17 19:40 Attending physician: Abdirahman Lugo MD Primary care physician: Butch Schwartz MD Consults: Cardiology: Dr. Ashton General Surgery: Dr. Lopez Gastroenterology: Dr. Ibrahim Infectious disease: Dr. Vyas Nephrology: Dr. Santos Radiology: Dr. Dan Time Spent in preparation of Discharge (in minutes): 40 Diagnosis - Discharge Diagnosis (1) Acute hypoxemic respiratory failure Status: Acute Priority: High (2) Acute kidney failure Status: Acute Priority: High (3) Acute lower GI hemorrhage Status: Acute Priority: High (4) Acute upper GI bleeding Status: Acute Priority: High (5) Anemia Status: Acute Priority: High (6) Hypernatremia Status: Acute Priority: High (7) SIRS (systemic inflammatory response syndrome) Status: Acute Priority: High Hospital Course - Lab Results Lab Results: Micro Results 01/06/18 05:15 Blood Blood Culture - Preliminary NO GROWTH AFTER 4 DAYS 01/06/18 05:00 Blood Blood Culture - Preliminary NO GROWTH AFTER 4 DAYS 01/07/18 17:57 Urine Urine Culture - Final No Growth (<1,000 CFU/ML) 12/29/17 06:05 Blood Blood Culture - Final NO GROWTH AFTER 5 DAYS 12/29/17 06:05 Blood Gram Stain - Final TEST NOT PERFORMED 12/29/17 05:30 Blood Blood Culture - Final NO GROWTH AFTER 5 DAYS 12/29/17 05:30 Blood Gram Stain - Final TEST NOT PERFORMED 12/29/17 08:45 Trachasp Gram Stain - Final 12/29/17 08:45 Trachasp Sputum Culture - Final Serratia Marcescens 12/29/17 08:45 Urine,Cadet Urine Culture - Final No Growth (<1,000 CFU/ML) 12/26/17 23:16 Nose MRSA Culture (Admit) - Final MRSA NOT DETECTED Most Recent Lab Values WBC 13.6 10^3/ul (4.5-11.0) H 01/10/18 06:00 RBC 3.35 10^6/uL (3.5-6.1) L 01/10/18 06:00 Hgb 9.2 g/dL (14.0-18.0) L D 01/10/18 06:00 Hct 28.2 % (42.0-52.0) L 01/10/18 06:00 MCV 84.2 fl (80.0-105.0) 01/10/18 06:00 MCH 27.5 pg (25.0-35.0) 01/10/18 06:00 MCHC 32.6 g/dl (31.0-37.0) 01/10/18 06:00 RDW 16.3 % (11.5-14.5) H 01/10/18 06:00 Plt Count 383 10^3/uL (120.0-450.0) 01/10/18 06:00 MPV 10.3 fl (7.0-11.0) 01/10/18 06:00 Gran % 84.0 % (50.0-68.0) H 01/10/18 06:00 Lymph % (Auto) 8.2 % (22.0-35.0) L 01/10/18 06:00 [place] % (Auto) 7.6 % (1.0-6.0) H 01/10/18 06:00 Eos % (Auto) 0.1 % (1.5-5.0) L 01/10/18 06:00 Baso % (Auto) 0.1 % (0.0-3.0) 01/10/18 06:00 Gran # 11.43 (1.4-6.5) H 01/10/18 06:00 Lymph # (Auto) 1.1 (1.2-3.4) L 01/10/18 06:00 [place] # (Auto) 1.0 (0.1-0.6) H 01/10/18 06:00 Eos # (Auto) 0.0 (0.0-0.7) 01/10/18 06:00 Baso # (Auto) 0.02 K/mm3 (0.0-2.0) 01/10/18 06:00 PT 12.0 SECONDS (9.4-12.5) 12/29/17 06:30 INR 1.04 (0.93-1.08) 12/29/17 06:30 APTT 23.8 Seconds (25.1-36.5) L 12/29/17 06:30 D-Dimer, Quantitative 4270 ng/mL (0-243) H 01/08/18 16:04 pCO2 35 mm/Hg (35-45) 01/08/18 06:32 pO2 45.0 mm/Hg (80-100) L 01/08/18 06:32 HCO3 26.7 mmol/L (21-28) 01/08/18 06:32 ABG pH 7.49 (7.35-7.45) H 01/08/18 06:32 ABG Total CO2 27.8 mmol.L (22-28) 01/08/18 06:32 ABG O2 Saturation 87.2 % (95-98) L 01/08/18 06:32 ABG O2 Content 11.3 ML/dl (15-23) L 01/04/18 05:00 ABG Base Excess 3.5 mmol/L (-2.0-3.0) H 01/08/18 06:32 ABG Hemoglobin 8.2 g/dL (11.7-17.4) L 01/04/18 05:00 ABG Carboxyhemoglobin 1.6 % (0.5-1.5) H 01/04/18 05:00 POC ABG HHb (Measured) 0.9 % (0-5) 01/04/18 05:00 ABG Methemoglobin 0.8 % (0.0-3.0) 01/04/18 05:00 ABG O2 Capacity 11.4 mL/dl (16-24) L 01/04/18 05:00 ABG Potassium 3.4 mmol/L (3.6-5.2) L 01/08/18 06:32 VBG pH 7.32 (7.32-7.43) 12/29/17 05:30 VBG pCO2 49.0 (40-60) 12/29/17 05:30 VBG HCO3 25.2 mmol/l (21-28) 12/29/17 05:30 VBG Total CO2 26.7 mmol.L (22-28) 12/29/17 05:30 VBG O2 Sat (Calc) 64.8 % (40-65) 12/29/17 05:30 VBG Base Excess -1.4 mmol/L (0.0-2.0) L 12/29/17 05:30 VBG Potassium 3.6 mmol/L (3.6-5.2) 12/29/17 05:30 Hgb O2 Saturation 96.6 % (95.0-98.0) 01/04/18 05:00 Sodium 142.0 mmol/L (132-148) 01/08/18 06:32 Chloride 113.0 mmol/L (98-107) H 01/08/18 06:32 Glucose 115 mg/dl (75-110) H 01/08/18 06:32 Lactate 0.7 mmol/L (0.7-2.1) 01/08/18 06:32 FiO2 36.0 % 01/08/18 06:32 Sodium 142 mmol/L (132-148) 01/10/18 06:00 Potassium 3.5 mmol/L (3.6-5.0) L 01/10/18 06:00 Chloride 101 mmol/L (98-107) 01/10/18 06:00 Carbon Dioxide 31 mmol/L (21-33) 01/10/18 06:00 Anion Gap 13 (10-20) 01/10/18 06:00 BUN 39 mg/dL (7-21) H 01/10/18 06:00 Creatinine 1.5 mg/dl (0.8-1.5) 01/10/18 06:00 Est GFR ( Amer) 55 01/10/18 06:00 Est GFR (Non-Af Amer) 46 01/10/18 06:00 Random Glucose 100 mg/dL (70-110) 01/10/18 06:00 Serum Osmolality 332 mosm/kg (272-300) H 12/31/17 01:35 Calcium 8.6 mg/dL (8.4-10.5) 01/10/18 06:00 Phosphorus 4.1 mg/dL (2.5-4.5) 12/30/17 06:00 Magnesium 1.8 mg/dL (1.7-2.2) 01/08/18 06:00 Iron 44 ug/dL (45-180) L 01/10/18 06:00 TIBC 237 ug/dL (261-462) L 01/10/18 06:00 % Saturation 18 % (20-55) L 01/10/18 06:00 Ferritin 169.0 ng/mL 01/10/18 06:00 Total Bilirubin 0.4 mg/dL (0.2-1.3) 01/10/18 06:00 AST 32 U/L (17-59) 01/10/18 06:00 ALT 19 U/L (7-56) 01/10/18 06:00 Alkaline Phosphatase 74 U/L (38-126) 01/10/18 06:00 Lactate Dehydrogenase 517 U/L (333-699) 01/08/18 06:00 Total Creatine Kinase 49 U/L (35-230) 01/08/18 06:00 Troponin I 0.05 ng/mL 01/08/18 06:00 NT-Pro-B Natriuret Pep 03205 pg/mL (0-450) H 01/09/18 09:35 Total Protein 6.3 g/dL (5.8-8.3) 01/10/18 06:00 Albumin 3.1 g/dL (3.0-4.8) 01/10/18 06:00 Globulin 3.2 gm/dL 01/10/18 06:00 Albumin/Globulin Ratio 1.0 (1.1-1.8) L 01/10/18 06:00 Lipase 30 U/L (23-300) 12/26/17 19:03 Vitamin B12 265 pg/mL (239-931) 01/06/18 11:15 Folate 7.0 ng/mL 01/06/18 11:15 Procalcitonin 1.52 NG/ML (0.19-0.49) H 12/29/17 05:30 Arterial Blood Potassium 3.4 mmol/L (3.6-5.2) L 01/08/18 06:32 Venous Blood Potassium 3.6 mmol/L (3.6-5.2) 12/29/17 05:30 Urine Color Yellow (YELLOW) 01/07/18 17:57 Urine Appearance Slight-cloudy (CLEAR) 01/07/18 17:57 Urine pH 6.0 (4.7-8.0) 01/07/18 17:57 Ur Specific Remer 1.020 (1.005-1.035) 01/07/18 17:57 Urine Protein 30 mg/dL (<30 mg/dL) H 01/07/18 17:57 Urine Glucose (UA) Negative mg/dL (NEGATIVE) 01/07/18 17:57 Urine Ketones Negative mg/dL (NEGATIVE) 01/07/18 17:57 Urine Blood Negative (NEGATIVE) 01/07/18 17:57 Urine Nitrate Negative (NEGATIVE) 01/07/18 17:57 Urine Bilirubin Negative (NEGATIVE) 01/07/18 17:57 Urine Urobilinogen 0.2 E.U./dL (<1 E.U./dL) 01/07/18 17:57 Ur Leukocyte Esterase Negative Jigar/uL (NEGATIVE) 01/07/18 17:57 Urine RBC Negative /hpf (0-2) 01/07/18 17:57 Urine WBC Negative /hpf (0-6) 01/07/18 17:57 Ur Epithelial Cells 3 - 4 /hpf (0-5) 01/07/18 17:57 Amorphous Sediment Trace 12/29/17 08:45 Urine Bacteria Mod (NEG) 01/07/18 17:57 Urine Other Mucus 01/07/18 17:57 Urine Osmolality 538 mosm/kg (300-1000) 12/31/17 01:40 Vancomycin Trough 10.1 ug/mL (5.0-10.0) H 01/10/18 06:00 Random Vancomycin 6.4 ug/mL (20-40) L 12/30/17 06:00 Blood Type O POSITIVE 01/08/18 07:45 Blood Type Confirm O POSITIVE 12/26/17 20:29 Antibody Screen Negative 01/08/18 07:45 Crossmatch See Detail 01/08/18 07:45 BBK History Checked Patient has bt 01/08/18 07:45 - Hospital Course Hospital Course: 77M with a past medical history of hypertension, duodenitis, erosive gastritis ( diagnosed in 2012), diverticulosis, abdominal aortic aneurysm repair in 2011, LLE DVT in 2011, who presented with two days of melena, multiple episodes of coffee ground hematemesis, and bright red blood per rectum today after starting Xarelto two days prior to admission. Patient reports taking Eliquis for more than 1 month but experienced abdominal discomfort, loss of appetite, and associated weight loss. His PMD, Dr. Schwartz, started him on Xarelto instead (two days prior) in light of these adverse events. Today passing large volume of bright red blood per rectum that he is unable to quantify. He does admit to drinking alcohol, but denies any history of drinking greater than 8 drinks per week or having any prior history of alcohol abuse. During hospital course patients bleeding scan was positive. Hemoglobin dropped to 5. Subsequently patient was transfused 15u of PRBC, FFP and platelets. Consulting services for Gastroenerology, Surgery, Cardiology, and nephrology were brought onto the case. Patient underwent angioembolization of the left gastric artery by interventional radiology. Afterwards upper and lower scopes were formed which did not show any active bleeding. A questionable spot in the transverse colon was seen, however no biopsies were performed because of patients high risk for bleeding. After procedure patient experienced Delirium in the ICU. Patient was able to be reoriented with proper light therapy and verbal reorientation. Hospital course was complicated by Pneumonia, and was started on the appropriate IV abx. Patient has been afebrile for over 48 hours. In addition hemoglobin was slowly decreasing due to serial blood draws in the morning. There is no clinic signs of anemia. Patient is regularly regular with HR under 100, bowel movements are normal with no dark stools, or bright red blood per rectum, nausea has resolved with no bloody emesis. After further evaluation of serial dopplers of the lower extremity; patient is negative for DVT in the hospital. Echo during the hospital course did not show vegetation or signs of thrombus. After consulting with cardiology and GI, and detailed conversation with the family, we have determined it is best to hold the anti-coagulation temporarily and re-assessed after rehab. Risks and benefits were explained about stopping the anti-coagulation temporarily. Risks included pulmonary embolism, and or cerebral vascular accident. With stable hemoglobin at 7 with no signs of active bleeding; will transfuse two more units of PRBC prior to discharge. Patient has agreed and is cleared medically for discharge to [facility], with Oxygen, oral antibiotics. This is a breif summary of patients hosptial course. For further details see chart during visit. Case discussed and reviewed with Dr. Thomas Chapa PGY1 Discharge Exam - Head Exam Head Exam: ATRAUMATIC, NORMAL INSPECTION, NORMOCEPHALIC - Eye Exam Eye Exam: EOMI, Normal appearance - Neck Exam Neck exam: Full Rom - Respiratory Exam Respiratory Exam: Clear to PA & Lateral, UNREMARKABLE. absent: Wheezes - Cardiovascular Exam Cardiovascular Exam: REGULAR RHYTHM, +S1, +S2 - GI/Abdominal Exam GI & Abdominal Exam: Normal Bowel Sounds, Unremarkable - Neurological Exam Neurological exam: Alert, CN II-XII Intact, Oriented x3 - Psychiatric Exam Psychiatric exam: Normal Affect, Normal Mood - Skin Skin Exam: Normal Color, Warm Discharge Plan - Discharge Medications Prescriptions: amLODIPine [Norvasc] 5 mg PO DAILY #14 tab Cefdinir [Omnicef] 300 mg PO BID 7 Days cap diltiaZEM CD [Cardizem CD] 180 mg PO DAILY 14 Days cap Docusate Sodium [Colace] 100 mg PO DAILY #14 capsule Ferrous Sulfate 325 mg PO DAILY #14 tablet Furosemide [Lasix] 40 mg PO DAILY #14 tab Linezolid [Zyvox] 600 mg PO BID 7 Days tab Nicotine 21 mg/24 hr [Nicoderm Cq] 1 patch TD DAILY #14 patch predniSONE [predniSONE Tab] 20 mg PO DAILY 4 Days tab Sucralfate [Carafate Oral Susp] 1 gm PO 0630,1130,1630,2200 14 Days udc - Follow Up Plan Condition: GOOD Disposition: [facility] Instructions: Gastrointestinal Bleeding (DC) Additional Instructions: Plan to discharge to Subacute rehab facility for strength training, and conditioning. Take antibiotics as prescribed. Will hold off on anti-coagulation at this time due to the high risk of bleeding. After rehab, follow up with [facility] Dr. Ashton for re-evaluation of restarting anti-coagulation or possible Hitman procedure. In addition after rehab, follow up with Gastroenterology Dr. Ibrahim for follow up colonoscopy. If noticing bright red blood in bowel movements or in vomit, return to the ER for further evaluation Referrals: Butch Schwartz MD [Primary Care Provider] - Jarred Ibrahim MD [Medical Doctor] - nAdrew Ashton MD [Staff Provider] -
[2018-01-10 13:12] VITALS: BP 149/89; PULSE 82
--- NOTE | 2018-01-10 22:40 | CP.PCM.PN ---
Subjective - Date & Time of Evaluation Date of Evaluation: 01/10/18 Time of Evaluation: 12:00 - Subjective Subjective: Infectious Disease Follow Up: January 10, 2018 77 year old male with PMH of hypertension, duodenitis, erosive gastritis ( diagnosed in 2012), divericulosis, abdominal aortic aneurysm repair in 2011, left lower extremity DVT (2011), who presents with GI bleed. Patient states that over the past 2 days he had multiple episodes of coffee ground hematemesis. He also reports melena, and bright red blood per rectum starting yesetrday. Patient states that he started Xarelto a few days ago. Patient endorses he was taking Eliquis but experienced abdominal discomfort, loss of appetite, and associated weight loss. He was switched to Xarelto instead recently due to these adverse events. He does admit to drinking alcohol, but denies any history of drinking greater than 8 drinks per week or having any prior history of alcohol abuse. Patient states that he takes Aleve almost daily for the past 5 years. Currently in ICU for monitoring. TLC placed. Had several melena episodes during hospitalization. S/P IR angiography with embolization of left gastric artery POD#12. Extubated. On Vancomycin and Meropenem for antibiotic treatment. Patient with history of frequent hospitalizations. History obtained from the chart. Extubated, the patient is fully awake and alert and able to follow commands. Endoscopy done and Colonoscopy done Saturday. He is on Nasal Cannula now. Supportive care. He is on 5L NC. Awake and alert. Chest X-ray showing new left lung base infiltrate. Awaiting blood and urine cultures... these have been negative from 01/06 and 01/07. Fever up to 100.7 F in past 96 hours. Still with cough. Afebrile so far today. No new complaints. Objective - Vital Signs/Intake and Output Vital Signs (last 24 hours): Temp Pulse Resp BP Pulse Ox 98.3 F 82 20 149/89 91 L 01/10/18 06:00 01/10/18 13:57 01/10/18 06:00 01/10/18 13:09 01/10/18 06:00 - Labs Labs: 01/10/18 06:00 01/10/18 06:00 PT 12.0 SECONDS (9.4-12.5) 12/29/17 06:30 INR 1.04 (0.93-1.08) 12/29/17 06:30 APTT 23.8 Seconds (25.1-36.5) L 12/29/17 06:30 - Constitutional Appears: Non-toxic, No Acute Distress, Chronically Ill - Eye Exam Eye Exam: EOMI, PERRL Pupil Exam: NORMAL ACCOMODATION, PERRL - ENT Exam ENT Exam: Mucous Membranes Moist, Normal External Ear Exam, TM's Normal Bilaterally - Neck Exam Neck Exam: Full ROM, Normal Inspection - Respiratory Exam Respiratory Exam: Clear to Ausculation Bilateral, NORMAL BREATHING PATTERN. absent: Rales, Rhonchi, Wheezes - Cardiovascular Exam Cardiovascular Exam: REGULAR RHYTHM, RRR, +S1, +S2 - GI/Abdominal Exam GI & Abdominal Exam: Soft, Normal Bowel Sounds. absent: Distended, Tenderness - Extremities Exam Extremities Exam: Full ROM, Normal Inspection - Neurological Exam Neurological Exam: Alert, Awake, CN II-XII Intact, Oriented x3 - Psychiatric Exam Psychiatric exam: Normal Affect, Normal Mood - Skin Skin Exam: Intact, Normal Color Assessment and Plan - Assessment and Plan (Free Text) Assessment: 77 yo AA male known to me from prior hospitalizations presenting with acute GI bleed. The patient has been anemic and hypoxic. The patient has been having persistent fevers with mild leukocytosis. Supportive care. Start Vancomycin and Meropenem for treatment. Sepsis workup. Hypoxemia. Patient being evaluted for TRALI and PE at this time. The patient has left gastric artery embolization on 12/27/2017. The patient was given 13 U PRBCs and 8 U FFP. Patient with EKTA. Extubated this morning. Poor prognosis. The patient has been afebrile for the past several hours. Extremely poor prognosis. Sputum cultures showing Serratia. Remains on Meropenem and Vancomycin IV for antibiotic treatment at this time. Colonoscopy done by Dr. Ibrahim Saturday. The patient today became confused. Noted increasing leukocytosis now to 17.4. Extubated Saturday. Slowly improving. On Nasal canula now. 3L of O2 but saturations of 90%. Febrile to 100.7 F two afternoons ago. Chest X-ray with left lower lung base new infiltrate. On Cefepime. Check blood and urine cultures. 01/06/2018 and 01/07/2018 cultures negative so far. On Cefepime and Vancomycin IV for antibiotic treatment. Treatment for pneumonia at this point. Noted patient refused BiPAP today. Antibiotics now completed. The patient's cardiac issues are the more pressing medical issues at this time. Thank you for allowing me to participate in the care of the patient, we will follow with you.
== END 2018-01-10 13:59 | DRG 377 ==
LOC: ED 19:03 → ERH 19:40 → CCU 22:21 → 3RNO 01-05 16:41
PROVIDERS: ADMIT Internal Medicine; ATTEND Internal Medicine
PROC: 30233N1 Transfusion of Nonautologous Red Blood Cells into Peripheral Vein, Percutaneous Approach (ICD-10-PCS; 2017-12-26)
PROC: 0BH17EZ Insertion of Endotracheal Airway into Trachea, Via Natural or Artificial Opening (ICD-10-PCS; 2017-12-27)
PROC: 04L23DZ Occlusion of Gastric Artery with Intraluminal Device, Percutaneous Approach (ICD-10-PCS; 2017-12-27)
PROC: 05HM33Z Insertion of Infusion Device into Right Internal Jugular Vein, Percutaneous Approach (ICD-10-PCS; 2017-12-27)
PROC: B543ZZA Ultrasonography of Right Jugular Veins, Guidance (ICD-10-PCS; 2017-12-27)
PROC: 30233K1 Transfusion of Nonautologous Frozen Plasma into Peripheral Vein, Percutaneous Approach (ICD-10-PCS; 2017-12-27)
PROC: 6A551Z2 Pheresis of Platelets, Multiple (ICD-10-PCS; 2017-12-27)
PROC: 0DJ08ZZ Inspection of Upper Intestinal Tract, Via Natural or Artificial Opening Endoscopic (ICD-10-PCS; 2017-12-27)
PROC: 5A1955Z Respiratory Ventilation, Greater than 96 Consecutive Hours (ICD-10-PCS; principal; 2017-12-27 08:00)
PROC: 0DJ08ZZ Inspection of Upper Intestinal Tract, Via Natural or Artificial Opening Endoscopic (ICD-10-PCS; 2017-12-31)
PROC: 5A09357 Assistance with Respiratory Ventilation, Less than 24 Consecutive Hours, Continuous Positive Airway Pressure (ICD-10-PCS; 2018-01-02)
PROC: 0DJD8ZZ Inspection of Lower Intestinal Tract, Via Natural or Artificial Opening Endoscopic (ICD-10-PCS; 2018-01-02)
DX: K25.4 Chronic or unspecified gastric ulcer with hemorrhage (principal); R57.8 Other shock; A41.9 Sepsis, unspecified organism; J18.9 Pneumonia, unspecified organism; J96.01 Acute respiratory failure with hypoxia; N17.0 Acute kidney failure with tubular necrosis; C34.11 Malignant neoplasm of upper lobe, right bronchus or lung; I50.30 Unspecified diastolic (congestive) heart failure; E87.0 Hyperosmolality and hypernatremia; J44.0 Chronic obstructive pulmonary disease with (acute) lower respiratory infection; I13.0 Hypertensive heart and chronic kidney disease with heart failure and stage 1 through stage 4 chronic kidney disease, or unspecified chronic kidney disease; K63.3 Ulcer of intestine; Z99.11 Dependence on respirator [ventilator] status; E86.0 Dehydration; K57.90 Diverticulosis of intestine, part unspecified, without perforation or abscess without bleeding; N18.3 Chronic kidney disease, stage 3 (moderate); K29.70 Gastritis, unspecified, without bleeding; D64.9 Anemia, unspecified; I25.10 Atherosclerotic heart disease of native coronary artery without angina pectoris; I27.20 Pulmonary hypertension, unspecified; K26.9 Duodenal ulcer, unspecified as acute or chronic, without hemorrhage or perforation; K29.80 Duodenitis without bleeding; I48.0 Paroxysmal atrial fibrillation; M10.061 Idiopathic gout, right knee; K64.8 Other hemorrhoids; Z86.718 Personal history of other venous thrombosis and embolism; Z95.5 Presence of coronary angioplasty implant and graft; Z79.01 Long term (current) use of anticoagulants; Z87.891 Personal history of nicotine dependence